=== PATIENT | female | born 1995 | race Caucasian/White ===

== ENCOUNTER 2024-01-11 09:28 | Outpatient (OUT) | payer OTHER, SELFPAY ==
--- NOTE | 2024-01-11 09:32 | US_ITS ---
[place] [id number] Patient Name: ARIEL PEREIRA MRN: [id number] date: 1995 Sex: F Assigned Patient Location: [facility] Current Patient Location: Accession/Order Number: [id number] Exam Date: 01/11/2024 09:32 Report Date: 01/12/2024 04:22 At the request of: ZULEYMA SIDDIQUI Procedure: US OB transvaginal EXAMINATION: US OB transvaginal HISTORY: MISSED MENSES COMPARISON: No relevant comparison available. FINDINGS: GESTATIONAL SAC: Present and normal appearing. YOLK SAC: Present and normal appearing. POLE: Present and normal appearing. CARDIAC: Present. UTERUS: Normal size and appearance. OVARIES: Right: Normal. Left: Normal. CERVIX: 4.1 cm in length and closed. CUL-DE-SAC: Normal. OTHER: None. AGE BY LMP: 9 weeks 1 day [place] BY LMP: 08/14/2024 AGE BY US CRL: 8 weeks 0 days [place] BY US CRL: 08/22/2024 US/US OB transvaginal IMPRESSION: 1. Single live intrauterine . Electronically authenticated by: LYDIA ABEL Date: 01/12/2024 04:22
== END 2024-01-11 09:29 | disposition home or self-care (01) ==
PROVIDERS: Visit Provider Obstetrics & Gynecology
DX: Z34.91 Encounter for supervision of normal pregnancy, unspecified, first trimester (principal); Z3A.08 8 weeks gestation of pregnancy; N92.6 Irregular menstruation, unspecified
CPT/HCPCS: 76817

== ENCOUNTER 2024-02-02 11:05 | Outpatient (OUT) | payer OTHER, SELFPAY ==
--- OUTSIDE RECORDS SUMMARY | 2024-02-02 11:10 | XMS_ITS | CCD ---
Author Organization [facility] Providers Care Rn Oncology Research Name Role Phone Keo Chavarria Primary Care Provider NONE, XXXX Primary Care Physician Unavailab KEO Castro Primary Care Physician [phone] Hui Salazar Attending Unavailable Alfredo Dejesus Attending Unavailable KEO CHAVARRIA Referring Unavailable KEO CHAVARRIA Primary Care Unavailable KEO CHAVARRIA Referring Unavailable KEO CHAVARRIA Primary Care Unavailable Leola LIRIANO Attending Unavailable Keo Chavarria DO Primary Care Provider [phone] Allergies Allergy Classification Reported Allergen(s) Allergy Type Date of Onset Reaction(s) Facility (2 sources) No Known Medication Allergies; Translations: [No Known Medication Allergies] Propensity to adverse reactions (disorder) [facility] Repository Medications Current Medications Medication Drug Class(es) Dates Sig (Normalized) Sig (Original) amoxicillin 500 mg oral capsule (1 source) Penicillin-class Antibacterial Start: 05-21-2023 take 1 capsule by mouth every twelve hours amoxicillin 500 mg Cap 500 mg = 1 cap(s), Oral, q12hr, # 20 cap(s), Refills(s) 0, Pharmacy: [facility] #[id number], 165.1, cm, 05/21/23 9:05:00 EST, Height/Length Dosing, 64, kg, 05/21/23 9:05:00 EST, Weight Dosing Start Date: 05/21/23 Status: Ordered Ethinyl Estradiol / Norgestrel (2 sources) Estrogen Start: 11-20-2018 LOW-OGESTREL 0.3-30 MG-MCG per tablet Indications: Primary dysmenorrhea TAKE 1 TABLET DAILY 84 tablet 3 11/20/2018 Active Norgestrel (4 sources) Start: 05-19-2021 norgestrel Refills(s) 0 Start Date: 05/19/21 Status: Ordered pantoprazole 40 mg delayed release oral tablet (3 sources) Proton Pump Inhibitor Start: 02-06-2019 pantoprazole (PROTONIX) tablet 40 mg Start: 02-06-2019 take 1 tablet by kim th once daily pantoprazole (PROTONIX) 20 MG tablet Take 1 tablet by mouth daily 30 tablet 0 02/06/2019 Active MV-Min-Fe Fum-FA-DH A ( 1 PO) (1 source) MV-Min- Fe Fum-FA-DHA ( 1 PO) Take by mouth Active Completed/Discontinued Medications Medication Drug Class(es) Dates Sig (Normalized) Sig (Original) aluminum & magnesium hydroxide-simethicon e (MAALOX) 30 mL, lidocaine viscous hcl (XYLOCAINE) 5 mL (GI COCKTAIL) (1 source) Start: 02-06-2019 End: 02-06-2019 aluminum & magnesium hydroxide-simethico ne (MAALOX) 30 mL, lidocaine viscous hcl (XYLOCAINE) 5 mL (GI COCKTAIL) Problems Active Problems Problem Classification Problem Date Documented Date Episodic/Chronic Menstrual disorders (4 sources) Spasmodic dysmenorrhea; 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, unspecified] Onset: 12-20-2015 12-20-2015 Chronic Other and delivery including normal (2 sources) ; Translations: [Encounter for supervision of normal , unspecified, unspecified trimester] 01-11-2024 Episodic Other screening for suspected conditions (not mental disorders or infectious disease) (2 sources) Encounter for screening for cardiovascular disorders; Translations: [Encounter for screening for malignant neoplasm of cervix] Onset: 04-02-2023 Episodic Other upper respiratory infections (4 sources) Acute pharyngitis; Translations: [Acute pharyngitis, unspecified] Onset: 08-13-2021 Episodic Superficial injury; contusion (1 source) Contusion of nose; Translations: [Contusion of nose, initial encounter] Onset: 03-12-2023 Episodic Past or Other Problems Problem Classification Problem Date Documented Da te Episodic/Chronic Abdominal pain (3 sources) Left lower quadrant pain; Translations: [Pain in pelvis] Episodic Cardiac dysrhythmias (2 sources) Bradycardia; Translations: [Bradycardia] Onset: 01-07-2013 Resolved: 09-05-2018 09-05-2018 Chronic Other liver diseases (2 sources) Elevated liver enzymes level; Translations: [Elevated liver enzymes] Onset: 01-07-2013 Resolved: 09-05-2018 09-05-2018 Episodic Other nutritional; endocrine; and metabolic disorders (2 sources) Weight loss; Translations: [Weight loss] Onset: 01-07-2013 Resolved: 09-05-2018 09-05-2018 Episodic Results Test Name Value Interpretation Reference Range Facility HCG ( test) Ql (U)o n 01-11-2024 Interpretation and review of laboratory results Normal [facility] Preg Test, Ur Negative [facility] Urinalysis macro (dipstick) panel (U)on 01-11-2024 Bilirubin, UA Negative Negative - 4(70) +++ mg/dL [facility] Blood, UA Negative Negative - 50 Kalyan/mcL [facility] Clarity, UA Clear [facility] Color, UA Yellow [facility] Glucose, UA Negative Negative - 2000(110) ++++ mg/dL [facility] Interpretation and review of laboratory results Normal [facility] Ketones, UA Negative Negative - 160(16) ++++ mg/dL [facility] Leukocytes, UA Negative Negative - 500+++ June/mcL [facility] Nitrite, UA Negative Negative - Positive [facility] pH, UA 5.5 5 - 9 [facility] Protein, UA Negative Negative - 2000(20) ++++ mg/dL [facility] Spec Grav, UA 1.02 1 - 1.03 [facility] Urobilinogen, UA 1.0 0.2 - 12 mg/dL [facility] Pre-Visit Planningon 024 Pre-Visit Planning Pre-Visit Planning From: Leola LIRIANO CNP To: Occupational Health at [facility]; Sent: 11/08/2023 08:24:20 EDT Subject: General Message: Zauber Screening Caller Name: SYEDA PEREIRA; Caller Number: Amy , Screening Lab Results: Fasting blood sugar: 74 Cholesterol TC: 127 T HDL: 59 LDL: 63 Take these results with you to your next appointment with PCP. Results: Date Result Name Value Ref Range 11/05/2023 7:40 Glucose Fasting 74 mg/dL (55 - 99) 11/05/2023 7:40 Chol 127 mg/dL (120 - 200) 11/05/2023 7:40 Trig 41 mg/dL ( - <=149) 11/05/2023 7:40 HDL 59 mg/dL 11/05/2023 7:40 LDL Direct 63 mg/dL ( - <=129) 11/05/2023 7:40 VLDL 8 mg/dL (7 - 40) Documented Labs printed Normal [facility] Basic Metabolic Profon 11-06 Anion gap [Moles/Vol] 10 mmol/L Normal - [facility] Comment on above: Performed By: #### C DP, BMP, TSHX #### [facility] [address] [place], [place] [id number] Can Dragger: Manfred Walker MD #### LIPR #### [address] [phone] Can Dragger: Henrique Madera MD BUN/CRE Ratio 18 Normal - [facility] Comment on above: Performed By: #### C CHRISTIANA BMP, TSHX #### [facility] [address], [place] [id number] Can Dragger: Manfred Walker MD #### LIPR #### [address] [id number] Can Dragger: Henrique Madera MD Calcium [Mass/Vol] 9.4 mg/dL Normal 8.6-10.4 [facility] Comment on above: Performed By: #### C DP, BMP, TSHX #### [facility] [address] [place] [address] Can Dragger: Manfred Walker MD #### LIPR #### [address] [phone] Can Dragger: Henrique Madera MD Chloride [Moles/Vol] 100 mmol/L Normal 98-107 [facility] Comment on above: Performed By: #### C DP, BMP, TSHX #### [facility] [address], [place] [phone] Can Dragger: Manfred Walker MD #### LIPR #### [facility] [address] [place], [place] [phone] Can Dragger: Henrique Madera MD CO2 [Moles/Vol] 25 mmol/L Normal 20-31 [facility] Comment on above: Performed By: #### C DP, BMP, TSHX #### [facility] [address], [place] [phone] Can Dragger: Manfred Walker MD #### LIPR #### [address] [phone] Can Dragger: Henrique Madera MD Creatinine [Mass/Vol] 0.6 mg/dL Normal 0.5-0.9 [facility] Comment on above: Performed By: #### C DP, BMP, TSHX #### [facility] [address] [place] [address] Can Dragger: Manfred Walker MD #### LIPR #### [address] [phone] Can Dragger: Henrique Madera MD GFR/1.73 sq M.predicted among non-blacks MDRD (S/P/Bld) [Vol rate/Area] mL/min/{1.73_m2} Normal >60 [facility] Comment on above: Result Comment: These results are not intended for use in patients <18 years of age. eGFR results are calculated without a race factor using the 2020 CKD-EPI equation. Careful clinical correlation is recommended, particularly when comparing to results calculated using previous equations. The CKD-EPI equation is less accurate in patients with extremes of muscle mass, extra-renal metabolism of creatine, excessive creatine ingestion, or following therapy that affects renal tubular secretion. Performed By: #### C DP, BMP, TSHX #### [facility] [address], [place] [id number] Can Dragger: Manfred Walker MD #### LIPR #### [address] [address] Can Dragger: Henrique Madera MD Glucose [Mass/Vol] 81 mg/dL Normal 70-99 [facility] Comment on above: Performed By: #### C DP, BMP, TSHX #### [facility] [address], [place] [phone] Can Dragger: Manfred Walker MD #### LIPR #### [address] [address] Can Dragger: Henrique Madera MD Potassium [Moles/Vol] 4.0 mmol/L Normal 3.7-5.3 [facility] Comment on above: Performed By: #### C DP, BMP, TSHX #### [facility] [address] [place] [address] Can Dragger: Manfred Walker MD #### LIPR #### [address] [address] Can Dragger: Henrique Madera MD Sodium [Moles/Vol] 135 mmol/L Normal 135-144 [facility] Comment on above: Performed By: #### C DP, BMP, TSHX #### [facility] [address] [place] [address] Can Dragger: Manfred Walker MD #### LIPR #### [address] [address] Can Dragger: Henrique Madera MD Urea nitrogen [Mass/Vol] 11 mg/dL Normal 6-20 [facility] Comment on above: Performed By: #### C DP, BMP, TSHX #### [facility] [address] [place] [phone] ( Can Dragger: Manfred Walker MD #### LIPR #### [address] [phone] Can Dragger: Henrique Madera MD CBC with Diffon 11-07-2023 Abs. Basophil 0.03 k/uL Normal 0.00-0.20 [facility] Comment on above: Performed By: #### C DP, BMP, TSHX #### [facility] [address] [place] [phone] ( Can Dragger: Manfred Walker MD #### LIPR #### [place] [phone] Can Dragger: Henrique Madera MD Abs.Imm.Granulocyte 0.01 k/uL Normal 0.00-0.30 [facility] Comment on above: Performed By: #### C DP, BMP, TSHX #### [facility] [address] [place] [phone] ( Can Dragger: Manfred Walker MD #### LIPR #### [place] [phone] Can Dragger: Henrique Madera MD Abs.Neutrophil (Seg) 7.15 k/uL High 2.5-7.0 [facility] Comment on above: Performed By: #### C DP, BMP, TSHX #### [facility] [address] [place] [phone] Can Dragger: Manfred Walker MD #### LIPR #### [place] [phone] Can Dragger: Henrique Madera MD Basophils/100 WBC (Bld) 0 % Normal 0-2 [facility] Comment on above: Performed By: #### C DP, BMP, TSHX #### [facility] [address] [place], [place] [phone] Can Dragger: Manfred Walker MD #### LIPR #### [place] [address] [place], [place] [phone] Can Dragger: Henrique Mdaera MD Eosinophils (Bld) [#/Vol] 0.10 10*3/uL Normal 0.00-0.40 [facility] Comment on above: Performed By: #### C DP, BMP, TSHX #### [facility] [address] [place] [address] Can Dragger: Manfred Walker MD #### LIPR #### [place] [phone] Can Dragger: Henrique Madera MD Eosinophils/100 WBC (Bld) 1 % Normal 0-5 [facility] Comment on above: Performed By: #### C DP, BMP, TSHX #### [facility] [address] [place] [phone] Can Dragger: Manfred Walker MD #### LIPR #### [place] [phone] Can Dragger: Henrique Madera MD Erythrocyte distribution width (RBC) [Ratio] 11.5 % Low 12.1-15.2 [facility] Comment on above: Performed By: #### C DP, BMP, TSHX #### [facility] [address] [place] [phone] Can Dragger: Manfred Walker MD #### LIPR #### [address] [phone] Can Dragger: Henrique Madera MD Hematocrit (Bld) [Volume fraction] 38.6 % Normal 36.0-46.0 [facility] Comment on above: Performed By: #### C DP, BMP, TSHX #### [facility] [address] [place], [place] [phone] Can Dragger: Manfred Walker MD #### LIPR #### [place] [place], [place] [phone] Can Dragger: Henrique Madera MD Hemoglobin (Bld) [Mass/Vol] 12.8 g/dL Normal 12.0-16.0 [facility] Comment on above: Performed By: #### C DP, BMP, TSHX #### [facility] [address] [place] [address] Can Dragger: Manfred Walker MD #### LIPR #### [place] [place], [place] [id number] Can Dragger: Henrique Madera MD Immature granulocytes/100 WBC (Bld) 0 % Normal 0-5 [facility] Comment on above: Performed By: #### C DP, BMP, TSHX #### [facility] [address] [place] [address] Can Dragger: Manfred Walker MD #### LIPR #### [place] [place], [place] [phone] Can Dragger: Henrique Madera MD Lymphocytes (Bld) [#/Vol] 0.65 10*3/uL Low 1.00-4.80 [facility] Comment on above: Performed By: #### C DP, BMP, TSHX #### [facility] [address] [place] [address] Can Dragger: Manfred Walker MD #### LIPR #### [address] [id number] Can Dragger: Henrique Madera MD Lymphocytes/100 WBC (Bld) 8 % Low 15-40 [facility] Comment on above: Performed By: #### C DP, BMP, TSHX #### [facility] [address] [place] [address] Can Dragger: Manfred Walker MD #### LIPR #### [place] [place] [address] Can Dragger: Henrique Madera MD MCH (RBC) [Entitic mass] 31.4 pg Normal 26.0-34.0 [facility] Comment on above: Performed By: #### C DP, BMP, TSHX #### [facility] [address] [place] [address] Can Dragger: Manfred Walker MD #### LIPR #### [place] [phone] Can Dragger: Henrique Madera MD MCHC (RBC) [Mass/Vol] 33.2 g/dL Normal 31.0-37.0 [facility] Comment on above: Performed By: #### C DP, BMP, TSHX #### [facility] [address] [place] [address] Can Dragger: Manfred Walker MD #### LIPR #### [place] [phone] Can Dragger: Henrique Madera MD MCV (RBC) [Entitic vol] 94.6 fL Normal 80.0-100.0 [facility] Comment on above: Performed By: #### C DP, BMP, TSHX #### [facility] [address] [place] [address] Can Dragger: Manfred Walker MD #### LIPR #### [address] [address] Can Dragger: Henrique Madera MD Monocytes (Bld) [#/Vol] 0.36 10*3/uL Normal 0.00-1.00 [facility] Comment on above: Performed By: #### C DP, BMP, TSHX #### [facility] [address] [place], [place] [phone] Can Dragger: Manfred Walker MD #### LIPR #### [place] [place], [place] [id number] Can Dragger: Henrique Madera MD Monocytes/100 WBC (Bld) 4 % Normal 4-8 [facility] Comment on above: Performed By: #### C DP, BMP, TSHX #### [facility] [address] [place], [place] [phone] Can Dragger: Manfred Walker MD #### LIPR #### [address] [phone] Can Dragger: Henrique Madera MD Neutrophil (Seg) 87 % High 47-75 [facility] Comment on above: Performed By: #### C DP, BMP, TSHX #### [facility] [address] [place], [place] [phone] Can Dragger: Manfred Walker MD #### LIPR #### [address] [phone] Can Dragger: Henrique Madera MD Platelet mean volume (Bld) [Entitic vol] 9.5 fL Normal 6.0-12.0 [facility] Comment on above: Performed By: #### C DP, BMP, TSHX #### [facility] [address] [place], [place] [id number] Can Dragger: Manfred Walker MD #### LIPR #### [address] [phone] Can Dragger: Henrique Madera MD Platelets (Bld) [#/Vol] 298 10*3/uL Normal 140-450 [facility] Comment on above: Performed By: #### C DP, BMP, TSHX #### [facility] [address] [place] [address] Can Dragger: Manfred Walker MD #### LIPR #### [place] [place], [place] [phone] Can Dragger: Henrique Madera MD RBC (Bld) [#/Vol] 4.08 10*6/uL Normal 4.00-5.20 [facility] Comment on above: Performed By: #### C DP, BMP, TSHX #### [facility] [address] [place] [address] Can Dragger: Manfred Walker MD #### LIPR #### [address] [id number] Can Dragger: Henrique Madera MD WBC (Bld) [#/Vol] 8.3 10*3/uL Normal 3.5-11.0 [facility] Comment on above: Performed By: #### C DP, BMP, TSHX #### [facility] [address] [place] [address] Can Dragger: Manfred Walker MD #### LIPR #### [address] [id number] Can Dragger: Henrique Madera MD HCG, Quanton 11-07-2023 HCG, Quant 2.9 mIU/mL Normal <5 [facility] Comment on above: Result Comment: Non-preg premeno <=5 Postmeno <=8 Male <=3 If HCG results do not concur with clinical observations, additional testing to confirm results is recommended. Performed By: #### B HCG #### [facility] [address] [place] [address] Can Dragger: Manfred Walker MD Lipid Profileon 11-07-2023 Cholesterol [Mass/Vol] 144 mg/dL Normal 0-199 [facility] Comment on above: Result Comment: Cholesterol Guidelines: <200 Desirable 200-240 Borderline >240 Undesirable Performed By: #### C DP, BMP, TSHX #### [facility] [address] [place], [place] [id number] Can Dragger: Manfred Walker MD #### LIPR #### [address] [address] Can Dragger: Henrique Madera MD Cholesterol in HDL [Mass/Vol] 68 mg/dL Normal >40 [facility] Comment on above: Result Comment: HDL Guidelines: <40 Undesirable 40-59 Borderline >59 Desirable Performed By: #### C DP, BMP, TSHX #### [facility] [address] [place], [place] [id number] Can Dragger: Manfred Walker MD #### LIPR #### [address] [address] Can Dragger: Henrique Madera MD Cholesterol in LDL [Mass/Vol] 68 mg/dL Normal 0-100 [facility] Comment on above: Result Comment: LDL Guidelines: <100 Desirable 100-129 Near to/above Desirable 130-159 Borderline >159 Undesirable Direct (measured) LDL and calculated LDL are not interchangeable tests. Performed By: #### C CHRISTIANA, BMP, TSHX #### [facility] [address] [place], [place] [phone] Can Dragger: Manfred Walker MD #### LIPR #### [address] [address] Can Dragger: Henrique Madera MD Cholesterol in VLDL [Mass/Vol] 8 mg/dL Normal [facility] Comment on above: Performed By: #### C DP, BMP, TSHX #### [facility] [address] [place] [address] Can Dragger: Manfred Walker MD #### LIPR #### [address] [address] Can Dragger: Henrique Madera MD Cholesterol.total/C holesterol in HDL [Mass ratio] 2.0 {ratio} Normal [facility] Comment on above: Performed By: #### C JONAS VILLEDA, TSHX #### [facility] [address] [place], [place] [phone] Can Dragger: Manfred Walker MD #### LIPR #### [address] [phone] Can Dragger: Henriuqe Madera MD Triglyceride [Mass/Vol] 42 mg/dL Normal <150 [facility] Comment on above: Result Comment: Triglyceride Guidelines: <150 Desirable 150-199 Borderline 200-499 High >499 Very high Based on AHA Guidelines for fasting triglyceride, December 2011. Performed By: #### C JONAS VILLEDA, TSHX #### [facility] [address] [place], [place] [id number] Can Dragger: Manfred Walekr MD #### LIPR #### [address] [phone] Can Dragger: Henrique Madera MD TSH w/reflex to FT4on 2023 Thyroid Stim. Horm. 0.57 uIU/mL Normal 0.30-5.00 [facility] Comment on above: Performed By: #### C JONAS VILLEDA, TSHX #### [facility] [address] [place], [place] [id number] Can Dragger: Manfred Walker MD #### LIPR #### [address] [address] Can Dragger: Henrique Madera MD Glu Fastingon 11-05-2023 Glucose [Mass/Vol] 74 mg/dL Normal 55-99 [facility] Comment on above: Performed By: #### 2 [id number] #### [facility] [address] [place] [address] Lipid Panelon 11-05-2023 Cholesterol [Mass/Vol] 127 mg/dL Normal 120-200 [facility] Comment on above: Performed By: #### 2 [id number] #### [facility] [address] [place] [address] Cholesterol in HDL [Mass/Vol] 59 mg/dL Invalid Interpretation Code [facility] Comment on above: Result Comment: '>= 60 LOW RISK' '<= 40 HIGH RISK' Performed By: #### 2 [id number] #### [facility] [address] [place] [address] Cholesterol in LDL [Mass/Vol] 63 mg/dL Normal <=129 [facility] Comment on above: Performed By: #### 2 [id number] #### [facility] [address] [place] [address] Cholesterol in VLDL [Mass/Vol] 8 mg/dL Normal 7-40 [facility] Comment on above: Performed By: #### 2 [id number] #### [facility] [address] [place] [address] Triglyceride [Mass/Vol] 41 mg/dL Normal <=149 [facility] Comment on above: Performed By: #### 2 [id number] #### [facility] [address] [place] [address] Ambulatory Visit Summaryon 0 05-21-2023 Ambulatory Visit Summary SYEDA PEREIRA :1995 Visit Date:05/21/2023 Ambulatory Visit Instructions Your Diagnosis Strep throat Sore throat Your Care Team Attending Physician - Alfredo Dejesus DO Primary Care Physician - KEO CHAVARRIA DO This Is Your Medications List amoxicillin (amoxicillin 500 mg Cap) Contact prescribing physician if questions or concerns norgestrel Discharge Vitals Temperature (Oral) 36.8 ?C Heart Rate (Peripheral) 86 Blood Pressure 124/76 Height 165.1 cm Height 65 in Weight 64 kg Weight 140.8 lb BMI 23.48 Medications What How Much When Why Instructions New amoxicillin (amoxicillin 500 mg Cap) 1 Capsules By Mouth Every 12 hours Strep throat Pickup at [id number] Unchanged norgestrel Contact prescribing physician if questions or concerns Pharmacy Information [facility] #[id number]: [address] [place], [place] [id number] [phone] Medications and Immunizations Administered Not Given influenza virus vaccine, inactivated, Patient Refuses Allergies No Known Allergies No Known Medication Allergies Problems Ongoing - Any problem that you are currently receiving treatment for. Strep throat Patient Survey You may receive a survey via text or e-mail asking about your office visit. Please share your experience with us by completing your survey. We appreciate your feedback and thank you for choosing us for your care. Normal [facility] Family Medicine Office/Clini c Noteon 05-21-2023 Family Medicine Office/Clinic Note Chief Complaint Current pt sore throat, fever, bodyaches, right ear pain HPI Staff 27 yo female here today with fever, sore throat Symptoms began 1 wk ago- worse over the weekend Complains of fever-101, sore throat, headache, diarrhea, right ear pain when swallowing Pt has been taking ibuprofen, Dayquil History of Present Illness HPI staff confirmed Review of Systems PHQ Score Initial Depression Screen Score: 0 SCORE Physical Exam Vitals & Measurements T: 36.8 ?C(Oral) HR: 86(Peripheral) BP: 124/76 SpO2: 99% HT: 65 in HT: 165.1 cm WT: 64 kg WT: 140.8 lb BMI: 23.48 Constitutional: Vital signs reviewed; Syeda is well nourished, no acute distress - patient is Afebrile (she took medication this morning) Head: Atraumatic, normocephalic Neck: Trachea is midline, there is tenderness in the anterior lymph nodes Eye: EOMI, normal conjunctiva ENT: Moist oral mucosa Pharyngeal erythema is present Tender, swollen lymph nodes are present Fever is present Lungs: Clear to auscultation, non-labored respiration Heart: Normal rate and rhythm, normal peripheral perfusion Abd: Deferred : Deferred Extremities: Deferred Skin: Warm, dry, Neurologic: Awake, alert and oriented, speech is normal Psychiatric: Cooperative, appropriate mood and affect Assessment/Plan 1. Strep throat (J02.0: Streptococcal pharyngitis) Acute Mild to moderate symptoms Centor criteria reviewed above Rapid test was POSITIVE Discussed symptomatic treatment with tylenol and/or NSAIDs Begin amoxicillin x ten days Salt water gargle Lozenges Answered all of the patient's questions F/u PRN Adult dosing of amoxicillin: 500mg BID x ten days; #20 Ordered: amoxicillin, 500 mg = 1 cap(s), Oral, q12hr, # 20 cap(s), Refills(s) 0, Pharmacy: [facility] #[id number], 165.1, cm, 05/21/23 9:05:00 EST, Height/Length Dosing, 64, kg, 05/21/23 9:05:00 EST, Weight Dosing 2. Sore throat (J02.9: Acute pharyngitis, unspecified) Ordered: Rapid Strep POC 08079 Total time spent TODAY preparing the chart, face to face with the patient and family and time spent documenting, reviewing, and ordering tests was 30 mins. Patient was counseled on the above diagnosis and treatment, all questions were answered and patient agrees to adhere to the plan above. Risk and benefits of appropriate procedures and medications were reviewed as well with patient, who voiced understanding and agreement. Patient was counseled on smoking cessation and/or continuing to abstain from nicotine/tobacco products as appropriate based on history; as smoking/nicotine can contribute to increased pain overall and decreased wound healing. Patient counseled on maintaining a healthy BMI as part of the total treatment of their pain and to reduce stress/strain on joints. Patient invited to return here for an additional appt when needed or they may call to speak with the nurse with any questions or concerns that arise. Follow-up No qualifying data available Problem List/Past Medical History Ongoing Strep throat Historical No qualifying data Medications amoxicillin 500 mg Cap, 500 mg= 1 cap(s), Oral, q12hr norgestrel Allergies No Known Allergies No Known Medication Allergies Social History Tobacco - Denies Tobacco Use, 05/19/2021 Never (less than 100 in lifetime) Tobacco Use:. Never Smokeless Tobacco Use:., 05/21/2023 Never (less than 100 in lifetime) Tobacco Use:. Never Smokeless Tobacco Use:. Cigarettes, 05/21/2021 Never (less than 100 in lifetime) Tobacco Use:. Never Smokeless Tobacco Use:., 05/19/2021 Immunizations Vaccine Date Status Comments influenza virus vaccine, inactivated - Not Given Patient Refuses influenza virus vaccine, inactivated - Not Given Current Acute Illness Moderate to Severe SARS-CoV-2 (COVID-19) mRNA BNT-162b2 vax 12/08/2020 Recorded SARS-CoV-2 (COVID-19) mRNA BNT-162b2 vax 11/17/2020 Recorded influenza virus vaccine, inactivated 11/09/2019 Recorded diphtheria/pertussis, acel/tetanus adult 08/08/2017 Recorded 2023-05-21: VIS DATE: 05/12/2014 varicella virus vaccine 11/13/2009 Recorded diphtheria/pertussis, acel/tetanus adult 11/13/2009 Recorded meningococcal conjugate vaccine 11/13/2009 Recorded poliovirus vaccine, inactivated 10/22/2002 Recorded measles/mumps/rubella virus vaccine 10/22/2002 Recorded DTaP, unspecified formulation 10/22/2002 Recorded varicella virus vaccine 09/22/1998 Recorded measles/mumps/rubella virus vaccine 09/22/1998 Recorded haemophilus b conj (PRP-OMP) vaccine 09/22/1998 Recorded DTaP, unspecified formulation 09/22/1998 Recorded haemophilus b conj (PRP-OMP) vaccine 11/04/1997 Recorded DTaP, unspecified formulation 11/04/1997 Recorded poliovirus vaccine, inactivated 08/19/1997 Recorded hepatitis B pediatric vaccine 08/19/1997 Recorded haemophilus b conj (PRP-OMP) vaccine 08/19/1997 Recorded DTaP, unspecified formulation 08/19/1997 Recorded hepatitis B pediatric vaccine 04/22/1997 [place] (more content not included)... [facility] Comment on above: Result Comment: Elec tronically Signed By: Alfredo Dejesus DO\.br\Date and Time Signed: 05/21/23 09:36 EST Provider Letteron 05-21-2023 Provider Letter May 21, 2023 SYEDA PEREIRA [address] [place] [address] : 1995 To Whom It May Concern, Please excuse above patient from work. Date of Illness: From: 05/21/2023 To: 05/22/2023 May Return to Work On: 05/23/2023 Sincerely, [facility] [address] [place] [address], [place] [address] [facility] Cytology Reporton 04-02-2023 Cytology report Cyto stain.thin prep Doc (Cvx/Vag) (NOTE) Path Number: [id number] DIAGNOSIS Imaged ThinPrep Pap - Cervical (1 monolayer slide): Specimen Adequacy: Satisfactory for evaluation. -Endocervical/transfo rmation zone component is absent. Descriptive Diagnosis: Negative for intraepithelial lesion or malignancy. Cytotech Screener: EY Electronically Signed Out Jenni Godinez CT(ASCP) ey/04/18/2023 Source of Specimen: A: Imaged ThinPrep Pap - Cervical (1 monolayer slide) HPV Reflex?.............. ........HPV if Abnormal Clinical History Oral Contraceptives Z12.4 Encounter for screening for malignant neoplasm of cervix LMP: 03/14/2023 Processing Lab: [address] [id number] Interpretation performed at [address] [id number] This Pap Test has been evaluated with the assistance of the ThinPrep Pap Test Imaging System. The Pap smear is a screening test primarily for squamous epithelial lesions, which is subject to both false negative and false positive results. Your patient should be reminded to consult you immediately if she experiences any suspicious signs or symptoms, regardless of her Pap smear result. GYNECOLOGIC CYTOLOGY REPORT Patient Name: SYEDA PEREIRA [facility] Rec: [id number] [facility] ANATOMIC PATHOLOGY [address] [place] [address]. [place], [place] [address] Normal [facility] CT Maxillofacial w/o Contras ton 03-12-2023 CT Maxillofacial w/o Contrast Exam Date/Time: 03/12/2023 12:32 EST Reason for Exam: Facial trauma, blunt;Other (please specify) Report IMPRESSION: NO DISPLACED FRACTURE OR SIGNIFICANT POSTTRAUMATIC COMPLICATION IDENTIFIED. EXAM: CT Maxillofacial w/o Contrast DATE: 03/12/2023 12:20 PM CLINICAL HISTORY: Facial trauma, blunt. COMPARISON: None available. TECHNIQUE: Spiral unenhanced imaging was obtained from above the frontal sinuses through the mandible, with routine multiplanar reconstructions performed. All CT scans at this facility use dose modulation, iterative reconstruction, and/or weight based dosing when appropriate to reduce radiation dose to as low as reasonably achievable. FINDINGS: There is no displaced fracture, organized hematoma, significant soft tissue swelling, radiodense foreign bodies, or other posttraumatic complication identified. Very small broad-based probable mucous retention cyst or mucocele is are noted within the posterior aspects of both maxillary sinuses with mild adjacent mucosal thickening. Otherwise, the paranasal sinuses are clear. The mastoid air cells and middle ear cavity or cavities, temporomandibular joints, mandible, and visualized cervical spine and intracranial structures are unremarkable. Ordering Provider: Deanna Bourne FINAL REPORT Dictated: 03/12/2023 12:51 pm Jeff Barrientos MD Signed (Electronic Signature): 03/12/2023 12:51 pm Signed by: Jeff Barrientos MD Transcribed by: CHRISTIANA Technologist: SHIRLEY [facility] Consent for Treatmenton 02-17 Consent for Treatment [id number] Normal [facility] Discharge Instructionson Discharge Instructions [id number] Normal [facility] ED Clinical Summaryon 2022 ED Clinical Summary [place] [id number] ED Clinical Summary Person Information Name: SYEDA PEREIRA/[facility] Age: 27 Years : 1995 Sex: Female Language: Irish PCP: KEO CHAVARRIA DO Marital Status: Visit Id: Visit Reason: Facial injury; HIT FACE ON CAR DOOR Speciality: Acuity: 4 Enc Type: Emergency Med Service: Emergency Arrival: 03/12/2023 11:08:26 Discharge: 03/12/2023 13:21:25 LOS: 000 02:13 Checkin: 03/12/2023 11:08:26 Checkout: 03/12/2023 13:21:25 Dispo Type: Home (Routine DC) EVENTS: Event Name Event Status Request Date/Time Start Date/Time Complete Date/Time Arrive Complete 03/12/2023 11:08:26 03/12/2023 11:08:26 03/12/2023 11:08:26 Document Home Meds Request 03/12/2023 11:08:26 Triage Complete 03/12/2023 11:08:26 03/12/2023 11:15:45 03/12/2023 11:15:45 Bed Assign Complete 03/12/2023 11:11:53 03/12/2023 11:11:53 03/12/2023 11:11:53 Dr Exam Complete 03/12/2023 11:11:53 03/12/2023 11:12:06 03/12/2023 11:12:06 RN Exam Complete 03/12/2023 11:11:53 03/12/2023 13:15:17 03/12/2023 13:15:17 Registration Complete 03/12/2023 11:12:06 03/12/2023 11:27:16 03/12/2023 11:27:16 Dr Exam Complete 03/12/2023 11:15:46 03/12/2023 11:15:46 03/12/2023 11:15:46 Reg Complete Request 03/12/2023 11:27:16 Reg Bed Request Complete 03/12/2023 11:27:16 03/12/2023 11:27:16 03/12/2023 11:27:16 CT Complete 03/12/2023 11:38:27 03/12/2023 12:20:17 03/12/2023 12:32:43 Discharge Complete 03/12/2023 13:01:13 03/12/2023 13:28:35 03/12/2023 13:28:35 Transfer Complete 03/12/2023 13:28:35 03/12/2023 13:28:35 03/12/2023 13:28:35 ADDRESS: [address] [place] [address] SIMON Janes [facility] [id number] [facility] DOC NOTES: MEDICAL INFORMATION: Prescriptions Given: Medications to Continue with No Changes Other Medications norgestrel PATIENT EDUCATION INFORMATION: Instructions: Contusion, Pbzq-pv-Yvfl Follow up: With: Address: When: KEO CHAVARRIA DO, [place] [address] In 3 days 03/15/2023 DIAGNOSIS: 1:Nasal contusion Normal [facility] ED Note-Physicianon 03-12-20 ED Note-Physician Basic Information Time Seen: Deanna Bourne PA-C 03/12/2023 11:12 Chief Complaint patient presents with nose pain after hitting herself in face with car door. denies fall or LOC. denies use of blood thinner History of Present Illness 27-year-old female presents with swelling to the bridge of her nose after she hit herself with a car door as she was in a hurry. Denies loss of consciousness. Denies dizziness, weakness, vision changes, n/v Review of Systems Review of systems negative unless otherwise stated in HPI Physical Exam Vitals & Measurements T: 36.7 ?C(Oral) HR: 60(Peripheral) RR: 20 BP: 152/106 SpO2: 98% HT: 165.10 cm WT: 64.3 kg BMI: 23.59 GENERAL: ALERT, NO ACUTE DISTRESS, talking in full and complete sentences SKIN: WARM, DRY, INTACT; NO CYANOSIS, NO RASH HEAD: NORMOCEPHALIC, ATRAUMATIC ENT: EYE: PERRL, EOMI, NORMAL CONJUNCTIVA, NO DISCHARGE NOSE: NARES PATENT, no bleeding, swelling and ecchymosis to bridge of nose MOUTH: ORAL MUCOSA MOIST THROAT: NO STRIDOR NECK: SUPPLE, TRACHEA MIDLINE, FROM RESPIRATORY: NON-LABORED RESPIRATIONS EXTREMITIES: FROM X 4 NEUROLOGICAL: A&OX3 PSYCHIATRIC: COOPERATIVE, APPROPRIATE MOOD AND AFFECT Medical Decision Making No acute finding on final read of CT maxillofacial and will be diagnosed with contusion follow-up family doctor. Afebrile, not tachycardic, not tachypneic, nontoxic-appearing, tolerating p.o. and ambulating at baseline and hemodynamically stable to be discharged home. Answered all questions. Patient in agreement with treatment. Assessment/Plan 1. Nasal contusion (S00.33XA: Contusion of nose, initial encounter) Orders: CT Maxillofacial w/o Contrast Disposition Plan Patient Discharge Condition Stable Discharge Disposition Home Discharge Prescription List Prescriptions No active prescription medications Follow-up With When Contact Information KEO CHAVARRIA DO In 3 days 03/15/[address] [place] [address]- Additional Instructions: Patient Education Contusion, Abev-hg-Jggt Attestation This visit was performed by both the physician and an APC. I performed all aspects of the MDM as documented. Problem List/Past Medical History Ongoing No chronic problems Historical No qualifying data Medications Inpatient No active inpatient medications Home norgestrel Allergies No Known Allergies No Known Medication Allergies Social History Tobacco - Denies Tobacco Use, 05/19/2021 Never (less than 100 in lifetime) Tobacco Use:. Never Smokeless Tobacco Use:., 08/13/2021 Never (less than 100 in lifetime) Tobacco Use:. Never Smokeless Tobacco Use:. Cigarettes, 05/21/2021 Never (less than 100 in lifetime) Tobacco Use:. Never Smokeless Tobacco Use:., 05/19/2021 Lab Results No qualifying data available. Diagnostic Results CT Maxillofacial w/o Contrast 03/12/23 12:54:18 IMPRESSION: NO DISPLACED FRACTURE OR SIGNIFICANT POSTTRAUMATIC COMPLICATION IDENTIFIED. EXAM: CT Maxillofacial w/o Contrast DATE: 03/12/2023 12:20 PM CLINICAL HISTORY: Facial trauma, blunt. COMPARISON: None available. TECHNIQUE: Spiral unenhanced imaging was obtained from above the frontal sinuses through the mandible, with routine multiplanar reconstructions performed. All CT scans at this facility use dose modulation, iterative reconstruction, and/or weight based dosing when appropriate to reduce radiation dose to as low as reasonably achievable. FINDINGS: There is no displaced fracture, organized hematoma, significant soft tissue swelling, radiodense foreign bodies, or other posttraumatic complication identified. Very small broad-based probable mucous retention cyst or mucocele is are noted within the posterior aspects of both maxillary sinuses with mild adjacent mucosal thickening. Otherwise, the paranasal sinuses are clear. The mastoid air cells and middle ear cavity or cavities, temporomandibular joints, mandible, and visualized cervical spine and intracranial structures are unremarkable. Ordering Provider: Deanna Bourne Signed By: Floyd JULIEN, Jeff Marinelli [facility] Comment on above: Result Comment: Elec tronically Signed By: Deanna Bourne PA-C\.br\Date and Time Signed: 03/12/23 13:05 EST\.br\Electronically Co-Signed By: Hui Salazar M.D.\.br\Date and Time Co-Signed: 03/12/23 16:00 [facility] ED Patient Education Noteon 03-12-2023 ED Patient Education Note Orthopedics Contusion A contusion is a deep bruise. This is a result of an injury that causes bleeding under the skin. Symptoms of bruising include pain, swelling, and discolored skin. The skin may turn blue, purple, or yellow. Follow these instructions at home: Managing pain, stiffness, and swelling You may use RICE. This stands for: ? Resting. ? Icing. ? Compression, or putting pressure. ? Elevating, or raising the injured area. To follow this method, do these actions: ? Rest the injured area. ? If told, put ice on the injured area. ? Put ice in a plastic bag. ? Place a towel between your skin and the bag. ? Leave the ice on for 20 minutes, 2?3 times per day. ? If told, put light pressure (compression) on the injured area using an elastic bandage. Make sure the bandage is not too tight. If the area tingles or becomes numb, remove it and put it back on as told by your doctor. ? If possible, raise (elevate) the injured area above the level of your heart while you are sitting or lying down. General instructions ? Take apmm-rnm-nmhbhgj and prescription medicines only as told by your doctor. ? Keep all follow-up visits as told by your doctor. This is important. Contact a doctor if: ? Your symptoms do not get better after several days of treatment. ? Your symptoms get worse. ? You have trouble moving the injured area. Get help right away if: ? You have very bad pain. ? You have a loss of feeling (numbness) in a hand or foot. ? Your hand or foot turns pale or cold. Summary ? A contusion is a deep bruise. This is a result of an injury that causes bleeding under the skin. ? Symptoms of bruising include pain, swelling, and discolored skin. The skin may turn blue, purple, or yellow. ? This condition is treated with rest, ice, compression, and elevation. This is also called RICE. You may be given przw-bto-gjieowg medicines for pain. ? Contact a doctor if you do not feel better, or you feel worse. Get help right away if you have very bad pain, have lost feeling in a hand or foot, or the area turns pale or cold. This information is not intended to replace advice given to you by your health care provider. Make sure you discuss any questions you have with your health care provider. Document Revised: 12/29/2021 Document Reviewed: 12/29/2021 Elsevier Patient Education ? 2022 [employer] Normal [facility] ED Patient Summaryon 023 ED Patient Summary [address] [address] Patient Discharge Instructions Person Information Name: SYEDA PEREIRA Age: 27 Years Arrival Date: 03/12/2023 11:08:26 Discharge Diagnosis: 1:Nasal contusion Primary Care Physician: KEO CHAVARRIA DO Provider Information Primary Provider: Hui Salazar M.D. Advanced Deputy Coroner Investigator:None The exam and treatment you received in the Emergency Department were for an urgent problem and are not intended as complete care. It is important that you follow up with a doctor, nurse practitioner, or physician?s food trades assistants for ongoing care. If your symptoms become worse or you do not improve as expected and you are unable to reach your usual health care provider, you should return to the Emergency Department. We are available 24 hours a day. SYEDA PEREIRA has been given the following list of patient education materials, prescriptions and follow-up instructions: Follow-up Instructions: With: Address: When: KEO CHAVARRIA DO [address] [place] [id number] In 3 days 03/15/2023 In the event that this physician does not participate in your insurance network, please consult with your insurance company to find a nearby participating provider. Patient Education Materials: Contusion, Mfzb-ad-Fdom A MESSAGE TO ALL PATIENTS REGARDING OPIOIDS PRESCRIPTION OPIOIDS: WHAT YOU NEED TO KNOW Prescription opioids can be used to help relieve bmsplkbd-tz-fehtuk pain and are often prescribed following a surgery or injury, or for certain health conditions. These medications can be an important part of the treatment but also come with serious risks. It is important to work with your healthcare provider to make sure you are getting the safest, most effective care. WHAT ARE THE RISKS AND SIDE EFFECTS OF OPIOID USE? Prescription opioids carry serious risks of addiction and overdose, especially with prolonged use. An opioid overdose, often marked by slowed breathing, can cause sudden . The use of prescription opioids can have a number of side effects as well, even when taken as directed: ? Tolerance?meaning you might need to take more of the medication for the same pain relief ? Physical dependence?meaning you have symptoms of withdrawal when a medication is stopped ? Increased sensitivity to pain ? Constipation ? Nausea, vomiting, and dry mouth ? Sleepiness and dizziness ? Confusion ? Depression ? Low levels of testosterone that can result in lower sex drive, energy, and strength ? Itching and sweating RISKS ARE GREATER WITH: ? History of drug misuse, substance use disorder, or overdose ? Mental health conditions (such as depression or anxiety) ? Sleep apnea ? Older age (65 years and older) ? Avoid alcohol while taking prescription opioids. Also, unless specifically advised by your health care provider, medications to avoid include: ? Benzodiazepines (such as Xanax or Valium) ? Muscle relaxants (such as Soma or Flexeril) ? Hypnotics (such as Ambien or Lunesta) ? Other prescription opioids KNOW YOUR OPTIONS Talk to your health care provider about ways to manage your pain that don?t involve prescription opioids. Some of these options may actually work better and have fewer risks and side effects. Options may include: ? Pain relievers such as acetaminophen, ibuprofen, and naproxen ? Some medication that are also used for depression or seizures ? Physical therapy and exercise ? Cognitive behavioral therapy, a psychological, goal-directed approach, in which patients learn how to modify physical, behavioral, and emotional triggers of pain and stress. IF YOU ARE PRESCRIBED OPIOIDS FOR PAIN: ? Never take opioids in greater amounts or more often than prescribed. ? Follow up with your primary health care provider. o Work together to create a plan on how to manage your pain. o Talk about ways to help manage your pain that don?t involve prescription opioids. o Talk about any and all concerns and side effects. ? Help prevent misuse and abuse o Never sell or share prescription opioids. o Never use another person?s prescription opioids. ? Store prescription opioids in a secure place and out of reach of others (this may include visitors, children, friends, and family). ? Safely dispose of unused prescription opioids: Find your community drug take-back program or your pharmacy mail-back program, or flush them down the toilet, following guidance from the Food and Drug Administration (www.fda.gov/Drugs/Re sourcesForYou). ? Visit www.cdc.gov/drugoverd ose to learn about the risks of opioids abuse and overdose. ? If you believe you may be struggling with addiction, tell your health urgent care nurse practitioner and ask for guidance or call [facility]?S National Helpline at 8-430-979-SBAL. r Source: Department of [facility] and (more content not included)... Normal [facility] Otheron 02-07-2019 Normal pelvic ultrasound. [place], [place] EXAM: US PELVIS COMPLETE, US NON OB TRANSVAGINAL HISTORY: R10.32 23-year-old female with left-sided abdominal pelvic pain 3 days. COMPARISON: None. TECHNIQUE: Transabdominal and transvaginal scan pelvis. FINDINGS: The abdominal and transvaginal scans of the pelvis are normal. Uterus: 7 cm longitudinal by 2.5 cm AP and 3.4 cm transverse. Right ovary: 2.1 x 1.3 x 2.4 cm. Left ovary: 2.7 x 1.1 x 2.0 cm. The endometrial thickness is normal at 2 mm. No free fluid. [place], [place] Michael, [facility] Incoming Radiant Results From [employer]/Answer.To - 02/07/2019 7:08 PM EST EXAM: US PELVIS COMPLETE, US NON OB TRANSVAGINAL HISTORY: R10.32 23-year-old female with left-sided abdominal pelvic pain 3 days. COMPARISON: None. TECHNIQUE: Transabdominal and transvaginal scan pelvis. FINDINGS: The abdominal and transvaginal scans of the pelvis are normal. Uterus: 7 cm longitudinal by 2.5 cm AP and 3.4 cm transverse. Right ovary: 2.1 x 1.3 x 2.4 cm. Left ovary: 2.7 x 1.1 x 2.0 cm. The endometrial thickness is normal at 2 mm. No free fluid. IMPRESSION: Normal pelvic ultrasound. [facility] [place] CBC Auto Differentialon 01-18 Basophils (Bld) [#/Vol] 0.00 10*3/uL [place], [place] Basophils/100 WBC (Bld) 0 % 0 - 2 % [place] Differential Type YES [place], [place] Eosinophils (Bld) [#/Vol] 0.10 10*3/uL [place] Eosinophils/100 WBC (Bld) 1 % 0 - 5 % [place] Erythrocyte distribution width (RBC) [Ratio] 12.4 % 12.1 - 15.2 % [place] Hematocrit (Bld) [Volume fraction] 44.2 % 36 - 46 % [place] Hemoglobin (Bld) [Mass/Vol] 14.8 g/dL 12 - 16 g/dL [place] Lymphocytes (Bld) [#/Vol] 3.30 10*3/uL [place] Lymphocytes/100 WBC (Bld) 33 % 15 - 40 % [place] MCH (RBC) [Entitic mass] 30.6 pg 26 - 34 pg [place] MCHC (RBC) [Mass/Vol] 33.5 g/dL 31 - 37 g/dL [place] MCV (RBC) [Entitic vol] 91.4 fL 80 - 100 fL [place] Monocytes (Bld) [#/Vol] 0.40 10*3/uL [place] Monocytes/100 WBC (Bld) 4 % 4 - 8 % [place] Platelet mean volume (Bld) [Entitic vol] NOT REPORTED 6 - 12 fL [place] Platelets (Bld) [#/Vol] NOT REPORTED [place] Platelets (Bld) [#/Vol] 434 10*3/uL [place] RBC (Bld) [#/Vol] 4.84 10*6/uL 4 - 5.2 m/uL [place], [place] RBC morphology finding Nom (Bld) NOT REPORTED [place] Segmented neutrophils/100 WBC (Bld) 62 % 47 - 75 % [place] Segs Absolute 6.30 [place] WBC (Bld) [#/Vol] NOT REPORTED per 100 WBC [place], [place] WBC (Bld) [#/Vol] 10.2 10*3/uL [place] WBC Morphology NOT REPORTED [place], [place] Comprehensive Metabolic Pane vania 02-06-2019 Albumin [Mass/Vol] 5.1 g/dL 3.5 - 5.2 g/dL [place] Albumin/Globulin [Mass ratio] NOT REPORTED [place] ALP [Catalytic activity/Vol] 59 U/L 35 - 104 U/L [place] ALT [Catalytic activity/Vol] 29 U/L 5 - 33 U/L [place] Anion gap [Moles/Vol] 12 mmol/L 9 - 17 mmol/L [place] AST [Catalytic activity/Vol] 22 U/L <32 [place] Bilirubin Ql (U) 0.22 mg/dL Low 0.3 - 1.2 mg/dL [place] Bun/Cre Ratio 14 [place] Calcium [Mass/Vol] 10.4 mg/dL 8.6 - 10. 4 mg/dL [place] Chloride [Moles/Vol] 100 mmol/L 98 - 107 mmol/L [place] CO2 [Moles/Vol] 26 mmol/L 20 - 31 mmol/L [place] Creatinine [Mass/Vol] 0.86 mg/dL 0.5 - 0.9 mg/dL [place] GFR >60 >60 mL/min [place] GFR Non- >60 >60 mL/min [place] GFR/1.73 sq M predicted among non-blacks MDRD (S/P/Bld) [Vol rate/Area] [place] Comment on above: Average GFR for 20-2 9 years old: 116 mL/min/1.73sq m Chronic Kidney Disease: <60 mL/min/1.73sq m Kidney failure: <15 mL/min/1.73sq m eGFR calculated using average adult body mass. Additional eGFR calculator available at: http://www.SocialSafe.Swivl/multiple_crcl_2011.htm GFR/1.73 sq M predicted among non-blacks MDRD (S/P/Bld) [Vol rate/Area] NOT REPORTED [place] Glucose [Mass/Vol] 92 mg/dL 70 - 99 mg/dL [place] Interpretation and review of laboratory results Abnormal [place] Potassium [Moles/Vol] 3.9 mmol/L 3.7 - 5.3 mmol/L [place] Protein [Mass/Vol] 8.7 g/dL High 6.4 - 8.3 g/dL [place] Sodium [Moles/Vol] 138 mmol/L 135 - 144 mmol/L [place] Urea nitrogen [Mass/Vol] 12 mg/dL 6 - 20 mg/dL [place] Lipaseon 02-06-2019 Lipase [Catalytic activity/Vol] 28 U/L 13 - 60 U/L [place] Otheron 02-06-2019 Immature granulocytes (Bld) [#/Vol] NOT REPORTED [place], [place] , Urineon 9 Beta HCG ( test) Ql (U) Negative NEGATIVE [place] Urinalysis with Microscopico n 02-06-2019 Amorphous, UA NOT REPORTED None [place], [place] Bacteria, UA NOT REPORTED None [place] Bilirubin Urine Negative NEGATIVE [place], [place] Casts UA NOT REPORTED /LPF [place], [place] Color, UA YELLOW YELLOW [place] Crystals UA NOT REPORTED None /HPF [place] Epithelial Cells UA 2 TO 5 /HPF [place] Glucose, Ur Negative NEGATIVE [place] Interpretation and review of laboratory results Abnormal [place] Ketones Ql (U) Negative NEGATIVE [place] Leukocyte esterase Test strip Ql (U) Negative NEGATIVE [place] Mucus, UA RARE Abnormal None [place] Nitrite, Urine Negative NEGATIVE [place] Other Observations UA NOT REPORTED NOT REQ. [place] pH, UA 7.0 [place] Protein (U) [Mass/Vol] 1+ Abnormal NEGATIVE [place] RBC (U) [#/Vol] 0 TO 2 [facility], [place] Renal Epithelial, Urine NOT REPORTED 0 /HPF [facility] Specific [place], UA 1.010 [facility] Trichomonas, UA NOT REPORTED None [facility] [place] Turbidity UA CLEAR CLEAR [facility] Urinalysis Comments [facility] Urine Hgb 1+ Abnormal NEGATIVE [facility] Urobilinogen, Urine Normal Normal [facility] WBC, UA NOT REPORTED 0 /HPF [facility], [place] Yeast, UA NOT REPORTED None [facility] - [facility] Progress Noteon 08-08-2017 HIM IP Note OR Material Flow Analyst [facility] Vital Signs Date Time Vital Sign Value Performing Clinician Facility 05-21-2023 09:02-0500 Blood Pressure Location [facility] 05-21-2023 09:02-0500 Body temperature 98.24 [degF] [facility] 05-21-2023 09:02-0500 Diastolic blood pressure 76 mm[Hg] [facility] 05-21-2023 09:02-0500 Heart rate 86 /min [facility] 05-21-2023 09:02-0500 SaO2% (BldA) [Mass fraction] 99 % [facility] 05-21-2023 09:02-0500 Systolic blood pressure 124 mm[Hg] [facility] 03-12-2023 11:12-0500 Body temperature 98.06 [degF] [facility] 03-12-2023 11:12-0500 Diastolic blood pressure 106 mm[Hg] [facility] 03-12-2023 11:12-0500 Heart rate 60 /min [facility] 03-12-2023 11:12-0500 Respiratory rate 20 /min [facility] 03-12-2023 11:12-0500 SaO2% (BldA) [Mass fraction] 98 % [facility] 03-12-2023 11:12-0500 Systolic blood pressure 152 mm[Hg] [facility] 08-13-2021 10:48-0400 Blood Pressure Location Hayde METCALF [facility] 08-13-2021 10:48-0400 Body temperature 98.24 [degF] Hayde METCALF [facility] 08-13-2021 10:48-0400 Diastolic blood pressure 70 mm[Hg] Hayde METCALF [facility] 08-13-2021 10:48-0400 Heart rate 69 /min Hayde METCALF [facility] 08-13-2021 10:48-0400 SaO2% (BldA) [Mass fraction] 98 % Hayde METCALF [facility] 08-13-2021 10:48-0400 Systolic blood pressure 110 mm[Hg] Hayde METCALF [facility] 02-06-2019 19:09-0500 BMI (Body Mass Index) 23.24 kg/m2 [facility] 02-06-2019 19:09-0500 Body Temperature 97.7 [degF] [facility] 02-06-2019 19:09-0500 Body weight 65.32 kg [facility], [place] 02-06-2019 19:09-0500 BP Diastolic 95 mm[Hg] [facility] [place] 02-06-2019 19:09-0500 BP Systolic 136 mm[Hg] [facility] [place] 02-06-2019 19:09-0500 Height [facility].6 cm [facility] [place] 02-06-2019 19:09-0500 Pulse (Heart Rate) 76 /min [facility], [place] 02-06-2019 19:09-0500 Pulse Oximetry 99 % [facility] [place] 02-06-2019 19:09-0500 Respiratory Rate 18 /min [place] Encounters Encounter Date Encounter Type Care Provider Facility Start: 01-11-2024 End: 01-11-2024 Office outpatient visit 5 minutes [facility] Elisabeth Nurse [facility] Comment on above: GA: 9w1d Start: 01-11-2024 End: 01-11-2024 ambulatory Not Available Start: 11-07-2023 End: 11-07-2023 [facility] Start: 11-05-2023 End: 11-05-2023 ambulatory Leola Anel DEANDRA Facility:[facility] Start: 05-21-2023 End: 05-22-2023 ambulatory Alfredo Dejesus Facility:[facility] Start: 05-21-2023 End: 05-21-2023 Patient encounter procedure Alfredo Dejesus [facility] Start: 04-02-2023 End: 04-02-2023 ambulatory [facility] Start: 03-12-2023 End: 03-12-2023 Emergency department patient visit Beevickey Raderbelkis Facility:[facility] Start: 03-12-2023 End: 03-12-2023 [facility] Start: 08-13-2021 End: 08-13-2021 Lab Drop off [facility]de [facility] Start: 08-13-2021 End: 08-13-2021 Patient encounter procedure Hayde METCALF [facility] Start: 02-07-2019 End: 02-09-2019 Subsequent hospital visit by physician [facility] Ultrasound Room [facility] Ultrasound Comment on above: Left lower quadrant abdominal pain; Pelvic pain Start: 02-06-2019 End: 02-06-2019 Emergency department patient visit Veselin Dereck Work Phone: [facility] ED Comment on above: Left lower quadrant abdominal pain (Primary Dx) Procedures Date Procedure Procedure Detail Performing Clinician Start: 01-11-2024 Urnls dip stick/tabl et rgnt non-auto w/o micrscp Jasbir Elisabeth DO Work Phone: Start: 02-07-2019 Us pelvic nonobstetr ic real-time image complete Veselin Dereck Work Phone: Start: 02-07-2019 Us transvaginal Veselin Dereck Work Phone: Start: 02-06-2019 Urine test visual color cmprsn meths Veselin Dereck Work Phone: Start: 02-06-2019 Urnls dip stick/tabl et reagent auto microscopy Veselin Dereck Work Phone: Start: 02-06-2019 Assay of lipase Veselin Dereck Work Phone: Start: 02-06-2019 Blood count complete auto&auto difrntl wbc Veselin Dereck Work Phone: Start: 02-06-2019 Comprehensive metabo lic panel Veselin Dereck Work Phone: Plan of Treatment Date Care Activity Detail Author Start: 08-09-2027 DTaP/Tdap/Td vaccine (8 - Td) DTaP/Tdap/Td vaccine (8 - Td) [place] Start: 02-04-2024 End: 02-04-2024 Patient encounter procedure 02/04/2024 2:20 PM EST Routine [facility] [address] [place] [id number] Jasbir Barber DO [address] [place] [address] [facility] Start: 01-11-2024 End: 01-10-2025 ABO/Rh ABO/Rh Lab Routine Missed menses , unspecified gestational age Expected: 01/11/2024 (Approximate), Expires: 01/10/2025 [facility] Comment on above: Expected: 01/11/2024 (Approximate), Expires: 01/10/2025 Start: 01-11-2024 End: 01-10-2025 Blood type and Indirect antibody screen panel - Blood Type and screen Lab Routine Missed menses , unspecified gestational age Expected: 01/11/2024 (Approximate), Expires: 01/10/2025 [facility] Work Phone: Comment on above: Expected: 01/11/2024 (Approximate), Expires: 01/10/2025 Start: 01-11-2024 End: 01-10-2025 Drugs of abuse panel - Urine by Screen method Rapid drug screen, urine Lab Routine , unspecified gestational age Encounter for supervision of normal first in first trimester Expected: 01/11/2024 (Approximate), Expires: 01/10/2025 [facility] Comment on above: Expected: 01/11/2024 (Approximate), Expires: 01/10/2025 Start: 01-11-2024 End: 01-10-2025 US Pelvis transvaginal US OB transvaginal Imaging Routine Missed menses Expected: 01/11/2024 (Approximate), Expires: 01/10/2025 [facility] Comment on above: Expected: 01/11/2024 (Approximate), Expires: 01/10/2025 Start: 11-18-2023 Influenza vaccination Influenza Vacc ine (#1) [facility] Start: 09-05-2021 Cervical cancer screen Cervical canc er [place] Start: 02-07-2019 End: 03-08-2019 US Pelvis Complete US Pelvis Complete Imaging Routine Left Lower Quadrant Abdominal Pain Expected: 02/07/2019, Expires: 03/08/2019 [place] Comment on above: Expected: 02/07/2019 , Expires: 03/08/2019 Start: 11-17-2018 Influenza vaccination Flu vaccine (# 1) [place], [place] Start: 2012 Chlamydia screen Chlamydia screen [place], [place] Start: 12-17-2011 HIV screen HIV screen [place], [place] Start: 12-17-2007 HPV vaccine (1 - Fem risa 2-dose series) HPV vaccine (1 - Female 2-dose series) [place] Bacteria identified in Urine by Culture Urine culture Microbiology Routine Missed menses Ordered: 01/11/2024 [facility] Comment on above: Ordered: 01/11/2024 CBC W Auto Different ial panel - Blood CBC and differential Lab Routine Missed menses , unspecified gestational age Ordered: 01/11/2024 [facility] Comment on above: Ordered: 01/11/2024 Hemoglobin A1c/Hemoglobin.total in Blood Hemoglobin A1c Lab Routine Missed menses , unspecified gestational age Ordered: 01/11/2024 [facility] Comment on above: Ordered: 01/11/2024 Hepatitis B virus surface Ag [Presence] in Serum or Plasma by Immunoassay Hepatitis B surface antigen Lab Routine Missed menses , unspecified gestational age Ordered: 01/11/2024 [facility] Comment on above: Ordered: 01/11/2024 Hepatitis C virus Ab [Presence] in Serum or Plasma by Immunoassay Hepatitis C antibody Lab Routine Missed menses , unspecified gestational age Ordered: 01/11/2024 [facility] Comment on above: Ordered: 01/11/2024 HIV-1/HIV-2 antigen/antibody combination immunoassay HIV-1 and HIV-2 antibodies Lab Routine Missed menses , unspecified gestational age Ordered: 01/11/2024 [facility] Comment on above: Ordered: 01/11/2024 Reagin Ab [Presence] in Serum by RPR RPR Lab Routine Missed menses , unspecified gestational age Ordered: 01/11/2024 [facility] Comment on above: Ordered: 01/11/2024 Rubella antibody, IgG Rubella an tibody, IgG Lab Routine Missed menses , unspecified gestational age Ordered: 01/11/2024 [facility] Comment on above: Ordered: 01/11/2024 Immunizations Immunization Date Immunization Notes Care Provider Pinky grajeda 12-08-2020 SARS-CoV-2 (COVID-19 ) mRNA BNT-162b2 vax [facility] 11-17-2020 SARS-CoV-2 (COVID-19 ) mRNA BNT-162b2 vax [facility] 11-09-2019 influenza virus vaccine, unspecified formulation [facility] 08-08-2017 tetanus toxoid, reduced diphtheria toxoid, and acellular pertussis vaccine, adsorbed [facility] Comment on above: Result Comment: 2023: VIS DATE: 05/12/2014 11-13-2009 meningococcal ACWY vaccine, unspecified formulation [facility] 11-13-2009 tetanus toxoid, reduced diphtheria toxoid, and acellular pertussis vaccine, adsorbed [facility] 11-13-2009 varicella virus vaccine [facility] 10-22-2002 DTaP, unspecified formulation [facility] 10-22-2002 measles, mumps and rubella virus vaccine [facility] 10-22-2002 poliovirus vaccine, unspecified formulation [facility] 09-22-1998 DTaP, unspecified formulation [facility] 09-22-1998 haemophilus influenz ae type b vaccine, PRP-OMP conjugate [facility] 09-22-1998 measles, mumps and rubella virus vaccine [facility] 09-22-1998 varicella virus vaccine [facility] 11-04-1997 DTaP, unspecified formulation [facility] 11-04-1997 haemophilus influenz ae type b vaccine, PRP-OMP conjugate [facility] 08-19-1997 DTaP, unspecified formulation [facility] 08-19-1997 haemophilus influenz ae type b vaccine, PRP-OMP conjugate [facility] 08-19-1997 hepatitis B vaccine, pediatric or pediatric/adolescent dosage [facility] 08-19-1997 poliovirus vaccine, unspecified formulation [facility] 04-22-1997 DTaP, unspecified formulation [facility] 04-22-1997 hepatitis B vaccine, pediatric or pediatric/adolescent dosage [facility] 04-22-1997 Hib, unspecified formulation [facility] 1996 hepatitis B vaccine, pediatric or pediatric/adolescent dosage [facility] NEGATED: Highlighted row has not occurred!05-21-2023 influenza virus vaccine, unspecified formulation [facility] Care Payers Date Payer Category Payer Private Health Insurance [employer] [id number] 2022 Unknown [id number] 2015 Unknown [employer] [address] xxxxxxxxxxxx 2015-Present [phone] [address] [place] [address] xxxxxxxxxxxx [id number] 1996 Unknown [id number] 1996 Unknown [id number] 1996 Unknown [id number] 1996 Unknown [id number] 1996 Unknown [id number] 1996 Unknown [id number] Social History Date Type Detail Facility Start: 02-06-2019 End: 05-21-2023 Tobacco smoking status NHIS [place] Start: 02-06-2019 Alcohol intake Current non-dr convex grinder of alcohol (finding) [place] Start: 1996 Sex Assigned At Not on file [place] Tobacco smoking status Never [facility] Sex Assigned At Female [facility] Tobacco smoking status [facility] Tobacco smoking consumption unknown [facility] Start: 11-22-2023 [facility] Functional Status Date Assessment Result Facility 05-21-2023 Functional Status N/A [facility] 03-12-2023 Functional Status N/A [facility] History of Present illness Narrative 01-11-2024 Betty Bradley, VIRIDIANA - 01/11/2024 10:00 AM EDT Note Date & Type Note Facility 01-11-2024 History of Presen t illness Narrative Reason for Appointment: Patient ID: Syeda Pereira is a 28 y.o. female who presents for Amenorrhea Patient presents today for a Nurse OB Intake appointment. Patient is 9w1d with a Estimated Date of Delivery: 08/14/24 OB History Para Term AB Living 1 SAB IAB Ectopic Multiple Live Births # Outcome Date GA Lbr Nicholas/2nd Weight Sex Type Anes PTL Lv 1 Current Current Medications: has a current medication list which includes the following prescription(s): mv-min-fe fum-fa-dha. Medical History: Active Ambulatory Problems Diagnosis Date Noted No Active Ambulatory Problems Resolved Ambulatory Problems Diagnosis Date Noted No Resolved Ambulatory Problems No Additional Past Medical History Family History Problem Relation Name Age of Onset Thyroid cancer Cousin Social History Tobacco Use Smoking status: Not on file Smokeless tobacco: Not on file Substance Use Topics Alcohol use: Not on file Drug use: Not on file History reviewed. No pertinent surgical history. No Known Allergies Vitals: There is no height or weight on file to calculate BMI. BP: Patient's last menstrual period was 11/08/2023. Assessment/Plan Diagnoses and all orders for this visit: Missed menses - Type and screen; Future - ABO/Rh; Future - CBC and differential - Hemoglobin A1c - RPR - Rubella antibody, IgG - Hepatitis B surface antigen - Hepatitis C antibody - HIV-1 and HIV-2 antibodies - Urine culture - US OB transvaginal; Future - POCT , urine manually resulted - POCT urinalysis dipstick manually resulted , unspecified gestational age - Type and screen; Future - ABO/Rh; Future - CBC and differential - Hemoglobin A1c - RPR - Rubella antibody, IgG - Hepatitis B surface antigen - Hepatitis C antibody - HIV-1 and HIV-2 antibodies - Rapid drug screen, urine; Future Encounter for supervision of normal first in first trimester - Rapid drug screen, urine; Future Nurse Note: OB Intake: Patient presents today for first OB visit. Patients history has been reviewed in great detail including any potential risks. Patient signed consent forms and patient desires testing in both trimesters. Patient currently has no complaints and has been advised to drink 6-8 glasses of water a day, eat no raw or undercooked meat, and stay away from [facility]. Patient has also been advised to not change litter boxes and eat 6 small meals a day. Patient has been consulted regarding the do's and don'ts of . Patient was given labs and all questions and concerns were answered. Follow Up: Patient is to return in 4 weeks for routine OB appointment. Follow Up: Patient is to have labs drawn at directed and return to office for initial OB appointment with provider. Patient may call office as needed with any concerns or questions. Nurse Visit Completed by: Betty Bradley LPN documented in this encounter Merged with [facility] Discharge instructions 03-12-2023 Note Date & Type Note Facility 03-12-2023 Hospital Discharg e instructions Patient Education 03/12/2023 13:01:07 Contusion, Gpnu-wo-Jsei Contusion A contusion is a deep bruise. This is a result of an injury that causes bleeding under the skin. Symptoms of bruising include pain, swelling, and discolored skin. The skin may turn blue, purple, or yellow. Follow these instructions at home: Managing pain, stiffness, and swelling You may use RICE. This stands for: Resting. Icing. Compression, or putting pressure. Elevating, or raising the injured area. To follow this method, do these actions: Rest the injured area. If told, put ice on the injured area. ?Put ice in a plastic bag. ?Place a towel between your skin and the bag. ?Leave the ice on for 20 minutes, 2 3 times per day. If told, put light pressure (compression) on the injured area using an elastic bandage. Make sure the bandage is not too tight. If the area tingles or becomes numb, remove it and put it back on as told by your doctor. If possible, raise (elevate) the injured area above the level of your heart while you are sitting or lying down. General instructions Take lenx-gix-fzbswzd and prescription medicines only as told by your doctor. Keep all follow-up visits as told by your doctor. This is important. Contact a doctor if: Your symptoms do not get better after several days of treatment. Your symptoms get worse. You have trouble moving the injured area. Get help right away if: You have very bad pain. You have a loss of feeling (numbness) in a hand or foot. Your hand or foot turns pale or cold. Summary A contusion is a deep bruise. This is a result of an injury that causes bleeding under the skin. Symptoms of bruising include pain, swelling, and discolored skin. The skin may turn blue, purple, or yellow. This condition is treated with rest, ice, compression, and elevation. This is also called RICE. You may be given tmzi-vrm-xyszcga medicines for pain. Contact a doctor if you do not feel better, or you feel worse. Get help right away if you have very bad pain, have lost feeling in a hand or foot, or the area turns pale or cold. This information is not intended to replace advice given to you by your health care provider. Make sure you discuss any questions you have with your health care provider. Document Revised: 12/29/2021 Document Reviewed: 12/29/2021 [employer] Patient Education 2022 [employer] Follow Up Care 03/12/2023 11:10:11 With:KEO CHAVARRIA DO Address: [address] [place] [id number] When:03/15/2023 [facility] Evaluation + Plan note 03-12-2023 Note Date & Type Note Facility 03-12-2023 Evaluation + Plan note Extrac meli from: Title:ED Note Author:Deanna Bourne PA-C. Date :03/12/23 1. Nasal contusion (S00.33XA : Contusion of nose, initial encounter) Orders: CT Maxillofacial w/o Contrast [facility] Evaluation + Plan note 08-13-2021 Note Date & Type Note Facility 08-13-2021 Evaluation + Plan note Diagnostic Tests PendingGroup A Strep by PCR 08/13/21 [facility] Hospital Discharge instructions 08-13-2021 Note Date & Type Note Facility 08-13-2021 Hospital Discharg e instructions Patient Education 08/13/2021 11:21:39 Pharyngitis, Ncuc-ja-Gbpg Pharyngitis Pharyngitis is a sore throat (pharynx). This is when there is redness, pain, and swelling in your throat. Most of the time, this condition gets better on its own. In some cases, you may need medicine. Follow these instructions at home: Take tsbs-fmd-jcgwcbl and prescription medicines only as told by your doctor. ?If you were prescribed an antibiotic medicine, take it as told by your doctor. Do not stop taking the antibiotic even if you start to feel better. ?Do not give children aspirin. Aspirin has been linked to Mynor syndrome. Drink enough water and fluids to keep your pee (urine) clear or pale yellow. Get a lot of rest. Rinse your mouth (gargle) with a salt-water mixture 3 4 times a day or as needed. To make a salt-water mixture, completely dissolve -1 tsp of salt in 1 cup of warm water. If your doctor approves, you may use throat lozenges or sprays to soothe your throat. Contact a doctor if: You have large, tender lumps in your neck. You have a rash. You cough up green, yellow-brown, or bloody spit. Get help right away if: You have a stiff neck. You drool or cannot swallow liquids. You cannot drink or take medicines without throwing up. You have very bad pain that does not go away with medicine. You have problems breathing, and it is not from a stuffy nose. You have new pain and swelling in your knees, ankles, wrists, or elbows. Summary Pharyngitis is a sore throat (pharynx). This is when there is redness, pain, and swelling in your throat. If you were prescribed an antibiotic medicine, take it as told by your doctor. Do not stop taking the antibiotic even if you start to feel better. Most of the time, pharyngitis gets better on its own. Sometimes, you may need medicine. This information is not intended to replace advice given to you by your health care provider. Make sure you discuss any questions you have with your health care provider. Document Released: 08/21/2008 Document Revised: 02/15/2018 Document Reviewed: 04/10/2017 [employer] Patient Education 2020 [employer] [facility] Evaluation note Note Date & Type Note Facility Evaluation note Diagnosis Missed menses , unspecified gestational age Encounter for supervision of normal first in first trimester documented in this encounter [facility] course Narrative Note Date & Type Note Facility Hospital course Narrative No data available for this section [facility] Hospital Discharge instructions Note Date & Type Note Facility Hospital Discharge instructions No data available for this section [facility] Progress note Note Date & Type Note Facility Progress note No data available for this section [facility] Summary Purpose Family History No Family History Records Found No data available for this section No data available for this section No Family History Records FoundNo Family History Records FoundNo Family History Records FoundNo Family History Records FoundNo Family History Records Found Advance Directives No Advanced Directives Records FoundDocuments on File Type Date Recorded Patient Human Resources Compensation Analyst Expl anation Advance Directives and Living Will 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 Reason for Referral Status Reason Specialty Diagnoses / Procedures Referred By Contact Referred To Contact Pending Review Radiology Diagnoses Pelvic pain Procedures US NON OB TRANSVAGINAL Galen Harden MD [address] [place] [address] Status Reason Specialty Diagnoses / Procedures Referre d By Contact Referred To Contact Open Radiology Diagnoses Left lower quadrant abdominal pain Procedures US Pelvis Complete HC US EXAM PELVIC COMPLETE Galen Harden MD [address] [place] [address] Status Reason Specialty Diagnoses / Procedures Referre d By Contact Referred To Contact [facility] Diagnoses Left lower quadrant abdominal pain Procedures US Pelvis Complete Galen Harden MD [address] [place] [address] Assessments Diagnosis Left lower quadrant abdominal pain Pelvic pain Diagnosis Left lower quadrant abdominal pain- Primary Discharge Instructions * Instructions* Galen Harden MD - 02/06/2019 Pelvic ultrasound will be scheduled for tomorrow * Attachments The following attachments cannot be sent through Care Everywhere. * Abdominal Pain (Irish) documented in this encounter Additional Source Comments INFORMATION SOURCE (unrecogn ized section and content) DATE CREATED AUTHOR 09/05/2017 [facility] DATE CREATED AUTHOR AUTHOR'S ORGANIZ ATION 06/01/2023 [facility] DATE CREATED AUTHOR AUTHOR'S ORGANIZ ATION 11/06/2023 [facility] DATE CREATED AUTHOR AUTHOR'S ORGANIZ ATION [facility] DATE CREATED AUTHOR AUTHOR'S ORGANIZ ATION 11/13/2023 [facility] DATE CREATED AUTHOR AUTHOR'S ORGANIZ ATION 01/13/2024 [facility] EPIC Reason for Visit (unrecogniz ed section and content) Status Reason Specialty Diagnoses / Procedures Referre d By Contact Referred To Contact Open Radiology Diagnoses Left lower quadrant abdominal pain Procedures US Pelvis Complete HC US EXAM PELVIC COMPLETE Galen Harden MD [address] [place] [address] Reason Comments Abdominal Pain Lower abdomen pain. Reason Comments Amenorrhea Patient Care team informatio n (unrecognized section and content) Rn Oncology Research Relationship Specialty Start Date End Date Keo Chavarria DO [address] [place] [id number] PCP - General Internal Medicine 01/11/24 FOR RECORDS PERTAINING TO PATIENTS WHO ARE OR HAVE BEEN ENROLLED IN A CHEMICAL DEPENDENCY/SUBSTANCEABUSE PROGRAM, SOME INFORMATION MAY BE OMITTED. This clinical summary was aggregated from multiple sources. Caution should be exercised in using it in the provision of clinical care. This summary normalizes information from multiple sources, and as a consequence, information in this document may materially change the coding, format and clinical context of patient data. In addition, data may be omitted in some cases. CLINICAL DECISIONS SHOULD BE BASED ON THE PRIMARY CLINICAL RECORDS. [email or web address] provides no warranty or guarantee of the accuracy or completeness of information in this document.
[2024-02-02 11:51] LABS: Basophils Absolute Auto 0.1 10^3/uL (0.0-0.1); Basophils Percent Auto 0.4 % (0.2-2.0); Eosinophils Absolute Auto 0.1 10^3/uL (0.0-0.7); Eosinophils Percent Auto 1.1 % (0.9-7.0); Hematocrit 40.8 % (36.0-48.0); Hemoglobin 13.6 g/dL (12.0-16.0); Immature Granulocytes Abs Auto 0.05 10^3/uL (0.00-0.03); Immature Granulocytes Pct Auto 0.4 % (0.0-0.5); Lymphocytes Absolute Auto 2.4 10^3/uL (1.2-3.8); Lymphocytes Percent Auto 20.1 % (20.5-60.0); Mean Corpuscular HGB Conc 33.3 g/dL (29.9-35.2); Mean Corpuscular Hemoglobin 31.8 pg (26.7-34.0); Mean Corpuscular Volume 95.3 fL (81.0-99.0); Monocytes Absolute Auto 0.5 10^3/uL (0.3-0.8); Monocytes Percent Auto 4.1 % (1.7-12.0); Neutrophils Absolute Auto 8.8 10^3/uL (1.4-6.5); Neutrophils Percent Auto 73.9 % (43.0-75.0); Platelet Count 367 10^3/uL (150-450); Red Blood Count 4.28 10^6/uL (4.20-5.40); Red Cell Distribution Width 12.6 % (11.0-15.0); White Blood Count 11.9 10^3/uL (4.0-11.0)
[2024-02-02 12:14] LABS: Amphetamine Screen Urine NEGATIVE (NEGATIVE); Barbiturates Screen Urine NEGATIVE (NEGATIVE); Benzodiazepines Screen Urine NEGATIVE (NEGATIVE); Buprenorphine Screen Urine NEGATIVE (NEGATIVE); Cannabinoid Screen Urine NEGATIVE (NEGATIVE); Cocaine Screen Urine NEGATIVE (NEGATIVE); Methadone Screen Urine NEGATIVE (NEGATIVE); Methamphetamines Screen Urine NEGATIVE (NEGATIVE); Opiate Screen Urine NEGATIVE (NEGATIVE); Oxycodone Screen Urine NEGATIVE (NEGATIVE); Phencyclidine Screen Urine NEGATIVE (NEGATIVE); Tricyclic Antidepressant Urine NEGATIVE (NEGATIVE)
[2024-02-02 12:14] LABS: Estimated Average Glucose 94 mg/dL; Glycohemoglobin A1C 4.9 % (4.5-6.2)
[2024-02-03 08:08] LABS: HBsAg Screen Negative (Negative); HCV Ab Non Reactive (Non Reactive); HIV Ab/p24 Ag Screen Non Reactive (Non Reactive)
[2024-02-03 09:07] LABS: Rapid Plasma Reagin, Quant Non Reactive titer (NonRea<1:1)
[2024-02-03 10:07] LABS: Rubella Antibodies, IgG 1.97 index (Immune >0.99)
== END 2024-02-02 11:06 | disposition home or self-care (01) ==
PROVIDERS: Visit Provider Obstetrics & Gynecology
DX: N92.6 Irregular menstruation, unspecified (principal); Z34.01 Encounter for supervision of normal first pregnancy, first trimester
CPT/HCPCS: 36415; 80307; 83036; 85025; 86592; 86762; 86803; 86850; 86900; 86901; 87086; 87340; 87389

== ENCOUNTER 2024-02-04 13:50 | Outpatient (OUT) | payer OTHER, SELFPAY ==
[2024-02-04 14:30] LABS: BOX Test Reference Lab UNITY; BOX Test Sent Out UNITY
== END 2024-02-04 13:51 | disposition home or self-care (01) ==
PROVIDERS: Visit Provider Obstetrics & Gynecology
DX: Z34.80 Encounter for supervision of other normal pregnancy, unspecified trimester (principal)
CPT/HCPCS: 36415

== ENCOUNTER 2024-04-08 15:42 | Outpatient (OUT) | payer OTHER, SELFPAY ==
--- OUTSIDE RECORDS SUMMARY | 2024-04-08 15:53 | XMS_ITS | CCD ---
Author Organization [facility] Care Team Providers Care Set Up Operator Name Role Phone Keo Chavarria Primary Care Provider NONE, XXXX Primary Care Physician Unavailab KEO Castro Primary Care Physician Hui Salazar Attending Unavailable Alfredo Dejesus Attending Unavailable KEO CHAVARRIA Referring Unavailable KEO CHAVARRIA Primary Care Unavailable KEO CHAVARRIA Referring Unavailable KEO CHAVARRIA Primary Care Unavailable Leola LIRIANO Attending Unavailable Keo Chavarria DO Primary Care Provider [phone] ZULEYMA BARBER Attending Unavailable SHEEBA MEDELLIN Attending Unavailable Allergies Allergy Classification Reported Allergen(s) Allergy Type Date of Onset Reaction(s) Facility (2 sources) No Known Medication Allergies; Translations: [No Known Medication Allergies] Propensity to adverse reactions (disorder) [facility] Repository Medications Current Medications Medication Drug Class(es) Dates Sig (Normalized) Sig (Original) amoxicillin 500 mg oral capsule (1 source) Penicillin-class Antibacterial Start: 05-21-2023 take 1 capsule by mouth every twelve hours amoxicillin 500 mg Cap 500 mg = 1 cap(s), Oral, q12hr, # 20 cap(s), Refills(s) 0, Pharmacy: [facility] #[id number], 165.1, cm, 05/21/23 9:05:00 EST, Height/Length Dosing, [...] Active MV-Min-Fe Fum-FA-DH A ( 1 PO) (10 sources) MV-Min- Fe Fum-FA-DHA ( 1 PO) Take [...] Problem Classification Problem Date Documented Date Episodic/Chronic Immunizations and screening for infectious disease (2 sources) Exposure to sexually transmissible disorder; Translations: [Contact with and (suspected) exposure to infections with a predominantly sexual mode of transmission] 03-04-2024 Episodic Menstrual disorders (4 sources) Spasmodic dysmenorrhea; 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, unspecified] Onset: 12-20-2015 12-20-2015 Chronic Other female genital disorders (2 sources) Vaginal discharge; Translations: [Other specified noninflammatory disorders of vagina] 03-04-2024 Episodic Other and delivery including normal (6 sources) ; Translations: [Encounter for supervision of normal , unspecified, unspecified trimester] 01-11-2024 Episodic Other screening for suspected conditions (not mental disorders or infectious disease) (4 sources) Encounter for screening for cardiovascular disorders; Translations: [Encounter for screening for malignant neoplasm of cervix] Onset: 04-02-2023 03-04-2024 Episodic Other upper respiratory infections (4 sources) Acute pharyngitis; Translations: [Acute pharyngitis, unspecified] Onset: 08-13-2021 Episodic Residual codes; unclassified (2 sources) Gestation period, 11 weeks; Translations: [11 weeks gestation of ] 02-04-2024 Episodic Residual codes; unclassified (2 sources) Gestation period, 16 weeks; Translations: [16 weeks gestation of ] 03-04-2024 Episodic Superficial injury; contusion (1 source) Contusion [...] Test Name Value Interpretation Reference Range Facility RECURRENT VAGINITIS (HTRX)on 03-05-2024 ATOPOBIUM VAGINAE 0 [facility] ATOPOBIUM VAGINAE Not detected [facility] BVAB 2,3 (BACTERIAL VAGINOSIS ASSOCIATED BACTERIA 2, 3); MOBILUNCUS SPP 0 [facility] BVAB 2,3 (BACTERIAL VAGINOSIS ASSOCIATED BACTERIA 2, 3); MOBILUNCUS SPP Not detected [facility] TRISTA ALBICANS, PARAPSILOSIS, TROPICALIS 0 [facility] TRISTA ALBICANS, PARAPSILOSIS, TROPICALIS Not detected [facility] TRISTA GLABRATA 0 [facility] TRISTA GLABRATA Not detected [facility] TRISTA KRUSEI 0 [facility] TRISTA KRUSEI Not detected [facility] CHLAMYDIA TRACHOMATIS 0 [facility] CHLAMYDIA TRACHOMATIS Not detected [facility] GARDNERELLA VAGINALIS 0 [facility] GARDNERELLA VAGINALIS Not detected [facility] MEGASPHAERA (TYPES 1, 2) 0 [facility] MEGASPHAERA (TYPES 1, 2) Not detected [facility] MYCOPLASMA GENITALIUM 0 [facility] MYCOPLASMA GENITALIUM Not detected [facility] NEISSERIA GONORRHOEAE 0 [facility] NEISSERIA GONORRHOEAE Not detected [facility] TRICHOMONAS VAGINALIS 0 [facility] TRICHOMONAS VAGINALIS Not detected [facility] Urinalysis macro (dipstick) panel (U)on 03-04-2024 Bilirubin, UA Negative Negative - 4(70) +++ mg/dL [facility] Blood, UA Positive Negative - 50 Kalyan/mcL [facility] Comment on above: trace-intact Clarity, UA Clear [facility] Color, UA Yellow [facility] Glucose, UA Negative Negative - 1999(110) ++++ mg/dL [facility] Interpretation and review of laboratory results Abnormal [facility] Ketones, UA Negative Negative - 160(16) ++++ mg/dL [facility] Leukocytes, UA Negative Negative - 500+++ June/mcL [facility] Nitrite, UA Negative Negative - Positive [facility] pH, UA 6 5 - 9 [facility] Protein, UA Negative Negative - 1999(20) ++++ mg/dL [facility] Spec Grav, UA 1.02 1 - 1.03 [facility] Urobilinogen, UA 0.2 0.2 - 12 mg/dL [facility] BOX TESTon 02-04-2024 BOX TEST SENT OUT [facility] BOX1 [facility] BOX2 02/04/24 [facility] Urinalysis macro (dipstick) panel (U)on 02-04-2024 Bilirubin, UA Negative Negative - 4(70) +++ mg/dL [facility] Blood, UA Negative Negative - 50 Kalyan/mcL [facility] Clarity, UA Clear [facility] Color, UA Yellow [facility] Glucose, UA Negative Negative - 1999(110) ++++ mg/dL [facility] Interpretation and review of laboratory results Normal [facility] Ketones, UA Negative Negative - 160(16) ++++ mg/dL [facility] Leukocytes, UA Negative Negative - 500+++ June/mcL [facility] Nitrite, UA Negative Negative - Positive [facility] pH, UA 7.5 5 - 9 [facility] Protein, UA Negative Negative - 1999(20) ++++ mg/dL [facility] Spec Grav, UA 1.015 1 - 1.03 [facility] Urobilinogen, UA 0.2 0.2 - 12 mg/dL [facility] ALL RUBELLA IGG ABon 024 RUBELLA ANTIBODIES, IGG 1.97 Immune >0.99 index [facility] Comment on above: Non-immune <0.90 Equivocal 0.90 - 0.99 Immune >0.99 Performed at: [address] [id number] Farm Equipment Assembler: Isaias Moon PhD, Phone: [phone] HBSAG SCREENon 02-03-2024 HBSAG SCREEN Negative Negative [facility] Comment on above: Performed at: [facility] [address] [id number] Farm Equipment Assembler: Isaias Moon PhD, Phone: [phone] HCV ANTIBODY RFX TO QUANT PC Héctor 02-03-2024 HCV AB Non-Reactive Non Reactive [facility] INTERPRETATION: Comment . [facility] Comment on above: Not infected with HC V unless early or acute infection is suspected (which may be delayed in an immunocompromised individual), or other evidence exists to indicate HCV infection. HIV AB/P24 AG WITH REFLEXon 02-03-2024 HIV AB/P24 AG SCREEN Non-Reactive Non Reactive [facility] Comment on above: HIV-1/HIV-2 antibodi es and HIV-1 p24 antigen were NOT detected. There is no laboratory evidence of HIV infection. HIV Negative Performed at: [address] [id number] Farm Equipment Assembler: Isaias Moon PhD, Phone: [phone] No Panel Informationon 02-02 [facility] RAPID PLASMA REAGIN, QUANTon 02-03-2024 RAPID PLASMA REAGIN, QUANT Non-Reactive NonRea<1:1 titer [facility] Comment on above: Please Note: This te st does not meet current guidelines for screening and diagnosis of syphilis. This test is intended for following treatment response in patients being treated for syphilis infection. To screen for syphilis infection, a reflex cascade that includes both RPR and a treponema-specific assay should be utilized, such as Treponema pallidum (Syphilis) Screening [place] (335172) or Rapid Plasma Reagin (RPR) Test With Reflex to Quantitative RPR and Confirmatory Treponema pallidum Antibodies (489165). Performed at: [facility] [id number] Farm Equipment Assembler: Isaias Moon PhD, Phone: [phone] ALL CBC WITH AUTO DIFFon BASOPHILS ABSOLUTE AUTO 0.1 [facility] Basophils/100 WBC (Bld) 0.4 % 0.2 - 2.0 % [facility] Eosinophils/100 WBC (Bld) 1.1 % 0.9 - 7.0 % [facility] Erythrocyte distribution width (RBC) [Ratio] 12.6 % 11.0 - 15.0 % [facility] Hematocrit (Bld) [Volume fraction] 40.8 % 36.0 - 48.0 % [facility] Hemoglobin (Bld) [Mass/Vol] 13.6 g/dL 12.0 - 16.0 g/dL [facility] IMMATURE GRANULOCYTES ABS AUTO 0.05 High [facility] Immature granulocytes/100 WBC (Bld) 0.4 % 0.0 - 0.5 % [facility] Interpretation and review of laboratory results Abnormal [facility] LYMPHOCYTES ABSOLUTE AUTO 2.4 [facility] Lymphocytes/100 WBC (Bld) 20.1 % Low 20.5 - 60.0 % [facility] MCH (RBC) [Entitic mass] 31.8 pg 26.7 - 34.0 pg [facility] MCHC (RBC) [Mass/Vol] 33.3 g/dL 29.9 - 35.2 g/dL [facility] MCV (RBC) [Entitic vol] 95.3 fL 81.0 - 99.0 fL [facility] MONOCYTES ABSOLUTE AUTO 0.5 [facility] Monocytes/100 WBC (Bld) 4.1 % 1.7 - 12.0 % [facility] NEUTROPHILS ABSOLUTE AUTO 8.8 High [facility] Neutrophils/100 WBC (Bld) 73.9 % 43.0 - 75.0 % [facility] Platelet mean volume (Bld) [Entitic vol] 10 fL 9.5 - 13.5 fL [facility]H EO # 0.1 [facility] PLT [address] [facility] RBC 4.28 [facility] WBC 11.9 High [facility] ALL TYPE AND SCREENon 2023 ABO and Rh group Nom (Bld) Blood group A Rh(D) negative [facility] HEMOGLOBIN A1Con 024 Glucose [Mass/Vol] 94 mg/dL [facility] HbA1c (Bld) [Mass fraction] 4.9 % 4.5 - 6.2 % [facility] Comment on above: ADA RECOMMENDED LIMI T 4.0 - 6.0 ADA THERAPEUTIC TARGET < 7.0 ACTION SUGGESTED > 7.0 [facility] No Panel [facility] DRUG SCREEN RAPID (URINE )on 02-02-2024 AMPHETAMINE SCREEN URINE Negative NEGATIVE [facility] BARBITURATES SCREEN URINE Negative NEGATIVE [facility] BENZODIAZEPINES SCREEN URINE Negative NEGATIVE [facility] BUPRENORPHINE SCREEN URINE Negative NEGATIVE [facility] Comment on above: DRUG CLASS TEST SYST EM CUT-OFF CONCENTRATIONS ARE FOLLOWS: AMP (Amphetamine): 500 ng/mL BAR (Barbiturates): 200 ng/mL BZO (Benzodiazepines): 150 ng/mL BUP (Buprenorphine): 10 ng/mL JACINTA (Cocaine): 150 ng/mL mAMP (Methamphetamine): 500 ng/mL MTD (Methadone): 200 ng/mL OPI (Opiates): 100 ng/mL OXY (Oxycodone): 100 ng/mL PCP (Phencyclidine): 25 ng/mL THC (Cannabinoids): 50 ng/mL TCA (Trycyclic Antidepressants): 300 ng/mL CANNABINOID SCREEN URINE Negative NEGATIVE [facility] COCAINE SCREEN URINE Negative NEGATIVE [facility] METHADONE SCREEN URINE Negative NEGATIVE [facility] METHAMPHETAMINES SCREEN URINE Negative NEGATIVE [facility] OPIATE SCREEN URINE Negative NEGATIVE [facility] OXYCODONE SCREEN URINE Negative NEGATIVE [facility] PHENCYCLIDINE SCREEN URINE Negative NEGATIVE [facility] TRICYCLIC ANTIDEPRESSANT URINE Negative NEGATIVE [facility] HCG ( test) Ql (U)o n 01-11-2024 Interpretation and review of laboratory results Normal [facility] Preg Test, Ur Negative [facility] Urinalysis macro (dipstick) panel (U)on 01-11-2024 Bilirubin, UA Negative Negative - 4(70) +++ mg/dL [facility] Blood, UA Negative Negative - 50 Kalyan/mcL [facility] Clarity, UA Clear [facility] Color, UA Yellow [facility] Glucose, UA Negative Negative - 2000(110) ++++ mg/dL [facility] Interpretation and review of laboratory results Normal [facility] Ketones, UA Negative Negative - 160(16) ++++ mg/dL [facility] Leukocytes, UA Negative Negative - 500+++ June/mcL [facility] Nitrite, UA Negative Negative - Positive [facility] pH, UA 5.5 5 - 9 [facility] Protein, UA Negative Negative - 2000(20) ++++ mg/dL [facility] Spec Grav, UA 1.02 1 - 1.03 [facility] Urobilinogen, UA 1.0 0.2 - 12 mg/dL [facility] Pre-Visit Planningon 024 Pre-Visit Planning Pre-Visit Planning From: Leola LIRIANO CNP To: [facility]; Sent: 11/08/2023 08:24:20 EDT Subject: General Message: [place] Acquisitions Screening Caller Name: SYEDA PEREIRA; Caller Number: , Screening Lab Results: Fasting blood sugar: [...] 40) Documented Labs printed Normal [facility] Basic Metabolic Profon 11-06 Anion gap [Moles/Vol] 10 mmol/L Normal 12-03 [facility] Comment on above: Performed By: #### C DP, BMP, TSHX #### [facility] [address] [place] [address] Farm Equipment Assembler: Manfred Walker MD #### LIPR #### [facility] [address] [place] [address] Farm Equipment Assembler: Henrique Madera MD BUN/CRE Ratio 18 Normal 9-20 [facility] Comment on above: Performed By: #### C DP, BMP, TSHX #### [facility] [address] [place] [address] Farm Equipment Assembler: Manfred Walker MD #### LIPR #### [facility] [address] [place] [address] Farm Equipment Assembler: Henrique Madera MD Calcium [Mass/Vol] 9.4 mg/dL Normal 8.6-10.4 [facility] Comment on above: Performed By: #### C DP, BMP, TSHX #### [facility] [address] [place] [address] Farm Equipment Assembler: Manfred Walker MD #### LIPR #### [facility] [address] [place] [address] Farm Equipment Assembler: Henrique Madera MD Chloride [Moles/Vol] 100 mmol/L Normal 98-107 [facility] Comment on above: Performed By: #### C DP, BMP, TSHX #### [facility] [address] [place] [address] Farm Equipment Assembler: Manfred Walker MD #### LIPR #### [facility] [address] [place] [address] Farm Equipment Assembler: Henrique Madera MD CO2 [Moles/Vol] 25 mmol/L Normal 20-31 [facility] Comment on above: Performed By: #### C DP, BMP, TSHX #### [facility] [address] [place] [address] Farm Equipment Assembler: Manfred Walker MD #### LIPR #### [address] [address] Farm Equipment Assembler: Henrique Madera MD Creatinine [Mass/Vol] 0.6 mg/dL Normal 0.5-0.9 [facility] Comment on above: Performed By: #### C JONAS VILLEDA, TSHX #### [facility] [address] [place], [place] [id number] Farm Equipment Assembler: Manfred Walker MD #### LIPR #### [address] [phone] Farm Equipment Assembler: Henrique Madera MD GFR/1.73 sq M.predicted among non-blacks MDRD (S/P/Bld) [Vol rate/Area] mL/min/{1.73_m2} Normal >60 [facility] Comment on above: Result Comment: These [...] renal tubular secretion. Performed By: #### C JONAS VILLEDA, TSHX #### [facility] [address] [place], [place] [id number] Farm Equipment Assembler: Manfred Walker MD #### LIPR #### [address] [id number] Farm Equipment Assembler: Henrique Madera MD Glucose [Mass/Vol] 81 mg/dL Normal 70-99 [facility] Comment on above: Performed By: #### C JONAS VILLEDA, TSHX #### [facility] [address] [place], [place] [id number] Farm Equipment Assembler: Manfred Walker MD #### LIPR #### [address] [id number] Farm Equipment Assembler: Henrqiue Madera MD Potassium [Moles/Vol] 4.0 mmol/L Normal 3.7-5.3 [facility] Comment on above: Performed By: #### C DP, BMP, TSHX #### [facility] [address] [place] [address] Farm Equipment Assembler: Manfred Walker MD #### LIPR #### [address] [place] [place], [place] [phone] Farm Equipment Assembler: Henrique Madera MD Sodium [Moles/Vol] 135 mmol/L Normal 135-144 [facility] Comment on above: Performed By: #### C DP, BMP, TSHX #### [facility] [address] [place] [address] Farm Equipment Assembler: Manfred Walker MD #### LIPR #### [address] [id number] Farm Equipment Assembler: Henrique Madera MD Urea nitrogen [Mass/Vol] 11 mg/dL Normal 6-20 [facility] Comment on above: Performed By: #### C DP, BMP, TSHX #### [facility] [address] [place], [place] [id number] Farm Equipment Assembler: Manfred Walker MD #### LIPR #### [address] [id number] Farm Equipment Assembler: Henrique Madera MD CBC with Diffon 11-07-2023 Abs. Basophil 0.03 k/uL Normal 0.00-0.20 [facility] Comment on above: Performed By: #### C DP, BMP, TSHX #### [facility] [address] [place], [place] [id number] Farm Equipment Assembler: Manfred Walker MD #### LIPR #### [address] [phone] Farm Equipment Assembler: Henrique Madera MD Abs.Imm.Granulocyte 0.01 k/uL Normal 0.00-0.30 [facility] Comment on above: Performed By: #### C DP, BMP, TSHX #### [facility] [address] [place], [place] [id number] Farm Equipment Assembler: Manfred Walker MD #### LIPR #### [address] [id number] Farm Equipment Assembler: Henrique Madera MD Abs.Neutrophil (Seg) 7.15 k/uL High 2.5-7.0 [facility] Comment on above: Performed By: #### C DP, BMP, TSHX #### [facility] [address] [place] [address] Farm Equipment Assembler: Manfred Walker MD #### LIPR #### [address] [id number] Farm Equipment Assembler: Henrique Madera MD Basophils/100 WBC (Bld) 0 % Normal 0-2 [facility] Comment on above: Performed By: #### C DP, BMP, TSHX #### [facility] [address] [place] [address] Farm Equipment Assembler: Manfred Walker MD #### LIPR #### [address] [id number] Farm Equipment Assembler: Henrique Madera MD Eosinophils (Bld) [#/Vol] 0.10 10*3/uL Normal 0.00-0.40 [facility] Comment on above: Performed By: #### C DP, BMP, TSHX #### [facility] [address] [place], [place] [phone] Farm Equipment Assembler: Manfred Walker MD #### LIPR #### [address] [id number] Farm Equipment Assembler: Henrique Madera MD Eosinophils/100 WBC (Bld) 1 % Normal 0-5 [facility] Comment on above: Performed By: #### C DP, BMP, TSHX #### [facility] [address] [place], [place] [phone] Farm Equipment Assembler: Manfred Walker MD #### LIPR #### [facility] [address] [place], [place] [id number] Farm Equipment Assembler: Henrique Madera MD Erythrocyte distribution width (RBC) [Ratio] 11.5 % Low 12.1-15.2 [facility] Comment on above: Performed By: #### C DP, BMP, TSHX #### [facility] [address] [place] [address] Farm Equipment Assembler: Manfred Walker MD #### LIPR #### [address] [place], [place] [id number] Farm Equipment Assembler: Henrique Madera MD Hematocrit (Bld) [Volume fraction] 38.6 % Normal 36.0-46.0 [facility] Comment on above: Performed By: #### C DP, BMP, TSHX #### [facility] [address] [place] [address] Farm Equipment Assembler: Manfred Walker MD #### LIPR #### [address] [place], [place] [id number] Farm Equipment Assembler: Henrique Madera MD Hemoglobin (Bld) [Mass/Vol] 12.8 g/dL Normal 12.0-16.0 [facility] Comment on above: Performed By: #### C DP, BMP, TSHX #### [facility] [address] [place] [address] Farm Equipment Assembler: Manfred Walker MD #### LIPR #### [address] [place], [place] [phone] Farm Equipment Assembler: Henrique Madera MD Immature granulocytes/100 WBC (Bld) 0 % Normal 0-5 [facility] Comment on above: Performed By: #### C DP, BMP, TSHX #### [facility] [address] [place], [place] [phone] Farm Equipment Assembler: Manfred Walker MD #### LIPR #### [address] [place], [place] [phone] Farm Equipment Assembler: Henrique Madera MD Lymphocytes (Bld) [#/Vol] 0.65 10*3/uL Low 1.00-4.80 [facility] Comment on above: Performed By: #### C DP, BMP, TSHX #### [facility] [address] [place] [address] Farm Equipment Assembler: Manfred Walker MD #### LIPR #### [address] [id number] Farm Equipment Assembler: Henrique Madear MD Lymphocytes/100 WBC (Bld) 8 % Low 15-40 [facility] Comment on above: Performed By: #### C DP, BMP, TSHX #### [facility] [address] [place] [address] Farm Equipment Assembler: Manfred Walker MD #### LIPR #### [address] [id number] Farm Equipment Assembler: Henrique Madera MD MCH (RBC) [Entitic mass] 31.4 pg Normal 26.0-34.0 [facility] Comment on above: Performed By: #### C DP, BMP, TSHX #### [facility] [address] [place], [place] [phone] Farm Equipment Assembler: Manfred Walker MD #### LIPR #### [address] [id number] Farm Equipment Assembler: Henrique Madera MD MCHC (RBC) [Mass/Vol] 33.2 g/dL Normal 31.0-37.0 [facility] Comment on above: Performed By: #### C DP, BMP, TSHX #### [facility] [address] [place] [address] Farm Equipment Assembler: Manfred Walker MD #### LIPR #### [address] [id number] Farm Equipment Assembler: Henrique Madera MD MCV (RBC) [Entitic vol] 94.6 fL Normal 80.0-100.0 [facility] Comment on above: Performed By: #### C DP, BMP, TSHX #### [facility] [address] [place] [id number] ( Farm Equipment Assembler: Manfred Walker MD #### LIPR #### [place] [phone] Farm Equipment Assembler: Henrique Madera MD Monocytes (Bld) [#/Vol] 0.36 10*3/uL Normal 0.00-1.00 [facility] Comment on above: Performed By: #### C DP, BMP, TSHX #### [facility] [address] [place] [address] Farm Equipment Assembler: Manfred Walker MD #### LIPR #### [address] [address] Farm Equipment Assembler: Henrique Madera MD Monocytes/100 WBC (Bld) 4 % Normal 4-8 [facility] Comment on above: Performed By: #### C DP, BMP, TSHX #### [facility] [address] [place] [address] Farm Equipment Assembler: Manfred Walker MD #### LIPR #### [place] [address] Farm Equipment Assembler: Henrique Madera MD Neutrophil (Seg) 87 % High 47-75 [facility] Comment on above: Performed By: #### C DP, BMP, TSHX #### [facility] [address] [place], [place] [phone] Farm Equipment Assembler: Manfred Walker MD #### LIPR #### [facility] [address] [place], [place] [phone] Farm Equipment Assembler: Henrique Madera MD Platelet mean volume (Bld) [Entitic vol] 9.5 fL Normal 6.0-12.0 [facility] Comment on above: Performed By: #### C DP, BMP, TSHX #### [facility] [address] [place] [address] Farm Equipment Assembler: Manfred Walker MD #### LIPR #### [address] [place], [place] [id number] Farm Equipment Assembler: Henrique Madera MD Platelets (Bld) [#/Vol] 298 10*3/uL Normal 140-450 [facility] Comment on above: Performed By: #### C DP, BMP, TSHX #### [facility] [address] [place], [place] [phone] Farm Equipment Assembler: Manfred Walker MD #### LIPR #### [address] [place], [place] [id number] Farm Equipment Assembler: Henrique Madera MD RBC (Bld) [#/Vol] 4.08 10*6/uL Normal 4.00-5.20 [facility] Comment on above: Performed By: #### C DP, BMP, TSHX #### [facility] [address] [place] [address] Farm Equipment Assembler: Manfred Walker MD #### LIPR #### [place] [address] [place], [place] [id number] Farm Equipment Assembler: Henrique Madera MD WBC (Bld) [#/Vol] 8.3 10*3/uL Normal 3.5-11.0 [facility] Comment on above: Performed By: #### C DP, BMP, TSHX #### [facility] [address] [place], [place] [id number] Farm Equipment Assembler: Manfred Walker MD #### LIPR #### [place] [address] [place], [place] [id number] Farm Equipment Assembler: Henrique Madera MD HCG, Quanton 11-07-2023 HCG, Quant 2.9 mIU/mL Normal <5 [facility] Comment on above: Result Comment: Non-preg premeno <=5 Postmeno <=8 Male <=3 If HCG results do not concur with clinical observations, additional testing to confirm results is recommended. Performed By: #### B HCG #### [facility] [address] [place], [place] [id number] Farm Equipment Assembler: Manfred Walker MD Lipid Profileon 11-07-2023 Cholesterol [Mass/Vol] 144 mg/dL Normal 0-199 [facility] Comment on above: Result Comment: Cholesterol Guidelines: <200 Desirable 200-240 Borderline >240 Undesirable Performed By: #### C DP, BMP, TSHX #### [facility] [address] [place], [place] [id number] Farm Equipment Assembler: Manfred Walker MD #### LIPR #### [address] [id number] Farm Equipment Assembler: Henrique Madera MD Cholesterol in HDL [Mass/Vol] 68 mg/dL Normal >40 [facility] Comment on above: Result Comment: HDL Guidelines: <40 Undesirable 40-59 Borderline >59 Desirable Performed By: #### C DP, BMP, TSHX #### [facility] [address] [place], [place] [id number] Farm Equipment Assembler: Manfred Walker MD #### LIPR #### [address] [place], [place] 1508[address] Farm Equipment Assembler: Henrique Madera MD Cholesterol in LDL [Mass/Vol] 68 mg/dL Normal 0-100 [facility] Comment on above: Result Comment: LDL Guidelines: <100 Desirable 100-129 Near to/above Desirable 130-159 Borderline >159 Undesirable Direct (measured) LDL and calculated LDL are not interchangeable tests. Performed By: #### C JONAS VILLEDA, TSHX #### [facility] [address] [place], [place] [id number] Farm Equipment Assembler: Manfred Walker MD #### LIPR #### [facility] [employer] [address] [place], [place] 0160[address] Farm Equipment Assembler: Henrique Madera MD Cholesterol in VLDL [Mass/Vol] 8 mg/dL Normal [facility] Comment on above: Performed By: #### C JONAS VILLEDA, TSHX #### [facility] [address] [place], [place] 1738[address] Farm Equipment Assembler: Manfred Walker MD #### LIPR #### [facility] [employer] [address] [place] [id number] Farm Equipment Assembler: Henrique Madera MD Cholesterol.total/Ch olesterol in HDL [Mass ratio] 2.0 {ratio} Normal [facility] Comment on above: Performed By: #### C JONAS VILLEDA, TSHX #### [facility] [address] [place], [place] [phone] Farm Equipment Assembler: Manfred Walker MD #### LIPR #### [facility] [employer] [address] [place], [place] [id number] Farm Equipment Assembler: Henrique Madera MD Triglyceride [Mass/Vol] 42 mg/dL Normal <150 [facility] Comment on above: Result Comment: Triglyceride Guidelines: <150 Desirable 150-199 Borderline 200-499 High >499 Very high Based on AHA Guidelines for fasting triglyceride, December 2011. Performed By: #### C JONAS VILLEDA, TSHX #### [facility] [address] [place], [place] [id number] Farm Equipment Assembler: Manfred Walker MD #### LIPR #### [facility] [address] [place], [place] 2589[address] Farm Equipment Assembler: Henrique Madera MD TSH w/reflex to FT4on 2023 Thyroid Stim. Horm. 0.57 uIU/mL Normal 0.30-5.00 [facility] Comment on above: Performed By: #### C DP, BMP, TSHX #### [facility] [address] [place] [address] Farm Equipment Assembler: Manfred Walker MD #### LIPR #### [facility] [address] [place], [place] 1164[address] Farm Equipment Assembler: Henrique Madera MD Glu Fastingon 11-05-2023 Glucose [Mass/Vol] 74 mg/dL Normal 55-99 [facility] Comment on above: Performed By: #### 2 [id number] #### [facility] Laboratory [address] [place] [address] Lipid Panelon 11-05-2023 Cholesterol [Mass/Vol] 127 mg/dL Normal 120-200 [facility] Comment on above: Performed By: #### 2 [id number] #### [facility] Laboratory [address] [place] [address] Cholesterol in HDL [Mass/Vol] 59 mg/dL Invalid Interpretation Code [facility] Comment on above: Result Comment: '>= 60 LOW RISK' '<= 40 HIGH RISK' Performed By: #### 2 [id number] #### [facility] Laboratory [address] [place] [address] Cholesterol in LDL [Mass/Vol] 63 mg/dL Normal <=129 [facility] Comment on above: Performed By: #### 2 [id number] #### [facility] Laboratory [address] [place] [address] Cholesterol in VLDL [Mass/Vol] 8 mg/dL Normal 7-40 [facility] Comment on above: Performed By: #### 2 [id number] #### [facility] Laboratory [address] [place] [address] Triglyceride [Mass/Vol] 41 mg/dL Normal <=149 [facility] Comment on above: Performed By: #### 2 [id number] #### [facility] Laboratory [address] [place] [address] Ambulatory Visit Summaryon 0 05-21-2023 Ambulatory Visit [...] Every 12 hours Strep throat Pickup at [facility] #[id number] Unchanged norgestrel Contact prescribing physician if questions or concerns Pharmacy Information [facility] #[id number]: [address] [place], [place] [phone] Medications and Immunizations Administered Not Given influenza [...] for choosing us for your care. Normal [facility] Family Medicine Office/Clini c Noteon 05-21-2023 Family [...] q12hr, # 20 cap(s), Refills(s) 0, Pharmacy: [facility] #[id number], 165.1, cm, 05/21/23 9:05:00 EST, Height/Length Dosing, 64, kg, 05/21/23 9:05:00 EST, Weight Dosing 2. Sore throat (J02.9: Acute pharyngitis, unspecified) Ordered: Rapid Strep POC 49033 Total time spent TODAY preparing the chart, [...] vaccine 04/22/1997 Rasta (more content not included)... Normal [facility] Comment on above: Result Comment: Elec tronically Signed By: Alfredo Dejesus DO\Date and Time Signed: 05/21/23 09:36 EST Provider Letteron 05-21-2023 Provider Letter May 21, 2023 SYEDA PEREIRA [address] [place] [address] : 1995 To Whom It May Concern, Please excuse above patient from work. Date of Illness: From: 05/21/2023 To: 05/22/2023 May Return to Work On: 05/23/2023 Sincerely, [facility] [address] [place] [address], [address] [place] [id number] Normal [facility] Cytology Reporton 04-02-2023 Cytology report Cyto stain.thin prep Doc (Cvx/Vag) (NOTE) Path Number: [id number] DIAGNOSIS Imaged ThinPrep Pap - Cervical (1 [...] neoplasm of cervix LMP: 03/14/2023 Processing Lab: [address] [address] Interpretation performed at [address] [address] This Pap Test has been evaluated with [...] GYNECOLOGIC CYTOLOGY REPORT Patient Name: SYEDA PEREIRA [facility] Rec: [id number] [facility] Getable [facility] ANATOMIC PATHOLOGY [address] [place] [address]. [place], [place] [phone] Normal [facility] CT Maxillofacial w/o Contras ton 03-12-2023 [...] Barrientos MD Transcribed by: CHRISTIANA Technologist: SHIRLEY [facility] Consent for Treatmenton 02-17 Consent for Treatment [id number] [facility] Discharge Instructionson Discharge Instructions [id number] #[id number] Normal [facility] ED Clinical Summaryon 2022 ED Clinical Summary [address] [address] ED Clinical Summary Person Information Name: SYEDA PEREIRA[place] Age: 27 Years : 1995 Sex: Female Language: Azerbaijani PCP: KEO CHAVARRIA DO Marital Status: Visit [...] 03/12/2023 13:28:35 03/12/2023 13:28:35 03/12/2023 13:28:35 ADDRESS: [address] [place] [id number] [facility] DOC NOTES: MEDICAL INFORMATION: Prescriptions Given: Medications to Continue with No Changes Other Medications norgestrel PATIENT EDUCATION INFORMATION: Instructions: Contusion, Xyju-ft-Xwua Follow up: With: Address: When: [place] [address] In 3 days 03/15/2023 DIAGNOSIS: 1:Nasal contusion Normal [facility] ED Note-Physicianon 03-12-20 ED Note-Physician Basic Information [...] DO In 3 days 03/15/2023 EST [address] [place] [address]- Additional Instructions: Patient Education Contusion, Ojxf-xy-Qvhl Attestation This visit was performed by both [...] Deanna Bourne Signed By: Floyd JULIEN, Jeff Bernal [facility] Comment on above: Result Comment: Elec tronically Signed By: Deanna Bourne PA-C\.br\Date and Time Signed: 03/12/23 13:05 EST\.br\Electronically Co-Signed By: Hui Salazar M.D.\.br\Date and Time Co-Signed: 03/12/23 16:00 EST ED Patient Education Noteon 03-12-2023 ED Patient [...] or lying down. General instructions ? Take zstj-dwz-cuxffdt and prescription medicines only as told by [...] also called RICE. You may be given nrfm-imz-ughapla medicines for pain. ? Contact a doctor [...] provider. Document Revised: 12/29/2021 Document Reviewed: 12/29/2021 [employer] Patient Education ? 2022 [employer] Normal [facility] ED Patient Summaryon 023 ED Patient Summary [place] [id number] Patient Discharge Instructions Person Information Name: SYEDA PEREIRA Age: 27 Years Arrival Date: 03/12/2023 11:08:26 Discharge Diagnosis: 1:Nasal contusion Primary Care Physician: KEO CHAVARRIA DO Provider Information Primary Provider: Hui Salazar M.D. [employer] Consultant:None The exam and treatment you received in the Emergency Department were for an urgent problem and are not intended as complete care. It is important that you follow up with a doctor, nurse practitioner, or physician?s dietetic assistant for ongoing care. If your symptoms become worse or you do not improve as expected and you are unable to reach your usual health care provider, you should return to the Emergency Department. We are available 24 hours a day. SYEDA PEREIRA has been given the following list of patient education materials, prescriptions and follow-up instructions: Follow-up Instructions: With: Address: When: [place] [address] In 3 days 03/15/2023 In the event that this physician does not participate in your insurance network, please consult with your insurance company to find a nearby participating provider. Patient Education Materials: Contusion, Cgfc-zf-Ljig A MESSAGE TO ALL PATIENTS REGARDING OPIOIDS PRESCRIPTION OPIOIDS: WHAT YOU NEED TO KNOW Prescription opioids can be used to help relieve ffhjkdtb-lv-qstlhs pain and are often prescribed following a [...] be struggling with addiction, tell your health career development associate and ask for guidance or call [facility] National Helpline at 9-354-076-BLDL. v Source: [place] Department of Health and (more content not included)... Normal [facility] 02-07-2019 Normal pelvic ultrasound. [facility] [place], [place] EXAM: US PELVIS COMPLETE, US NON [...] normal at 2 mm. No free fluid. [place], [place] Michael, Mhpn Incoming Radiant Results From [facility] - 02/07/2019 7:08 PM EST EXAM: US [...] No free fluid. IMPRESSION: Normal pelvic ultrasound. [place], [place] CBC Auto Differentialon - Basophils (Bld) [#/Vol] 0.00 10*3/uL [place] Basophils/100 WBC (Bld) 0 % 0 - 2 % [place] Differential Type YES [place] Eosinophils (Bld) [#/Vol] 0.10 10*3/uL [place] Eosinophils/100 WBC (Bld) 1 % 0 - 5 % [place] Erythrocyte distribution width (RBC) [Ratio] 12.4 % 12.1 - 15.2 % [place] Hematocrit (Bld) [Volume fraction] 44.2 % 36 - 46 % [place] Hemoglobin (Bld) [Mass/Vol] 14.8 g/dL 12 - 16 g/dL [place] Lymphocytes (Bld) [#/Vol] 3.30 10*3/uL [place] Lymphocytes/100 WBC (Bld) 33 % 15 - 40 % [place] MCH (RBC) [Entitic mass] 30.6 pg 26 - 34 pg [place] MCHC (RBC) [Mass/Vol] 33.5 g/dL 31 - 37 g/dL [place] MCV (RBC) [Entitic vol] 91.4 fL 80 - 100 fL [place] Monocytes (Bld) [#/Vol] 0.40 10*3/uL [place] Monocytes/100 WBC (Bld) 4 % 4 - 8 % [place] Platelet mean volume (Bld) [Entitic vol] NOT REPORTED 6 - 12 fL [place] Platelets (Bld) [#/Vol] NOT REPORTED [place] Platelets (Bld) [#/Vol] 434 10*3/uL [place] RBC (Bld) [#/Vol] 4.84 10*6/uL 4 - 5.2 m/uL [place] RBC morphology finding Nom (Bld) NOT REPORTED [place] Segmented neutrophils/100 WBC (Bld) 62 % 47 - 75 % [place] Segs Absolute 6.30 [place] WBC (Bld) [#/Vol] NOT REPORTED per 100 WBC [place] WBC (Bld) [#/Vol] 10.2 10*3/uL [place] WBC Morphology NOT REPORTED [place] Comprehensive Metabolic Pane vania 02-06-2019 Albumin [Mass/Vol] 5.1 g/dL 3.5 - 5.2 g/dL [place] Albumin/Globulin [Mass ratio] NOT REPORTED [place] ALP [Catalytic activity/Vol] 59 U/L 35 - 104 U/L [place] ALT [Catalytic activity/Vol] 29 U/L 5 - 33 U/L [place] Anion gap [Moles/Vol] 12 mmol/L 9 - 17 mmol/L [place] AST [Catalytic activity/Vol] 22 U/L <32 [place] Bilirubin Ql (U) 0.22 mg/dL Low 0.3 - 1.2 mg/dL [place] Bun/Cre Ratio 14 [place] Calcium [Mass/Vol] 10.4 mg/dL 8.6 - 10. 4 mg/dL [place] Chloride [Moles/Vol] 100 mmol/L 98 - 10 7 mmol/L [place] CO2 [Moles/Vol] 26 mmol/L 20 - 31 mmol/L [place] Creatinine [Mass/Vol] 0.86 mg/dL 0.5 - 0.9 mg/dL [place] GFR >60 >60 mL/min [place] GFR Non- >60 >60 mL/min [place] GFR/1.73 sq M predicted among non-blacks MDRD (S/P/Bld) [Vol rate/Area] [place] Comment on above: Average GFR for 20-2 9 years old: 116 mL/min/1.73sq m Chronic Kidney Disease: <60 mL/min/1.73sq m Kidney failure: <15 mL/min/1.73sq m eGFR calculated using average adult body mass. Additional eGFR calculator available at: http://www.[employer]/multiple_crcl_2012.htm GFR/1.73 sq M predicted among non-blacks MDRD (S/P/Bld) [Vol rate/Area] NOT REPORTED [place] Glucose [Mass/Vol] 92 mg/dL 70 - 99 mg/dL [place] Interpretation and review of laboratory results Abnormal [place] Potassium [Moles/Vol] 3.9 mmol/L 3.7 - 5.3 mmol/L [place] Protein [Mass/Vol] 8.7 g/dL High 6.4 - 8.3 g/dL [place] Sodium [Moles/Vol] 138 mmol/L 135 - 144 mmol/L [place] Urea nitrogen [Mass/Vol] 12 mg/dL 6 - 20 mg/dL [place] Lipaseon 02-06-2019 Lipase [Catalytic activity/Vol] 28 U/L 13 - 60 U/L [place] Otheron 02-06-2019 Immature granulocytes (Bld) [#/Vol] NOT REPORTED [place] , Urineon 9 Beta HCG ( test) Ql (U) Negative NEGATIVE [place] Urinalysis with Microscopico n 02-06-2019 Amorphous, UA NOT REPORTED None [place] Bacteria, UA NOT REPORTED None [place] Bilirubin Urine Negative NEGATIVE [place] Casts UA NOT REPORTED /LPF [place] Color, UA YELLOW YELLOW [place] Crystals UA NOT REPORTED None /HPF [place] Epithelial Cells UA 2 TO 5 /HPF [place] Glucose, Ur Negative NEGATIVE [place] Interpretation and review of laboratory results Abnormal [place] Ketones Ql (U) Negative NEGATIVE [place] Leukocyte esterase Test strip Ql (U) Negative NEGATIVE [place] Mucus, UA RARE Abnormal None [place] Nitrite, Urine Negative NEGATIVE [place] Other Observations UA NOT REPORTED NOT REQ. 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 [facility] Vital Signs Date Time Vital Sign Value Performing Clinician Facility 03-04-2024 14:52-0500 Body weight 67.04 kg Sheeba HASSAN Work Phone: [facility] 03-04-2024 14:52-0500 Diastolic blood pressure 60 mm[Hg] Sheeba HASSAN Work Phone: [facility] 03-04-2024 14:52-0500 Systolic blood pressure 110 mm[Hg] Sheeba HASSAN Work Phone: [facility] 02-04-2024 15:07-0500 Body weight 65.32 kg Zuleyma Elisabeth DO Work Phone: [facility] 02-04-2024 15:07-0500 Diastolic blood pressure 68 mm[Hg] Zuleyma Elisbaeth DO Work Phone: [facility] 02-04-2024 15:07-0500 Systolic blood pressure 102 mm[Hg] Zuleyma Elisabeth DO Work Phone: [facility] 05-21-2023 09:02-0500 Blood Pressure Location [facility] 05-21-2023 09:02-0500 Body temperature 98.24 [degF] [facility] 05-21-2023 09:02-0500 Diastolic blood pressure 76 mm[Hg] [facility] 05-21-2023 09:02-0500 Heart rate 86 /min [facility] 05-21-2023 09:02-0500 SaO2% (BldA) [Mass fraction] 99 % [facility] 05-21-2023 09:02-0500 Systolic blood pressure 124 mm[Hg] [facility] 03-12-2023 11:12-0500 Body temperature 98.06 [degF] [facility] 03-12-2023 11:12-0500 Diastolic blood pressure 106 mm[Hg] [facility] 03-12-2023 11:12-0500 Heart rate 60 /min [facility] 03-12-2023 11:12-0500 Respiratory rate 20 /min [facility] 12-25-2023 11:12-0500 SaO2% (BldA) [Mass fraction] 98 % [facility] 03-12-2023 11:12-0500 Systolic blood pressure 152 mm[Hg] [facility] 08-13-2021 10:48-0400 Blood Pressure Location Hayde METCALF [facility] 08-13-2021 10:48-0400 Body temperature 98.24 [degF] Hayde METCALF [facility] 08-13-2021 10:48-0400 Diastolic blood pressure 70 mm[Hg] Hayde METCALF [facility] 08-13-2021 10:48-0400 Heart rate 69 /min Hayde METCALF [facility] 08-13-2021 10:48-0400 SaO2% (BldA) [Mass fraction] 98 % Hayde METCALF [facility] 08-13-2021 10:48-0400 Systolic blood pressure 110 mm[Hg] Hayde METCALF [facility] 02-06-2019 19:09-0500 BMI (Body Mass Index) 23.24 kg/m2 [facility] [place] 02-06-2019 19:09-0500 Body Temperature 97.7 [degF] [facility] [place] 02-06-2019 19:09-0500 Body weight 65.32 kg [facility] [place] 02-06-2019 19:09-0500 BP Diastolic 95 mm[Hg] [facility], [place] 02-06-2019 19:09-0500 BP Systolic 136 mm[Hg] [facility] 02-06-2019 19:09-0500 Height 167.6 cm [facility] 02-06-2019 19:09-0500 Pulse (Heart Rate) 76 /min [facility] 02-06-2019 19:09-0500 Pulse Oximetry 99 % [facility] [place] 02-06-2019 19:09-0500 Respiratory Rate 18 /min [facility] [place] Encounters Encounter Date Encounter Type Care Provider Facility Start: 03-04-2024 End: 03-04-2024 flow sheet Sheeba HASSAN Work Phone: [facility] Comment on above: 16 weeks gestation o f ; Second trimester ; Exposure to STD; Vaginal discharge; Screening, , for anatomic survey Start: 03-04-2024 End: 03-04-2024 ambulatory SHEEBA MEDELLIN Not Available Start: 03-04-2024 End: 03-04-2024 Bamboo flowsheet Sheeba HASSAN Work Phone: [facility] Start: 03-04-2024 End: 03-05-2024 Bamboo flowsheet Sheeba HASSAN Work Phone: [facility] Start: 03-04-2024 End: 03-05-2024 External Result Encounter Sheeba HASSAN Work Phone: [facility] Unsolicited Start: 02-04-2024 End: 02-04-2024 flow sheet Zuleyma Elisabeth DO Work Phone: [facility] Comment on above: First trimester preg ruma; 11 weeks gestation of Start: 02-04-2024 End: 02-04-2024 ambulatory ZULEYMA ELISABETH Not Available Start: 02-04-2024 End: 02-04-2024 Bamboo flowsheet Zuleyma Elisabeth DO Work Phone: [facility] Start: 02-04-2024 End: 02-04-2024 Clinisync Result Encounter Zuleyma Elisabeth DO Work Phone: [facility] Unsolicited Start: 02-04-2024 End: 02-04-2024 Clinisync Result Encounter Zuleyma Elisabeth DO Work Phone: [facility] Unsolicited Start: 02-02-2024 End: 02-02-2024 Clinisync Result Encounter Zuleyma Elisabeth DO Work Phone: [facility] Unsolicited Start: 02-02-2024 End: 02-02-2024 Clinisync Result Encounter Zuleyma Elisabeth DO Work Phone: [facility] Unsolicited Start: 01-11-2024 End: 01-11-2024 Office outpatient visit 5 minutes [facility] Elisabeth Nurse [facility] Comment on above: GA: 9w1d Start: 01-11-2024 End: 01-11-2024 ambulatory ZULEYMA ELISABETH Not Available Start: 11-07-2023 End: 11-07-2023 ambulatory [facility] Start: 11-05-2023 End: 11-05-2023 ambulatory Leola Anel DEANDRA [facility] Start: 05-21-2023 End: 05-22-2023 ambulatory Alfredo Dejesus Facility:[facility] Start: 05-21-2023 End: 05-21-2023 Patient encounter procedure Alfredo Dejesus [facility] Start: 04-02-2023 End: 04-02-2023 ambulatory [facility] Start: 03-12-2023 End: 03-12-2023 [facility] Start: 03-12-2023 End: 03-12-2023 Emergency department patient visit [facility] Amy belkis [facility] Start: 08-13-2021 End: 08-13-2021 Lab Drop off Hayde METCALF [facility] Start: 08-13-2021 End: 08-13-2021 Patient encounter procedure Hayde Hagan DIXON [facility] Start: 02-07-2019 End: 02-09-2019 Subsequent hospital visit by physician [facility] Ultrasound Room [facility] Ultrasound Comment on above: Left lower quadrant abdominal pain; Pelvic pain Start: 02-06-2019 End: 02-06-2019 Emergency department patient visit Galen Harden Work Phone: [facility] ED Comment on above: Left lower quadrant abdominal pain (Primary Dx) Procedures Date Procedure Procedure Detail Performing Clinician Start: 03-04-2024 RECURRENT VAGINITIS (HTRX) Sheeba HASSAN Work Phone: Start: 03-04-2024 Urnls dip stick/tabl et rgnt non-auto w/o micrscp Sheeba HASSAN Work Phone: Start: 02-04-2024 Urnls dip stick/tabl et rgnt non-auto w/o micrscp Zuleyma Elisabeth DO Work Phone: Start: 02-04-2024 BOX TEST Zuleyma Fazi o DO Work Phone: Start: 02-02-2024 Antibody screen Zuleyma F azio DO Work Phone: Start: 02-02-2024 ALL CBC WITH AUTO DIFF Zuleyma Elisabeth DO Work Phone: Start: 02-02-2024 ALL RUBELLA IGG AB Core y Elisabeth DO Work Phone: Start: 02-02-2024 ALL TYPE AND SCREEN Cor ey Elisabeth DO Work Phone: Start: 02-02-2024 HBSAG SCREEN Zuleyma Fazi o DO Work Phone: Start: 02-02-2024 HCV ANTIBODY RFX TO QUANT PCR Zuleyma Elisabeth DO Work Phone: Start: 02-02-2024 HIV AB/P24 AG WITH REFLEX Zuleyma Leeo DO Work Phone: Start: 02-02-2024 MLR HEMOGLOBIN A1C Joseph Barber DO Work Phone: Start: 02-02-2024 RAPID PLASMA REAGIN, QUANT Zuleyma Barber DO Work Phone: Start: 02-02-2024 [facility] DRUG SCREEN RAPI D (URINE) Zuleyma Barber DO Work Phone: Start: 01-11-2024 Urnls dip stick/tabl et rgnt non-auto w/o micrscp Zuleyma Barber DO Work Phone: Start: 02-07-2019 Us pelvic [...] - Td) DTaP/Tdap/Td vaccine (8 - Td) [facility], [place] Start: 04-08-2024 End: 04-08-2024 Patient encounter procedure 04/08/2024 2:40 PM EST Routine [facility] [address] [place] [address] Zuleyma Barber, DO [address] [place] [address] [facility] Start: 04-08-2024 End: 04-08-2024 Professional / ancillary services management 04/08/2024 1:30 PM EST Ancillary Procedure [facility] [address] [place] [id number] [facility] Start: 03-04-2024 End: 03-04-2024 Patient encounter procedure [facility] Comment on above: Arrived Start: 03-04-2024 End: 04-04-2024 Alpha fetoprotein, maternal Alpha fetoprotein, maternal Lab Routine 16 weeks gestation of Second trimester Expected: 03/04/2024 (Approximate), Expires: 04/04/2024 [facility] Comment on above: Expected: 03/04/2024 (Approximate), Expires: 04/04/2024 Start: 03-04-2024 End: 03-04-2025 US for US OB ANATOMY SINGLE W US OB CERVICAL LENGTH Imaging Routine Screening, , for anatomic survey Expected: 03/04/2024 (Approximate), Expires: 03/04/2025 [facility] Comment on above: Expected: 03/04/2024 (Approximate), Expires: 03/04/2025 Start: 02-04-2024 End: 02-04-2024 Patient encounter procedure [facility] Comment on above: Arrived Start: 01-11-2024 End: 01-10-2025 ABO/Rh ABO/Rh Lab Routine Missed menses , unspecified gestational age Expected: 01/11/2024 (Approximate), Expires: 01/10/2025 [facility] Comment on above: Expected: 01/11/2024 (Approximate), Expires: 01/10/2025 Start: 01-11-2024 End: 01-10-2025 Blood type and Indirect antibody screen panel - Blood Type and screen Lab Routine Missed menses , unspecified gestational age Expected: 01/11/2024 (Approximate), Expires: 01/10/2025 [facility] Work Phone: Comment on above: Expected: 01/11/2024 (Approximate), Expires: 01/10/2025 Start: 01-11-2024 End: 01-10-2025 Drugs of abuse panel - Urine by Screen method Rapid drug screen, urine Lab Routine , unspecified gestational age Encounter for supervision of normal first in first trimester Expected: 01/11/2024 (Approximate), Expires: 01/10/2025 [facility] Comment on above: Expected: 01/11/2024 (Approximate), Expires: 01/10/2025 Start: 01-11-2024 End: 01-10-2025 US Pelvis transvaginal US OB transvaginal Imaging Routine Missed menses Expected: 01/11/2024 (Approximate), Expires: 01/10/2025 [facility] Comment on above: Expected: 01/11/2024 (Approximate), Expires: 01/10/2025 Start: 11-18-2023 Influenza vaccination Influenza Vacc ine (#1) [facility] Start: 09-05-2021 Cervical cancer screen Cervical canc er screen [place], [place] Start: 02-07-2019 End: 03-08-2019 US Pelvis Complete US Pelvis Complete Imaging Routine Left Lower Quadrant Abdominal Pain Expected: 02/07/2019, Expires: 03/08/2019 [place], [place] Comment on above: Expected: 02/07/2019 , Expires: 03/08/2019 Start: 11-17-2018 Influenza vaccination Flu vaccine (# 1) [place], [place] Start: 2012 Chlamydia screen Chlamydia screen [place], [place] Start: 12-17-2011 HIV screen HIV screen [place], [place] Start: 12-17-2007 HPV vaccine (1 - Fem risa 2-dose series) HPV vaccine (1 - Female 2-dose series) [place], [place] Bacteria identified in Urine by Culture Urine culture Microbiology Routine Missed menses Ordered: 01/11/2024 [facility] Comment on above: Ordered: 01/11/2024 CBC W Auto Different ial panel - Blood CBC and differential Lab Routine Missed menses , unspecified gestational age Ordered: 01/11/2024 [facility] Comment on above: Ordered: 01/11/2024 CHLAMYDIA TRACHOMATI S (GENITO/STI) CHLAMYDIA TRACHOMATIS (GENITO/STI) Lab Routine Exposure to STD Ordered: 03/04/2024 [facility] Comment on above: Ordered: 03/04/2024 Hemoglobin A1c/Hemoglobin.total in Blood Hemoglobin A1c Lab Routine Missed menses , unspecified gestational age Ordered: 01/11/2024 [facility] Comment on above: Ordered: 01/11/2024 Hepatitis B virus surface Ag [Presence] in Serum or Plasma by Immunoassay Hepatitis B surface antigen Lab Routine Missed menses , unspecified gestational age Ordered: 01/11/2024 [facility] Comment on above: Ordered: 01/11/2024 Hepatitis C virus Ab [Presence] in Serum or Plasma by Immunoassay Hepatitis C antibody Lab Routine Missed menses , unspecified gestational age Ordered: 01/11/2024 [facility] Comment on above: Ordered: 01/11/2024 HIV-1/HIV-2 antigen/antibody combination immunoassay HIV-1 and HIV-2 antibodies Lab Routine Missed menses , unspecified gestational age Ordered: 01/11/2024 [facility] Comment on above: Ordered: 01/11/2024 Neisseria gonorrhoea e DNA [Presence] in Unspecified specimen by ARSENIO with probe detection Neisseria gonorrhea DNA probe, direct Lab Routine Exposure to STD Ordered: 03/04/2024 [facility] Comment on above: Ordered: 03/04/2024 Reagin Ab [Presence] in Serum by RPR RPR Lab Routine Missed menses , unspecified gestational age Ordered: 01/11/2024 [facility] Comment on above: Ordered: 01/11/2024 Rubella antibody, IgG Rubella an tibody, IgG Lab Routine Missed menses , unspecified gestational age Ordered: 01/11/2024 [facility] Comment on above: Ordered: 01/11/2024 SURESWAB(R) ADVANCED VAGINITIS PLUS, TMA SURESWAB(R) ADVANCED VAGINITIS PLUS, TMA Pathology and Cytology Routine Vaginal discharge Ordered: 03/04/2024 [facility] Work Phone: Comment on above: Ordered: 03/04/2024 Immunizations Immunization Date Immunization Notes Care Provider Fa cility 12-08-2020 SARS-CoV-2 (COVID-19 ) mRNA BNT-162b2 vax [facility] 11-17-2020 SARS-CoV-2 (COVID-19 ) mRNA BNT-162b2 vax [facility] 11-09-2019 influenza virus vaccine, unspecified formulation [facility] 08-08-2017 tetanus toxoid, reduced diphtheria toxoid, and acellular pertussis vaccine, adsorbed [facility] Comment on above: Result Comment: 2023: VIS DATE: 05/12/2014 11-13-2009 meningococcal ACWY vaccine, unspecified formulation [facility] 11-13-2009 tetanus toxoid, reduced diphtheria toxoid, and acellular pertussis vaccine, adsorbed [facility] 11-13-2009 varicella virus vaccine [facility] 10-22-2002 DTaP, unspecified formulation [facility] 10-22-2002 measles, mumps and rubella virus vaccine [facility] 10-22-2002 poliovirus vaccine, unspecified formulation [facility] 09-22-1998 DTaP, unspecified formulation [facility] 09-22-1998 haemophilus influenz ae type b vaccine, PRP-OMP conjugate [facility] 09-22-1998 measles, mumps and rubella virus vaccine [facility] 09-22-1998 varicella virus vaccine [facility] 11-04-1997 DTaP, unspecified formulation [facility] 11-04-1997 haemophilus influenz ae type b vaccine, PRP-OMP conjugate [facility] 08-19-1997 DTaP, unspecified formulation [facility] 08-19-1997 haemophilus influenz ae type b vaccine, PRP-OMP conjugate [facility] 08-19-1997 hepatitis B vaccine, pediatric or pediatric/adolescent dosage [facility] 08-19-1997 poliovirus vaccine, unspecified formulation [facility] 04-22-1997 DTaP, unspecified formulation [facility] 04-22-1997 hepatitis B vaccine, pediatric or pediatric/adolescent dosage [facility] 04-22-1997 Hib, unspecified formulation [facility] 1996 hepatitis B vaccine, pediatric or pediatric/adolescent dosage [facility] NEGATED: Highlighted row has not occurred!05-21-2023 influenza virus vaccine, unspecified formulation [facility] Payers Date Payer Category Payer Private Health Insurance [employer] [id number] 2022 Unknown [id number] 2015 Unknown [employer] [address] xxxxxxxxxxxx 2015-Present [phone] [address] [place] [address] xxxxxxxxxxxx [id number] 1996 Unknown [id number] 1996 Unknown [id number] 1996 Unknown [id number] 1996 Unknown [id number] 1996 Unknown [id number] 1996 Unknown [id number] 1996 Unknown [id number] 1996 Unknown [id number] Social History Date Type Detail Facility Start: 02-06-2019 End: 05-21-2023 Tobacco smoking status NHIS Never smoker [place], [place] Start: 02-06-2019 Alcohol intake 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 03-12-2023 Functional Status N/A [facility] Clinical Notes 08-13-2021 to 03-04-2024 SONYA Wilkes - 03/04/2024 2:30 PM Brittny Alberts LPN - 02/04/2024 2:20 PM Dread Bradley LPN - 01/11/2024 10:00 AM EDT Note Date & Type Note Facility 03-04-2024 History of Presen t illness Narrative Reason for Appointment: Patient ID: Syeda Pereira is a 28 y.o. female who presents for Routine Visit Patient presents today for Return OB appointment. MEDICATIONS Current Outpatient Medications Medication Instructions MV-Min-Fe Fum-FA-DHA ( 1 PO) Take by mouth ALLERGIES No Known Allergies PROBLEMS Active Ambulatory Problems Diagnosis Date Noted No Active Ambulatory Problems Resolved Ambulatory Problems Diagnosis Date Noted No Resolved Ambulatory Problems No Additional Past Medical History HISTORY PAST MEDICAL HISTORY SOCIAL HISTORY History reviewed. No pertinent past medical history. Social History Tobacco Use Smoking status: Not on file Smokeless tobacco: Not on file Substance Use Topics Alcohol use: Not on file Drug use: Not on file FAMILY HISTORY Family History Problem Relation Name Age of Onset Thyroid cancer Cousin SURGICAL HISTORY Past Surgical History: Procedure Laterality Date WISDOM TOOTH EXTRACTION REVIEW OF SYSTEMS Review of Systems: Review of Systems Constitutional: Negative. HENT: Negative. Eyes: Negative. Respiratory: Negative. Cardiovascular: Negative. Gastrointestinal: Negative. Genitourinary: Negative. Musculoskeletal: Negative. Skin: Negative. Neurological: Negative. All other systems reviewed and are negative. Hematological: Negative. Endocrine: Negative. Allergic/Immunologic: Negative. OBJECTIVE Objective: Physical Exam Constitutional: Appearance: Normal appearance. She is normal weight. HENT: Head: Normocephalic. Cardiovascular: Rate and Rhythm: Normal rate. Pulses: Normal pulses. Pulmonary: Effort: Pulmonary effort is normal. Breath sounds: Normal breath sounds. Abdominal: Palpations: Abdomen is soft. Musculoskeletal: General: Normal range of motion. Neurological: General: No focal deficit present. Mental Status: She is alert and oriented to person, place, and time. Psychiatric: Mood and Affect: Mood normal. Behavior: Behavior normal. Thought Content: Thought content normal. Judgment: Judgment normal. Vitals and nursing note reviewed. Vitals: There is no height or weight on file to calculate BMI. BP: 110/60 Patient's last menstrual period was 11/08/2023. ASSESSMENT & PLAN ICD-10-CM 1. 16 weeks gestation of Z3A.16 POCT urinalysis dipstick manually resulted Alpha fetoprotein, maternal Alpha fetoprotein, maternal 2. Second trimester Z34.92 POCT urinalysis dipstick manually resulted Alpha fetoprotein, maternal Alpha fetoprotein, maternal 3. Exposure to STD Z20.2 CHLAMYDIA TRACHOMATIS (GENITO/STI) Neisseria gonorrhea DNA probe, direct 4. Vaginal discharge N89.8 SURESWAB(R) ADVANCED VAGINITIS PLUS, TMA 5. Screening, , for anatomic survey Z36.89 US OB ANATOMY SINGLE W US OB CERVICAL LENGTH Return OB: Patient presents today for a routine obstetrics appointment. Patient is currently 16w5d . Patient states she is doing well but has complaints of being tired due to current . Patient has verbalizes frequent movement. labor precautions was discussed/given and patient was instructed to perform kick counts three times a day. Orders Placed This Encounter Procedures US OB ANATOMY SINGLE W US OB CERVICAL LENGTH CHLAMYDIA TRACHOMATIS (GENITO/STI) Neisseria gonorrhea DNA probe, direct Alpha fetoprotein, maternal POCT urinalysis dipstick manually resulted Follow Up: Patient is to return to office in 2 week for routine OB appointment. Documented by SONYA Wilkes on behalf of: SONYA Wilkes documented in this encounter [facility] 02-04-2024 History of Presen t illness Narrative Reason for Appointment: Patient ID: Syeda Pereira is a 28 y.o. female who presents for Routine Visit Patient presents today for Return OB appointment. MEDICATIONS Current Outpatient Medications Medication Instructions MV-Min-Fe Fum-FA-DHA ( 1 PO) Oral ALLERGIES No Known Allergies PROBLEMS Active Ambulatory Problems Diagnosis Date Noted No Active Ambulatory Problems Resolved Ambulatory Problems Diagnosis Date Noted No Resolved Ambulatory Problems No Additional Past Medical History HISTORY PAST MEDICAL HISTORY SOCIAL HISTORY No past medical history on file. Social History Tobacco Use Smoking status: Not on file Smokeless tobacco: Not on file Substance Use Topics Alcohol use: Not on file Drug use: Not on file FAMILY HISTORY Family History Problem Relation Name Age of Onset Thyroid cancer Cousin SURGICAL HISTORY History reviewed. No pertinent surgical history. REVIEW OF SYSTEMS Review of Systems: Review of Systems All other systems reviewed and are negative. OBJECTIVE Objective: Physical Exam Constitutional: Appearance: Normal appearance. She is well-developed. Cardiovascular: Rate and Rhythm: Normal rate and regular rhythm. Pulmonary: Effort: Pulmonary effort is normal. Breath sounds: Normal breath sounds. Abdominal: General: Bowel sounds are normal. There is no distension. Palpations: Abdomen is soft. Tenderness: There is no abdominal tenderness. There is no guarding or rebound. Musculoskeletal: General: No swelling. Normal range of motion. Right lower leg: No edema. Left lower leg: No edema. Neurological: Mental Status: She is alert and oriented to person, place, and time. Skin: General: Skin is warm and dry. Psychiatric: Mood and Affect: Mood normal. Behavior: Behavior normal. Vitals and nursing note reviewed. Exam conducted with a global climate change analyst present. Vitals: There is no height or weight on file to calculate BMI. BP: 102/68 Patient's last menstrual period was 11/08/2023. ASSESSMENT & PLAN ICD-10-CM 1. First trimester Z34.91 POCT urinalysis dipstick manually resulted 2. 11 weeks gestation of Z3A.11 New OB: Patient presents today for 1st time obstetrics appointment with provider. Patient is currently 12w4d . Patients history has been reviewed in great detail including any potential risks. Patient stated she currently has no complaints. Expectations throughout regarding labs, ultrasounds, and appointments have been discussed with the patient in detail. It was reiterated that the patient is to drink 6-8 glasses of water a day, eat 6 small meals a day, do not consume raw or undercooked meat, and stay away from [facility]. Patient has been consulted regarding any further do's and don'ts of . Patient voiced understanding and all questions and concerns were answered. Orders Placed This Encounter Procedures POCT urinalysis dipstick manually resulted Follow Up: Patient is to return in 4 weeks for routine OB appointment. Documented by Shey Alberts LPN on behalf of: Zuleyma Barber DO documented in this encounter [facility] 01-11-2024 History of Presen t illness Narrative [...] or undercooked meat, and stay away from [facility]. Patient has also been advised to not [...] Betty Bradley LPN documented in this encounter [facility] 03-12-2023 Hospital Discharg e instructions Patient Education 03/12/2023 13:01:07 Contusion, Kpjr-aw-Qbvt Contusion A contusion is a deep bruise. [...] sitting or lying down. General instructions Take tawn-rqr-qjbnvqo and prescription medicines only as told by [...] also called RICE. You may be given xhms-btp-gzcucxc medicines for pain. Contact a doctor if [...] provider. Document Revised: 12/29/2021 Document Reviewed: 12/29/2021 [employer] Patient Education 2022 [employer]. Follow Up Care 03/12/2023 11:10:11 With:KEO CHAVARRIA DO Address: [place] [address]- When:03/15/2023 [facility] 03-12-2023 Evaluation + Plan note Extrac meli from: Title:ED Note Author:Deanna Bourne PA-C Date :03/12/23 1. Nasal contusion (S00.33XA : Contusion of nose, initial encounter) Orders: CT Maxillofacial w/o Contrast [facility]05-28-2022 Evaluation + Plan note Diagnostic Tests Pending * Group A Strep by PCR 08/13/21 [facility]05-28-2022 Hospital Discharge instructions Patient Education 08/13/2021 11:21:39 Pharyngitis, Pjkj-xx-Xofc Pharyngitis Pharyngitis is a sore throat (pharynx). This is when there is redness, pain, and swelling in your throat. Most of the time, this condition gets better on its own. In some cases, you may need medicine. Follow these instructions at home: Take kvpz-xbq-eynyrpg and prescription medicines only as told by [...] 08/21/2008 Document Revised: 02/15/2018 Document Reviewed: 04/10/2017 [employer] Patient Education [employer]. [facility] Evaluation note* Diagnosis Missed menses , unspecified gestational age Encounter for supervision of normal first in first trimester documented [facility] Diagnosis First trimester state, incidental 11 weeks gestation of documented in this encounter [facility]* Diagnosis 16 weeks gestation of Second trimester state, incidental Exposure to STD Vaginal discharge Leukorrhea, not specified as infective Screening, , for anatomic survey Encounter for anatomic survey documented in this encounter [facility] Narrative No data available for this section [facility] Hospital Discharge instructions No data available for this section [facility] No data available for this section [facility] Summary Purpose Family History No Family History Records Found No data available for this section No data available for this section No Family History Records FoundNo Family History Records FoundNo Family History Records FoundNo Family History Records FoundNo Family History Records Found Advance Directives No Advanced Directives Records FoundDocuments on File Type Date Recorded 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 and 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 Reason for Referral Status Reason Specialty Diagnoses / Procedures Referred By Contact Referred To Contact Pending Review Radiology Diagnoses Pelvic pain Procedures US NON OB TRANSVAGINAL Galen Hadren MD [address] [place] [address] Status Reason Specialty Diagnoses / Procedures Referre d By Contact Referred To Contact Open Radiology Diagnoses Left lower quadrant abdominal pain Procedures US Pelvis Complete HC US EXAM PELVIC COMPLETE Galen Harden MD [address] [place] [address] Status Reason Specialty Diagnoses / Procedures Referre d By Contact Referred To Contact Open [facility]iology Diagnoses Left lower quadrant abdominal pain Procedures US Pelvis Complete Galen Harden MD [address] [place] [address] Assessments Diagnosis Left lower quadrant abdominal pain Pelvic pain Diagnosis Left lower quadrant abdominal pain- Primary Discharge Instructions * Instructions* Galen Harden MD - 02/06/2019 Pelvic ultrasound will be scheduled for tomorrow * Attachments The following attachments cannot be sent through Care Everywhere. * Abdominal Pain (Azerbaijani) documented in this encounter Additional Source Comments INFORMATION SOURCE (unrecogn ized section and content) DATE CREATED AUTHOR 09/05/2017 [facility] DATE CREATED AUTHOR AUTHOR'S ORGANIZ ATION 06/01/2023 [facility] DATE CREATED AUTHOR AUTHOR'S ORGANIZ ATION 11/06/2023 [facility] DATE CREATED AUTHOR AUTHOR'S ORGANIZ ATION 11/08/2023 [facility] DATE CREATED AUTHOR AUTHOR'S ORGANIZ ATION 11/13/2023 [facility] DATE CREATED AUTHOR AUTHOR'S ORGANIZ ATION 03/07/2024 [facility] EPIC Reason for Visit (unrecogniz ed section and content) Status Reason Specialty Diagnoses / Procedures Referre d By Contact Referred To Contact Open Radiology Diagnoses Left lower quadrant abdominal pain Procedures US Pelvis Complete HC US EXAM PELVIC COMPLETE Galen Harden MD [address] [place] [address] Reason Comments Abdominal Pain Lower abdomen pain. Reason Comments Amenorrhea Reason Comments Routine Visit Patient Care team informatio n (unrecognized section and content) Set Up Operator Relationship Specialty Start Date End Date Keo Chavarria DO [address] [place] [address] PCP - General Internal Medicine 01/11/24 Set Up Operator Relationship Specialty Start Date End Date Keo Chavarria DO [address] [place] [address] PCP - General Internal Medicine 01/11/24 Set Up Operator Relationship Specialty Start Date End Date Keo Chavarria DO [address] [place] [address] PCP - General Internal Medicine 01/11/24 Set Up Operator Relationship Specialty Start Date End Date Keo Chavarria DO [address] [place] [address] PCP - General Internal Medicine 01/11/24 Set Up Operator Relationship Specialty Start Date End Date Keo Chavarria DO [address] [place] [address] PCP - General Internal Medicine 01/11/24 Set Up Operator Relationship Specialty Start Date End Date Keo Chavarria DO [address] [place] [address] PCP - General Internal Medicine 01/11/24 Set Up Operator Relationship Specialty Start Date End Date Keo Chavarria DO [address] [place] [address] PCP - General Internal Medicine 01/11/24 [...] BE BASED ON THE PRIMARY CLINICAL RECORDS. [facility] [facility] provides no warranty or guarantee of the accuracy or completeness of information in this [email or web address]
[2024-04-11 01:07] LABS: AFP Value 42.8 ng/mL (.); Gest. Age on Collection Date 21.7 weeks (.); Gestat. Age Based On Ultrasound (.); Insulin Dep Diabetes No (.); Maternal Age At EDD 27.6 yr (.); OSBR Risk 1 IN 10000 (.); Results Report (.)
== END 2024-04-08 15:43 | disposition home or self-care (01) ==
LOC: LAB 15:43
PROVIDERS: Visit Provider Obstetrics & Gynecology
DX: Z34.92 Encounter for supervision of normal pregnancy, unspecified, second trimester (principal); Z3A.16 16 weeks gestation of pregnancy
CPT/HCPCS: 36415; 82105

== ENCOUNTER 2024-05-17 09:55 | Outpatient (OUT) | payer OTHER, SELFPAY ==
--- OUTSIDE RECORDS SUMMARY | 2024-05-17 09:59 | XMS_ITS | CCD ---
Author Organization [facility] Care Team Providers Care Manager Servicing Name Role Phone Julianna Chavarria Primary Care Provider [phone] NONE, XXXX Primary Care Physician Unavailab le JULIANNA CHAVARRIA Primary Care Physician Hui Salazar Attending Unavailable Alfredo Dejesus Attending Unavailable OLGA CHAVARRIAICA Nicole Referring Unavailable SUZI CHAVARRIASSICA Nicole Primary Care Unavailable JULIANNA CHAVARRIA Referring Unavailable SUZI CHAVARRIASSICA Nicole Primary Care Unavailable Leola LIRIANO Attending Unavailable Julianna Chavarria DO Primary Care Provider Julianna Chavarria DO Primary Care Provider JASBIR BARBER Attending Unavailable JASBIR BARBER Attending Unavailable SHEEBA MEDELLIN Attending Unavailable SHEEBA MEDELLIN Attending Unavailable Allergies Allergy Classification Reported Allergen(s) Allergy Type Date of Onset Reaction(s) Facility (2 sources) No Known Medication Allergies; Translations: [No Known Medication Allergies] Propensity to adverse reactions (disorder) [facility] Repository Medications Current Medications Medication Drug Class(es) Dates Sig (Normalized) Sig (Original) amoxicillin 500 mg oral capsule (1 source) Penicillin-class Antibacterial Start: 05-21-2023 take 1 capsule by mouth every twelve hours amoxicillin 500 mg Cap 500 mg = 1 cap(s), Oral, q12hr, # 20 cap(s), Refills(s) 0, Pharmacy: [facility] #[id number], 165.1, cm, 05/21/23 9:05:00 EST, Height/Length Dosing, 64, kg, 05/21/23 9:05:00 EST, Weight Dosing Start Date: 05/21/23 Status: Ordered Ethinyl Estradiol / Norgestrel (3 sources) Estrogen Start: 03-22-2023 take 1 tablet by mouth once daily, then take 0.3-30 tablets by mouth once norgestrel-ethinyl estradiol (LOW-OGESTREL) 0.3-30 MG-MCG per tablet Indications: Primary dysmenorrhea Take 1 tablet by mouth daily 84 tablet 3 03/22/2023 Active Start: 11-20-2018 LOW-OGESTREL 0 .3-30 MG-MCG per tablet Indications: Primary dysmenorrhea TAKE 1 TABLET DAILY 84 tablet 3 11/20/2018 Active Norgestrel (4 sources) Start: 05-19-2021 norgestrel Ref ills(s) 0 Start Date: 05/19/21 Status: Ordered pantoprazole 40 mg delayed release oral tablet (3 sources) Proton Pump Inhibitor Start: 02-06-2019 pantoprazole (PROTONIX) tablet 40 mg Start: 02-06-2019 take 1 tablet by kim th once daily pantoprazole (PROTONIX) 20 MG tablet Take 1 tablet by mouth daily 30 tablet 0 02/06/2019 Active MV-Min-Fe Fum-FA-DH A ( 1 PO) (16 sources) MV-Min- Fe Fum-FA-DHA ( 1 PO) [...] mode of transmission] 03-04-2024 Episodic Menstrual disorders (7 sources) Spasmodic dysmenorrhea; 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, unspecified] Onset: 12-20-2015 12-20-2015 Chronic Other female genital disorders (2 sources) Vaginal discharge; Translations: [Other specified noninflammatory disorders of vagina] 03-04-2024 Episodic Other and delivery including normal (10 sources) ; Translations: [Encounter for supervision of normal , unspecified, unspecified trimester] 01-11-2024 Episodic Other screening for suspected conditions (not mental disorders or infectious disease) (7 sources) Encounter for screening for cardiovascular disorders; [...] [16 weeks gestation of ] 03-04-2024 Episodic Residual codes; unclassified (2 sources) Gestation period, 20 weeks; Translations: [20 weeks gestation of ] 04-08-2024 Episodic Residual codes; unclassified (2 sources) Gestation period, 24 weeks; Translations: [24 weeks gestation of ] 05-07-2024 Episodic Superficial injury; contusion (1 source) Contusion of nose; Translations: [Contusion of nose, initial encounter] Onset: 03-12-2023 Episodic Past or Other Problems Problem Classification Problem Date Documented Da te Episodic/Chronic Abdominal pain (3 sources) Left lower quadrant pain; Translations: [Pain in pelvis] Episodic Cardiac dysrhythmias (2 sources) Bradycardia; Translations: [Bradycardia] Onset: 01-07-2013 Resolved: 09-05-2018 09-05-2018 Chronic Cardiac dysrhythmias (1 source) Bradycardia; Translations: [Bradycardia, unspecified] Onset: 01-07-2013 Resolved: 09-05-2018 09-05-2018 Episodic Other liver diseases (3 sources) Elevated liver enzymes level; Translations: [Abnormal levels of other serum enzymes] Onset: 01-07-2013 Resolved: 09-05-2018 09-05-2018 Episodic Other nutritional; endocrine; and metabolic disorders (3 sources) Weight loss; Translations: [Abnormal weight loss] Onset: 01-07-2013 Resolved: 09-05-2018 09-05-2018 Episodic Results Test Name Value Interpretation Reference Range Facility Urinalysis macro (dipstick) panel (U)on 05-07-2024 Bilirubin, UA Negative Negative - 4(70) +++ mg/dL [facility] Blood, UA Positive Negative - 50 Kalyan/mcL [facility] Comment on above: trace Clarity, UA Clear [facility] Color, UA Yellow [facility] Glucose, UA Negative Negative - 1999(110) ++++ mg/dL [facility] Interpretation and review of laboratory results Abnormal [facility] Ketones, UA Negative Negative - 160(16) ++++ mg/dL [facility] Leukocytes, UA Negative Negative - 500+++ June/mcL [facility] Nitrite, UA Negative Negative - Positive [facility] pH, UA 7 5 - 9 [facility] Protein, UA Negative Negative - 1999(20) ++++ mg/dL [facility] Spec Grav, UA 1.015 1 - 1.03 [facility] Urobilinogen, UA 0.2 0.2 - 12 mg/dL [facility] AFP, SERUM, OPEN SPINA BIFID Aon 04-11-2024 AFP MOM 0.61 . [facility] AFP VALUE 42.8 ng/mL . [facility] COMMENT: Comment . [facility] Comment on above: Zara Treviño , Ph.D., [facility] Director References: Available Upon Request. Multiples Of Median Cutoffs For AFP Elevations Mendoza 2.5 Black 2.8 IDD 2.0 Twins 4.5 Abbreviation Definitions IDD - Insulin Dep Diabetes OSBR - Open Spina Bifida Risk For further inquiries contact [facility] [facility] [facility] at [phone]. This test was developed and its performance characteristics determined by [employer]. It has not been cleared or approved by the Food and Drug Administration. Performed at: [facility] [address], [place] [id number] [employer] Supervisor: Alexy Guzman [facility], Phone: [phone] GEST. AGE ON COLLECTION DATE 21.7 . weeks [facility] GESTAT. AGE BASED ON Ultrasound . [facility] Comment on above: 16:5 on 03/04/2024 Recalculations are not recommended when gestational dating by LMP and ultrasound are within 10 days. INSULIN DEP DIABETES No . [facility] INTERPRETATION Comment . [facility] Comment on above: Interpretation: Scre en Negative This result is screen negative for OSB. The AFP MoM calculated is based on the gestational age provided. MS-AFP can identify up to 80% of open neural tube defects. Closed neural tube defects and some open defects may not be detected by this test. This test does not screen for Down Syndrome or Trisomy 18. If screening for Down Syndrome or Trisomy 18 is desired, contact [employer] to discuss available options. The [employer] recommends amniocentesis be offered to women age 35 and older. [age]INSLEY [age] [facility] MULTIPLE GESTATION No . [facility] [place] [id number] . [facility] RACE . [facility] RESULTS Report . [facility] TEST RESULTS: Negative . [facility] WEIGHT 148 . lbs [facility] N N ULTRASOUND [id number] 16 N 1 Y 148 N N N N N White/ [facility] US OB 14+ WEEKS ANATOMY SCAN on 04-08-2024 US OB 14+ WEEKS ANATOMY SCAN TITLE OF EXAM: OB Ultrasound: REASON FOR EXAM: Anatomy COMPARISON: None. TECHNIQUE: Grayscale and M-mode Doppler imaging is performed. FINDINGS: heart rate: 152 bpm BPD: 4.9 cm HC: 17.7 cm AC: 15.7 cm FL: 3.6 cm GA for sonogram: 20.6 wk (19.2-22.0) Cervix length: 4.0 cm AINSLEY: 08/22/2024 Weight Estimate: Weight: 393 gm 0 lbs, 13 oz (335-450 gm) [place]lock Normal: 370 gm (307-433 gm) [place] Wt%: 69% for 20.6 wks Presentation: Cephalic Lie: Longitudinal Amniotic Fluid: Subjectively normal Placental Location: Anterior Distance from Placenta edge to Cervical os: 6.8 cm Cervical Length: 4.0 cm Closed Heart Rate: 152 bpm Anatomy Observed: Lateral Ventricles: Visualized Cerebellum: Visualized Posterior Fossa: Visualized Nose Lips: Visualized Orbits: Visualized 4 Chamber heart: Visualized RVOT/LVOT: Visualized Diaphragm: Visualized Stomach: Visualized Kidneys: Visualized Abd Cord Insert: Visualized Bladder: Visualized Umbilical Arteries: Visualized 3 Vessel Cord: Visualized Spine: Visualized Extremities: Visualized Gender: XX IMPRESSION: Single IUP at 20.6 weeks. Normal anatomic images as visualized. Dictated and transcribed 04/09/24/dpd This report has been electronically signed and approved by the interpreting radiologist. Normal Not Available Comment on above: Order Comment: US OB ANATOMY SINGLE W US OB CERVICAL LENGTH Estimated Date of Delivery: 08/14/24 Gestational Age as of 03/04/2024: 21w5d RECURRENT VAGINITIS (HTRX)on 03-05-2024 ATOPOBIUM VAGINAE 0 [facility] ATOPOBIUM VAGINAE Not detected [facility] BVAB 2,3 (BACTERIAL VAGINOSIS ASSOCIATED BACTERIA 2, 3); MOBILUNCUS SPP 0 [facility] BVAB 2,3 (BACTERIAL VAGINOSIS ASSOCIATED BACTERIA 2, 3); MOBILUNCUS SPP Not detected [facility] TRISTA ALBICANS, PARAPSILOSIS, TROPICALIS 0 [facility] TRISTA ALBICANS, PARAPSILOSIS, TROPICALIS Not detected [facility] TRISTA GLABRATA 0 [facility] TRISTA GLABRATA Not detected [facility] TRISTA KRUSEI 0 [facility] TRISTA KRUSEI Not detected [facility] CHLAMYDIA TRACHOMATIS 0 [facility] CHLAMYDIA TRACHOMATIS Not detected [facility] GARDNERELLA VAGINALIS 0 [facility] GARDNERELLA VAGINALIS Not detected [facility] MEGASPHAERA (TYPES 1, 2) 0 [facility] MEGASPHAERA (TYPES 1, 2) Not detected [facility] MYCOPLASMA GENITALIUM 0 [facility] MYCOPLASMA GENITALIUM Not detected [facility] NEISSERIA GONORRHOEAE 0 [facility] NEISSERIA GONORRHOEAE Not detected [facility] TRICHOMONAS VAGINALIS 0 [facility] TRICHOMONAS VAGINALIS Not detected [facility] Urinalysis macro (dipstick) panel (U)on 03-04-2024 Bilirubin, UA Negative Negative - 4(70) +++ mg/dL [facility] Blood, UA Positive Negative - 50 Kalyan/mcL [facility] Comment on above: trace-intact Clarity, UA Clear [facility] Color, UA Yellow [facility] Glucose, UA Negative Negative - 1999(110) ++++ mg/dL [facility] Interpretation and review of laboratory results Abnormal [facility] Ketones, UA Negative Negative - 160(16) ++++ mg/dL [facility] Leukocytes, UA Negative Negative - 500+++ June/mcL [facility] Nitrite, UA Negative Negative - Positive [facility] pH, UA 6 5 - 9 [facility] Protein, UA Negative Negative - 1999(20) ++++ mg/dL [facility] Spec Grav, UA 1.02 1 - 1.03 [facility] Urobilinogen, UA 0.2 0.2 - 12 mg/dL [facility] BOX TESTon 02-04-2024 BOX TEST SENT OUT ERICK [facility] BOX1 ERICK [facility] BOX2 02/04/24 [facility] Urinalysis macro (dipstick) panel (U)on 02-04-2024 Bilirubin, UA Negative Negative - 4(70) +++ mg/dL [facility] Blood, UA Negative Negative - 50 Kalyan/mcL [facility] Clarity, UA Clear [facility] Color, UA Yellow [facility] Glucose, UA Negative Negative - 1999(110) ++++ mg/dL [facility] Interpretation and review of laboratory results Normal [facility] Ketones, UA Negative Negative - 160(16) ++++ mg/dL [facility] Leukocytes, UA Negative Negative - 500+++ June/mcL [facility] Nitrite, UA Negative Negative - Positive [facility] pH, UA 7.5 5 - 9 [facility] Protein, UA Negative Negative - 1999(20) ++++ mg/dL [facility] Spec Grav, UA 1.015 1 - 1.03 [facility] Urobilinogen, UA 0.2 0.2 - 12 mg/dL [facility] ALL RUBELLA IGG ABon 024 RUBELLA ANTIBODIES, IGG 1.97 Immune >0.99 index [facility] Comment on above: Non-immune <0.90 Equivocal 0.90 - 0.99 Immune >0.99 Performed at: [facility] [address] [id number] [employer] Supervisor: Isaias Moon PhD, Phone: [phone] HBSAG SCREENon 02-03-2024 HBSAG SCREEN Negative Negative [facility] Comment on above: Performed at: [facility] [address] [id number] [employer] Supervisor: Isaias Moon PhD, Phone: [phone] HCV ANTIBODY RFX TO QUANT PC Héctor 02-03-2024 HCV AB Non-Reactive Non Reactive [facility] INTERPRETATION: Comment . [facility] Comment on above: Not infected with HC V unless early or acute infection is suspected (which may be delayed in an immunocompromised individual), or other evidence exists to indicate HCV infection. HIV AB/P24 AG WITH REFLEXon 02-03-2024 HIV AB/P24 AG SCREEN Non-Reactive Non Reactive [facility] Comment on above: HIV-1/HIV-2 antibodi es and HIV-1 p24 antigen were NOT detected. There is no laboratory evidence of HIV infection. HIV Negative Performed at: [address] [id number] [employer] Supervisor: Isaias Moon PhD, Phone: [phone] No Panel Informationon 02-02 [facility] RAPID PLASMA REAGIN, QUANTon 02-03-2024 RAPID PLASMA REAGIN, QUANT Non-Reactive NonRea<1:1 titer [facility] Comment on above: Please Note: This te st does not meet current guidelines for screening and diagnosis of syphilis. This test is intended for following treatment response in patients being treated for syphilis infection. To screen for syphilis infection, a reflex cascade that includes both RPR and a treponema-specific assay should be utilized, such as Treponema pallidum (Syphilis) Screening [place] (197378) or Rapid Plasma Reagin (RPR) Test With Reflex to Quantitative RPR and Confirmatory Treponema pallidum Antibodies (150211). Performed at: [address] [id number] [employer] Supervisor: Isaias Moon PhD, Phone: [phone] ALL CBC WITH AUTO DIFFon BASOPHILS ABSOLUTE AUTO 0.1 [facility] Basophils/100 WBC (Bld) 0.4 % 0.2 - 2.0 % [facility] Eosinophils/100 WBC (Bld) 1.1 % 0.9 - 7.0 % [facility] Erythrocyte distribution width (RBC) [Ratio] 12.6 % 11.0 - 15.0 % [facility] Hematocrit (Bld) [Volume fraction] 40.8 % 36.0 - 48.0 % [facility] Hemoglobin (Bld) [Mass/Vol] 13.6 g/dL 12.0 - 16.0 g/dL [facility] IMMATURE GRANULOCYTES ABS AUTO 0.05 High [facility] Immature granulocytes/100 WBC (Bld) 0.4 % 0.0 - 0.5 % [facility] Interpretation and review of laboratory results Abnormal [facility] LYMPHOCYTES ABSOLUTE AUTO 2.4 [facility] Lymphocytes/100 WBC (Bld) 20.1 % Low 20.5 - 60.0 % [facility] MCH (RBC) [Entitic mass] 31.8 pg 26.7 - 34.0 pg [facility] MCHC (RBC) [Mass/Vol] 33.3 g/dL 29.9 - 35.2 g/dL [facility] MCV (RBC) [Entitic vol] 95.3 fL 81.0 - 99.0 fL [facility] MONOCYTES ABSOLUTE AUTO 0.5 [facility] Monocytes/100 WBC (Bld) 4.1 % 1.7 - 12.0 % [facility] NEUTROPHILS ABSOLUTE AUTO 8.8 High [facility] Neutrophils/100 WBC (Bld) 73.9 % 43.0 - 75.0 % [facility] Platelet mean volume (Bld) [Entitic vol] 10 fL 9.5 - 13.5 fL [facility] EO # 0.1 [facility] PLT 367 [facility] RBC 4.28 [facility] WBC 11.9 High [facility] ALL TYPE AND SCREENon 2023 ABO and Rh group Nom (Bld) Blood group A Rh(D) negative [facility] MLR HEMOGLOBIN A1Con 024 Glucose [Mass/Vol] 94 mg/dL [facility] HbA1c (Bld) [Mass fraction] 4.9 % 4.5 - 6.2 % [facility] Comment on above: ADA RECOMMENDED LIMI T 4.0 - 6.0 ADA THERAPEUTIC TARGET < 7.0 ACTION SUGGESTED > 7.0 [facility] No Panel Informationon 02-01 [facility] DRUG SCREEN RAPID (URINE )on 02-02-2024 AMPHETAMINE SCREEN URINE Negative NEGATIVE [facility] BARBITURATES SCREEN URINE Negative NEGATIVE [facility] BENZODIAZEPINES SCREEN URINE Negative NEGATIVE [facility] BUPRENORPHINE SCREEN URINE Negative NEGATIVE [facility] Comment on above: DRUG CLASS TEST SYST [...] 300 ng/mL CANNABINOID SCREEN URINE Negative NEGATIVE [facility] COCAINE SCREEN URINE Negative NEGATIVE [facility] METHADONE SCREEN URINE Negative NEGATIVE [facility] METHAMPHETAMINES SCREEN URINE Negative NEGATIVE [facility] OPIATE SCREEN URINE Negative NEGATIVE [facility] OXYCODONE SCREEN URINE Negative NEGATIVE [facility] PHENCYCLIDINE SCREEN URINE Negative NEGATIVE [facility] TRICYCLIC ANTIDEPRESSANT URINE Negative NEGATIVE [facility] HCG ( test) Ql (U)o n 01-11-2024 Interpretation and review of laboratory results Normal [facility] Preg Test, Ur Negative [facility] Urinalysis macro (dipstick) panel (U)on 01-11-2024 Bilirubin, UA Negative Negative - 4(70) +++ mg/dL [facility] Blood, UA Negative Negative - 50 Kalyan/mcL [facility] Clarity, UA Clear [facility] Color, UA Yellow [facility] Glucose, UA Negative Negative - 1999(110) ++++ mg/dL [facility] Interpretation and review of laboratory results Normal [facility] Ketones, UA Negative Negative - 160(16) ++++ mg/dL [facility] Leukocytes, UA Negative Negative - 500+++ June/mcL [facility] Nitrite, UA Negative Negative - Positive [facility] pH, UA 5.5 5 - 9 [facility] Protein, UA Negative Negative - 1999(20) ++++ mg/dL [facility] Spec Grav, UA 1.02 1 - 1.03 [facility] Urobilinogen, UA 1.0 0.2 - 12 mg/dL [facility] Pre-Visit Planningon 024 Pre-Visit Planning Pre-Visit Planning From: Leola LIRIANO CNP To: Occupational Health at [facility]; Sent: 11/08/2023 08:24:20 EDT Subject: General Message: Gemvara Screening Caller Name: SYEDA PEREIRA; Caller Number: Amy , M Screening Lab Results: Fasting blood sugar: 74 [...] (7 - 40) Documented Labs printed Normal [facility] Basic Metabolic Panelon 08-2 Anion gap [Moles/Vol] 10 mmol/L 9 - 17 mmol/L [facility] Calcium [Mass/Vol] 9.4 mg/dL 8.6 - 10. 4 mg/dL [facility] Chloride [Moles/Vol] 100 mmol/L 98 - 10 7 mmol/L [facility] CO2 [Moles/Vol] 25 mmol/L 20 - 31 mmol/L [facility] Creatinine [Mass/Vol] 0.6 mg/dL 0.5 - 0.9 mg/dL [facility] Est, Glom Emilt Rate - [facility] [employer] Comment on above: These results are not intended for use [...] following therapy that affects renal tubular secretion. Glucose [Mass/Vol] 81 mg/dL 70 - 99 mg/dL [facility] Potassium [Moles/Vol] 4.0 mmol/L 3.7 - 5.3 mmol/L [facility] Sodium [Moles/Vol] 135 mmol/L 135 - 144 mmol/L [facility] Urea nitrogen [Mass/Vol] 11 mg/dL 6 - 20 mg/dL [facility] Urea nitrogen/Creatinine [Mass ratio] 18 mg/mg 9 - 20 [facility] Basic Metabolic Profon 11-06 Anion gap [Moles/Vol] 10 mmol/L Normal 9-[address] [facility] Comment on above: Performed By: #### C DP, BMP, TSHX #### [facility] [address] [place], [place] [id number] [employer] Supervisor: Manfred Walker MD #### LIPR #### [facility] [address] [place] [id number] [employer] Supervisor: Henrique Madera MD BUN/CRE Ratio 18 Normal - [facility] Comment on above: Performed By: #### C DP, BMP, TSHX #### [facility] [address] [place], [place] [id number] [employer] Supervisor: Manfred Walker MD #### LIPR #### [address] [id number] [employer] Supervisor: Henrique Madera MD Calcium [Mass/Vol] 9.4 mg/dL Normal 8.6-10.[address] [facility] Comment on above: Performed By: #### C DP, BMP, TSHX #### [facility] [address] [place], [place] [id number] [employer] Supervisor: Manfred Walker MD #### LIPR #### [address] [id number] [employer] Supervisor: Henrique Madera MD Chloride [Moles/Vol] 100 mmol/L Normal 98-107 [facility] Comment on above: Performed By: #### C DP, BMP, TSHX #### [facility] [address] [place], [place] [id number] [employer] Supervisor: Manfred Walker MD #### LIPR #### [address] [id number] [employer] Supervisor: Henrique Madera MD CO2 [Moles/Vol] 25 mmol/L Normal 20-31 [facility] Comment on above: Performed By: #### C JONAS VILLEDA, TSHX #### [facility] [address] [place], [place] [id number] [employer] Supervisor: Manfred Walker MD #### LIPR #### [facility] [address] [place], [place] [id number] [employer] Supervisor: Henrique Madera MD Creatinine [Mass/Vol] 0.6 mg/dL Normal 0.5-0.[address] [facility] Comment on above: Performed By: #### C JONAS VILLEDA, TSHX #### [facility] [address] [place], [place] [id number] [employer] Supervisor: Manfred Walker MD #### LIPR #### [facility] [address], [place] [id number] [employer] Supervisor: Henrique Madera MD GFR/1.73 sq M.predicted among non-blacks MDRD (S/P/Bld) [Vol rate/Area] mL/min/{1.73_m2} Normal >[address] [facility] Comment on above: Result Comment: [...] By: #### C JONAS VILLEDA, TSHX #### [facility] [address] [place], [place] [id number] [employer] Supervisor: Manfred Walker MD #### LIPR #### [facility] [address] [place], [place] [id number] [employer] Supervisor: Henrique Madera MD Glucose [Mass/Vol] 81 mg/dL Normal 70-[address] [facility] Comment on above: Performed By: #### C DP, BMP, TSHX #### [facility] [address] [place], [place] [id number] [employer] Supervisor: Manfred Walker MD #### LIPR #### [place] [address] [place], [place] [id number] [employer] Supervisor: Henrique Madera MD Potassium [Moles/Vol] 4.0 mmol/L Normal 3.7-5.[address] [facility] Comment on above: Performed By: #### C DP, BMP, TSHX #### [facility] [address] [place] [address] [employer] Supervisor: Manfred Walker MD #### LIPR #### [address] [id number] [employer] Supervisor: Henrique Madera MD Sodium [Moles/Vol] 135 mmol/L Normal 135-[address] [facility] Comment on above: Performed By: #### C DP, BMP, TSHX #### [facility] [address] [place], [place] [id number] [employer] Supervisor: Manfred Walker MD #### LIPR #### [address] [id number] [employer] Supervisor: Henrique Madera MD Urea nitrogen [Mass/Vol] 11 mg/dL Normal 6-[address] [facility] Comment on above: Performed By: #### C DP, BMP, TSHX #### [facility] [facility] [address] [place], [place] [id number] [employer] Supervisor: Manfred Walker MD #### LIPR #### [address] [address] [employer] Supervisor: Henrique Madera MD CBC with Auto Differentialon 11-07-2023 Basophils (Bld) [#/Vol] 0.03 10*3/uL [facility] Basophils/100 WBC (Bld) 0 % 0 - 2 % [facility] Eosinophils (Bld) [#/Vol] 0.10 10*3/uL [facility] Eosinophils/100 WBC (Bld) 1 % 0 - 5 % [facility] Erythrocyte distribution width (RBC) [Ratio] 11.5 % Low 12.1 - 15.2 % [facility] Hematocrit (Bld) [Volume fraction] 38.6 % 36.0 - 46.0 % [facility] Hemoglobin (Bld) [Mass/Vol] 12.8 g/dL 12.0 - 16.0 g/dL [facility] Immature granulocytes (Bld) [#/Vol] 0.01 10*3/uL [facility] Immature granulocytes/100 WBC (Bld) 0 % 0 - 5 % [facility] Interpretation and review of laboratory results Abnormal [facility] Lymphocytes/100 WBC (Bld) 8 % Low 15 - 40 % [facility] Lymphocytes/100 WBC (Bld) 0.65 % Low [facility] MCH (RBC) [Entitic mass] 31.4 pg 26.0 - 34.0 pg [facility] MCHC (RBC) [Mass/Vol] 33.2 g/dL 31.0 - 37.0 g/dL [facility] MCV (RBC) [Entitic vol] 94.6 fL 80.0 - 100.0 fL [facility] Monocytes/100 WBC (Bld) 4 % 4 - 8 % [facility] Monocytes/100 WBC (Bld) 0.36 % [facility] Neutrophils/100 WBC (Bld) 87 % High 47 - 75 % [facility] Platelet mean volume (Bld) [Entitic vol] 9.5 fL 6.0 - 12.0 fL [facility] Platelets (Bld) [#/Vol] 298 10*3/uL [facility] RBC (Bld) [#/Vol] 4.08 10*6/uL 4.00 - 5.2 0 m/uL [facility] Segmented neutrophils/100 WBC (Bld) 7.15 % High [facility] WBC other (Bld) [#/Vol] 8.3 [facility] CBC with Diffon 11-07-2023 Abs. Basophil 0.03 k/uL Normal 0.00-0.20 [facility] Comment on above: Performed By: #### C DP, BMP, TSHX #### [facility] [address] [place] [address] ( [employer] Supervisor: Manfred Walker MD #### LIPR #### [place] [id number] [employer] Supervisor: Henrique Madera MD Abs.Imm.Granulocyte 0.01 k/uL Normal 0.00-0.[address] [facility] Comment on above: Performed By: #### C DP, BMP, TSHX #### [facility] [address] [place] [id number] ( [employer] Supervisor: Manfred Walker MD #### LIPR #### [place] [id number] [employer] Supervisor: Henrique Madera MD Abs.Neutrophil (Seg) 7.15 k/uL High 2.5-7.0 [facility] Comment on above: Performed By: #### C DP, BMP, TSHX #### [facility] [address] [place] [address] ( [employer] Supervisor: Manfred Walker MD #### LIPR #### [place] [id number] [employer] Supervisor: Henrique Madera MD Basophils/100 WBC (Bld) 0 % Normal 0-[address] [facility] Comment on above: Performed By: #### C DP, BMP, TSHX #### [facility] [address] [place] [address] [employer] Supervisor: Manfred Walker MD #### LIPR #### [place] [address] [place], [place] [phone] [employer] Supervisor: Henrique Madera MD Eosinophils (Bld) [#/Vol] 0.10 10*3/uL Normal 0.00-0.[address] [facility] Comment on above: Performed By: #### C DP, BMP, TSHX #### [facility] [address] [place] [phone] [employer] Supervisor: Manfred Walker MD #### LIPR #### [address] [phone] [employer] Supervisor: Henrique Madera MD Eosinophils/100 WBC (Bld) 1 % Normal 0-[address] [facility] Comment on above: Performed By: #### C DP, BMP, TSHX #### [facility] [address] [place] [phone] [employer] Supervisor: Manfred Walker MD #### LIPR #### [address] [id number] [employer] Supervisor: Henrique Madera MD Erythrocyte distribution width (RBC) [Ratio] 11.5 % Low 12.1-15.[address] [facility] Comment on above: Performed By: #### C DP, BMP, TSHX #### [facility] [address] [place] [phone] [employer] Supervisor: Manfred Walker MD #### LIPR #### [address] [phone] [employer] Supervisor: Henrique Madera MD Hematocrit (Bld) [Volume fraction] 38.6 % Normal 36.0-46.[address] [facility] Comment on above: Performed By: #### C DP, BMP, TSHX #### [facility] [address] [place] [address] [employer] Supervisor: Manfred Walker MD #### LIPR #### [place] [address] [place] [address] [employer] Supervisor: Henrique Madera MD Hemoglobin (Bld) [Mass/Vol] 12.8 g/dL Normal 12.0-16.[address] [facility] Comment on above: Performed By: #### C DP, BMP, TSHX #### [facility] [address] [place], [place] [phone] [employer] Supervisor: Manfred Walker MD #### LIPR #### [place] [address] [place], [place] [phone] [employer] Supervisor: Henrique Madera MD Immature granulocytes/100 WBC (Bld) 0 % Normal 0-[address] [facility] Comment on above: Performed By: #### C DP, BMP, TSHX #### [facility] [address] [place] [phone] ( [employer] Supervisor: Manfred Walker MD #### LIPR #### [place] [address] [place], [place] [phone] [employer] Supervisor: Henrique Madera MD Lymphocytes (Bld) [#/Vol] 0.65 10*3/uL Low 1.00-4.[address] [facility] Comment on above: Performed By: #### C DP, BMP, TSHX #### [facility] [address] [place] [phone] [employer] Supervisor: Manfred Walker MD #### LIPR #### [place] [address] [place], [place] [phone] [employer] Supervisor: Henrique Madera MD Lymphocytes/100 WBC (Bld) 8 % Low 15-[address] [facility] Comment on above: Performed By: #### C DP, BMP, TSHX #### [facility] [address] [place], [place] [phone] [employer] Supervisor: Manfred Walker MD #### LIPR #### [place] [address] [place], [place] [phone] [employer] Supervisor: Henrique Madera MD MCH (RBC) [Entitic mass] 31.4 pg Normal 26.0-34.[address] [facility] Comment on above: Performed By: #### C DP, BMP, TSHX #### [facility] [address] [place] [address] [employer] Supervisor: Manfred Walker MD #### LIPR #### [address] [phone] [employer] Supervisor: eHnrique Madera MD MCHC (RBC) [Mass/Vol] 33.2 g/dL Normal 31.0-37.[address] [facility] Comment on above: Performed By: #### C DP, BMP, TSHX #### [facility] [address] [place] [phone] [employer] Supervisor: Manfred Walker MD #### LIPR #### [place] [phone] [employer] Supervisor: Henrique Madera MD MCV (RBC) [Entitic vol] 94.6 fL Normal 80.0-100.[address] [facility] Comment on above: Performed By: #### C DP, BMP, TSHX #### [facility] [address] [place] [phone] [employer] Supervisor: Manfred Walker MD #### LIPR #### [address] [address] [employer] Supervisor: Henrique Madera MD Monocytes (Bld) [#/Vol] 0.36 10*3/uL Normal 0.00-1.[address] [facility] Comment on above: Performed By: #### C DP, BMP, TSHX #### [facility] [address] [place] [address] [employer] Supervisor: Manfred Walker MD #### LIPR #### [facility] [address] [place] [address] [employer] Supervisor: Henrique Madera MD Monocytes/100 WBC (Bld) 4 % Normal 4-[address] [facility] Comment on above: Performed By: #### C DP, BMP, TSHX #### [facility] [address] [place], [place] [phone] [employer] Supervisor: Manfred Walker MD #### LIPR #### [address] [address] [employer] Supervisor: Henrique Madera MD Neutrophil (Seg) 87 % High 47-75 [facility] Comment on above: Performed By: #### C DP, BMP, TSHX #### [facility] [address] [place] [address] [employer] Supervisor: Manfred Walker MD #### LIPR #### [address] [address] [employer] Supervisor: Henrique Madera MD Platelet mean volume (Bld) [Entitic vol] 9.5 fL Normal 6.0-12.0 [facility] Comment on above: Performed By: #### C DP, BMP, TSHX #### [facility] [address] [place] [address] [employer] Supervisor: Manfred Walker MD #### LIPR #### [address] [address] [employer] Supervisor: Henrique Madera MD Platelets (Bld) [#/Vol] 298 10*3/uL Normal 140-[address] [facility] Comment on above: Performed By: #### C DP, BMP, TSHX #### [facility] [address] [place] [address] [employer] Supervisor: Manfred Walker MD #### LIPR #### [address] [phone] [employer] Supervisor: Henrique Madera MD RBC (Bld) [#/Vol] 4.08 10*6/uL Normal 4.00-5.[address] [facility] Comment on above: Performed By: #### C DP, BMP, TSHX #### [facility] [address] [place], [place] [phone] [employer] Supervisor: Mnafred Walker MD #### LIPR #### [address] [phone] [employer] Supervisor: Henrique Madera MD WBC (Bld) [#/Vol] 8.3 10*3/uL Normal 3.5-11.[address] [facility] Comment on above: Performed By: #### C DP, BMP, TSHX #### [facility] [address] [place] [address] [employer] Supervisor: Manfred Walker MD #### LIPR #### [address] [id number] [employer] Supervisor: Henrique Madera MD HCG, Quanton 11-07-2023 HCG, Quant 2.9 mIU/mL Normal <[address] [facility] Comment on above: Result Comment: Non-preg premeno <=5 Postmeno <=8 Male <=3 If HCG results do not concur with clinical observations, additional testing to confirm results is recommended. Performed By: #### B HCG #### [facility] [address] [place] [address] [employer] Supervisor: Manfred Walker MD Lipid Panelon 11-07-2023 Cholesterol [Mass/Vol] 144 mg/dL 0 - 199 mg/dL [facility] Comment on above: Cholesterol Guidelines: <200 Desirable 200-240 Borderline >240 Undesirable Cholesterol in HDL [Mass/Vol] 68 mg/dL 40 - PINF mg/dL [facility] Comment on above: HDL Guidelines: <40 Undesirable 40-59 Borderline >59 Desirable Cholesterol in LDL [Mass/Vol] 68 mg/dL 0 - 100 mg/dL [facility] Comment on above: LDL Guidelines: <100 Desirable 100-129 Near to/above Desirable 130-159 Borderline >159 Undesirable Direct (measured) LDL and calculated LDL are not interchangeable tests. Cholesterol in VLDL [Mass/Vol] 8 mg/dL [facility] Cholesterol.total/Ch olesterol in HDL [Mass ratio] 2.0 {ratio} [facility] Triglyceride [Mass/Vol] 42 mg/dL NINF - 150 mg/dL [facility] Comment on above: Triglyceride Guidelines: <150 Desirable 150-199 Borderline 200-499 High >499 Very high Based on AHA Guidelines for fasting triglyceride, December 2011. [facility] Lipid Profileon 11-07-2023 Cholesterol [Mass/Vol] 144 mg/dL Normal 0-[address] [facility] Comment on above: Result Comment: Cholesterol Guidelines: <200 Desirable 200-240 Borderline >240 Undesirable Performed By: #### C DP, BMP, TSHX #### [facility] [address] [place] [address] [employer] Supervisor: Manfred Walker MD #### LIPR #### [facility] [employer] [address] [place] [address] [employer] Supervisor: Henrique Madera MD Cholesterol in HDL [Mass/Vol] 68 mg/dL Normal >[address] [facility] Comment on above: Result Comment: HDL Guidelines: <40 Undesirable 40-59 Borderline >59 Desirable Performed By: #### C DP, BMP, TSHX #### [facility] [address] [place], [place] [phone] [employer] Supervisor: Manfred Walker MD #### LIPR #### [facility] [employer] [address] [place] [address] [employer] Supervisor: Henrique Madera MD Cholesterol in LDL [Mass/Vol] 68 mg/dL Normal 0-[address] [facility] Comment on above: Result Comment: LDL Guidelines: <100 Desirable 100-129 Near to/above Desirable 130-159 Borderline >159 Undesirable Direct (measured) LDL and calculated LDL are not interchangeable tests. Performed By: #### C DP, BMP, TSHX #### [facility] [address] [place] [address] [employer] Supervisor: Manfred Walker MD #### LIPR #### [address] [address] [employer] Supervisor: Henrique Madera MD Cholesterol in VLDL [Mass/Vol] 8 mg/dL Normal [facility] Comment on above: Performed By: #### C DP, BMP, TSHX #### [facility] [address] [place] [address] [employer] Supervisor: Manfred Walker MD #### LIPR #### [address] [address] [employer] Supervisor: Henrique Madera MD Cholesterol.total/Ch olesterol in HDL [Mass ratio] 2.0 {ratio} Normal [facility] Comment on above: Performed By: #### C DP, BMP, TSHX #### [facility] [address] [place] [address] [employer] Supervisor: Manfred Walker MD #### LIPR #### [address] [address] [employer] Supervisor: Henrique Madera MD Triglyceride [Mass/Vol] 42 mg/dL Normal <[address] [facility] Comment on above: Result Comment: Triglyceride Guidelines: <150 Desirable 150-199 Borderline 200-499 High >499 Very high Based on AHA Guidelines for fasting triglyceride, December 2011. Performed By: #### C DP, BMP, TSHX #### [facility] [address] [place], [place] [id number] [employer] Supervisor: Manfred Walker MD #### LIPR #### [address] [address] [employer] Supervisor: Henrique Madera MD No Panel Informationon 11-06 [facility] TSH w/reflex to FT4on 2023 Thyroid Stim. Horm. 0.57 uIU/mL Normal 0.30-5.00 [facility] Comment on above: Performed By: #### C DP, BMP, TSHX #### [facility] [address] [place] [address] [employer] Supervisor: Manfred Walker MD #### LIPR #### [facility] [address] [place], [place] [phone] [employer] Supervisor: Henrique Madera MD TSH with Reflexon 11-07-2023 TSH Qn 0.57 m[IU]/L [facility] hCG, Quantitative, on 11-07-2023 HCG.beta subunit Qn 2.9 m[IU]/mL NINF [facility] Comment on above: Non-preg premeno <=5 Postmeno <=8 Male <=3 If HCG results do not concur with clinical observations, additional testing to confirm results is recommended. [facility] Glu Fastingon 11-05-2023 Glucose [Mass/Vol] 74 mg/dL Normal 55-99 [facility] Comment on above: Performed By: #### 2 [id number] #### [facility] [address] [place] [address] Lipid Panelon 11-05-2023 Cholesterol [Mass/Vol] 127 mg/dL Normal 120-200 [facility] Comment on above: Performed By: #### 2 [id number] #### [facility] [address] [place] [address] Cholesterol in HDL [Mass/Vol] 59 mg/dL Invalid Interpretation Code [facility] Comment on above: Result Comment: '>= 60 LOW RISK' '<= 40 HIGH RISK' Performed By: #### 2 [id number] #### [facility] [address] [place] [address] Cholesterol in LDL [Mass/Vol] 63 mg/dL Normal <=129 [facility] Comment on above: Performed By: #### 2 [id number] #### [facility] [address] [place] [address] Cholesterol in VLDL [Mass/Vol] 8 mg/dL Normal 7-40 [facility] Comment on above: Performed By: #### 2 [id number] #### [facility] [address] [place] [address] Triglyceride [Mass/Vol] 41 mg/dL Normal <=149 [facility] Comment on above: Performed By: #### 2 [id number] #### [facility] [address] [place] [address] Ambulatory Visit Summaryon 0 05-21-2023 Ambulatory Visit Summary SYEDA PEREIRA :1995 Visit Date:05/21/2023 Ambulatory Visit Instructions Your Diagnosis Strep throat Sore throat Your Care Team Attending Physician - Alfredo Dejesus DO Primary Care Physician - JULIANNA CHAVARRIA DO This Is Your Medications List [...] hours Strep throat Pickup at [id number] Unchanged norgestrel Contact prescribing physician if questions or concerns Pharmacy Information [facility][id number]: [address] [place], [place] [id number] [phone] Medications and Immunizations Administered Not Given influenza [...] for choosing us for your care. Normal [facility] Family Medicine Office/Clini c Noteon 05-21-2023 Family [...] q12hr, # 20 cap(s), Refills(s) 0, Pharmacy: [facility] #[id number], 165.1, cm, 05/21/23 9:05:00 EST, Height/Length Dosing, 64, kg, 05/21/23 9:05:00 EST, Weight Dosing 2. Sore throat (J02.9: Acute pharyngitis, unspecified) Ordered: Rapid Strep POC 60857 Total time spent TODAY preparing the chart, [...] 04/22/1996 [place] (more content not included)... Normal [facility] Comment on above: Result Comment: Elec tronically Signed By: Anjelica COX, Alfredo Trinh\Date and Time Signed: 05/21/23 09:36 EST Provider Letteron 05-21-2023 Provider Letter May 21, 2023 SYEDA PEREIRA [address] [place] [address] : 1995 To Whom It May Concern, Please excuse above patient from work. Date of Illness: From: 05/21/2023 To: 05/22/2023 May Return to Work On: 05/23/2023 Sincerely, [facility] [address] [place] [address], [address] [place] [id number] Normal [facility] Cytology Reporton 04-02-2023 Cytology report Cyto stain.thin prep Doc (Cvx/Vag) (NOTE) Path Number: [id number] DIAGNOSIS Imaged ThinPrep Pap - Cervical (1 [...] neoplasm of cervix LMP: 03/14/2023 Processing Lab: [address] [place] [address] Interpretation performed at [address] [address] This Pap Test has been evaluated with the assistance of the [employer] Pap Test Imaging System. The Pap smear is a screening test primarily for squamous epithelial lesions, which is subject to both false negative and false positive results. Your patient should be reminded to consult you immediately if she experiences any suspicious signs or symptoms, regardless of her Pap smear result. GYNECOLOGIC CYTOLOGY REPORT Patient Name: SYEDA PEREIRA [place] Rec: [id number] [facility] [employer] [facility] ANATOMIC PATHOLOGY [address] [facility] [place], [place] [address] [facility] CT Maxillofacial w/o Contras ton [...] Barrientos MD Transcribed by: CHRISTIANA Technologist: SHIRLEY Normal [facility] Consent for Treatmenton 02-17 Consent for Treatment [id number] Normal [facility] Discharge Instructionson Discharge Instructions [id number] Normal [facility] ED Clinical Summaryon 2022 ED Clinical Summary [place] [id number] ED Clinical Summary Person Information Name: SYEDA PEREIRA/[facility] Age: 27 Years : 1995 Sex: Female Language: Georgian PCP: JULIANNA CHAVARRIA DO Marital Status: Visit Id: Visit [...] 03/12/2023 13:28:35 03/12/2023 13:28:35 03/12/2023 13:28:35 ADDRESS: [address] [place], [place] [id number] [facility] NOTES: MEDICAL INFORMATION: Prescriptions Given: Medications to Continue with No Changes Other Medications norgestrel PATIENT EDUCATION INFORMATION: Instructions: Contusion, Awze-tv-Akkx Follow up: With: Address: When: LINDAAGUSTÍN COX [address]NA[address]EP [address] [place] [address] In 3 days 03/15/2023 DIAGNOSIS: 1:Nasal contusion Normal [facility] ED Note-Physicianon 03-12-20 23 ED Note-Physician Basic Information Time Seen: Deanna [...] prescription medications Follow-up With When Contact Information JULIANNA CHAVARRIA DO In 3 days 03/15/2023 EST [address] [place] [address]- Additional Instructions: Patient Education Contusion, Ctti-xl-Itps Attestation This visit was performed by both [...] Bourne Signed By: Floyd JULIEN, Jeff Marinelli [facility] Comment on above: Result Comment: Elec [...] or lying down. General instructions ? Take osyq-orf-lyimrak and prescription medicines only as told by [...] also called RICE. You may be given wsga-zkn-ljiqxkn medicines for pain. ? Contact a doctor [...] Reviewed: 12/29/2021 Elsevier Patient Education ? 2022 [employer] Normal [facility] ED Patient Summaryon 023 ED Patient Summary [place] [id number] Patient Discharge Instructions Person Information Name: SYEDA PEREIRA Age: 27 Years Arrival Date: 03/12/2023 11:08:26 Discharge Diagnosis: 1:Nasal contusion Primary Care Physician: JULIANNA CHAVARRIA DO Provider Information Primary Provider: Hui Salazar M.D. Advanced Director Of Scientific Research:None The exam and treatment you received in the Emergency Department were for an urgent problem and are not intended as complete care. It is important that you follow up with a doctor, nurse practitioner, or physician?s recruiting assistant for ongoing care. If your symptoms become worse or you do not improve as expected and you are unable to reach your usual health care provider, you should return to the Emergency Department. We are available 24 hours a day. RANDALLSYEDA HERNANDEZ has been given the following list of patient education materials, prescriptions and follow-up instructions: Follow-up Instructions: With: Address: When: JULIANNA CHAVARRIA DO [address] [place] [id number] In 3 days 03/15/2023 In the event that this physician does not participate in your insurance network, please consult with your insurance company to find a nearby participating provider. Patient Education Materials: Contusion, Fgjm-kw-Diif A MESSAGE TO ALL PATIENTS REGARDING OPIOIDS PRESCRIPTION OPIOIDS: WHAT YOU NEED TO KNOW Prescription opioids can be used to help relieve gikxplig-sr-tsiiri pain and are often prescribed following a [...] be struggling with addiction, tell your health healthcare marketer and ask for guidance or call SAMHSA?S National Helpline at 9-243-446-JVBK. v Source: Department of Health and (more content not included)... Normal [facility] Other 02-07-2019 Normal pelvic ultrasound. [facility] [place] EXAM: US PELVIS COMPLETE, US [...] normal at 2 mm. No free fluid. [place], [place] Michael, Mhpn Incoming Radiant Results From [employer] - 02/07/2019 7:08 PM EST EXAM: US [...] No free fluid. IMPRESSION: Normal pelvic ultrasound. [place], [place] CBC Auto Differentialon 01-18 Basophils (Bld) [#/Vol] 0.00 10*3/uL [place] Basophils/100 WBC (Bld) 0 % 0 - 2 % [place] Differential Type YES [place], [place] Eosinophils (Bld) [#/Vol] 0.10 10*3/uL [place] Eosinophils/100 WBC (Bld) 1 % 0 - 5 % [place] Erythrocyte distribution width (RBC) [Ratio] 12.4 % 12.1 - 15.2 % [place] Hematocrit (Bld) [Volume fraction] 44.2 % 36 - 46 % [place] [place] Hemoglobin (Bld) [Mass/Vol] 14.8 g/dL 12 - 16 g/dL [place] Lymphocytes (Bld) [#/Vol] 3.30 10*3/uL [place] Lymphocytes/100 WBC (Bld) 33 % 15 - 40 % [place] MCH (RBC) [Entitic mass] 30.6 pg 26 - 34 pg [place] MCHC (RBC) [Mass/Vol] 33.5 g/dL 31 - 37 g/dL [place] MCV (RBC) [Entitic vol] 91.4 fL 80 - 100 fL [place] Monocytes (Bld) [#/Vol] 0.40 10*3/uL [place] Monocytes/100 WBC (Bld) 4 % 4 - 8 % [place] Platelet mean volume (Bld) [Entitic vol] NOT REPORTED 6 - 12 fL [place] Platelets (Bld) [#/Vol] NOT REPORTED [place] Platelets (Bld) [#/Vol] 434 10*3/uL [place] RBC (Bld) [#/Vol] 4.84 10*6/uL 4 - 5.2 m/uL [place] RBC morphology finding Nom (Bld) NOT REPORTED [place] Segmented neutrophils/100 WBC (Bld) 62 % 47 - 75 % [place] Segs Absolute 6.30 [place] WBC (Bld) [#/Vol] NOT REPORTED per 100 WBC [place] WBC (Bld) [#/Vol] 10.2 10*3/uL [place] WBC Morphology NOT REPORTED [place] Comprehensive Metabolic Pane vania 02-06-2019 Albumin [Mass/Vol] 5.1 g/dL 3.5 - 5.2 g/dL [place] Albumin/Globulin [Mass ratio] NOT REPORTED [place] ALP [Catalytic activity/Vol] 59 U/L 35 - 104 U/L [place] ALT [Catalytic activity/Vol] 29 U/L 5 - 33 U/L [place] Anion gap [Moles/Vol] 12 mmol/L 9 - 17 mmol/L [place] AST [Catalytic activity/Vol] 22 U/L <32 [place] Bilirubin Ql (U) 0.22 mg/dL Low 0.3 - 1.2 mg/dL [place] Bun/Cre Ratio 14 [place] Calcium [Mass/Vol] 10.4 mg/dL 8.6 - 10. 4 mg/dL [place] Chloride [Moles/Vol] 100 mmol/L 98 - 10 7 mmol/L [place] CO2 [Moles/Vol] 26 mmol/L 20 - 31 mmol/L [place] Creatinine [Mass/Vol] 0.86 mg/dL 0.5 - 0.9 mg/dL [place] GFR >60 >60 mL/min [place] GFR Non- >60 >60 mL/min [place] GFR/1.73 sq M predicted among non-blacks MDRD (S/P/Bld) [Vol rate/Area] [place] Comment on above: Average GFR for 20-2 9 years old: 116 mL/min/1.73sq m Chronic Kidney Disease: <60 mL/min/1.73sq m Kidney failure: <15 mL/min/1.73sq m eGFR calculated using average adult body mass. Additional eGFR calculator available at: http://www.[employer]/multiple_crcl_2012.htm GFR/1.73 sq M predicted among non-blacks MDRD (S/P/Bld) [Vol rate/Area] NOT REPORTED [place] Glucose [Mass/Vol] 92 mg/dL 70 - 99 mg/dL [place] Interpretation and review of laboratory results Abnormal [place] Potassium [Moles/Vol] 3.9 mmol/L 3.7 - 5.3 mmol/L [place] Protein [Mass/Vol] 8.7 g/dL High 6.4 - 8.3 g/dL [place] Sodium [Moles/Vol] 138 mmol/L 135 - 144 mmol/L [place] Urea nitrogen [Mass/Vol] 12 mg/dL 6 - 20 mg/dL [place] Lipaseon 02-06-2019 Lipase [Catalytic activity/Vol] 28 U/L 13 - 60 U/L [place] Otheron 02-06-2019 Immature granulocytes (Bld) [#/Vol] NOT REPORTED [place] , Urineon 9 Beta HCG ( test) Ql (U) Negative NEGATIVE [place] Urinalysis with Microscopico n 02-06-2019 Amorphous, UA NOT REPORTED None [place] Bacteria, UA NOT REPORTED None [place] Bilirubin Urine Negative NEGATIVE [place] Casts UA NOT REPORTED /LPF [place] Color, UA YELLOW YELLOW [place] Crystals UA NOT REPORTED None /HPF [place] Epithelial Cells UA 2 TO 5 /HPF [place] Glucose, Ur Negative NEGATIVE [place] Interpretation and review of laboratory results Abnormal [place] Ketones Ql (U) Negative NEGATIVE [place] Leukocyte esterase Test strip Ql (U) Negative NEGATIVE [place] Mucus, UA RARE Abnormal None [place] Nitrite, Urine Negative NEGATIVE [place] Other Observations UA NOT REPORTED NOT REQ. [place] pH, UA 7.0 [place] Protein (U) [Mass/Vol] 1+ Abnormal NEGATIVE [place] RBC (U) [#/Vol] 0 TO 2 [place] Renal Epithelial, Urine NOT REPORTED 0 /HPF [place] Specific [place], UA 1.010 [place], [place] Trichomonas, UA NOT REPORTED None [facility] [place] Turbidity UA CLEAR CLEAR [place] Urinalysis Comments [place] Urine Hgb 1+ Abnormal NEGATIVE [place] Urobilinogen, Urine Normal Normal [place] WBC, UA NOT REPORTED 0 /HPF [place] Yeast, UA NOT REPORTED None [place] - [place] Progress Noteon 08-08-2017 HIM IP Note OR [employer] Normal [facility] Vital Signs Date Time Vital Sign Value Performing Clinician Facility 05-07-2024 14:56-0500 Body weight 73.48 kg Sheeba HASSAN Work Phone: [facility] 05-07-2024 14:56-0500 Diastolic blood pressure 64 mm[Hg] Sheeba HASSAN Work Phone: [facility] 05-07-2024 14:56-0500 Systolic blood pressure 118 mm[Hg] Sheeba HASSAN Work Phone: [facility] 04-08-2024 14:50-0500 Body weight 70.76 kg Jasbir Elisabeth DO Work Phone: [facility] 04-08-2024 14:50-0500 Diastolic blood pressure 76 mm[Hg] Jasbir Elisabeth DO Work Phone: [facility] 04-08-2024 14:50-0500 Systolic blood pressure 112 mm[Hg] Jasbir Elisabeth DO Work Phone: [facility] 03-04-2024 14:52-0500 Body weight 67.04 kg Sheeba HASSAN Work Phone: [facility] 03-04-2024 14:52-0500 Diastolic blood pressure 60 mm[Hg] Sheeba HASSAN Work Phone: [facility] 03-04-2024 14:52-0500 Systolic blood pressure 110 mm[Hg] Sheeba HASSAN Work Phone: [facility] 02-04-2024 15:07-0500 Body weight 65.32 kg Jasbir Elisabeth DO Work Phone: [facility] 02-04-2024 15:07-0500 Diastolic blood pressure 68 mm[Hg] Jasbir Elisabeth DO Work Phone: [facility] 02-04-2024 15:07-0500 Systolic blood pressure 102 mm[Hg] Jasbir Elisabeth DO Work Phone: [facility] 05-21-2023 09:02-0500 Blood Pressure Location [facility] 05-21-2023 09:02-0500 Body temperature 98.24 [degF] [facility] 05-21-2023 09:02-0500 Diastolic blood pressure 76 mm[Hg] [facility] 05-21-2023 09:02-0500 Heart rate 86 /min [facility] 05-21-2023 09:02-0500 SaO2% (BldA) [Mass fraction] 99 % [facility] 05-21-2023 09:02-0500 Systolic blood pressure 124 mm[Hg] [facility] 03-12-2023 11:12-0500 Body temperature 98.06 [degF] [facility] 03-12-2023 11:12-0500 Diastolic blood pressure 106 mm[Hg] [facility] 03-12-2023 11:12-0500 Heart rate 60 /min [facility] 03-12-2023 11:12-0500 Respiratory rate 20 /min [facility] 03-12-2023 11:12-0500 SaO2% (BldA) [Mass fraction] 98 % [facility] 03-12-2023 11:12-0500 Systolic blood pressure 152 mm[Hg] [facility] 08-13-2021 10:48-0400 Blood Pressure Location Hayde METCALF [facility] 08-13-2021 10:48-0400 Body temperature 98.24 [degF] Hayde METCALF [facility] 08-13-2021 10:48-0400 Diastolic blood pressure 70 mm[Hg] Hayde METCALF [facility] 08-13-2021 10:48-0400 Heart rate 69 /min Hayde METCALF [facility] 08-13-2021 10:48-0400 SaO2% (BldA) [Mass fraction] 98 % Hayde METCALF [facility] 08-13-2021 10:48-0400 Systolic blood pressure 110 mm[Hg] Hayde METCALF [facility] 02-06-2019 19:09-0500 BMI (Body Mass Index) 23.24 kg/m2 [facility] [place] 02-06-2019 19:09-0500 Body Temperature 97.7 [degF] [facility] 02-06-2019 19:09-0500 Body weight 65.32 [facility] [place] 02-06-2019 19:09-0500 BP Diastolic 95 mm[Hg] [facility] [place] 02-06-2019 19:09-0500 BP Systolic 136 mm[Hg] [facility] 02-06-2019 19:09-0500 Height 167.6 cm [place] 02-06-2019 19:09-0500 Pulse (Heart Rate) 76 /min [place] 02-06-2019 19:09-0500 Pulse Oximetry 99 % [facility] [place] 02-06-2019 19:09-0500 Respiratory Rate 18 /min [place] Encounters Encounter Date Encounter Type Care Provider Facility Start: 05-07-2024 End: 05-07-2024 ambulatory SHEEBA MEDELLIN Not Available Start: 05-07-2024 End: 05-07-2024 flow sheet Sheeba HASSAN Work Phone: [facility] Comment on above: Second trimester pre gnancy; 24 weeks gestation of ; Diabetes mellitus screening Start: 05-07-2024 End: 05-07-2024 Bamboo flowsheet Sheeba HASSAN Work Phone: [facility] Start: 05-07-2024 End: 05-07-2024 Bamboo flowsheet Sheeba HASSAN Work Phone: [facility] Start: 04-08-2024 End: 04-08-2024 flow sheet Jasbir Elisabeth DO Work Phone: [facility] Comment on above: Second trimester pre gnancy; 20 weeks gestation of Start: 04-08-2024 End: 04-08-2024 ambulatory JASBIR ELISABETH Not Available Start: 04-08-2024 End: 04-11-2024 Clinisync Result Encounter Jasbir Elisabeth DO Work Phone: [facility] External Department Unsolicited Start: 04-08-2024 End: 04-11-2024 Clinisync Result Encounter Jasbir Elisabeth DO Work Phone: [facility] Unsolicited Start: 04-08-2024 End: 04-08-2024 ambulatory JASBIR ELISABETH Not Available Start: 03-04-2024 End: 03-04-2024 flow sheet Sheeba HASSAN Work Phone: [facility] Comment on above: 16 weeks [...] 03-04-2024 End: 03-05-2024 External Result Encounter Sheeba Medellin PA Work Phone: [facility] Unsolicited Start: 02-04-2024 End: 02-04-2024 flow sheet Jasbir Elisabeth DO Work Phone: [facility] Comment on above: First trimester preg ruma; 11 weeks gestation of Start: 02-04-2024 End: 02-04-2024 ambulatory JASBIR ELISABETH Not Available Start: 02-04-2024 End: 02-04-2024 Bamboo flowsheet Jasbir Elisabeth DO Work Phone: [facility] Start: 02-04-2024 End: 02-04-2024 Clinisync Result Encounter Jasbir Elisabeth DO Work Phone: [facility] External Department Unsolicited Start: 02-04-2024 End: 02-04-2024 Clinisync Result Encounter Jasbir Elisabeth DO Work Phone: [facility] External Department Unsolicited Start: 02-02-2024 End: 02-02-2024 Clinisync Result Encounter Jasbir Elisabeth DO Work Phone: [facility] External Department Unsolicited Start: 02-02-2024 End: 02-02-2024 Clinisync Result Encounter Jasbir Eilsabeth DO Work Phone: [facility] Unsolicited Start: 01-11-2024 End: 01-11-2024 Office outpatient visit 5 minutes [facility] Elisabeth Nurse [facility] Comment on above: GA: 9w1d Start: 01-11-2024 End: 01-11-2024 ambulatory JASBIR ELISABETH Not Available Start: 11-07-2023 End: 11-07-2023 ambulatory JULIANNA CHAVARRIA [facility] Start: 11-07-2023 End: 11-07-2023 Subsequent hospital visit by physician Julianna Chavarria DO Work Phone: [facility] Comment on above: Screening for cardio vascular condition; Irregular menses; Late period Start: 11-05-2023 End: 11-05-2023 ambulatory Leola LIRIANO Facility:[facility] Start: 05-21-2023 End: 05-22-2023 ambulatory Alfredo Dolores Anjelica Facility: [facility] Start: 05-21-2023 End: 05-21-2023 Patient encounter procedure Alfredo Dolores Floresagustín [facility] Start: 04-02-2023 End: 04-02-2023 ambulatory JULIANNA CHAVARRIA [facility] Start: 03-12-2023 End: 03-12-2023 Emergency department patient visit Hui Salazar Facility:[facility] Start: 03-12-2023 End: 03-12-2023 [facility] Start: 08-13-2021 End: 08-13-2021 Lab Drop off Hayde METCALF [facility] Start: 08-13-2021 End: 08-13-2021 Patient encounter procedure Hayde METCALF [facility] Start: 02-07-2019 End: 02-09-2019 Subsequent hospital visit by physician [facility] Ultrasound Room [facility]ound Comment on above: Left lower quadrant abdominal pain; Pelvic pain Start: 02-06-2019 End: 02-06-2019 Emergency department patient visit Galen Gonsalvesitrov Work Phone: [facility] ED Comment on above: Left lower quadrant abdominal pain (Primary Dx) Procedures Date Procedure Procedure Detail Performing Clinician Start: 05-07-2024 Urnls dip stick/tabl et rgnt non-auto w/o micrscp Sheeba HASSAN Work Phone: Start: 04-08-2024 AFP, SERUM, OPEN SPI NA BIFIDA Jasbir Elisabeth DO Work Phone: Start: 03-04-2024 RECURRENT VAGINITIS (HTRX) Sheeba HASSAN Work Phone: Start: 03-04-2024 Urnls dip stick/tabl et rgnt non-auto w/o micrscp Sheeba HASSAN Work Phone: Start: 02-04-2024 Urnls dip stick/tabl et rgnt non-auto w/o micrscp Jasbir Elisabeth DO Work Phone: Start: 02-04-2024 BOX TEST Jasbir Fazi o DO Work Phone: Start: 02-02-2024 Antibody screen Jasbir F azio DO Work Phone: Start: 02-02-2024 ALL CBC WITH AUTO DIFF Jasbir Elisabeth DO Work Phone: Start: 02-02-2024 ALL RUBELLA IGG AB Core y Elisabeth DO Work Phone: Start: 02-02-2024 ALL TYPE AND SCREEN Cor ey Elisabeth DO Work Phone: Start: 02-02-2024 HBSAG SCREEN Jasbir Fazi o DO Work Phone: Start: 02-02-2024 HCV ANTIBODY RFX TO QUANT PCR Jasbir Elisabeth DO Work Phone: Start: 02-02-2024 HIV AB/P24 AG WITH REFLEX Jasbir Elisabeth DO Work Phone: Start: 02-02-2024 MLR HEMOGLOBIN A1C Core y Elisabeth DO Work Phone: Start: 02-02-2024 RAPID PLASMA REAGIN, QUANT Jasbir Elisabeth DO Work Phone: Start: 02-02-2024 [facility] DRUG SCREEN RAPI D (URINE) Jasbir Elisabeth DO Work Phone: Start: 01-11-2024 Urnls dip stick/tabl et rgnt non-auto w/o micrscp Jasbir Elisabeth DO Work Phone: Start: 11-07-2023 Basic metabolic pane l calcium total Julianna L Yonley DO Work Phone: Start: 11-07-2023 Lipid panel Julianna Chavarria DO Work Phone: Start: 04-02-2023 Microscopic observat ion [Identifier] in Cervix by Cyto stain Julianna Chavarria DO Work Phone: Start: 02-07-2019 Us pelvic [...] Author Start: 08-09-2027 DTaP/Tdap/Td vaccine (8 - Td or Tdap) DTaP/Tdap/Td vaccine (8 - Td or Tdap) [facility] Start: 08-09-2027 DTaP/Tdap/Td vaccine (8 - Td) DTaP/Tdap/Td vaccine (8 - Td) [facility], [place] Start: 04-02-2026 Screening for malign ant neoplasm of cervix Pap [facility] Start: 05-28-2024 End: 05-28-2024 Patient encounter procedure 05/28/2024 4:00 PM EDT Routine [facility] [address] [place] [address] Sheeba Medellin PA [address] [place] [address] [facility] Start: 05-07-2024 End: 05-07-2024 Patient encounter procedure 05/07/2024 2:40 PM EST Routine [facility] [address] [place] [id number] Sheeba Medellin PA [address] [place], [place] [id number] [facility] Start: 05-07-2024 End: 05-07-2025 CBC panel - Blood by Automated count CBC Lab Routine Diabetes mellitus screening Expected: 05/07/2024 (Approximate), Expires: 05/07/2025 [facility] Work Phone: Comment on above: Expected: 05/07/2024 (Approximate), Expires: 05/07/2025 Start: 05-07-2024 End: 05-07-2025 Measurement of glucose 1 hour after glucose challenge for glucose tolerance test Glucose tolerance, 1 hour Lab Routine Diabetes mellitus screening Expected: 05/07/2024 (Approximate), Expires: 05/07/2025 [facility] Comment on above: Expected: 05/07/2024 (Approximate), Expires: 05/07/2025 Start: 04-08-2024 End: 04-08-2024 Patient encounter procedure 04/08/2024 2:40 PM EST Routine [facility] [address] [place] [address] Jasbir Barber DO [address] [place] [place], [place] [id number] [facility] Start: 04-08-2024 End: 04-08-2024 Professional / ancillary services management 04/08/2024 1:30 PM EST Ancillary Procedure [facility] [address] [place] [address] [place] [phone] [facility] Start: 04-02-2024 Depression Screen Depression Screen [facility] Start: 03-04-2024 End: 03-04-2024 Patient encounter procedure [facility] Comment on above: Arrived Start: 03-04-2024 End: 04-04-2024 Alpha fetoprotein, maternal Alpha fetoprotein, maternal Lab Routine 16 weeks gestation of Second trimester Expected: 03/04/2024 (Approximate), Expires: 04/04/2024 [facility] Comment on above: Expected: 03/04/2024 (Approximate), Expires: 04/04/2024 Start: 03-04-2024 End: 03-04-2025 US for US OB ANATOMY SINGLE W US OB CERVICAL LENGTH Imaging Routine Screening, , for anatomic survey Expected: 03/04/2024 (Approximate), Expires: 03/04/2025 [facility] Comment on above: Expected: 03/04/2024 (Approximate), Expires: 03/04/2025 Start: 02-04-2024 End: 02-04-2024 Patient encounter procedure [facility] Comment on above: Arrived Start: 01-11-2024 End: 01-10-2025 ABO/Rh ABO/Rh Lab Routine Missed menses , unspecified gestational age Expected: 01/11/2024 (Approximate), Expires: 01/10/2025 [facility] Comment on above: Expected: 01/11/2024 (Approximate), Expires: 01/10/2025 Start: 01-11-2024 End: 01-10-2025 Blood type and Indirect antibody screen panel - Blood Type and screen Lab Routine Missed menses , unspecified gestational age Expected: 01/11/2024 (Approximate), Expires: 01/10/2025 [facility] Work Phone: Comment on above: Expected: 01/11/2024 (Approximate), Expires: 01/10/2025 Start: 01-11-2024 End: 01-10-2025 Drugs of abuse panel - Urine by Screen method Rapid drug screen, urine Lab Routine , unspecified gestational age Encounter for supervision of normal first in first trimester Expected: 01/11/2024 (Approximate), Expires: 01/10/2025 [facility] Comment on above: Expected: 01/11/2024 (Approximate), Expires: 01/10/2025 Start: 01-11-2024 End: 01-10-2025 US Pelvis transvaginal US OB transvaginal Imaging Routine Missed menses Expected: 01/11/2024 (Approximate), Expires: 01/10/2025 [facility] Comment on above: Expected: 01/11/2024 (Approximate), Expires: 01/10/2025 Start: 11-18-2023 Influenza vaccination Influenza Vacc ine (#1) [facility] Start: 10-18-2023 Influenza vaccination Flu vaccine (# 1) [facility] Start: 11-17-2022 COVID-19 Vaccine ( season) COVID-19 Vaccine ( season) [facility] Start: 09-05-2021 Cervical cancer screen Cervical canc er screen [place] Start: 02-07-2019 End: 03-08-2019 US Pelvis Complete US Pelvis Complete Imaging Routine Left Lower Quadrant Abdominal Pain Expected: 02/07/2019, Expires: 03/08/2019 [place] Comment on above: Expected: 02/07/2019 , Expires: 03/08/2019 Start: 11-17-2018 Influenza vaccination Flu vaccine (# 1) [place] Start: 2014 Hepatitis C screening Hepatitis C sc reen [facility] Start: 2012 Chlamydia screen Chlamydia screen [place], [place] Start: 12-17-2011 HIV screen HIV screen [place], [place] Start: 12-17-2011 HIV screening HIV screen [facility] Start: 12-17-2011 HPV vaccine (1 - 3-d ose series) HPV vaccine (1 - 3-dose series) [facility] Start: 12-17-2007 HPV vaccine (1 - Fem risa 2-dose series) HPV vaccine (1 - Female 2-dose series) [place] Bacteria identified in Urine by Culture Urine culture Microbiology Routine Missed menses Ordered: 01/11/2024 [facility] Comment on above: Ordered: 01/11/2024 CBC W Auto Different ial panel - Blood CBC and differential Lab Routine Missed menses , unspecified gestational age Ordered: 01/11/2024 [facility] Comment on above: Ordered: 01/11/2024 CHLAMYDIA TRACHOMATI S (GENITO/STI) CHLAMYDIA TRACHOMATIS (GENITO/STI) Lab Routine Exposure to STD Ordered: 03/04/2024 [facility] Comment on above: Ordered: 03/04/2024 Hemoglobin A1c/Hemoglobin.total in Blood Hemoglobin A1c Lab Routine Missed menses , unspecified gestational age Ordered: 01/11/2024 [facility] Comment on above: Ordered: 01/11/2024 Hepatitis B virus surface Ag [Presence] in Serum or Plasma by Immunoassay Hepatitis B surface antigen Lab Routine Missed menses , unspecified gestational age Ordered: 01/11/2024 [facility] Comment on above: Ordered: 01/11/2024 Hepatitis C virus Ab [Presence] in Serum or Plasma by Immunoassay Hepatitis C antibody Lab Routine Missed menses , unspecified gestational age Ordered: 01/11/2024 [facility] Comment on above: Ordered: 01/11/2024 HIV-1/HIV-2 antigen/antibody combination immunoassay HIV-1 and HIV-2 antibodies Lab Routine Missed menses , unspecified gestational age Ordered: 01/11/2024 [facility] Comment on above: Ordered: 01/11/2024 Neisseria gonorrhoea e DNA [Presence] in Unspecified specimen by ARSENIO with probe detection Neisseria gonorrhea DNA probe, direct Lab Routine Exposure to STD Ordered: 03/04/2024 [facility] Comment on above: Ordered: 03/04/2024 Reagin Ab [Presence] in Serum by RPR RPR Lab Routine Missed menses , unspecified gestational age Ordered: 01/11/2024 [facility] Comment on above: Ordered: 01/11/2024 Rubella antibody, IgG Rubella an tibody, IgG Lab Routine Missed menses , unspecified gestational age Ordered: 01/11/2024 [facility] Comment on above: Ordered: 01/11/2024 SURESWAB(R) ADVANCED VAGINITIS PLUS, TMA SURESWAB(R) ADVANCED VAGINITIS PLUS, TMA Pathology and Cytology Routine Vaginal discharge Ordered: 03/04/2024 [facility] Work Phone: Comment on above: Ordered: 03/04/2024 Immunizations Immunization Date Immunization Notes Care Provider Fa cility 12-08-2020 SARS-CoV-2 (COVID-19 ) mRNA BNT-162b2 vax [facility] 11-17-2020 SARS-CoV-2 (COVID-19 ) mRNA BNT-162b2 vax [facility] 11-09-2019 influenza virus vaccine, unspecified formulation [facility] 11-09-2019 influenza, injectabl e, quadrivalent, preservative free Julianna Chavarria DO Work Phone: [facility] 08-08-2017 tetanus toxoid, redu john diphtheria toxoid, and acellular pertussis vaccine, adsorbed [facility] Comment on above: Result Comment: 2023: VIS DATE: 05/12/2014 11-13-2009 meningococcal ACWY vaccine, unspecified formulation [facility] 11-13-2009 meningococcal polysaccharide (groups A, C, Y and W-135) diphtheria toxoid conjugate vaccine (MCV4P) Julianna Chavarria DO Work Phone: [facility] 11-13-2009 tetanus toxoid, redu john diphtheria toxoid, and acellular pertussis vaccine, adsorbed [facility] 11-13-2009 varicella virus vaccine [facility] 10-22-2002 diphtheria, tetanus toxoids and acellular pertussis vaccine, unspecified formulation Julianna Chavarria DO Work Phone: [facility] 10-22-2002 DTaP, unspecified formulation [facility] 10-22-2002 measles, mumps and rubella virus vaccine [facility] 10-22-2002 poliovirus vaccine, inactivated Julianna Chavarria DO Work Phone: [facility] 10-22-2002 poliovirus vaccine, unspecified formulation [facility] 09-22-1998 diphtheria, tetanus toxoids and acellular pertussis vaccine, unspecified formulation Julianna Yonley DO Work Phone: [facility] 09-22-1998 DTaP, unspecified formulation [facility] 09-22-1998 haemophilus influenz ae type b vaccine, PRP-OMP conjugate [facility] 09-22-1998 measles, mumps and rubella virus vaccine [facility] 09-22-1998 trivalent poliovirus vaccine, live, oral Julianna Yoyaniraey DO Work Phone: [facility] 09-22-1998 varicella virus vaccine [facility] 11-04-1997 diphtheria, tetanus toxoids and acellular pertussis vaccine, unspecified formulation Julianna Yonley DO Work Phone: [facility] 11-04-1997 DTaP, unspecified formulation [facility] 11-04-1997 haemophilus influenz ae type b vaccine, PRP-OMP conjugate [facility] 08-19-1997 diphtheria, tetanus toxoids and acellular pertussis vaccine, unspecified formulation Julianna Yonley DO Work Phone: [facility] 08-19-1997 DTaP, unspecified formulation [facility] 08-19-1997 haemophilus influenz ae type b vaccine, PRP-OMP conjugate [facility] 08-19-1997 hepatitis B vaccine, pediatric or pediatric/adolescent dosage [facility] 08-19-1997 poliovirus vaccine, inactivated Julianna Yoyaniraey DO Work Phone: [facility] 08-19-1997 poliovirus vaccine, unspecified formulation [facility] 04-22-1997 diphtheria, tetanus toxoids and acellular pertussis vaccine, unspecified formulation Julianna Yonley DO Work Phone: [facility] 04-22-1997 DTaP, unspecified formulation [facility] 04-22-1997 haemophilus influenz ae type b vaccine, conjugate unspecified formulation Julianna Chavarria DO Work Phone: [facility] 04-22-1997 hepatitis B vaccine, pediatric or pediatric/adolescent dosage [facility] 04-22-1997 Hib, unspecified formulation [facility] 04-22-1997 poliovirus vaccine, unspecified formulation Julianna Chavarria DO Work Phone: [facility] 1996 hepatitis B vaccine, pediatric or pediatric/adolescent dosage [facility] NEGATED: Highlighted row has not occurred!05-21-2023 influenza virus vaccine, unspecified formulation [facility] Care Payers Date Payer Category Payer Private Health Insurance [employer] [id number] 2022 Unknown [id number] 2015 Unknown [employer] [address] xxxxxxxxxxxx 2015-Present [phone] [address] [place] [address] xxxxxxxxxxxx [id number] 1996 Unknown [id number] 1996 Unknown [id number] .727 1996 Unknown [id number] .174 1996 Unknown [id number] .174 1996 Unknown [id number] .727 1996 Unknown [id number] [id number] .1259 1996 Unknown [id number] [id number] .1259 1996 Unknown [id number] [id number] .9 1996 Unknown [id number] 2.16.840.1.825949.3.579.2 .9 1996 Unknown [id number] .1259 1996 Unknown [id number] .1259 Social History Date Type Detail Facility Start: 02-06-2019 End: 02-17-2022 Tobacco smoking status NHIS Never smoker [place] Start: 02-06-2019 Alcohol intake 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 Tobacco smoking consumption unknown [facility] Start: 11-22-2023 [facility] Start: 02-17-2022 Tobacco use and exposure Smokeless tobacco non-user [facility] Start: 04-02-2023 Alcoholic beverage intake Current drinker of alcohol (finding) [facility] Start: 04-02-2023 History of Social function [employer] (I/We) worried allyssa er (my/our) food would run out before (I/we) got money to buy more. Never true [employer] Start: 04-02-2023 Alcohol Comment I typically wi ll have a white claw if I have a drink. [employer] Functional Status Date Assessment Result Facility 05-21-2023 Functional Status N/A [facility] 03-12-2023 Functional Status N/A [facility] Clinical Notes 08-13-2021 to 05-07-2024 Mehnaz Hogue, SAE - 05/07/2024 2:40 PM Quoc Raman, TELETYPE TECHNICIAN - 04/08/2024 2:40 PM SONYA Silva - 03/04/2024 2:30 PM Brittny Alberts, [facility] - 02/04/2024 2:20 PM EST Note Date & Type Note Facility 05-07-2024 History of Presen t illness Narrative Reason [...] SYSTEMS Review of Systems: Review of Systems OBJECTIVE Objective: OBGyn Exam Vitals: There is no height or weight on file to calculate BMI. BP: 118/64 Patient's last menstrual period was 11/08/2023. ASSESSMENT & PLAN ICD-10-CM 1. Second trimester Z34.92 POCT urinalysis dipstick manually resulted 2. 24 weeks gestation of Z3A.24 3. Diabetes mellitus screening Z13.1 CBC Glucose tolerance, 1 hour CBC Glucose tolerance, 1 hour Return OB: Patient presents today for a routine obstetrics appointment. Patient is currently 24w5d . Patient states she is doing well but has complaints of being tired due to current . Patient has verbalizes frequent movement. labor precautions was discussed/given and patient was instructed to perform kick counts three times a day. Patient was given her 1 hour order at today's visit to have done at [facility]. Orders Placed This Encounter Procedures CBC Glucose tolerance, 1 hour POCT urinalysis dipstick manually resulted Follow Up: Patient is to return to office in 2 week for routine OB appointment. Documented by Mehnaz Hogue MA on behalf of: SONYA Wilkes documented in this encounter [facility] 04-08-2024 History of Presen t illness Narrative Reason [...] nursing note reviewed. Exam conducted with a hr business partner consultant present. Vitals: There is no height or weight on file to calculate BMI. BP: 112/76 Patient's last menstrual period was 11/08/2023. ASSESSMENT & PLAN ICD-10-CM 1. Second trimester Z34.92 2. 20 weeks gestation of Z3A.20 Patient presents today for a routine obstetrics appointment. Patient is currently 20w4d with a Estimated Date of Delivery: 08/22/24. Pt to return in 4 weeks for scheduled Ob appt Documented by Clara Raman LPN on behalf of: Jasbir Barber DO documented in this encounter [facility] 03-04-2024 History of Presen t illness Narrative [...] of: SONYA Wilkes documented in this encounter [facility] 02-04-2024 History of Presen t illness Narrative [...] nursing note reviewed. Exam conducted with a hr business partner consultant present. Vitals: There is no height or [...] or undercooked meat, and stay away from [facility]. Patient has been consulted regarding any further do's and don'ts of . Patient voiced understanding and all questions and concerns were answered. Orders Placed This Encounter Procedures POCT urinalysis dipstick manually resulted Follow Up: Patient is to return in 4 weeks for routine OB appointment. Documented by Shey Alberts LPN on behalf of: Jasbir Barber DO documented in this encounter [facility] 01-11-2024 History of Presen t illness Narrative [...] or undercooked meat, and stay away from [facility]. Patient has also been advised to not [...] Betty Bradley LPN documented in this encounter [facility] 03-12-2023 Hospital Discharg e instructions Patient Education 03/12/2023 13:01:07 Contusion, Aghb-li-Ieyc Contusion A contusion is a deep bruise. [...] sitting or lying down. General instructions Take uqtw-jmp-ngsavdj and prescription medicines only as told by [...] also called RICE. You may be given lmbg-mjd-opwfllo medicines for pain. Contact a doctor if [...] provider. Document Revised: 12/29/2021 Document Reviewed: 12/29/2021 [employer] Patient Education 2022 [employer]. Follow Up Care 03/12/2023 11:10:11 With:JULIANNA CHAVARRIA DO Address: [address] [place], [place] [id number] When:03/15/2023 [facility] 03-12-2023 Evaluation + Plan note Extrac meli from: Title:ED Note Author:Deanna Bourne PA-C Date :03/12/23 1. Nasal contusion (S00.33XA : Contusion of nose, initial encounter) Orders: CT Maxillofacial w/o Contrast [facility]05-28-2022 Evaluation + Plan note Diagnostic Tests Pending * Group A Strep by PCR 08/13/21 [facility]05-28-2022 Hospital Discharge instructions Patient Education 08/13/2021 11:21:39 Pharyngitis, Boyt-gt-Djim Pharyngitis Pharyngitis is a sore throat (pharynx). This is when there is redness, pain, and swelling in your throat. Most of the time, this condition gets better on its own. In some cases, you may need medicine. Follow these instructions at home: Take axfz-qrd-gloxfhq and prescription medicines only as told by [...] 08/21/2008 Document Revised: 02/15/2018 Document Reviewed: 04/10/2017 [employer] Patient Education 2020 [employer]. [facility] Evaluation note* Diagnosis Missed menses , unspecified gestational age Encounter for supervision of normal first in first trimester documented in this encounter [facility] Healthcare[facility]* Diagnosis First trimester state, incidental 11 weeks gestation of documented in this encounter [facility] Healthcare[facility] note* Diagnosis 16 weeks gestation of Second trimester state, incidental Exposure to STD Vaginal discharge Leukorrhea, not specified as infective Screening, , for anatomic survey Encounter for anatomic survey documented in this encounter [facility] HealthcareEvaluation note* Diagnosis Screening for cardiovascular condition Screening for other and unspecified cardiovascular conditions Irregular menses Irregular menstrual cycle Late period Other disorder of menstruation and other abnormal bleeding from female genital tract [facility] [place] [facility] Diagnosis Second trimester state, incidental 20 weeks gestation of documented in this encounter [facility] Healthcare[facility] note* Diagnosis Second trimester state, incidental 24 weeks gestation of Diabetes mellitus screening Screening for diabetes mellitus [facility] Narrative No data available for this section [facility] Hospital Discharge instructions No data available for this section [facility] No data available for this section [facility] Summary Purpose Family History No Family History Records Found No data available for this section No data available for this section No Family History Records FoundNo Family History Records FoundNo Family History Records FoundNo Family History Records FoundNo Family History Records Found Advance Directives No Advanced Directives Records FoundDocuments on File Type Date Recorded 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 Advance Directives and Living Will 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 of Smoke Jumper Supervisor Reason for Referral Status Reason Specialty Diagnoses / Procedures Referred By Contact Referred To Contact Pending Review Radiology Diagnoses Pelvic pain Procedures US NON OB TRANSVAGINAL Galen Harden MD [address] [place] [id number] Status Reason Specialty Diagnoses / Procedures Referre d By Contact Referred To Contact [facility] Diagnoses Left lower quadrant abdominal pain Procedures US Pelvis Complete HC US EXAM PELVIC COMPLETE Galen Harden MD [address] [place] [address] Status Reason Specialty Diagnoses / Procedures Referre d By Contact Referred To Contact [facility] Diagnoses Left lower quadrant abdominal pain Procedures US Pelvis Complete Galen Harden MD [address] [place] [address] Assessments Diagnosis Left lower quadrant abdominal pain Pelvic pain Diagnosis Left lower quadrant abdominal pain- Primary Discharge Instructions * Instructions* Galen Harden MD - 02/06/2019 Pelvic ultrasound will be scheduled for tomorrow * Attachments The following attachments cannot be sent through Care Everywhere. * Abdominal Pain (Georgian) documented in this encounter Additional Source Comments INFORMATION SOURCE (unrecogn ized section and content) DATE CREATED AUTHOR 09/05/2017 [facility] DATE CREATED AUTHOR AUTHOR'S ORGANIZ ATION 06/01/2023 [facility] DATE CREATED AUTHOR AUTHOR'S ORGANIZ ATION 11/06/2023 [facility] DATE CREATED AUTHOR AUTHOR'S ORGANIZ ATION 11/08/2023 [facility] DATE CREATED AUTHOR AUTHOR'S ORGANIZ ATION 11/13/2023 [facility] DATE CREATED AUTHOR AUTHOR'S ORGANIZ ATION 05/09/2024 [facility] Reason for Visit (unrecogniz ed section and content) Status Reason Specialty Diagnoses / Procedures Referre d By Contact Referred To Contact [facility] Radiology Diagnoses Left lower quadrant abdominal pain Procedures US Pelvis Complete HC US EXAM PELVIC COMPLETE Galen Harden MD [address] [place] [address] Reason Comments Abdominal Pain Lower abdomen pain. Reason Comments Amenorrhea Reason Comments Routine Visit Patient Care team informatio n (unrecognized section and content) Manager Servicing Relationship Specialty Start Date End Date Julianna Chavarria DO [address] [place] [phone] PCP - General Internal Medicine 01/11/24 Manager Servicing Relationship Specialty Start Date End Date Julianna Chavarria DO [address] [place] [address] PCP - General Internal Medicine 01/11/24 Manager Servicing Relationship Specialty Start Date End Date Julianna Chavarria DO [address] [place] [address] PCP - General Internal Medicine 01/11/24 Manager Servicing Relationship Specialty Start Date End Date Julianna Chavarria DO [address] [place] [address] PCP - General Internal Medicine 01/11/24 Manager Servicing Relationship Specialty Start Date End Date Julianna Chavarria DO [address] [place] [address] PCP - General Internal Medicine 01/11/24 Manager Servicing Relationship Specialty Start Date End Date Julianna Chavarria DO [address] [place] [address] PCP - General Internal Medicine 01/11/24 Manager Servicing Relationship Specialty Start Date End Date Julianna Chavarria DO [address] [place] [address] PCP - General Internal Medicine 01/11/24 Manager Servicing Relationship Specialty Start Date End Date GabeyaniraOlga randolphica DO Nicole [address] [place] [address] PCP - General Family Medicine 12/20/15 FOR RECORDS PERTAINING TO PATIENTS WHO ARE [...] BE BASED ON THE PRIMARY CLINICAL RECORDS. [facility] [employer] [facility]. provides no warranty or guarantee of the accuracy or completeness of information in this document.
[2024-05-17 11:09] LABS: Basophils Absolute Auto 0.1 10^3/uL (0.0-0.1); Basophils Percent Auto 0.4 % (0.2-2.0); Eosinophils Absolute Auto 0.1 10^3/uL (0.0-0.7); Eosinophils Percent Auto 0.6 % (0.9-7.0); Hematocrit 38.6 % (36.0-48.0); Immature Granulocytes Abs Auto 0.09 10^3/uL (0.00-0.03); Immature Granulocytes Pct Auto 0.6 % (0.0-0.5); Lymphocytes Absolute Auto 2.1 10^3/uL (1.2-3.8); Lymphocytes Percent Auto 15.2 % (20.5-60.0); Mean Corpuscular HGB Conc 33.7 g/dL (29.9-35.2); Mean Corpuscular Hemoglobin 32.9 pg (26.7-34.0); Mean Corpuscular Volume 97.7 fL (81.0-99.0); Mean Platelet Volume 9.6 fL (9.5-13.5); Monocytes Absolute Auto 0.5 10^3/uL (0.3-0.8); Monocytes Percent Auto 3.8 % (1.7-12.0); Neutrophils Absolute Auto 11.2 10^3/uL (1.4-6.5); Neutrophils Percent Auto 79.4 % (43.0-75.0); Platelet Count 354 10^3/uL (150-450); Red Blood Count 3.95 10^6/uL (4.20-5.40); Red Cell Distribution Width 12.6 % (11.0-15.0); White Blood Count 14.1 10^3/uL (4.0-11.0)
[2024-05-17 11:11] LABS: Glucose 1 Hour 115 mg/dL (<130)
== END 2024-05-17 09:56 | disposition home or self-care (01) ==
LOC: LAB 09:56
PROVIDERS: Visit Provider Physician Assistant
DX: Z13.1 Encounter for screening for diabetes mellitus (principal)
CPT/HCPCS: 36415; 82950; 85025

== ENCOUNTER 2024-05-30 07:32 | Outpatient (RCR) | payer OTHER, SELFPAY ==
[2024-05-30] MEDS: RHO(D) IMMUNE GLOBULIN 1,500 UNIT SYRINGE 1500 UNIT IM (09:00)
[2024-05-30 09:26] VITALS: BP 114/76; PULSE 88; TEMP 37.1; O2SAT 96
== END 2024-06-09 10:26 | disposition home or self-care (01) ==
LOC: INF 07:32
PROVIDERS: Visit Provider Obstetrics & Gynecology
DX: O26.893 Other specified pregnancy related conditions, third trimester (principal); Z67.91 Unspecified blood type, Rh negative; Z3A.00 Weeks of gestation of pregnancy not specified
CPT/HCPCS: 36415; 86850; 86900; 86901; 96372; J2791

== ENCOUNTER 2024-07-17 17:08 | Observation (INO) | payer OTHER, SELFPAY ==
[2024-07-17 17:27] VITALS: BP 130/80; PULSE 68
== END 2024-07-17 18:45 | disposition home or self-care (01) ==
PROVIDERS: Admitting Provider Obstetrics & Gynecology; PCP Student in an Organized Health Care Education/Training Program; Visit Provider Obstetrics & Gynecology
DX: O26.899 Other specified pregnancy related conditions, unspecified trimester (principal); R10.30 Lower abdominal pain, unspecified; Z3A.00 Weeks of gestation of pregnancy not specified
CPT/HCPCS: 59025; G0378; G0379

== ENCOUNTER 2024-07-23 19:41 | Outpatient (REF) | payer OTHER, SELFPAY | END 2024-07-23 19:42 | disposition home or self-care (01) | LOC: LAB 19:41 | PROVIDERS: PCP Student in an Organized Health Care Education/Training Program; Visit Provider Obstetrics & Gynecology | DX: Z34.93 Encounter for supervision of normal pregnancy, unspecified, third trimester (principal) | CPT/HCPCS: 87081; 87184 ==

== ENCOUNTER 2024-07-29 02:26 | Inpatient (IN) | payer OTHER, SELFPAY ==
[2024-07-29] VITALS (35 sets, daily range): BP systolic 98–141; BP diastolic 55–88; PULSE 63–92; TEMP 36.6
--- OUTSIDE RECORDS SUMMARY | 2024-07-29 02:32 | XMS_ITS | CCD ---
Author Organization [facility] Care Team Providers Care Concreter Name Role Phone Julianna Chavarria Primary Care Provider NONE, XXXX Primary Care Physician Unavailab le JULIANNA CHAVARRIA Primary Care Physician Hui Salazar Attending Unavailable Alfredo Dejesus Attending Unavailable JULIANNA CHAVARRIA Referring Unavailable YOOLGA RAMOSICA Nicole Primary Care Unavailable JULIANNA CHAVARRIA Referring Unavailable YOYANIRAEYSUZIJULIANNA Nicole Primary Care Unavailable Leola LIRIANO Attending Unavailable Julianna Chavarria DO Primary Care Provider Julianna Chavarria DO Primary Care Provider JASBIR BARBER Attending Unavailable DAISY, SHEEBA Attending Unavailable DAISY, SHEEBA Attending Unavailable DAISY, SHEEBA Referring Unavailable ELISABETH, JASBIR Attending Unavailable ELISABETH, JASBIR Attending Unavailable DAISY, SHEEBA Attending Unavailable DAISY, SHEEBA Attending Unavailable ELISABETH, JASBIR Attending Unavailable ELISABETH, JASBIR Attending Unavailable Allergies Allergy Classification Reported Allergen(s) Allergy Type Date of Onset Reaction(s) Facility (2 sources) No Known Medication Allergies; Translations: [No Known Medication Allergies] Propensity to adverse reactions (disorder) [facility] Repository Medications Current Medications Medication Drug Class(es) Dates Sig (Normalized) Sig (Original) amoxicillin 500 mg oral capsule (1 source) Penicillin-class Antibacterial Start: 05-21-2023 take 1 capsule by mouth every twelve hours amoxicillin 500 mg Cap 500 mg = 1 cap(s), Oral, q12hr, # 20 cap(s), Refills(s) 0, Pharmacy: [id number], 165.1, cm, 05/21/23 9:05:00 EST, Height/Length Dosing, 64, kg, 05/21/23 9:05:00 EST, Weight Dosing Start Date: 05/21/23 Status: Ordered azithromycin 250 mg oral tablet (5 sources) Macrolide Antimicrobial Start: 06-09-2024 End: 06-25-2024 azithromycin (Zithromax Z-Ry) 250 MG tablet Indications: Sinus congestion As directed 6 tablet 06/09/2024 06/25/2024 Discontinued (Other) Ethinyl Estradiol / Norgestrel (3 sources) Estrogen [...] Active MV-Min-Fe Fum-FA-DH A ( 1 PO) (20 sources) MV-Min- Fe Fum-FA-DHA ( 1 PO) [...] menstruation, unspecified] Onset: 12-20-2015 12-20-2015 Chronic Other complications of (2 sources) size does not accord with dates; Translations: [Uterine size-date discrepancy, unspecified trimester] 05-28-2024 Episodic Other female genital disorders (2 sources) Vaginal discharge; Translations: [Other specified noninflammatory disorders of vagina] 03-04-2024 Episodic Other and delivery including normal (20 sources) ; Translations: [Encounter for supervision of [...] [24 weeks gestation of ] 05-07-2024 Episodic Residual codes; unclassified (2 sources) Gestation period, 27 weeks; Translations: [27 weeks gestation of ] 05-28-2024 Episodic Residual codes; unclassified (2 sources) Gestation period, 29 weeks; Translations: [29 weeks gestation of ] 06-11-2024 Episodic Residual codes; unclassified (2 sources) Gestation period, 31 weeks; Translations: [31 weeks gestation of ] 06-25-2024 Episodic Residual codes; unclassified (2 sources) Gestation period, 33 weeks; Translations: [33 weeks gestation of ] 07-09-2024 Episodic Residual codes; unclassified (2 sources) Gestation period, 35 weeks; Translations: [35 weeks gestation of ] 07-23-2024 Episodic Superficial injury; contusion (1 source) Contusion [...] Test Name Value Interpretation Reference Range Facility US OB FOLLOW UP TRANSABDOMIN AL APPROACHon 07-23-2024 OB FOLLOW UP TRANSABDOMINAL APPROACH TITLE OF EXAM: OB Ultrasound: REASON FOR EXAM: SGA. COMPARISON: 06/11/2024, 04/09/2024 TECHNIQUE: Grayscale and M-mode Doppler imaging is performed. FINDINGS: heart rate: 139 bpm MISHEL: 14.6 cm (7.8-24.9) BPD: 8.4 cm HC: 30.3 cm AC: 30.7 cm FL: 6.7 cm GA for sonogram: 33.8 wk (31.4-36.3) AINSLEY: 08/22/2024 Weight Estimate: Weight: 2423 gm / 5 lbs / 5 oz (2543-2432 gm) [place] Normal: 2751 gm (7463-8458 gm) [place] Wt%: 18% for 35.7 wks Limited for: Growth Presentation: Cephalic Lie: Longitudinal Amniotic Fluid: 14.6 cm Between 5th and 95 percentile. Largest Pocket: 6.0 cm Heart Rate: 139 bpm Somatic Motion: Yes IMPRESSION: Single live intrauterine gestation in cephalic position estimated at 33.8 weeks. This represents a 2-week delay from provided clinical dates and prior ultrasound. EFW 18% for 35.7 weeks. Dictated and transcribed 07/23/24/chidi Tillman from [facility] forwarded findings to provider. This report has been electronically signed and approved by the interpreting radiologist. Normal Not Available Comment on above: Order Comment: US OB SCAN FOR GROWTH Estimated Date of Delivery: 08/22/24 Gestational Age as of 07/23/2024: 35w4d Urinalysis macro (dipstick) panel (U)on 07-23-2024 Bilirubin, UA Negative Negative - 4(70) +++ mg/dL [facility] Blood, UA Negative Negative - 50 Kalyan/mcL [facility] Clarity, UA Clear [facility] Color, UA Yellow [facility] Glucose, UA Negative Negative - 1999(110) ++++ mg/dL [facility] Interpretation and review of laboratory results Normal [facility] Ketones, UA Negative Negative - 160(16) ++++ mg/dL [facility] Leukocytes, UA Negative Negative - 500+++ June/mcL [facility] Nitrite, UA Negative Negative - Positive [facility] pH, UA 5.5 5 - 9 [facility] Protein, UA Negative Negative - 2000(20) ++++ mg/dL [facility] Spec Grav, UA 1.02 1 - 1.03 [facility] Urobilinogen, UA 1.0 0.2 - 12 mg/dL [facility] Urinalysis macro (dipstick) panel (U)on 07-09-2024 Bilirubin, UA Negative Negative - 4(70) +++ mg/dL [facility] Blood, UA Positive Negative - 50 Kalyan/mcL [facility] Comment on above: Trace-intact Clarity, UA Clear [facility] Color, UA Yellow [facility] Glucose, UA Negative Negative - 2000(110) ++++ mg/dL [facility] Interpretation and review of laboratory results Normal [facility] Ketones, UA Negative Negative - 160(16) ++++ mg/dL [facility] Leukocytes, UA Positive Negative - 500+++ June/mcL [facility] Comment on above: small Nitrite, UA Negative Negative - Positive [facility] pH, UA 6.5 5 - 9 [facility] Protein, UA Negative Negative - 1999(20) ++++ mg/dL [facility] Spec Grav, UA 1.01 1 - 1.03 [facility] Urobilinogen, UA 0.2 0.2 - 12 mg/dL [facility] Urinalysis macro (dipstick) panel (U)on 06-25-2024 Bilirubin, UA Negative Negative - 4(70) +++ mg/dL [facility] Blood, UA Negative Negative - 50 Kalyan/mcL [facility] Clarity, UA Clear [facility] Color, UA Yellow [facility] Glucose, UA Negative Negative - 1999(110) ++++ mg/dL [facility] Interpretation and review of laboratory results Abnormal [facility] Ketones, UA Negative Negative - 160(16) ++++ mg/dL [facility] Leukocytes, UA Trace Negative - 500+++ June/mcL [facility] Nitrite, UA Negative Negative - Positive [facility] pH, UA 7 5 - 9 [facility] Protein, UA Negative Negative - 1999(20) ++++ mg/dL [facility] Spec Grav, UA 1.015 1 - 1.03 [facility] Urobilinogen, UA 1.0 0.2 - 12 mg/dL [facility] US OB FOLLOW UP TRANSABDOMIN AL APPROACHon 06-11-2024 US OB FOLLOW UP TRANSABDOMINAL APPROACH EXAM: US OB FOLLOW UP TRANSABDOMINAL APPROACH HISTORY: Inconsistent size. COMPARISON: None available. TECHNIQUE: Two-dimensional transabdominal grayscale ultrasound imaging of the pelvis was performed. FINDINGS: Gestation: Single Presentation: Cephalic Cardiac Activity: 136 beats per minute Placental Location: Anterior with no sonographic abnormalities identified. Cervical canal: Not visualized Amniotic Fluid Index: 12.3 cm MEASUREMENTS: BPD: 7.4 cm EGA: 29 weeks 5 days HC: 27.6 cm EGA: 30 weeks 1 days AC: 25.7 cm EGA: 29 weeks 6 days FL: 5.8 cm EGA: 30 weeks 1 days HC/AC Ratio: 1.07 The gestational age by today's ultrasound is 30 weeks 0 days (+/- 15 days gestation). Estimated Weight: 1487 grams, +/- 223 grams ( 3 lb 4 oz). Weight Percentile for gestational age: 46 % IMPRESSION: 1. Single, live intrauterine gestation 29 weeks, 5 days by LMP. Today's ultrasound measurements correlate with a gestational age of 30 weeks 0 days. Estimated weight is 1487 grams, +/- 223 grams ( 3 lb 4 oz) which correlates to 46 %. AINSLEY is 08/20/2024. Electronically Signed:Electronically signed by DORIS BYRNES II, MD, PHD at 12-Jun-2024 11:16:45 PM [facility] Normal Not Available Comment on above: Order Comment: US OB SCAN FOR GROWTH Estimated Date of Delivery: 08/22/24 Gestational Age as of 05/28/2024: 27w5d Urinalysis macro (dipstick) panel (U)on 06-11-2024 Bilirubin, UA Negative Negative - 4(70) +++ mg/dL [facility] Blood, UA Negative Negative - 50 Kalyan/mcL [facility] Clarity, UA Clear [facility] Color, UA Yellow [facility] Glucose, UA Negative Negative - 1999(110) ++++ mg/dL [facility] Interpretation and review of laboratory results Normal [facility] Ketones, UA Negative Negative - 160(16) ++++ mg/dL [facility] Leukocytes, UA Negative Negative - 500+++ June/mcL [facility] Nitrite, UA Negative Negative - Positive [facility] pH, UA 5.5 5 - 9 [facility] Protein, UA Negative Negative - 1999(20) ++++ mg/dL [facility] Spec Grav, UA 1.02 1 - 1.03 [facility] Urobilinogen, UA 1.0 0.2 - 12 mg/dL [facility] Urinalysis macro (dipstick) panel (U)on 05-28-2024 Bilirubin, UA Negative Negative - 4(70) +++ mg/dL [facility] Blood, UA Negative Negative - 50 Kalyan/mcL [facility] Clarity, UA Clear [facility] Color, UA Yellow [facility] Glucose, UA Negative Negative - 2000(110) ++++ mg/dL [facility] Interpretation and review of laboratory results Abnormal [facility] Ketones, UA Negative Negative - 160(16) ++++ mg/dL [facility] Leukocytes, UA Trace Negative - 500+++ June/mcL [facility] Nitrite, UA Negative Negative - Positive [facility] pH, UA 6.5 5 - 9 [facility] Protein, UA Negative Negative - 2000(20) ++++ mg/dL [facility] Spec Grav, UA 1.01 1 - 1.03 [facility] Urobilinogen, UA 0.2 0.2 - 12 mg/dL [facility] ALL CBC WITH AUTO DIFFon BASOPHILS ABSOLUTE AUTO 0.1 [facility] Basophils/100 WBC (Bld) 0.4 % 0.2 - 2.0 % [facility] Eosinophils/100 WBC (Bld) 0.6 % Low 0.9 - 7.0 % [facility] Erythrocyte distribution width (RBC) [Ratio] 12.6 % 11.0 - 15.0 % [facility] Hematocrit (Bld) [Volume fraction] 38.6 % 36.0 - 48.0 % [facility] Hemoglobin (Bld) [Mass/Vol] 13 g/dL 12.0 - 16.0 g/dL [facility] IMMATURE GRANULOCYTES ABS AUTO 0.09 High [facility] Immature granulocytes/100 WBC (Bld) 0.6 % High 0.0 - 0.5 % [facility] Interpretation and review of laboratory results Abnormal [facility] LYMPHOCYTES ABSOLUTE AUTO 2.1 [facility] Lymphocytes/100 WBC (Bld) 15.2 % Low 20.5 - 60.0 % [facility] MCH (RBC) [Entitic mass] 32.9 pg 26.7 - 34.0 pg [facility] MCHC (RBC) [Mass/Vol] 33.7 g/dL 29.9 - 35.2 g/dL [facility] MCV (RBC) [Entitic vol] 97.7 fL 81.0 - 99.0 fL [facility] MONOCYTES ABSOLUTE AUTO 0.5 [facility] Monocytes/100 WBC (Bld) 3.8 % 1.7 - 12.0 % [facility] NEUTROPHILS ABSOLUTE AUTO 11.2 High [facility] Neutrophils/100 WBC (Bld) 79.4 % High 43.0 - 75.0 % [facility] Platelet mean volume (Bld) [Entitic vol] 9.6 fL 9.5 - 13.5 fL [facility] TBH EO # 0.1 [facility] PLT 354 [facility] RBC 3.95 Low [facility] TB WBC 14.1 High [facility] Urinalysis macro (dipstick) panel (U)on 05-07-2024 Bilirubin, UA Negative Negative - 4(70) +++ mg/dL [facility] Blood, UA Positive Negative - 50 Kalyan/mcL [facility] Comment on above: trace Clarity, UA Clear [facility] Color, UA Yellow [facility] Glucose, UA Negative Negative - 1999(110) ++++ mg/dL [facility] Interpretation and review of laboratory results Abnormal [facility] Ketones, UA Negative Negative - 160(16) ++++ mg/dL [facility] Leukocytes, UA Negative Negative - 500+++ June/mcL [facility] Nitrite, UA Negative Negative - Positive [facility] pH, UA 7 5 - 9 [facility] Protein, UA Negative Negative - 1999(20) ++++ mg/dL [facility] Spec Grav, UA 1.015 1 - 1.03 [facility] Urobilinogen, UA 0.2 0.2 - 12 mg/dL [facility] AFP, SERUM, OPEN SPINA BIFID Aon 04-11-2024 AFP MOM 0.61 . [facility] AFP VALUE 42.8 ng/mL . [facility] COMMENT: Comment . [facility] Comment on above: Zara Treviño , Ph.D., [facility] Director References: Available Upon Request. Multiples Of Median Cutoffs For AFP Elevations Mendoza 2.5 Black 2.8 IDD 2.0 Twins 4.5 Abbreviation Definitions IDD - Insulin Dep Diabetes OSBR - Open Spina Bifida Risk For further inquiries contact [facility] at [phone]. This test was developed and its performance characteristics determined by [employer]. It has not been cleared or approved by the Food and Drug Administration. Performed at: [facility] [address] [place], [place] [id number] Geophysical E Logger: Alexy Guzman [facility], Phone: [phone] GEST. AGE ON COLLECTION DATE 21.7 . weeks [facility] GESTAT. AGE BASED ON Ultrasound . [facility] Comment on above: 16:5 on 03/04/2024 Recalculations are not recommended when gestational dating by LMP and ultrasound are within 10 days. INSULIN DEP DIABETES No . [facility] INTERPRETATION Comment . [facility] Comment on above: Interpretation: Scre en Negative [...] Customer Services to discuss available options. [employer] recommends amniocentesis be offered to women age 35 and older. [age]INSLEY [age] [facility] MULTIPLE GESTATION No . [facility] OSBR RISK 1 [place] [id number] . [facility] RACE . [facility] RESULTS Report . [facility] TEST RESULTS: Negative . [facility] WEIGHT 148 . lbs [facility] N N ULTRASOUND [id number] 5 16 N 1 Y 148 N N N N N White/ [facility] US OB 14+ WEEKS ANATOMY SCAN on [...] RECURRENT VAGINITIS (HTRX)on 03-05-2024 ATOPOBIUM VAGINAE 0 [facility] ATOPOBIUM VAGINAE Not detected [facility] BVAB 2,3 (BACTERIAL VAGINOSIS ASSOCIATED BACTERIA 2, 3); MOBILUNCUS SPP 0 [facility] BVAB 2,3 (BACTERIAL VAGINOSIS ASSOCIATED BACTERIA 2, 3); MOBILUNCUS SPP Not detected [facility] TRISTA ALBICANS, PARAPSILOSIS, TROPICALIS 0 [facility] TRISTA ALBICANS, PARAPSILOSIS, TROPICALIS Not detected [facility] TRISTA GLABRATA 0 [facility] TRISTA GLABRATA Not detected [facility] TRISTA KRUSEI 0 [facility] TRISTA KRUSEI Not detected [facility] CHLAMYDIA TRACHOMATIS 0 [facility] CHLAMYDIA TRACHOMATIS Not detected [facility] GARDNERELLA VAGINALIS 0 [facility] GARDNERELLA VAGINALIS Not detected [facility] MEGASPHAERA (TYPES 1, 2) 0 [facility] MEGASPHAERA (TYPES 1, 2) Not detected [facility] MYCOPLASMA GENITALIUM 0 [facility] MYCOPLASMA GENITALIUM Not detected [facility] NEISSERIA GONORRHOEAE 0 [facility] NEISSERIA GONORRHOEAE Not detected [facility] TRICHOMONAS VAGINALIS 0 [facility] TRICHOMONAS VAGINALIS Not detected [facility] Urinalysis macro (dipstick) panel (U)on 03-04-2024 Bilirubin, UA Negative Negative - 4(70) +++ mg/dL [facility] Blood, UA Positive Negative - 50 Kalyan/mcL [facility] Comment on above: trace-intact Clarity, UA Clear [facility] Color, UA Yellow [facility] Glucose, UA Negative Negative - 2000(110) ++++ mg/dL [facility] Interpretation and review of laboratory results Abnormal [facility] Ketones, UA Negative Negative - 160(16) ++++ mg/dL [facility] Leukocytes, UA Negative Negative - 500+++ June/mcL [facility] Nitrite, UA Negative Negative - Positive [facility] pH, UA 6 5 - 9 [facility] Protein, UA Negative Negative - 1999(20) ++++ mg/dL [facility] Spec Grav, UA 1.02 1 - 1.03 [facility] Urobilinogen, UA 0.2 0.2 - 12 mg/dL [facility] BOX TESTon 02-04-2024 BOX TEST SENT OUT [facility] BOX1 [facility] BOX2 02/04/24 [facility] Urinalysis macro (dipstick) panel (U)on 02-04-2024 Bilirubin, UA Negative Negative - 4(70) +++ mg/dL [facility] Blood, UA Negative Negative - 50 Kalyan/mcL [facility] Clarity, UA Clear [facility] Color, UA Yellow [facility] Glucose, UA Negative Negative - 1999(110) ++++ mg/dL [facility] Interpretation and review of laboratory results Normal [facility] Ketones, UA Negative Negative - 160(16) ++++ mg/dL [facility] Leukocytes, UA Negative Negative - 500+++ June/mcL [facility] Nitrite, UA Negative Negative - Positive [facility] pH, UA 7.5 5 - 9 [facility] Protein, UA Negative Negative - 1999(20) ++++ mg/dL [facility] Spec Grav, UA 1.015 1 - 1.03 [facility] Urobilinogen, UA 0.2 0.2 - 12 mg/dL [facility] ALL RUBELLA IGG ABon 024 RUBELLA ANTIBODIES, IGG 1.97 Immune >0.99 index [facility] Comment on above: Non-immune <0.90 Equivocal 0.90 - 0.99 Immune >0.99 Performed at: [facility] [place] [id number] Geophysical E Logger: Isaias Moon PhD, Phone: [phone] HBSAG SCREENon 02-03-2024 HBSAG SCREEN Negative Negative [facility] Comment on above: Performed at: [facility] [place] [id number] Geophysical E Logger: sIaias Moon PhD, Phone: [phone] HCV ANTIBODY RFX TO QUANT PC Héctor 02-03-2024 HCV AB Non-Reactive Non Reactive [facility] INTERPRETATION: Comment . [facility] Comment on above: Not infected with HC V unless early or acute infection is suspected (which may be delayed in an immunocompromised individual), or other evidence exists to indicate HCV infection. HIV AB/P24 AG WITH REFLEXon 02-03-2024 HIV AB/P24 AG SCREEN Non-Reactive Non Reactive [facility] Comment on above: HIV-1/HIV-2 antibodi es and HIV-1 p24 antigen were NOT detected. There is no laboratory evidence of HIV infection. HIV Negative Performed at: [address] [id number] Geophysical E Logger: Isaias Moon PhD, Phone: [phone] No Panel Informationon 02-02 [facility] RAPID PLASMA REAGIN, QUANTon 02-03-2024 RAPID PLASMA REAGIN, QUANT Non-Reactive NonRea<1:1 titer [facility] Comment on above: Please Note: This te st does not meet current guidelines for screening and diagnosis of syphilis. This test is intended for following treatment response in patients being treated for syphilis infection. To screen for syphilis infection, a reflex cascade that includes both RPR and a treponema-specific assay should be utilized, such as Treponema pallidum (Syphilis) Screening [place] (342863) or Rapid Plasma Reagin (RPR) Test With Reflex to Quantitative RPR and Confirmatory Treponema pallidum Antibodies ([id number]). Performed at: [address] [id number] Geophysical E Logger: Isaias Moon PhD, Phone: [phone] ALL CBC WITH AUTO DIFFon BASOPHILS ABSOLUTE AUTO 0.1 [facility] Basophils/100 WBC (Bld) 0.4 % 0.2 - 2.0 % [facility] Eosinophils/100 WBC (Bld) 1.1 % 0.9 - 7.0 % [facility] Erythrocyte distribution width (RBC) [Ratio] 12.6 % 11.0 - 15.0 % [facility] Hematocrit (Bld) [Volume fraction] 40.8 % 36.0 - 48.0 % [facility] Hemoglobin (Bld) [Mass/Vol] 13.6 g/dL 12.0 - 16.0 g/dL [facility] IMMATURE GRANULOCYTES ABS AUTO 0.05 High [facility] Immature granulocytes/100 WBC (Bld) 0.4 % 0.0 - 0.5 % [facility] Interpretation and review of laboratory results Abnormal [facility] LYMPHOCYTES ABSOLUTE AUTO 2.4 [facility] Lymphocytes/100 WBC (Bld) 20.1 % Low 20.5 - 60.0 % [facility] MCH (RBC) [Entitic mass] 31.8 pg 26.7 - 34.0 pg [facility] MCHC (RBC) [Mass/Vol] 33.3 g/dL 29.9 - 35.2 g/dL [facility] MCV (RBC) [Entitic vol] 95.3 fL 81.0 - 99.0 fL [facility] MONOCYTES ABSOLUTE AUTO 0.5 [facility] Monocytes/100 WBC (Bld) 4.1 % 1.7 - 12.0 % [facility] NEUTROPHILS ABSOLUTE AUTO 8.8 High [facility] Neutrophils/100 WBC (Bld) 73.9 % 43.0 - 75.0 % [facility] Platelet mean volume (Bld) [Entitic vol] 10 fL 9.5 - 13.5 fL [facility] EO # 0.1 [facility] PLT 367 [facility] RBC 4.28 [facility] WBC 11.9 High [facility] ALL TYPE AND SCREENon 2023 ABO and Rh group Nom (Bld) Blood group A Rh(D) negative [facility] MLR HEMOGLOBIN A1Con 024 Glucose [Mass/Vol] 94 mg/dL [facility] HbA1c (Bld) [Mass fraction] 4.9 % 4.5 - 6.2 % [facility] Comment on above: ADA RECOMMENDED LIMI T 4.0 - 6.0 ADA THERAPEUTIC TARGET < 7.0 ACTION SUGGESTED > 7.[address] [facility] No Panel Informationon 02-01 [facility] DRUG SCREEN RAPID (URINE )on 02-02-2024 AMPHETAMINE SCREEN URINE Negative NEGATIVE [facility] BARBITURATES SCREEN URINE Negative NEGATIVE [facility] BENZODIAZEPINES SCREEN URINE Negative NEGATIVE [facility] BUPRENORPHINE SCREEN URINE Negative NEGATIVE [facility] Comment on above: DRUG CLASS TEST SYST [...] 300 ng/mL CANNABINOID SCREEN URINE Negative NEGATIVE [facility] COCAINE SCREEN URINE Negative NEGATIVE [facility] METHADONE SCREEN URINE Negative NEGATIVE [facility] METHAMPHETAMINES SCREEN URINE Negative NEGATIVE [facility] OPIATE SCREEN URINE Negative NEGATIVE [facility] OXYCODONE SCREEN URINE Negative NEGATIVE [facility] PHENCYCLIDINE SCREEN URINE Negative NEGATIVE [facility] TRICYCLIC ANTIDEPRESSANT URINE Negative NEGATIVE [facility] HCG ( test) Ql (U)o n 01-11-2024 Interpretation and review of laboratory results Normal [facility] Preg Test, Ur Negative [facility] Urinalysis macro (dipstick) panel (U)on 01-11-2024 Bilirubin, UA Negative Negative - 4(70) +++ mg/dL [facility] Blood, UA Negative Negative - 50 Kalyan/mcL [facility] Clarity, UA Clear [facility] Color, UA Yellow [facility] Glucose, UA Negative Negative - 1999(110) ++++ mg/dL [facility] Interpretation and review of laboratory results Normal [facility] Ketones, UA Negative Negative - 160(16) ++++ mg/dL [facility] Leukocytes, UA Negative Negative - 500+++ June/mcL [facility] Nitrite, UA Negative Negative - Positive [facility] pH, UA 5.5 5 - 9 [facility] Protein, UA Negative Negative - 1999(20) ++++ mg/dL [facility] Spec Grav, UA 1.02 1 - 1.03 [facility] Urobilinogen, UA 1.0 0.2 - 12 mg/dL [facility] Pre-Visit Planningon 2 024 Pre-Visit Planning Pre-Visit Planning From: Leola LIRIANO CNP To: Occupational Health at [facility]; Sent: 11/08/2023 08:24:20 EDT Subject: General Message: [employer] Screening Caller Name: SYEDA PEREIRA; Caller Number: [...] [phone] Documented Labs printed [facility] Basic Metabolic Panelon 08- Anion gap [Moles/Vol] 10 mmol/L 9 - 17 mmol/L [facility] Calcium [Mass/Vol] 9.4 mg/dL 8.6 - 10. 4 mg/dL [facility] Chloride [Moles/Vol] 100 mmol/L 98 - 10 7 mmol/L [facility] CO2 [Moles/Vol] 25 mmol/L 20 - 31 mmol/L [facility] Creatinine [Mass/Vol] 0.6 mg/dL 0.5 - 0.9 mg/dL [facility] [employer] Est, Glom Filt Rate - [facility] [employer] Comment on above: These results are not [...] [Mass/Vol] 81 mg/dL 70 - 99 mg/dL [facility] Potassium [Moles/Vol] 4.0 mmol/L 3.7 - 5.3 mmol/L [facility] Sodium [Moles/Vol] 135 mmol/L 135 - 144 mmol/L [facility] Urea nitrogen [Mass/Vol] 11 mg/dL 6 - 20 mg/dL [facility] Urea nitrogen/Creatinine [Mass ratio] 18 mg/mg 9 - 20 [facility] Basic Metabolic Profon 11-06 Anion gap [Moles/Vol] 10 mmol/L Normal -17 [facility] Comment on above: Performed By: #### C DP, BMP, TSHX #### [facility] [address] [place], [place] [id number] [employer] Logger: Manfred Walker MD #### LIPR #### [address] [id number] [employer] Logger: Henrique Madera MD BUN/CRE Ratio 18 Normal - [facility] Comment on above: Performed By: #### C DP, BMP, TSHX #### [facility] [address] [place], [place] [id number] [employer] Logger: Manfred Walker MD #### LIPR #### [address] [phone] [employer] Logger: Henrique Madera MD Calcium [Mass/Vol] 9.4 mg/dL Normal 8.6-10.4 [facility] Comment on above: Performed By: #### C DP, BMP, TSHX #### [facility] [address] [place], [place] [id number] [employer] Logger: Manfred Walker MD #### LIPR #### [address] [phone] [employer] Logger: Henrique Madera MD Chloride [Moles/Vol] 100 mmol/L Normal 98-107 [facility] Comment on above: Performed By: #### C DP, BMP, TSHX #### [facility] [address] [place] [address] Geophysical E Logger: Manfred Walker MD #### LIPR #### [facility] [address] [place], [place] [phone] Ge[employer] Logger: Henrique Madera MD CO2 [Moles/Vol] 25 mmol/L Normal 20-31 [facility] Comment on above: Performed By: #### C DP, BMP, TSHX #### [facility] [address] [place] [address] Geophysical E Logger: Manfred Walker MD #### LIPR #### [facility] [address] [place], [place] [phone] Geophysical E Logger: Henrique Madera MD Creatinine [Mass/Vol] 0.6 mg/dL Normal 0.5-0.9 [facility] Comment on above: Performed By: #### C DP, BMP, TSHX #### [facility] [address] [place] [address] Geophysical E Logger: Manfred Walker MD #### LIPR #### [facility] [address] [place], [place] [phone] Geophysical E Logger: Henrique Madera MD GFR/1.73 sq M.predicted among non-blacks MDRD (S/P/Bld) [Vol rate/Area] mL/min/{1.73_m2} Normal >60 [facility] Comment on above: Result Comment: These results [...] #### [facility] [address] [place] [address] Geophysical E Logger: Manfred Walker MD #### LIPR #### [facility] [address] [place] [address] Geophysical E Logger: Henrique Madera MD Glucose [Mass/Vol] 81 mg/dL Normal 70-99 [facility] Comment on above: Performed By: #### C DP, BMP, TSHX #### [facility] [address] [place] [address] Geophysical E Logger: Manfred Walker MD #### LIPR #### [facility] [address] [place] [address] Geophysical [employer] Logger: Henrique Madera MD Potassium [Moles/Vol] 4.0 mmol/L Normal 3.7-5.3 [facility] Comment on above: Performed By: #### C DP, BMP, TSHX #### [facility] [address] [place], [place] [phone] Geophysical E Logger: Manfred Walker MD #### LIPR #### [address] [address] Geophysical E Logger: Henrique Madera MD Sodium [Moles/Vol] 135 mmol/L Normal 135-144 [facility] Comment on above: Performed By: #### C DP, BMP, TSHX #### [facility] [address] [place] [address] Geophysical E Logger: Manfred Walker MD #### LIPR #### [address] [address] Geophysical E Logger: Henrique Madera MD Urea nitrogen [Mass/Vol] 11 mg/dL Normal 6-20 [facility] Comment on above: Performed By: #### C DP, BMP, TSHX #### [facility] [address] [place] [address] Geophysical E Logger: Manfred Walker MD #### LIPR #### [facility] [address] [place] [address] Ge[employer] Logger: Henrique Madera MD CBC with Auto Differentialon 11-07-2023 Basophils (Bld) [#/Vol] 0.03 10*3/uL [facility] Basophils/100 WBC (Bld) 0 % 0 - 2 % [facility] Eosinophils (Bld) [#/Vol] 0.10 10*3/uL [facility] Eosinophils/100 WBC (Bld) 1 % 0 - 5 % [facility] Erythrocyte distribution width (RBC) [Ratio] 11.5 % Low 12.1 - 15.2 % [facility] Hematocrit (Bld) [Volume fraction] 38.6 % 36.0 - 46.0 % [facility] Hemoglobin (Bld) [Mass/Vol] 12.8 g/dL 12.0 - 16.0 g/dL [facility] Immature granulocytes (Bld) [#/Vol] 0.01 10*3/uL [facility] Immature granulocytes/100 WBC (Bld) 0 % 0 - 5 % [facility] Interpretation and review of laboratory results Abnormal [facility] Lymphocytes/100 WBC (Bld) 8 % Low 15 - 40 % [facility] Lymphocytes/100 WBC (Bld) 0.65 % Low [facility] MCH (RBC) [Entitic mass] 31.4 pg 26.0 - 34.0 pg [facility] MCHC (RBC) [Mass/Vol] 33.2 g/dL 31.0 - 37.0 g/dL [facility] MCV (RBC) [Entitic vol] 94.6 fL 80.0 - 100.0 fL [facility] Monocytes/100 WBC (Bld) 4 % 4 - 8 % [facility] Monocytes/100 WBC (Bld) 0.36 % [facility] Neutrophils/100 WBC (Bld) 87 % High 47 - 75 % [facility] Platelet mean volume (Bld) [Entitic vol] 9.5 fL 6.0 - 12.0 fL [facility] Platelets (Bld) [#/Vol] 298 10*3/uL [facility] RBC (Bld) [#/Vol] 4.08 10*6/uL 4.00 - 5.2 0 m/uL [facility] Segmented neutrophils/100 WBC (Bld) 7.15 % High [facility] WBC other (Bld) [#/Vol] 8.3 [facility] CBC with Diffon 11-07-2023 Abs. Basophil 0.03 k/uL Normal 0.00-0.20 [facility] Comment on above: Performed By: #### C DP, BMP, TSHX #### [facility] [address] [place] [address] Geophysical E Logger: Manfred Walker MD #### LIPR #### [place] [phone] Geophysical E Logger: Henrique Madera MD Abs.Imm.Granulocyte 0.01 k/uL Normal 0.00-0.30 [facility] Comment on above: Performed By: #### C DP, BMP, TSHX #### [facility] [address] [place] [phone] ( Geophysical E Logger: Manfred Walker MD #### LIPR #### [place] [phone] Geophysical E Logger: Henrique Madera MD Abs.Neutrophil (Seg) 7.15 k/uL High 2.5-7.0 [facility] Comment on above: Performed By: #### C DP, BMP, TSHX #### [facility] [address] [place] [phone] Geophysical E Logger: Manfred Walker MD #### LIPR #### [place] [address] Geophysical E Logger: Henrique Madera MD Basophils/100 WBC (Bld) 0 % Normal 0-2 [facility] Comment on above: Performed By: #### C DP, BMP, TSHX #### [facility] [address] [place] [address] Geophysical E Logger: Manfred Walker MD #### LIPR #### [address] [address] Geophysical E Logger: Henrique Madera MD Eosinophils (Bld) [#/Vol] 0.10 10*3/uL Normal 0.00-0.40 [facility] Comment on above: Performed By: #### C DP, BMP, TSHX #### [facility] [address] [place] [address] Geophysical E Logger: Manfred Walker MD #### LIPR #### [place] [phone] Geophysical E Logger: Henrique Madera MD Eosinophils/100 WBC (Bld) 1 % Normal 0-5 [facility] Comment on above: Performed By: #### C DP, BMP, TSHX #### [facility] [address] [place] [address] Geophysical E Logger: Manfred Walker MD #### LIPR #### [place] [phone] Geophysical E Logger: Henrique aMdera MD Erythrocyte distribution width (RBC) [Ratio] 11.5 % Low 12.1-15.2 [facility] Comment on above: Performed By: #### C DP, BMP, TSHX #### [facility] [address] [place] [address] Geophysical E Logger: Manfred Walker MD #### LIPR #### [address] [phone] Geophysical E Logger: Henrique Madera MD Hematocrit (Bld) [Volume fraction] 38.6 % Normal 36.0-46.0 [facility] Comment on above: Performed By: #### C DP, BMP, TSHX #### [facility] [address] [place] [address] Geophysical E Logger: Manfred Walker MD #### LIPR #### [facility] [address] [place], [place] [phone] Geophysical E Logger: Henrique Madera MD Hemoglobin (Bld) [Mass/Vol] 12.8 g/dL Normal 12.0-16.0 [facility] Comment on above: Performed By: #### C DP, BMP, TSHX #### [facility] [address] [place] [address] Geophysical E Logger: Manfred Walker MD #### LIPR #### [place] [address] [place], [place] [phone] Geophysical E Logger: Henrique Madera MD Immature granulocytes/100 WBC (Bld) 0 % Normal 0-5 [facility] Comment on above: Performed By: #### C DP, BMP, TSHX #### [facility] [address] [place] [address] Geophysical E Logger: Manfred Walker MD #### LIPR #### [address] [phone] Geophysical E Logger: Henrique Madera MD Lymphocytes (Bld) [#/Vol] 0.65 10*3/uL Low 1.00-4.80 [facility] Comment on above: Performed By: #### C DP, BMP, TSHX #### [facility] [address] [place] [address] Geophysical E Logger: Manfred Walker MD #### LIPR #### [place] [address] [place], [place] 1434808 Geophysical E Logger: Henrique Madera MD Lymphocytes/100 WBC (Bld) 8 % Low 15-40 [facility] Comment on above: Performed By: #### C DP, BMP, TSHX #### [facility] [address] [place] [address] Geophysical E Logger: Manfred Walker MD #### LIPR #### [place] [address] [place] [address] Geophysical E Logger: Henrique Madera MD MCH (RBC) [Entitic mass] 31.4 pg Normal 26.0-34.0 [facility] Comment on above: Performed By: #### C DP, BMP, TSHX #### [facility] [address] [place] [address] Geophysical E Logger: Manfred Walker MD #### LIPR #### [place] [phone] Geophysical E Logger: Henrique Madera MD MCHC (RBC) [Mass/Vol] 33.2 g/dL Normal 31.0-37.0 [facility] Comment on above: Performed By: #### C DP, BMP, TSHX #### [facility] [address] [place] [address] Geophysical E Logger: Manfred Walker MD #### LIPR #### [place] [phone] Geophysical E Logger: Henrique Madera MD MCV (RBC) [Entitic vol] 94.6 fL Normal 80.0-100.0 [facility] Comment on above: Performed By: #### C DP, BMP, TSHX #### [facility] [address] [place] [address] Geophysical E Logger: Manfred Walker MD #### LIPR #### [place] [phone] Geophysical E Logger: Henrique Madera MD Monocytes (Bld) [#/Vol] 0.36 10*3/uL Normal 0.00-1.00 [facility] Comment on above: Performed By: #### C DP, BMP, TSHX #### [facility] [address] [place], [place] [phone] Geophysical E Logger: Manfred Walker MD #### LIPR #### [facility] [address] [place], [place] 1879508 Geophysical E Logger: Henrique Madera MD Monocytes/100 WBC (Bld) 4 % Normal 4-8 [facility] Comment on above: Performed By: #### C DP, BMP, TSHX #### [facility] [address] [place], [place] [phone] Geophysical E Logger: Manfred Walker MD #### LIPR #### [place] [address] [place], [place] [phone] Geophysical E Logger: Henrique Madera MD Neutrophil (Seg) 87 % High 47-75 [facility] Comment on above: Performed By: #### C DP, BMP, TSHX #### [facility] [address] [place], [place] 1364190 Geophysical E Logger: Manfred Walker MD #### LIPR #### [address] [phone] Geophysical E Logger: Henrique Madera MD Platelet mean volume (Bld) [Entitic vol] 9.5 fL Normal 6.0-12.0 [facility] Comment on above: Performed By: #### C DP, BMP, TSHX #### [facility] [address] [place], [place] [phone] Geophysical E Logger: Manfred Walker MD #### LIPR #### [address] [address] Geophysical E Logger: Henrique Madera MD Platelets (Bld) [#/Vol] 298 10*3/uL Normal 140-450 [facility] Comment on above: Performed By: #### C DP, BMP, TSHX #### [facility] [address] [place] [address] Geophysical E Logger: Manfred Walker MD #### LIPR #### [place] [address] [place], [place] [phone] Geophysical E Logger: Henrique Madera MD RBC (Bld) [#/Vol] 4.08 10*6/uL Normal 4.00-5.20 [facility] Comment on above: Performed By: #### C DP, BMP, TSHX #### [facility] [address] [place] [address] Geophysical E Logger: Manfred Walker MD #### LIPR #### [place] [phone] Geophysical E Logger: Henrique Madera MD WBC (Bld) [#/Vol] 8.3 10*3/uL Normal 3.5-11.0 [facility] Comment on above: Performed By: #### C DP, BMP, TSHX #### [facility] [address] [place] [address] Geophysical E Logger: Manfred Walker MD #### LIPR #### [place] [phone] Geophysical E Logger: Henrique Madera MD HCG, Quanton 11-07-2023 HCG, Quant 2.9 mIU/mL Normal <5 [facility] Comment on above: Result Comment: Non-preg premeno <=5 Postmeno <=8 Male <=3 If HCG results do not concur with clinical observations, additional testing to confirm results is recommended. Performed By: #### B HCG #### [facility] [address] [place] [phone] Geophysical E Logger: Manfred Walker MD Lipid Panelon 11-07-2023 Cholesterol [Mass/Vol] 144 mg/dL 0 - 199 mg/dL [facility] Comment on above: Cholesterol Guidelines: <200 Desirable 200-240 Borderline >240 Undesirable Cholesterol in HDL [Mass/Vol] 68 mg/dL 40 - PINF mg/dL [facility] Comment on above: HDL Guidelines: <40 Undesirable 40-59 Borderline >59 Desirable Cholesterol in LDL [Mass/Vol] 68 mg/dL 0 - 100 mg/dL [facility] Comment on above: LDL Guidelines: <100 Desirable 100-129 Near to/above Desirable 130-159 Borderline >159 Undesirable Direct (measured) LDL and calculated LDL are not interchangeable tests. Cholesterol in VLDL [Mass/Vol] 8 mg/dL [facility] Cholesterol.total/Ch olesterol in HDL [Mass ratio] 2.0 {ratio} [facility] Triglyceride [Mass/Vol] 42 mg/dL NINF - 150 mg/dL [facility] Comment on above: Triglyceride Guidelines: <150 Desirable 150-199 Borderline 200-499 High >499 Very high Based on AHA Guidelines for fasting triglyceride, December 2011. [facility] Lipid Profileon 11-07-2023 Cholesterol [Mass/Vol] 144 mg/dL Normal 0-199 [facility] Comment on above: Result Comment: Cholesterol Guidelines: <200 Desirable 200-240 Borderline >240 Undesirable Performed By: #### C DP, BMP, TSHX #### [facility] [address] [place] [address] Geophysical E Logger: Manfred Walker MD #### LIPR #### [facility] [employer] [facility] [place], [place] [phone] Geophysical E Logger: Henrique Madera MD Cholesterol in HDL [Mass/Vol] 68 mg/dL Normal >40 [facility] Comment on above: Result Comment: HDL Guidelines: <40 Undesirable 40-59 Borderline >59 Desirable Performed By: #### C DP, BMP, TSHX #### [facility] [address] [place] [address] Geophysical E Logger: Manfred Walker MD #### LIPR #### [facility] [employer] [address] [place], [place] [phone] Geophysical E Logger: Henrique Madera MD Cholesterol in LDL [Mass/Vol] 68 mg/dL Normal 0-100 [facility] Comment on above: Result Comment: LDL Guidelines: <100 Desirable 100-129 Near to/above Desirable 130-159 Borderline >159 Undesirable Direct (measured) LDL and calculated LDL are not interchangeable tests. Performed By: #### C JONAS VILLEDA, TSHX #### [facility] [address] [place], [place] [phone] Geophysical E Logger: Manfred Walker MD #### LIPR #### [facility] [employer] [facility] [place], [place] [phone] Geophysical E Logger: Henrique Madera MD Cholesterol in VLDL [Mass/Vol] 8 mg/dL Normal [facility] Comment on above: Performed By: #### C JONAS VILLEDA, TSHX #### [facility] [address] [place], [place] [phone] Geophysical E Logger: Manfred Walker MD #### LIPR #### [facility] [employer] [facility] [place], [place] [phone] Geophysical E Logger: Henrique Madera MD Cholesterol.total/Ch olesterol in HDL [Mass ratio] 2.0 {ratio} Normal [facility] Comment on above: Performed By: #### C JONAS VILLEDA, TSHX #### [facility] [address] [place], [place] [phone] Geophysical E Logger: Manfred Walker MD #### LIPR #### [facility] [employer] [facility] [place], [place] [id number] Geophysical E Logger: Henrique Madera MD Triglyceride [Mass/Vol] 42 mg/dL Normal <150 [facility] Comment on above: Result Comment: Triglyceride Guidelines: <150 Desirable 150-199 Borderline 200-499 High >499 Very high Based on AHA Guidelines for fasting triglyceride, December 2011. Performed By: #### C JONAS VILLEDA, TSHX #### [facility] [address] [place], [place] [phone] Geophysical E Logger: Manfred Walker MD #### LIPR #### [facility] [employer] [address] [place], [place] [phone] Geophysical E Logger: Henrique Madera MD No Panel Informationon 11-06 [facility] TSH w/reflex to FT4on 2023 Thyroid Stim. Horm. 0.57 uIU/mL Normal 0.30-5.00 [facility] Comment on above: Performed By: #### C DP, BMP, TSHX #### [facility] [address] [place] [address] Geophysical E Logger: Manfred Walker MD #### LIPR #### [facility] [address] [place], [place] [phone] Geophysical E Logger: Henrique Madera MD TSH with Reflexon 11-07-2023 TSH Qn 0.57 m[IU]/L [facility] hCG, Quantitative, on 11-07-2023 HCG.beta subunit Qn 2.9 m[IU]/mL NINF [facility] Comment on above: Non-preg premeno <=5 Postmeno <=8 Male <=3 If HCG results do not concur with clinical observations, additional testing to confirm results is recommended. [facility] Glu Fastingon 11-05-2023 Glucose [Mass/Vol] 74 mg/dL Normal 55-99 [facility] Comment on above: Performed By: #### 2 [id number] #### [facility] [address] [place] [address] Lipid Panelon 11-05-2023 Cholesterol [Mass/Vol] 127 mg/dL Normal 120-200 [facility] Comment on above: Performed By: #### 2 [id number] #### [facility] [address] [place] [address] Cholesterol in HDL [Mass/Vol] 59 mg/dL Invalid Interpretation Code [facility] Comment on above: Result Comment: '>= 60 LOW RISK' '<= 40 HIGH RISK' Performed By: #### 2 [id number] #### [facility] [address] [place] [address] Cholesterol in LDL [Mass/Vol] 63 mg/dL Normal <=129 [facility] Comment on above: Performed By: #### 2 [id number] #### [facility] [address] [place] [address] Cholesterol in VLDL [Mass/Vol] 8 mg/dL Normal 7-40 [facility] Comment on above: Performed By: #### 2 [id number] #### [facility] [address] [place] [address] Triglyceride [Mass/Vol] 41 mg/dL Normal <=149 [facility] Comment on above: Performed By: #### 2 [id number] #### [facility] [address] [place] [address] Ambulatory Visit Summaryon 0 05-21-2023 Ambulatory Visit [...] hours Strep throat Pickup at [id number] Unchanged norgestrel Contact prescribing physician if questions or concerns Pharmacy Information [id number]: [address] [place] [id number] [phone] Medications and Immunizations Administered Not Given influenza [...] for choosing us for your care. [facility] Family Medicine Office/Clini c Noteon [...] # 20 cap(s), Refills(s) 0, Pharmacy: [facility][id number], 165.1, cm, 05/21/23 9:05:00 EST, Height/Length Dosing, 64, kg, 05/21/23 9:05:00 EST, Weight Dosing 2. Sore throat (J02.9: Acute pharyngitis, unspecified) Ordered: Rapid Strep POC 47710 Total time spent TODAY preparing the chart, [...] 04/22/1997 [place] (more content not included)... [facility] Comment on above: Result Comment: Elec tronically Signed By: Anjelica COX, Alfredo Bernal\.br\Date and Time Signed: 05/21/23 09:36 EST Provider Letteron 05-21-2023 Provider Letter May 21, 2023 SYEDA RANDALL [address] [place] [address] : 1995 To Whom It May Concern, Please excuse above patient from work. Date of Illness: From: 05/21/2023 To: 05/22/2023 May Return to Work On: 05/23/2023 Sincerely, [facility] [address] [place] [address], [address] [place] [id number] [facility] Cytology Reporton 04-02-2023 Cytology report Cyto stain.thin prep Doc (Cvx/Vag) (NOTE) Path Number: [id number] DIAGNOSIS Imaged ThinPrep Pap - Cervical (1 [...] neoplasm of cervix LMP: 03/14/2023 Processing Lab: [address] [address] Interpretation performed at [address] [address] This Pap Test has been evaluated with [...] GYNECOLOGIC CYTOLOGY REPORT Patient Name: SYEDA PEREIRA [facility] Rec: [id number] [facility] [employer] [facility] ANATOMIC PATHOLOGY [address] [place] [address]. [place], [place] [address] Normal [facility] CT Maxillofacial w/o Contras ton 03-12-2023 CT [...] Barrientos MD Transcribed by: CHRISTIANA Technologist: SHIR[facility] Consent for Treatmenton 02-17 Consent for Treatment [id number] [facility] Discharge Instructionson Discharge Instructions [id number] #[id number] [facility] ED Clinical Summaryon 2022 ED Clinical Summary [place] [id number] ED Clinical Summary Person Information Name: SYEDA PEREIRA/[facility] Age: 27 Years : 1995 Sex: Female Language: [place] Islander PCP: JULIANNA CHAVARRIA DO Marital Status: Visit [...] 03/12/2023 13:28:35 03/12/2023 13:28:35 03/12/2023 13:28:35 ADDRESS: [address] [place] [id number] [facility] NOTES: MEDICAL INFORMATION: Prescriptions Given: Medications to Continue with No Changes Other Medications norgestrel PATIENT EDUCATION INFORMATION: Instructions: Contusion, Bjdl-ys-Lvnp Follow up: With: Address: When: [place] [address] In 3 days 03/15/2023 DIAGNOSIS: 1:Nasal contusion [facility] ED Note-Physicianon 03-12-20 ED Note-Physician Basic Information [...] DO In 3 days 03/15/2023 EST [address] [place] [address]- Additional Instructions: Patient Education Contusion, Zdvx-dp-Vbfr Attestation This visit was performed by both [...] Bourne Signed By: Floyd JULIEN, Jeff Bernal [facility] Comment on above: Result Comment: Elec [...] or lying down. General instructions ? Take smiq-bxw-mcfypel and prescription medicines only as told by [...] also called RICE. You may be given rwyh-ctz-rgfyfjy medicines for pain. ? Contact a doctor [...] Reviewed: 12/29/2021 Elsevier Patient Education ? 2022 [employer] [facility] ED Patient Summaryon 023 ED Patient Summary [place] [id number] Patient Discharge Instructions Person Information Name: SYEDA PEREIRA Age: 27 Years Arrival Date: 03/12/2023 11:08:26 Discharge Diagnosis: 1:Nasal contusion Primary Care Physician: JULIANNA CHAVARRIA DO Provider Information Primary Provider: Hui Salazar M.D. Advanced Piled[employer] Carpenter:None The exam and treatment you received in the Emergency Department were for an urgent problem and are not intended as complete care. It is important that you follow up with a doctor, nurse practitioner, or physician?s academic support assistant for ongoing care. If your symptoms [...] Instructions: With: Address: When: JULIANNA CHAVARRIA DO [address] [place] [address] In 3 days 03/15/2023 In the event that this physician does not participate in your insurance network, please consult with your insurance company to find a nearby participating provider. Patient Education Materials: Contusion, Ijai-hb-Qvhu A MESSAGE TO ALL PATIENTS REGARDING OPIOIDS PRESCRIPTION OPIOIDS: WHAT YOU NEED TO KNOW Prescription opioids can be used to help relieve rpndeddo-th-ncnass pain and are often prescribed following a [...] be struggling with addiction, tell your health reservoir caretaker and ask for guidance or call SAMHSA?S National Helpline at 9-631-853-HGXE. l Source: [place] Department of Health and (more content not included)... [facility] Otheron 02-07-2019 Normal pelvic ultrasound. [place], [place] EXAM: US PELVIS COMPLETE, US NON [...] normal at 2 mm. No free fluid. [place], [place] Michael, Mhpn Incoming Radiant Results From [employer] - 02/07/2019 7:08 PM EST EXAM: US [...] No free fluid. IMPRESSION: Normal pelvic ultrasound. [place], [place] CBC Auto Differentialon 01-18 Basophils (Bld) [#/Vol] 0.00 10*3/uL [place] Basophils/100 WBC (Bld) 0 % 0 - 2 % [place] Differential Type YES [place] Eosinophils (Bld) [#/Vol] 0.10 10*3/uL [place] Eosinophils/100 WBC (Bld) 1 % 0 - 5 % [place] Erythrocyte distribution width (RBC) [Ratio] 12.4 % 12.1 - 15.2 % [place] Hematocrit (Bld) [Volume fraction] 44.2 % 36 - 46 % [place] Hemoglobin (Bld) [Mass/Vol] 14.8 g/dL 12 - 16 g/dL [place] Lymphocytes (Bld) [#/Vol] 3.30 10*3/uL [place] Lymphocytes/100 WBC (Bld) 33 % 15 - 40 % [place] MCH (RBC) [Entitic mass] 30.6 pg 26 - 34 pg [place] MCHC (RBC) [Mass/Vol] 33.5 g/dL 31 - 37 g/dL [place] MCV (RBC) [Entitic vol] 91.4 fL 80 - 100 fL [place] Monocytes (Bld) [#/Vol] 0.40 10*3/uL [place] Monocytes/100 WBC (Bld) 4 % 4 - 8 % [place] Platelet mean volume (Bld) [Entitic vol] NOT REPORTED 6 - 12 fL [place] Platelets (Bld) [#/Vol] NOT REPORTED [place] Platelets (Bld) [#/Vol] 434 10*3/uL [place] RBC (Bld) [#/Vol] 4.84 10*6/uL 4 - 5.2 m/uL [place] RBC morphology finding Nom (Bld) NOT REPORTED [place] Segmented neutrophils/100 WBC (Bld) 62 % 47 - 75 % [place] Segs Absolute 6.30 [place] WBC (Bld) [#/Vol] NOT REPORTED per 100 WBC [place] WBC (Bld) [#/Vol] 10.2 10*3/uL [place] WBC Morphology NOT REPORTED [place] Comprehensive Metabolic Pane vania 02-06-2019 Albumin [Mass/Vol] 5.1 g/dL 3.5 - 5.2 g/dL [place] Albumin/Globulin [Mass ratio] NOT REPORTED [place] ALP [Catalytic activity/Vol] 59 U/L 35 - 104 U/L [place] ALT [Catalytic activity/Vol] 29 U/L 5 - 33 U/L [place] Anion gap [Moles/Vol] 12 mmol/L 9 - 17 mmol/L [place] AST [Catalytic activity/Vol] 22 U/L <32 [place] Bilirubin Ql (U) 0.22 mg/dL Low 0.3 - 1.2 mg/dL [place] Bun/Cre Ratio 14 [place] Calcium [Mass/Vol] 10.4 mg/dL 8.6 - 10. 4 mg/dL [place] Chloride [Moles/Vol] 100 mmol/L 98 - 10 7 mmol/L [place] CO2 [Moles/Vol] 26 mmol/L 20 - 31 mmol/L [place] Creatinine [Mass/Vol] 0.86 mg/dL 0.5 - 0.9 mg/dL [place] GFR >60 >60 mL/min [place] GFR Non- >60 >60 mL/min [place] GFR/1.73 sq M predicted among non-blacks MDRD (S/P/Bld) [Vol rate/Area] [place] Comment on above: Average GFR for 20-2 9 years old: 116 mL/min/1.73sq m Chronic Kidney Disease: <60 mL/min/1.73sq m Kidney failure: <15 mL/min/1.73sq m eGFR calculated using average adult body mass. Additional eGFR calculator available at: http://www.Farmstr.Acesis/multiple_crcl_2012.htm GFR/1.73 sq M predicted among non-blacks MDRD (S/P/Bld) [Vol rate/Area] NOT REPORTED [place] Glucose [Mass/Vol] 92 mg/dL 70 - 99 mg/dL [place] Interpretation and review of laboratory results Abnormal [place] Potassium [Moles/Vol] 3.9 mmol/L 3.7 - 5.3 mmol/L [place] Protein [Mass/Vol] 8.7 g/dL High 6.4 - 8.3 g/dL [place] Sodium [Moles/Vol] 138 mmol/L 135 - 144 mmol/L [place] Urea nitrogen [Mass/Vol] 12 mg/dL 6 - 20 mg/dL [place] Lipaseon 02-06-2019 Lipase [Catalytic activity/Vol] 28 U/L 13 - 60 U/L [place] Otheron 02-06-2019 Immature granulocytes (Bld) [#/Vol] NOT REPORTED [place] , Urineon 9 Beta HCG ( test) Ql (U) Negative NEGATIVE [place] Urinalysis with Microscopico n 02-06-2019 Amorphous, UA NOT REPORTED None [place] Bacteria, UA NOT REPORTED None [place] Bilirubin Urine Negative NEGATIVE [place] Casts UA NOT REPORTED /LPF [place] Color, UA YELLOW YELLOW [place] Crystals UA NOT REPORTED None /HPF [place] Epithelial Cells UA 2 TO 5 /HPF [place] Glucose, Ur Negative NEGATIVE [place] Interpretation and review of laboratory results Abnormal [place] Ketones Ql (U) Negative NEGATIVE [place] Leukocyte esterase Test strip Ql (U) Negative NEGATIVE [place] Mucus, UA RARE Abnormal None [place] Nitrite, Urine Negative NEGATIVE [place] Other Observations UA NOT REPORTED NOT REQ. [place] pH, UA 7.0 [place] Protein (U) [Mass/Vol] 1+ Abnormal NEGATIVE [place] RBC (U) [#/Vol] 0 TO 2 [place] Renal Epithelial, Urine NOT REPORTED 0 /HPF [place] Specific [place], UA 1.010 [place] Trichomonas, UA NOT REPORTED None [place] Turbidity UA CLEAR CLEAR [place] Urinalysis Comments [place] Urine Hgb 1+ Abnormal NEGATIVE [place] Urobilinogen, Urine Normal Normal [facility] WBC, UA NOT REPORTED 0 /HPF [facility] [place] Yeast, UA NOT REPORTED None [facility] [place] [facility] [place] - [facility] Progress Noteon 08-08-2017 HIM IP Note OR 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 Normal [facility] Vital Signs Date Time Vital Sign Value Performing Clinician Facility 07-23-2024 14:41-0400 Body weight 76.71 kg Jasbir Elisabeth DO Work Phone: [facility] 07-23-2024 14:41-0400 Diastolic blood pressure 72 mm[Hg] Jasbir Elisabeth DO Work Phone: [facility] 07-23-2024 14:41-0400 Systolic blood pressure 106 mm[Hg] Jasbir Elisabeth DO Work Phone: [facility] 07-09-2024 14:08-0400 Body weight 76.77 kg Jasbir Elisabeth DO Work Phone: [facility] 07-09-2024 14:08-0400 Diastolic blood pressure 80 mm[Hg] Jasbir Elisabeth DO Work Phone: [facility] 07-09-2024 14:08-0400 Systolic blood pressure 116 mm[Hg] Jasbir Elisabeth DO Work Phone: [facility] 06-25-2024 10:41-0400 Body weight 76.3 kg Sheeba HASSAN Work Phone: [facility] 06-25-2024 10:41-0400 Diastolic blood pressure 74 mm[Hg] Sheeba HASSAN Work Phone: [facility] 06-25-2024 10:41-0400 Systolic blood pressure 108 mm[Hg] Sheeba HASSAN Work Phone: [facility] 06-11-2024 14:36-0400 Body weight 75.48 kg Jasbir Elisabeth DO Work Phone: [facility] 06-11-2024 14:36-0400 Diastolic blood pressure 72 mm[Hg] Jasbir Elisabeth DO Work Phone: [facility] 06-11-2024 14:36-0400 Systolic blood pressure 112 mm[Hg] Jasbir Elisabeth DO Work Phone: [facility] 05-28-2024 15:51-0400 Body weight 75.3 kg Sheeba Daisy PA Work Phone: [facility] 05-28-2024 15:51-0400 Diastolic blood pressure 72 mm[Hg] Sheeba Daisy PA Work Phone: [facility] 05-28-2024 15:51-0400 Systolic blood pressure 118 mm[Hg] Sheeba Daisy PA Work Phone: [facility] 05-07-2024 14:56-0500 Body weight 73.48 kg Sheeba Daisy PA Work Phone: [facility] 05-07-2024 14:56-0500 Diastolic blood pressure 64 mm[Hg] Sheeba Daisy PA Work Phone: [facility] 05-07-2024 14:56-0500 Systolic blood pressure 118 mm[Hg] Sheeba Daisy PA Work Phone: [facility] 04-08-2024 14:50-0500 Body weight 70.76 kg Jasbir Elisabeth DO Work Phone: [facility] 04-08-2024 14:50-0500 Diastolic blood pressure 76 mm[Hg] Jasbir Elisabeth DO Work Phone: [facility] 04-08-2024 14:50-0500 Systolic blood pressure 112 mm[Hg] Jasbir Elisabeth DO Work Phone: [facility] 03-04-2024 14:52-0500 Body weight 67.04 kg Sheeba [place] PA Work Phone: [facility] 03-04-2024 14:52-0500 Diastolic blood pressure 60 mm[Hg] Sheeba Daisy PA Work Phone: [facility] 03-04-2024 14:52-0500 Systolic blood pressure 110 mm[Hg] Sheeba [place] PA Work Phone: [facility] 02-04-2024 15:07-0500 Body weight 65.32 kg Jasbir Elisabeth DO Work Phone: [facility] 02-04-2024 15:07-0500 Diastolic blood pressure 68 mm[Hg] Jasbir Elisabeth DO Work Phone: [facility] 02-04-2024 15:07-0500 Systolic blood pressure 102 mm[Hg] Jasbir Elisabeth DO Work Phone: [facility] 05-21-2023 09:02-0500 Blood Pressure Location [facility] 05-21-2023 09:02-0500 Body temperature 98.24 [degF] [facility] 05-21-2023 09:02-0500 Diastolic blood pressure 76 mm[Hg] [facility] 05-21-2023 09:02-0500 Heart rate 86 /min [facility] 05-21-2023 09:02-0500 SaO2% (BldA) [Mass fraction] 99 % [facility] 05-21-2023 09:02-0500 Systolic blood pressure 124 mm[Hg] [facility] 03-12-2023 11:12-0500 Body temperature 98.06 [degF] [facility] 03-12-2023 11:12-0500 Diastolic blood pressure 106 mm[Hg] [facility] 03-12-2023 11:12-0500 Heart rate 60 /min [facility] 03-12-2023 11:12-0500 Respiratory rate 20 /min [facility] 03-12-2023 11:12-0500 SaO2% (BldA) [Mass fraction] 98 % [facility] 03-12-2023 11:12-0500 Systolic blood pressure 152 mm[Hg] [facility] 08-13-2021 10:48-0400 Blood Pressure Location Hayde METCALF [facility] 08-13-2021 10:48-0400 Body temperature 98.24 [degF] Hayde METCALF [facility] 08-13-2021 10:48-0400 Diastolic blood pressure 70 mm[Hg] Hayde METCALF [facility] 08-13-2021 10:48-0400 Heart rate 69 /min Hayde METCALF [facility] 08-13-2021 10:48-0400 SaO2% (BldA) [Mass fraction] 98 % Hayde METCALF [facility] 08-13-2021 10:48-0400 Systolic blood pressure 110 mm[Hg] Hayde METCALF [facility] 02-06-2019 19:09-0500 BMI (Body Mass Index) 23.24 kg/m2 [facility] 02-06-2019 19:09-0500 Body Temperature 97.7 [degF] [facility] 02-06-2019 19:09-0500 Body weight 65.32 kg [facility] 02-06-2019 19:09-0500 BP Diastolic 95 mm[Hg] [facility] 02-06-2019 19:09-0500 BP Systolic 136 mm[Hg] [facility] 02-06-2019 19:09-0500 Height 167.6 cm [facility] 02-06-2019 19:09-0500 Pulse (Heart Rate) 76 /min [facility] [place], [place] 02-06-2019 19:09-0500 Pulse Oximetry 99 % [facility] [place] 02-06-2019 19:09-0500 Respiratory Rate 18 /min [facility] [place] [place] Encounters Encounter Date Encounter Type Care Provider Facility Start: 07-23-2024 End: 07-23-2024 flow sheet Jasbir Elisabeth DO Work Phone: [facility] Comment on above: Third trimester preg ruma; 35 weeks gestation of Start: 07-23-2024 End: 07-23-2024 ambulatory JASBIR ELISABETH Not Available Start: 07-09-2024 End: 07-09-2024 Bamboo flowsheet Jasbir Elisabeth DO Work Phone: [facility] Start: 07-09-2024 End: 07-09-2024 Bamboo flowsheet Jasbir Elisabeth DO Work Phone: [facility] Start: 07-09-2024 End: 07-09-2024 flow sheet Jasbir Elisabeth DO Work Phone: [facility] Comment on above: Third trimester preg rmua; 33 weeks gestation of Start: 07-09-2024 End: 07-09-2024 ambulatory JASBIR ELISABETH Not Available Start: 06-25-2024 End: 06-25-2024 Bamboo flowsheet Sheeba HASSAN Work Phone: [facility] Start: 06-25-2024 End: 06-25-2024 Bamboo flowsheet Sheeba HASSAN Work Phone: [facility] Start: 06-25-2024 End: 06-25-2024 flow sheet Sheeba HASSAN Work Phone: [facility] Comment on above: Third trimester preg ruma; 31 weeks gestation of Start: 06-25-2024 End: 06-25-2024 ambulatory SHEEBA MEDELLIN Not Available Start: 06-11-2024 End: 06-11-2024 flow sheet Jasbir Elisabeth DO Work Phone: [facility] Comment on above: Third trimester preg ruma; 29 weeks gestation of Start: 06-11-2024 End: 06-11-2024 ambulatory JASBIR ELISABETH Not Available Start: 05-28-2024 End: 05-28-2024 flow sheet Sheeba HASSAN Work Phone: [facility] Comment on above: 27 weeks gestation o f ; Second trimester ; size inconsistent with dates Start: 05-28-2024 End: 05-28-2024 ambulatory SHEEBA MEDELLIN Not Available Start: 05-28-2024 End: 05-28-2024 Bamboo flowsheet Sheeba HASSAN Work Phone: [facility] Start: 05-28-2024 End: 05-28-2024 Bamboo flowsheet Sheeba HASSAN Work Phone: [facility] Start: 05-17-2024 End: 05-17-2024 Clinisync Result Encounter Sheeba HASSAN Work Phone: [facility] Unsolicited Start: 05-17-2024 End: 05-17-2024 Clinisync Result Encounter Sheeba HASSAN Work Phone: [facility]solic[facility] Start: 05-07-2024 End: 05-07-2024 ambulatory SHEEBA MEDELLIN [...] [facility]solic[facility] Start: 04-08-2024 End: 04-11-2024 [...] Not Available Start: 11-07-2023 End: 11-07-[address] [facility] Start: 11-07-2023 End: 11-07-2023 Subsequent hospital visit by physician Julianna Chavarria DO Work Phone: [email or web address] Comment on above: Screening for cardio vascular condition; Irregular menses; Late period Start: 11-05-2023 End: 11-05-2023 ambulatory Leola Tam AMES Facility:[facility] Start: 05-21-2023 End: 05-22-2023 ambulatory Alfredo Dejesus Facility: [facility] Start: 05-21-2023 End: 05-21-2023 Patient encounter procedure Alfredo Dejesus [facility] Start: 04-02-2023 End: 04-02-[address] [facility] Start: 03-12-2023 End: 03-12-2023 Emergency department patient visit Hui Salazar Facility:[facility] Start: 03-12-2023 End: 03-12-2023 Emergency department patient visit Hui Salazar [facility] Start: 08-13-2021 End: 08-13-2021 Lab Drop off Hayde Hagan [facility] Start: 08-13-2021 End: 08-13-2021 Patient encounter procedure Hayde METCALF [facility] Start: 02-07-2019 End: 02-09-2019 Subsequent hospital visit by physician [facility] Ultrasound Room [facility] Ultrasound Comment on above: Left lower quadrant abdominal pain; Pelvic pain Start: 02-06-2019 End: 02-06-2019 Emergency department patient visit Galen Harden Work Phone: [facility] ED Comment on above: Left lower quadrant abdominal pain (Primary Dx) Procedures Date Procedure Procedure Detail Performing Clinician Start: 07-23-2024 Urnls dip stick/tabl et rgnt non-auto w/o micrscp Jasbir Elisabeth DO Work Phone: Start: 07-09-2024 Urnls dip stick/tabl et rgnt non-auto w/o micrscp Jasbir Elisabeth DO Work Phone: Start: 06-25-2024 Urnls dip stick/tabl et rgnt non-auto w/o micrscp Sheeba HASSAN Work Phone: Start: 06-11-2024 Urnls dip stick/tabl et rgnt non-auto w/o micrscp Jasbir Elisabeth DO Work Phone: Start: 05-28-2024 Urnls dip stick/tabl et rgnt non-auto w/o micrscp Sheeba HASSAN Work Phone: Start: 05-17-2024 ALL CBC WITH AUTO DIFF Sheeba HASSAN Work Phone: Start: 05-07-2024 Urnls dip stick/tabl et rgnt [...] stick/tabl et rgnt non-auto w/o micrscp Jasbir Barber DO Work Phone: Start: 11-07-2023 Basic metabolic pane l calcium total Julianna Chavarria DO Work Phone: Start: 11-07-2023 Lipid panel [...] DTaP/Tdap/Td vaccine (8 - Td or Tdap) [facility] Start: 08-09-2027 DTaP/Tdap/Td vaccine (8 - Td) DTaP/Tdap/Td vaccine (8 - Td) [facility] [place] Start: 04-02-2026 Screening for malign ant neoplasm of cervix Pap smear [facility] Start: 11-17-2024 Influenza vaccination Influenz a Vaccine (Season Ended) [facility] Start: 07-29-2024 End: 07-29-2024 Patient encounter procedure 07/29/2024 10:30 AM EDT Routine [facility] [address] [place] [phone] Jasbir Barber, DO [facility] [place] [address] [facility] Start: 07-23-2024 End: 07-23-2025 CULTURE, GROUP B STREP WITH SUSCEPTIBLITY CULTURE, GROUP B STREP WITH SUSCEPTIBLITY Lab Routine Third trimester Expected: 07/23/2024, Expires: 07/23/2025 [facility] Work Phone: Comment on above: Expected: 07/23/2024 , Expires: 07/23/2025 Start: 07-23-2024 End: 07-23-2024 Patient encounter procedure 07/23/2024 2:00 PM EDT Routine [facility] [address] [place] [phone] Jasbir Barber, [facility] [place] [address] [facility] Start: 07-23-2024 End: 07-23-2024 Professional / ancillary services management 07/23/2024 1:30 PM EDT Ancillary Procedure [facility] [address] [place] [id number] [facility] Start: 07-09-2024 End: 07-09-2024 Patient encounter procedure [facility] Comment on above: Arrived Start: 06-25-2024 End: 06-25-2024 Patient encounter procedure [facility] Comment on above: Arrived Start: 06-11-2024 End: 06-11-2024 Patient encounter procedure 06/11/2024 2:30 PM EDT Routine [facility] [address] [place] [phone] Jasbir Barber DO [address] [facility] [address] [place], [place] [id number] [facility] Start: 06-11-2024 End: 06-11-2024 Professional / ancillary services management 06/11/2024 2:00 PM EDT Ancillary Procedure [facility] [address] [facility] [place] [address] [facility] Start: 05-28-2024 End: 05-28-2024 Patient encounter procedure [facility] Comment on above: Arrived Start: 05-28-2024 End: 05-28-2025 US for US OB follow up transabdominal approach Imaging Routine size inconsistent with dates Expected: 05/28/2024, Expires: 05/28/2025 [facility] Work Phone: Comment on above: Expected: 05/28/2024 , Expires: 05/28/2025 Start: 05-07-2024 End: 05-07-2024 Patient encounter procedure 05/07/2024 2:40 PM EST Routine [facility] [address] [facility] [place] [address] Sheeba Medellin PA [address] [facility] [address] [place], [place] [id number] [facility] Start: 05-07-2024 End: 05-07-2025 CBC panel - Blood by Automated count CBC Lab Routine Diabetes mellitus screening Expected: 05/07/2024 (Approximate), Expires: 05/07/2025 [facility] Work Phone: Comment on above: Expected: 05/07/2024 (Approximate), Expires: 05/07/2025 Start: 05-07-2024 End: 05-07-2025 Measurement of glucose 1 hour after glucose challenge for glucose tolerance test Glucose tolerance, 1 hour Lab Routine Diabetes mellitus screening Expected: 05/07/2024 (Approximate), Expires: 05/07/2025 [facility] Comment on above: Expected: 05/07/2024 (Approximate), Expires: 05/07/2025 Start: 04-08-2024 End: 04-08-2024 Patient encounter procedure 04/08/2024 2:40 PM EST Routine [facility] [address] [facility] [place] [phone] ElisabethJoseph rutherfordy, DO [address] [place], [place] [id number] [facility] Start: 04-08-2024 End: 04-08-2024 Professional / ancillary services management 04/08/2024 1:30 PM EST Ancillary Procedure [facility] [address] [place] [phone] [facility] Start: 04-02-2024 Depression Screen Depression Screen [facility] Start: 03-04-2024 End: 03-04-2024 Patient encounter procedure [facility] Comment on above: Arrived Start: 03-04-2024 End: 04-04-2024 Alpha fetoprotein, maternal Alpha fetoprotein, maternal Lab Routine 16 weeks gestation of Second trimester Expected: 03/04/2024 (Approximate), Expires: 04/04/2024 [facility] Comment on above: Expected: 03/04/2024 (Approximate), Expires: 04/04/2024 Start: 03-04-2024 End: 03-04-2025 US for US OB ANATOMY SINGLE W US OB CERVICAL LENGTH Imaging Routine Screening, , for anatomic survey Expected: 03/04/2024 (Approximate), Expires: 03/04/2025 [facility] Comment on above: Expected: 03/04/2024 (Approximate), Expires: 03/04/2025 Start: 02-04-2024 End: 02-04-2024 Patient encounter procedure [facility] Comment on above: Arrived Start: 01-11-2024 End: 01-10-2025 ABO/Rh ABO/Rh Lab Routine Missed menses , unspecified gestational age Expected: 01/11/2024 (Approximate), Expires: 01/10/2025 [facility] Comment on above: Expected: 01/11/2024 (Approximate), Expires: 01/10/2025 Start: 01-11-2024 End: 01-10-2025 Blood type and Indirect antibody screen panel - Blood Type and screen Lab Routine Missed menses , unspecified gestational age Expected: 01/11/2024 (Approximate), Expires: 01/10/2025 [facility] Work Phone: Comment on above: Expected: 01/11/2024 (Approximate), Expires: 01/10/2025 Start: 01-11-2024 End: 01-10-2025 Drugs of abuse panel - Urine by Screen method Rapid drug screen, urine Lab Routine , unspecified gestational age Encounter for supervision of normal first in first trimester Expected: 01/11/2024 (Approximate), Expires: 01/10/2025 [facility] Comment on above: Expected: 01/11/2024 (Approximate), Expires: 01/10/2025 Start: 01-11-2024 End: 01-10-2025 US Pelvis transvaginal US OB transvaginal Imaging Routine Missed menses Expected: 01/11/2024 (Approximate), Expires: 01/10/2025 [facility] Comment on above: Expected: 01/11/2024 (Approximate), Expires: 01/10/2025 Start: 11-18-2023 Influenza vaccination Influenza Vacc ine (#1) [facility] Start: 10-18-2023 Influenza vaccination Flu vaccine (# 1) [facility] Start: 11-17-2022 COVID-19 Vaccine ( season) COVID-19 Vaccine ( season) [facility] Start: 09-05-2021 Cervical cancer screen Cervical canc er screen [place], [place] Start: 02-07-2019 End: 03-08-2019 US Pelvis Complete US Pelvis Complete Imaging Routine Left Lower Quadrant Abdominal Pain Expected: 02/07/2019, Expires: 03/08/2019 [place] Comment on above: Expected: 02/07/2019 , Expires: 03/08/2019 Start: 11-17-2018 Influenza vaccination Flu vaccine (# 1) [place], [place] Start: 2014 Hepatitis C screening Hepatitis C sc reen [facility] Start: 2012 Chlamydia screen Chlamydia screen [place], [place] Start: 12-17-2011 HIV screen HIV screen [place], [place] Start: 12-17-2011 HIV screening HIV screen [facility] Start: 12-17-2011 HPV vaccine (1 - 3-d ose series) HPV vaccine (1 - 3-dose series) [facility] Start: 12-17-2007 HPV vaccine (1 - Fem risa 2-dose series) HPV vaccine (1 - Female 2-dose series) [place], [place] Bacteria identified in Urine by Culture Urine culture Microbiology Routine Missed menses Ordered: 01/11/2024 [facility] Comment on above: Ordered: 01/11/2024 CBC W Auto Different ial panel - Blood CBC and differential Lab Routine Missed menses , unspecified gestational age Ordered: 01/11/2024 [facility] Comment on above: Ordered: 01/11/2024 CHLAMYDIA TRACHOMATI S (GENITO/STI) CHLAMYDIA TRACHOMATIS (GENITO/STI) Lab Routine Exposure to STD Ordered: 03/04/2024 [facility] Comment on above: Ordered: 03/04/2024 Hemoglobin A1c/Hemoglobin.total in Blood Hemoglobin A1c Lab Routine Missed menses , unspecified gestational age Ordered: 01/11/2024 [facility] Comment on above: Ordered: 01/11/2024 Hepatitis B virus surface Ag [Presence] in Serum or Plasma by Immunoassay Hepatitis B surface antigen Lab Routine Missed menses , unspecified gestational age Ordered: 01/11/2024 [facility] Comment on above: Ordered: 01/11/2024 Hepatitis C virus Ab [Presence] in Serum or Plasma by Immunoassay Hepatitis C antibody Lab Routine Missed menses , unspecified gestational age Ordered: 01/11/2024 [facility] Comment on above: Ordered: 01/11/2024 HIV-1/HIV-2 antigen/antibody combination immunoassay HIV-1 and HIV-2 antibodies Lab Routine Missed menses , unspecified gestational age Ordered: 01/11/2024 [facility] Comment on above: Ordered: 01/11/2024 Neisseria gonorrhoea e DNA [Presence] in Unspecified specimen by ARSENIO with probe detection Neisseria gonorrhea DNA probe, direct Lab Routine Exposure to STD Ordered: 03/04/2024 [facility] Comment on above: Ordered: 03/04/2024 Reagin Ab [Presence] in Serum by RPR RPR Lab Routine Missed menses , unspecified gestational age Ordered: 01/11/2024 [facility] Comment on above: Ordered: 01/11/2024 Rubella antibody, IgG Rubella an tibody, IgG Lab Routine Missed menses , unspecified gestational age Ordered: 01/11/2024 [facility] Comment on above: Ordered: 01/11/2024 SURESWAB(R) ADVANCED VAGINITIS PLUS, TMA SURESWAB(R) ADVANCED VAGINITIS PLUS, TMA Pathology and Cytology Routine Vaginal discharge Ordered: 03/04/2024 [facility] Work Phone: Comment on above: Ordered: 03/04/2024 Immunizations Immunization Date Immunization Notes Care Provider Fa cility 12-08-2020 SARS-CoV-2 (COVID-19 ) mRNA BNT-162b2 vax [facility] 11-17-2020 SARS-CoV-2 (COVID-19 ) mRNA BNT-162b2 vax [facility] 11-09-2019 influenza virus vaccine, unspecified formulation [facility] 11-09-2019 influenza, injectabl e, quadrivalent, preservative free Julianna Chavarria DO Work Phone: [facility] 08-08-2017 tetanus toxoid, redu john diphtheria toxoid, and acellular pertussis vaccine, adsorbed Veselin Dereck [facility] Comment on above: Result Comment: 2023: VIS DATE: 05/12/2014 11-13-2009 meningococcal ACWY vaccine, unspecified formulation [facility] 11-13-2009 meningococcal polysaccharide (groups A, C, Y and W-135) diphtheria toxoid conjugate vaccine (MCV4P) Julianna Chavarria DO Work Phone: [facility] 11-13-2009 tetanus toxoid, redu john diphtheria toxoid, and acellular pertussis vaccine, adsorbed [facility] 11-13-2009 varicella virus vaccine [facility] 10-22-2002 diphtheria, tetanus toxoids and acellular pertussis vaccine, unspecified formulation Julianna Yonley DO Work Phone: [facility] 10-22-2002 DTaP, unspecified formulation [facility] 10-22-2002 measles, mumps and rubella virus vaccine [facility] 10-22-2002 poliovirus vaccine, inactivated Julianna Yonley DO Work Phone: [facility] 10-22-2002 poliovirus vaccine, unspecified formulation [facility] 09-22-1998 diphtheria, tetanus toxoids and acellular pertussis vaccine, unspecified formulation Julianna Yonley DO Work Phone: [facility] 09-22-1998 DTaP, unspecified formulation [facility] 09-22-1998 haemophilus influenz ae type b vaccine, PRP-OMP conjugate [facility] 09-22-1998 measles, mumps and rubella virus vaccine [facility] 09-22-1998 trivalent poliovirus vaccine, live, oral Julianna Yonley DO Work Phone: [facility] 09-22-1998 varicella virus vaccine [facility] 11-04-1997 diphtheria, tetanus toxoids and acellular pertussis vaccine, unspecified formulation Julianna Yonley DO Work Phone: [facility] 11-04-1997 DTaP, unspecified formulation [facility] 11-04-1997 haemophilus influenz ae type b vaccine, PRP-OMP conjugate [facility] 08-19-1997 diphtheria, tetanus toxoids and acellular pertussis vaccine, unspecified formulation Julianna Yonley DO Work Phone: [facility] 08-19-1997 DTaP, unspecified formulation [facility] 08-19-1997 haemophilus influenz ae type b vaccine, PRP-OMP conjugate [facility] 08-19-1997 hepatitis B vaccine, pediatric or pediatric/adolescent dosage [facility] 08-19-1997 poliovirus vaccine, inactivated Juliannaosiel Chavarria DO Work Phone: [facility] 08-19-1997 poliovirus vaccine, unspecified formulation [facility] 04-22-1997 diphtheria, tetanus toxoids and acellular pertussis vaccine, unspecified formulation Juliannaosiel Chavarria DO Work Phone: [facility] 04-22-1997 DTaP, unspecified formulation [facility] 04-22-1997 haemophilus influenz ae type b vaccine, conjugate unspecified formulation Julianna Chavarria DO Work Phone: [facility] 04-22-1997 hepatitis B vaccine, pediatric or pediatric/adolescent dosage [facility] 04-22-1997 Hib, unspecified formulation [facility] 04-22-1997 poliovirus vaccine, unspecified formulation Julianna Chavarria DO Work Phone: [facility] 1996 hepatitis B vaccine, pediatric or pediatric/adolescent dosage [facility] NEGATED: Highlighted row has not occurred!05-21-2023 influenza virus vaccine, unspecified formulation [facility] Payers Date Payer Category Payer Private Health Insurance [employer] [id number] 2022 Unknown [id number] 2015 Unknown [employer] [address] xxxxxxxxxxxx 2015-Present [phone] [address] [place] [address] xxxxxxxxxxxx [id number] 1996 Unknown [id number] .727 1996 Unknown [id number] [id number] .727 1996 Unknown [id number] [id number] .174 1996 Unknown [id number] 2.16.840.1.324412.3.579.2 .174 1996 Unknown [id number] 2.16.840.1.019847.3.579.2 .727 1996 Unknown [id number] 2.16.840.1.395757.3.579.2 .9 1996 Unknown [id number] 2.16.840.1.560041.3.579.2 .1259 1996 Unknown [id number] 2.16.840.1.553547.3.579.2 .1259 1996 Unknown [id number] 2.16.840.1.428274.3.579.2 .9 1996 Unknown [id number] 2.16.840.1.717217.3.579.2 .1259 1996 Unknown [id number] 2.16.840.1.164625.3.579.2 .1259 1996 Unknown [id number] 2.16.840.1.123506.3.579.2 .9 1996 Unknown [id number] 2.16.840.1.015813.3.579.2 .9 1996 Unknown [id number] 2.16.840.1.013631.3.579.2 .1258 1996 Unknown [id number] 2.16.840.1.650571.3.579.2 .1258 1996 Unknown [id number] 2.16.840.1.097271.3.579.2 .1258 1996 Unknown [id number] 2.16.840.1.290196.3.579.2 .1258 1996 Unknown [id number] 2.16.840.1.981061.3.579.2 .9 Social History Date Type Detail Facility Start: 02-06-2019 End: 02-17-2022 Tobacco smoking status [facility] Never smoker [place], [place] Start: 02-06-2019 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) [place], [place] Start: 1996 Sex Assigned At Not on file M [place], [place] Tobacco smoking status Never [facility] Start: 04-02-2023 Sex Assigned At Female F [facility] Tobacco smoking stat [facility] Tobacco smoking consumption unknown [facility] Start: 11-22-2023 [facility] Start: 02-17-2022 Tobacco use and exposure Smokeless tobacco non-user [facility] Start: 04-02-2023 Alcoholic beverage intake Current drinker of alcohol (finding) [facility] Start: 04-02-2023 History of Social function [employer] (I/We) worried wheth er (my/our) food would run out before (I/we) got money to buy more. Never true [facility] Start: 04-02-2023 Alcohol Comment I typically wi ll have a white claw if I have a drink. [facility] Functional Status Date Assessment Result Facility 05-21-2023 Functional Status N/A [facility] 03-12-2023 Functional Status N/A [facility] Clinical Notes 08-13-2021 to 07-23-2024 Lorelei Dee NP - 07/23/2024 2:00 PM Payton Raman LPN - 07/09/2024 1:50 PM SONYA Dos Santos - 06/25/2024 10:30 AM Payton Raman LPN - 06/11/2024 2:30 PM EDT Note Date & Type Note Facility 07-23-2024 History of Presen t illness Narrative Reason [...] nursing note reviewed. Exam conducted with a tree care foreman present. Vitals: There is no height or weight on file to calculate BMI. BP: 106/72 Patient's last menstrual period was 11/08/2023. ASSESSMENT & PLAN ICD-10-CM 1. Third trimester Z34.93 POCT urinalysis dipstick manually resulted CULTURE, GROUP B STREP WITH SUSCEPTIBLITY CULTURE, GROUP B STREP WITH SUSCEPTIBLITY 2. 35 weeks gestation of Z3A.35 POCT urinalysis dipstick manually resulted Return OB: Patient presents today for a routine obstetrics appointment. Patient is currently 35w5d . Patient states she is doing well but has complaints of being tired due to current . Patient has verbalizes frequent movement. labor precautions was discussed/given and patient was instructed to perform kick counts three times a day. Orders Placed This Encounter Procedures CULTURE, GROUP B STREP WITH SUSCEPTIBLITY POCT urinalysis dipstick manually resulted Follow Up: Patient is to return to office in 1 week for routine OB appointment. Documented by Lorelei Dee NP on behalf of: Jasbir Barber DO documented in this encounter [facility] 07-09-2024 History of Presen t illness Narrative Reason [...] nursing note reviewed. Exam conducted with a tree care foreman present. Vitals: There is no height or weight on file to calculate BMI. BP: 116/80 Patient's last menstrual period was 11/08/2023. ASSESSMENT & PLAN ICD-10-CM 1. Third trimester Z34.93 POCT urinalysis dipstick manually resulted 2. 33 weeks gestation of Z3A.33 Return OB: Patient presents today for a routine obstetrics appointment. Patient is currently 33w5d . Patient states she is doing well but has complaints of being tired due to current . Patient has verbalizes frequent movement. labor precautions was discussed/given and patient was instructed to perform kick counts three times a day. Orders Placed This Encounter Procedures POCT urinalysis dipstick manually resulted Follow Up: Patient is to return to office in 2 week for routine OB appointment. Documented by Clara Raman LPN on behalf of: Jasbir Barber DO documented in this encounter [facility] 06-25-2024 History of Presen t illness Narrative Reason [...] weight on file to calculate BMI. BP: 108/74 Patient's last menstrual period was 11/08/2023. ASSESSMENT & PLAN ICD-10-CM 1. Third trimester Z34.93 POCT urinalysis dipstick manually resulted 2. 31 weeks gestation of Z3A.31 POCT urinalysis dipstick manually resulted Return OB: Patient presents today for a routine obstetrics appointment. Patient is currently 31w5d . Patient states she is doing well but has complaints of being tired due to current . Patient has verbalizes frequent movement. labor precautions was discussed/given and patient was instructed to perform kick counts three times a day. Orders Placed This Encounter Procedures POCT urinalysis dipstick manually resulted Follow Up: Patient is to return to office in 2 week for routine OB appointment. Documented by SONYA Wilkes on behalf of: SONYA Wilkes documented in this encounter [facility] 06-11-2024 History of Presen t illness Narrative Reason for Appointment: Patient ID: Syeda Pereira is a 28 y.o. female who presents for Routine Visit Patient presents today for Return OB appointment. MEDICATIONS Current Outpatient Medications Medication Instructions azithromycin (Zithromax Z-Ry) 250 MG tablet As directed MV-Min-Fe Fum-FA-DHA ( 1 PO) Take by [...] nursing note reviewed. Exam conducted with a tree care foreman present. Vitals: There is no height or weight on file to calculate BMI. BP: 112/72 Patient's last menstrual period was 11/08/2023. ASSESSMENT & PLAN ICD-10-CM 1. Third trimester Z34.93 POCT urinalysis dipstick manually resulted 2. 29 weeks gestation of Z3A.29 POCT urinalysis dipstick manually resulted Return OB: Patient presents today for a routine obstetrics appointment. Patient is currently 29w5d . Patient states she is doing well but has complaints of being tired due to current . Patient has verbalizes frequent movement. labor precautions was discussed/given and patient was instructed to perform kick counts three times a day. Orders Placed This Encounter Procedures POCT urinalysis dipstick manually resulted Follow Up: Patient is to return to office in 2 week for routine OB appointment. Documented by Clara Raman LPN on behalf of: Jasbir Barber DO documented in this encounter [facility] 05-28-2024 History of Presen t illness Narrative Reason [...] nursing note reviewed. Exam conducted with a tree care foreman present. Vitals: There is no height or weight on file to calculate BMI. BP: 118/72 Patient's last menstrual period was 11/08/2023. ASSESSMENT & PLAN ICD-10-CM 1. 27 weeks gestation of Z3A.27 POCT urinalysis dipstick manually resulted 2. Second trimester Z34.92 POCT urinalysis dipstick manually resulted Return OB: Patient presents today for a routine obstetrics appointment. Patient is currently 27w5d . Patient states she is doing well but has complaints of being tired due to current . Patient has verbalizes frequent movement. labor precautions was discussed/given and patient was instructed to perform kick counts three times a day. Will repeat growth ultrasound in 4 weeks. Orders Placed This Encounter Procedures POCT urinalysis dipstick manually resulted Follow Up: Patient is to return to office in 2 week for routine OB appointment. Documented by Mehnaz Hogue MA on behalf of: SONYA Wilkes documented in this encounter [facility] 05-07-2024 History of Presen t illness Narrative [...] at today's visit to have done at [facility]. Orders Placed This Encounter Procedures CBC Glucose tolerance, 1 hour POCT urinalysis dipstick manually resulted Follow Up: Patient is to return to office in 2 week for routine OB appointment. Documented by Mehnaz Hogue MA on behalf of: SONYA Wilkes documented in this encounter [facility] 04-08-2024 History of Presen t illness Narrative [...] nursing note reviewed. Exam conducted with a tree care foreman present. Vitals: There is no height or [...] Jasbir Barber DO documented in this encounter [facility] 03-04-2024 History of Presen t illness Narrative [...] of: SONYA Wilkes documented in this encounter [facility] 02-04-2024 History of Presen t illness Narrative [...] nursing note reviewed. Exam conducted with a tree care foreman present. Vitals: There is no height or [...] or undercooked meat, and [facility]. Patient has been consulted regarding any further do's and don'ts of . Patient voiced understanding and all questions and concerns were answered. Orders Placed This Encounter Procedures POCT urinalysis dipstick manually resulted Follow Up: Patient is to return in 4 weeks for routine OB appointment. Documented by Shey Alberts LPN on behalf of: Jasbir Barber DO documented in this encounter [facility] 01-11-2024 History of Presen t illness Narrative [...] or undercooked meat, and stay away from [facility]. Patient has also been advised to not [...] Betty Bradley LPN documented in this encounter [facility] 03-12-2023 Hospital Discharg e instructions Patient Education 03/12/2023 13:01:07 Contusion, Jstr-oy-Hbvy Contusion A contusion is a deep bruise. [...] sitting or lying down. General instructions Take isge-khg-weppkgx and prescription medicines only as told by [...] also called RICE. You may be given orcm-bpr-nbxbctf medicines for pain. Contact a doctor if [...] provider. Document Revised: 12/29/2021 Document Reviewed: 12/29/2021 [employer] Patient Education 2022 [email or web address]. Follow Up Care 03/12/2023 11:10:11 With:JULIANNA CHAVARRIA DO Address: [address] [place] [phone] When:03/15/2023 [facility] 03-12-2023 Evaluation + Plan note Extrac meli from: Title:ED Note Author:Deanna Bourne PA-C Date :03/12/23 1. Nasal contusion (S00.33XA : Contusion of nose, initial encounter) Orders: CT Maxillofacial w/o Contrast [facility]05-28-2022 Evaluation + Plan note Diagnostic Tests Pending * Group A Strep by PCR 08/13/21 [facility]05-28-2022 Hospital Discharge instructions Patient Education 08/13/2021 11:21:39 Pharyngitis, Wgxc-ku-Mwiy Pharyngitis Pharyngitis is a sore throat (pharynx). This is when there is redness, pain, and swelling in your throat. Most of the time, this condition gets better on its own. In some cases, you may need medicine. Follow these instructions at home: Take ogky-iyf-jafesui and prescription medicines only as told by [...] 08/21/2008 Document Revised: 02/15/2018 Document Reviewed: 04/10/2017 [employer] Patient Education [email or web address] [facility] Evaluation note* Diagnosis Missed menses , unspecified gestational age Encounter for supervision of normal first in first trimester documented in this encounter [facility] HealthcareEvaluation note* Diagnosis First trimester state, incidental 11 weeks gestation of documented in this encounter [facility] HealthcareEvaluation note* Diagnosis 16 weeks gestation of Second trimester state, incidental Exposure to STD Vaginal discharge Leukorrhea, not specified as infective Screening, , for anatomic survey Encounter for anatomic survey documented in this encounter [facility] HealthcareEvaluation note* Diagnosis Screening for cardiovascular condition Screening for other and unspecified cardiovascular conditions Irregular menses Irregular menstrual cycle Late period Other disorder of menstruation and other abnormal bleeding from female genital tract [facility] Diagnosis Second trimester state, incidental 20 weeks gestation of documented in this encounter [facility] HealthcareEvaluation note* Diagnosis Second trimester state, incidental 24 weeks gestation of Diabetes mellitus screening Screening for diabetes mellitus documented in this encounter [facility] HealthcareEvaluation note* Diagnosis 27 weeks gestation of Second trimester state, incidental size inconsistent with dates documented in this encounter [facility] HealthcareEvaluation note* Diagnosis Third trimester state, incidental 29 weeks gestation of documented in this encounter [facility] HealthcareEvaluation note* Diagnosis Third trimester state, incidental 31 weeks gestation of documented in this encounter [facility] HealthcareEvaluation note* Diagnosis Third trimester state, incidental 33 weeks gestation of documented in this encounter [facility] HealthcareEvaluation note* Diagnosis Third trimester state, incidental 35 weeks gestation of documented in this encounter [facility] HealthcareHospital course Narrative No data available for this section 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 Manager Expl 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 Advance Directives and Living Will Power of Special Effects Artist Reason for Referral Status Reason Specialty Diagnoses / Procedures Referred By Contact Referred To Contact Pending Review Radiology Diagnoses Pelvic pain Procedures US NON OB TRANSVAGINAL Galen Harden MD [address] [phone] Status Reason Specialty Diagnoses / Procedures Referre d By Contact Referred To Contact [facility] Diagnoses Left lower quadrant abdominal pain Procedures US Pelvis Complete HC US EXAM PELVIC COMPLETE Galen Harden MD [address] [place] [address] Status Reason Specialty Diagnoses / Procedures Referre d By Contact Referred To Contact [facility] Diagnoses Left lower quadrant abdominal pain Procedures US Pelvis Complete Galen Harden MD [address] [place] [address] Assessments Diagnosis Left lower quadrant abdominal pain Pelvic pain Diagnosis Left lower quadrant abdominal pain- Primary Discharge Instructions * Instructions* Galen Harden MD - 02/06/2019 Pelvic ultrasound will be scheduled for tomorrow * Attachments The following attachments cannot be sent through Care Everywhere. * Abdominal Pain ([place]) documented in this encounter Additional Source Comments INFORMATION SOURCE (unrecogn ized section and content) DATE CREATED AUTHOR 09/05/2017 [facility] DATE CREATED AUTHOR AUTHOR'S ORGANIZ ATION 06/01/2023 [facility] DATE CREATED AUTHOR AUTHOR'S ORGANIZ ATION 11/06/2023 [facility] DATE CREATED AUTHOR AUTHOR'S ORGANIZ ATION 11/08/2023 [facility] DATE CREATED AUTHOR AUTHOR'S ORGANIZ ATION 11/13/2023 [facility] DATE CREATED AUTHOR AUTHOR'S ORGANIZ ATION 07/26/2024 [facility] EPIC Reason for Visit (unrecogniz ed section and content) Status Reason Specialty Diagnoses / Procedures Referre d By Contact Referred To Contact [facility] Radiology Diagnoses Left lower quadrant abdominal pain Procedures US Pelvis Complete HC US EXAM PELVIC COMPLETE Galen Harden MD [address] [place] [address] Reason Comments Abdominal Pain Lower abdomen pain. Reason Comments Amenorrhea Reason Comments Routine Visit Patient Care team informatio n (unrecognized section and content) Concreter Relationship Specialty Start Date End Date Julianna Chavarria DO [address] [place] [address] PCP - General Internal Medicine 01/11/24 Concreter Relationship Specialty Start Date End Date Julianna Chavarria DO [address] [place] [address] PCP - General Internal Medicine 01/11/24 Concreter Relationship Specialty Start Date End Date Julianna Chavarria DO [address] [place] [address] PCP - General Internal Medicine 01/11/24 Concreter Relationship Specialty Start Date End Date Julianna Chavarria DO [address] [place] [address] PCP - General Internal Medicine 01/11/24 Concreter Relationship Specialty Start Date End Date Julianna Chavarria DO [address] [place] [address] PCP - General Internal Medicine 01/11/24 Concreter Relationship Specialty Start Date End Date Julianna Chavarria DO [address] [place] [address] PCP - General Internal Medicine 01/11/24 Concreter Relationship Specialty Start Date End Date Julianna Chavarria DO [address] [place] [address] PCP - General Internal Medicine 01/11/24 Concreter Relationship Specialty Start Date End Date Olga Chavarriaica DO Nicole [address] [place] [address] [phone] PCP - General Family Medicine 12/20/15 Concreter Relationship Specialty Start Date End Date GabeyaniraJulianna randolph DO [address] [place] [address] PCP - General Internal Medicine 01/11/24 Concreter Relationship Specialty Start Date End Date Julianna Chavarria DO [address] [place] [address] PCP - General Internal Medicine 01/11/24 Concreter Relationship Specialty Start Date End Date Julianna Chavarria DO [address] [place] [address] PCP - General Internal Medicine 01/11/24 FOR [...] BE BASED ON THE PRIMARY CLINICAL RECORDS. [facility] [employer] [facility]. provides no warranty or guarantee of the accuracy or completeness of information in this document.
[2024-07-29 03:00] LABS: Amnisure POSITIVE (NEGATIVE); Internal Control Within Normal Limits
[2024-07-29 03:02] LABS: Bilirubin Urine NEGATIVE (NEGATIVE); Blood Urine LARGE (NEGATIVE); Clarity Urine CLEAR (CLEAR); Color Urine YELLOW (YELLOW); Glucose Urine UA NEGATIVE (NEGATIVE); Ketones Urine NEGATIVE (NEGATIVE); Leukocyte Esterase Urine SMALL (NEGATIVE); Nitrite Urine NEGATIVE (NEGATIVE); Protein Urine 100 mg/dL (NEG/TRACE); Urine Microscopic Indicated YES
[2024-07-29 03:17] LABS: Amorphous Sediment Urine RARE; Bacteria Urine SMALL #/HPF (NONE SEEN); Cast Seen? NONE SEEN #/LPF (NONE SEEN); Crystals Seen? Seen #/HPF (None Seen); Mucus Urine NONE SEEN (NONE SEEN); Squamous Epithelial Cell Urine MODERATE #/LPF (NONE/RARE); Urine Culture Indicated YES-LC
[2024-07-29 04:02] LABS: Amphetamine Screen Urine NEGATIVE (NEGATIVE); Barbiturates Screen Urine NEGATIVE (NEGATIVE); Benzodiazepines Screen Urine NEGATIVE (NEGATIVE); Buprenorphine Screen Urine NEGATIVE (NEGATIVE); Cannabinoid Screen Urine NEGATIVE (NEGATIVE); Cocaine Screen Urine NEGATIVE (NEGATIVE); Methadone Screen Urine NEGATIVE (NEGATIVE); Methamphetamines Screen Urine NEGATIVE (NEGATIVE); Opiate Screen Urine NEGATIVE (NEGATIVE); Oxycodone Screen Urine NEGATIVE (NEGATIVE); Phencyclidine Screen Urine NEGATIVE (NEGATIVE); Tricyclic Antidepressant Urine NEGATIVE (NEGATIVE)
[2024-07-29 04:14] LABS: Hematocrit 37.4 % (36.0-48.0); Mean Corpuscular HGB Conc 34.8 g/dL (29.9-35.2); Mean Corpuscular Hemoglobin 32.4 pg (26.7-34.0); Mean Corpuscular Volume 93.3 fL (81.0-99.0); Mean Platelet Volume 9.8 fL (9.5-13.5); Platelet Count 350 10^3/uL (150-450); Red Blood Count 4.01 10^6/uL (4.20-5.40); Red Cell Distribution Width 12.8 % (11.0-15.0)
[2024-07-29] MEDS: 0.9 % SODIUM CHLORIDE 1,000 ML 125 ML IV (04:44)
[2024-07-29] MEDS: OXYTOCIN/0.9 % SODIUM CHLORIDE 10 UNITS/500 ML PLAST..BAG 6 UNIT IV (05:16)
[2024-07-29] MEDS: AMPICILLIN SODIUM 2,000 MG in 0.9 % SODIUM CHLORIDE 100 ML 200 MG IV (05:17)
[2024-07-29] MEDS: AMPICILLIN SODIUM 1,000 MG in 0.9 % SODIUM CHLORIDE 50 ML 100 MG IV (08:56)
[2024-07-29] MEDS: NALBUPHINE HCL 10 MG/ML AMPULE IV (09:00)
[2024-07-29] MEDS: 0.9 % SODIUM CHLORIDE 1,000 ML 1000 ML IV (09:58)
[2024-07-29] MEDS: ROPIVACAINE HCL/PF 400 MG/200 ML PREMIX 8 MG EPIDURAL (10:55)
[2024-07-29] MEDS: OXYTOCIN/0.9 % SODIUM CHLORIDE 20 UNITS/1,000 ML PLAST..BAG 125 UNIT IV (12:52)
--- NOTE | 2024-07-29 13:07 | PM.OBPRCVD ---
Procedure Intrapartal events: None Induction method: none Delivery augmentation: pitocin Delivery monitor: external FHT and external uterine Route of delivery: Episiotomy Description: midline L&D Laceration Description: perineal - 2nd degree Delivery repair: Vicryl Anesthesia type: Epidural Disposition: floor Delivery date: 07/29/24 Gender: female presentation: vertex Placental delivery description: Spontaneous cord description: 3 Vessels and Nuchal Cord
[2024-07-29] MEDS: IBUPROFEN 600 MG TABLET PO (21:26)
[2024-07-29] MEDS: BENZOCAINE/MENTHOL 85 GRAM SPRAY BOTTLE 1 APPLIC TOPICAL (21:27)
[2024-07-29] MEDS: GLYCERIN/WITCH HAZEL PADS 1 PAD TOPICAL (21:27)
[2024-07-30 01:13] VITALS: BP 116/73; PULSE 74
[2024-07-30 01:14] VITALS: BP 116/73; PULSE 74; TEMP 36.9
[2024-07-30 06:23] LABS: Basophils Absolute Auto 0.1 10^3/uL (0.0-0.1); Basophils Percent Auto 0.4 % (0.2-2.0); Eosinophils Absolute Auto 0.1 10^3/uL (0.0-0.7); Eosinophils Percent Auto 0.9 % (0.9-7.0); Immature Granulocytes Abs Auto 0.13 10^3/uL (0.00-0.03); Immature Granulocytes Pct Auto 1.1 % (0.0-0.5); Mean Corpuscular HGB Conc 33.3 g/dL (29.9-35.2); Mean Platelet Volume 9.6 fL (9.5-13.5); Monocytes Percent Auto 8.7 % (1.7-12.0); Neutrophils Absolute Auto 8.5 10^3/uL (1.4-6.5); Neutrophils Percent Auto 71.9 % (43.0-75.0); Platelet Count 300 10^3/uL (150-450); Red Blood Count 3.75 10^6/uL (4.20-5.40); White Blood Count 11.8 10^3/uL (4.0-11.0)
[2024-07-30 11:18] VITALS: BP 129/82; PULSE 66; TEMP 36.6
[2024-07-30] MEDS: IBUPROFEN 600 MG TABLET PO ×2 (11:24→21:02)
[2024-07-30] MEDS: DOCUSATE SODIUM 100 MG CAPSULE PO ×2 (11:24→21:02)
[2024-07-30] MEDS: RHO(D) IMMUNE GLOBULIN 1,500 UNIT SYRINGE 1500 UNIT IV (11:25)
--- NOTE | 2024-07-30 14:26 | PM.OBPN ---
OB - PN: Subj Subjective Patient comments: no complaints, pain well controlled, tolerating diet and flatus present Exam Narrative Exam Narrative: Without complaints. She denies any symptoms of depression. Constitutional Vital Signs, click to edit/add: Last Vital Signs Temp 98 F 07/30/24 11:18 Pulse 66 07/30/24 11:18 Resp 16 07/30/24 11:18 BP 129/82 07/30/24 11:18 O2 Del Method Room Air 07/30/24 11:18 Documenting provider has reviewed patient's vital signs: yes Common normals: no apparent distress, average body habitus, oriented x3, no limitations, healthy appearing, alert and well nourished General appearance: cooperative, comfortable, well kempt and well developed Nutritional appearance: other (Well-nourished) Orientation/consciousness: Yes awake, Yes oriented to person, Yes oriented to place and Yes oriented to time Back & Pelvis Pelvis: other (Mild lochia rubra is present) Extremity Common normals: normal to inspection, full ROM, no clubbing, cyanosis or edema, no calf tenderness and no pedal edema Neuro Common normals: oriented x3 Sensorium/orientation: awake, alert, oriented to person, oriented to place and oriented to time Speech: speech normal Results Labs Labs: Short CBC 07/30/24 Range/Units 06:12 WBC 11.8 H (4.0-11.0) 10^3/uL Hgb 12.0 (12.0-16.0) g/dL Hct 36.0 (36.0-48.0) % Plt Count 300 (150-450) 10^3/uL OB - PN: A/P Assessment and Plan (1) Status post vaginal delivery: Plan Patient is post primary #1 progressing well. Will continue supportive care. Plan - Vaginal Delivery day: 1 Plan: routine care Time Spent with Patient Time: Total time spent is greater than 50% in coordination of care (as documented) at patient's floor/unit and/or counseling patient: Total time spent with greater than 50% in coordination of care (as documented) at patient's floor/unit and/or counseling patient: less than 15 minutes
[2024-07-30 16:11] VITALS: BP 125/83; PULSE 75; TEMP 35.7
[2024-07-30 23:03] VITALS: BP 121/81; PULSE 68; TEMP 36.5
[2024-07-31 08:55] VITALS: TEMP 36.6
[2024-07-31 09:00] VITALS: BP 114/70; PULSE 63
[2024-07-31] MEDS: DOCUSATE SODIUM 100 MG CAPSULE PO (09:02)
[2024-07-31] MEDS: IBUPROFEN 600 MG TABLET PO (09:02)
[2024-07-31] MEDS: GLYCERIN/WITCH HAZEL PADS 1 PAD TOPICAL (09:07)
--- NOTE | 2024-07-31 11:05 | PM.OBDS ---
DS: Providers Provider Date of admission: 07/29/24 03:40 Primary care physician: Julianna Chong MD Admitting clinician: Jasbir Barber Attending physician on admission: Jasbir Barber Consults: 07/29/24 Consult to Anesthesiology Routine Consulting Provider: Jasbir Barber Reason for consultation: epidural Attending physician on discharge: Sarwat Radford Discharging clinician: Sarwat Radford Anticipated date of discharge: 07/31/24 DS: Diagnosis Discharge Diagnosis (1) Status post vaginal delivery: Assessment and plan: day #2 doing well. Patient's for discharge to home today. Plan Patient is #2 doing well. Patient for discharge home today. OB - DS: Summary Hospital Course Hospital Course: Uneventful Time spent discussing smoking cessation with patient: 3 to 10 minutes Peripartum Data - Vaginal Delivery Episiotomy Description: midline Procedures: Normal spontaneous vaginal delivery Complications complications: none Delivery method: spontaneous vaginal delivery Gender: female Discharge plan: home Status at Discharge Cognitive/behavioral status at discharge: Normal Functional status at discharge: independent ambulation Overall status at discharge: patient is back to baseline Time Spent with Patient Time attestation: Total time spent providing and/or coordinating discharge services: Time spent: less than 30 minutes Specific discharge activities: Patient is to resume normal activities as tolerated. Exam Narrative Exam Narrative: General appearance: Alert and oriented distress. Constitutional Vital Signs, click to edit/add: Last Vital Signs Temp 97.7 F 07/30/24 23:03 Pulse 63 07/31/24 09:00 Resp 16 07/30/24 16:11 BP 114/70 07/31/24 09:00 O2 Del Method Room Air 07/30/24 23:00 Documenting provider has reviewed patient's vital signs: yes Common normals: no apparent distress, average body habitus, oriented x3, no limitations, healthy appearing, alert and well nourished General appearance: cooperative, comfortable, well kempt and well developed Orientation/consciousness: Yes awake, Yes oriented to person, Yes oriented to place and Yes oriented to time GI Common normals: Normal to inspection, nondistended, normoactive bowel sounds present, soft to palpation and non-tender (Fundus firm and contracted and 2 fingerbreadths below the umbilicus.) Back & Pelvis Pelvis: other (Mild lochia rubra) Extremity Common normals: normal to inspection, no calf tenderness and no pedal edema Discharge Plan Discharge Disposition: Home, Self-Care Condition: Good Assessment: Patient #2 doing well. Health Concerns: None Plan of Treatment: Patient to schedule 6 weeks visit. Discharge Medications: New acetaminophen 325 mg Tablet 650 mg PO Q6H PRN (Reason: Mild Pain) 28 Days Qty: 120 0RF Dermoplast (with menthol) 20-0.5 % Aerosol 1 spray topical Q2H PRN (Reason: Pain) 28 Days Qty: 2 0RF ibuprofen 600 mg Tablet 600 mg PO Q6H PRN (Reason: Moderate Pain) 28 Days Qty: 120 0RF simethicone [Gas Relief 80 (simethicone)] 80 mg Tablet,Chewable 80 mg PO QID PRN (Reason: Abdominal Distention) 28 Days Qty: 60 0RF Activity: increase activity as tolerated Diet: regular diet Print Language: Senegalese Forms: Vaginal Delivery - Discharge, Portal Instructions Follow Up Appointments: 6 week follow up visit with Dr. Barber Discharge location: Home self care
== END 2024-07-31 15:55 | disposition home or self-care (01) | DRG 807 ==
PROVIDERS: Admitting Provider Obstetrics & Gynecology; PCP Student in an Organized Health Care Education/Training Program; Visit Provider Obstetrics & Gynecology
DX: O42.013 Preterm premature rupture of membranes, onset of labor within 24 hours of rupture, third trimester (principal); Z37.0 Single live birth; Z3A.36 36 weeks gestation of pregnancy; O70.1 Second degree perineal laceration during delivery; O36.5930 Maternal care for other known or suspected poor fetal growth, third trimester, not applicable or unspecified; O69.81X0 Labor and delivery complicated by cord around neck, without compression, not applicable or unspecified; O26.893 Other specified pregnancy related conditions, third trimester; Z67.11 Type A blood, Rh negative; Z23 Encounter for immunization
CPT/HCPCS: 36415; 51702; 59050; 59410; 80307; 81001; 84112; 85025; 85027; 85461; 86850; 86900; 86901; 87086; J0290; J2300; J2791; J2795

== ENCOUNTER 2024-08-04 08:42 | Outpatient (OUT) | payer OTHER, SELFPAY ==
[2024-08-04 16:38] VITALS: BP 126/87; PULSE 76; TEMP 36.5; O2SAT 97
--- NOTE | 2024-08-04 16:38 | PC.NURSE ---
Shady Landa and 6 day old Rachana arrive for follow up. Parents states are doing well except last 2 evenings, baby has been very fussy, crying for 2 hours, won't settle. Discussed cluster feeds, gassy baby, parents becoming nervous or frustrated. Parents state she just seems unsettled Discussed use of gas drops as recommended by a friend. Defers use of gas drops for the time being. Parents voice better understanding of NB behaviors. Plan to wake baby every 2-2.5 hours for feed instead of every 3+. Aware cluster feeds are normal. Syeda denies concerns or complaints at this time, feels well except nipple are sore . Bilateral nipples blistered and raw appearing. Discussed and demo of nipple care, latch and positioning for deep latch and removal of baby from breast. Baby Rachana with 6+ wets and 6 yellow seedy stools in last 24 hours. Parents have been offering supplemental milk via syringe every other feed and feel baby fights the supplement at times. Encouraged to offer, not force supplement, watch outputs. VSS and assessment WNL for baby. Awake and to breast. Shallow latch noted. Demo of deeper latch given and mom able to repeat independently. Very pleased with latches. Also encouraged to break suction for removal from breast. Infant weight increased 50 gms after 10 min on each breast. Large stool and wet changed. Mom sized for correct flange fit. Using 24mm and sized at 19mm. Will obtain correct flange fit. Discussed settings on pump. Sent home with soothies and tea bags for healing. Will return 08/12/2024 for further support.
== END 2024-08-04 16:43 | disposition home or self-care (01) ==
LOC: FBCO 08:45
PROVIDERS: PCP Student in an Organized Health Care Education/Training Program; Visit Provider Obstetrics & Gynecology
DX: Z39.1 Encounter for care and examination of lactating mother (principal)

== ENCOUNTER 2024-08-12 08:37 | Outpatient (OUT) | payer OTHER, SELFPAY ==
--- OUTSIDE RECORDS SUMMARY | 2024-08-12 08:42 | XMS_ITS | Encounter Summary ---
Author Organization [facility] Address [address] [place] [address] Care Team Providers Care Cell Installer Name Role Phone Julianna Chong DO Primary Care Provider Encounter Details Date Type Department Care Team (Late st Contact Info) Description 03/13/2023 Orders Only [facility] [address] [place] [address] Provider, MD Sameera Social History Tobacco Use Types Packs/Day Years Used Date Smoking Tobacco: Never Smokeless Tobacco: Never Alcohol Use Standard Drinks/Week Comments No 0 (1 standard drink = 0.6 oz pur e alcohol) Overall Financial Resource Strain (CARDIA) Answe r Date Recorded How hard is it for you to pa y for the very basics like food, housing, medical care, and heating? Not hard at all 02/17/2022 PHQ-2 Answer Date Recorded PHQ-9 Total Score 0 02/17/2022 Hunger Vital Sign Answer Date Recorded Within the past 12 months, y ou worried that your food would run out before you got the money to buy more. Never true 02/18/20 22 Within the past 12 months, t he food you bought just didn't last and you didn't have money to get more. Never true 02/17/2022 Food Insecurity Answer Date Recorded Within the past 12 months, y ou worried that your food would run out before you got the money to buy more. 1 02/17/2022 Within the past 12 months, t he food you bought just didn't last and you didn't have money to get more. 1 02/17/2022 Comments No Sex and Gender Information Value Date Recorded Sex Assigned at Not on file Legal Sex Female 9:13 AM EST Gender Identity Not on file Sexual Orientation Not on file documented as of this encounter Plan of Treatment Not on file documented as of this encounter Procedures Procedure Name Priority Date/Time Associated Diagnosis Comments CT MAXILLOFACIAL WO CONTRAST Routine 03/12/2023 8:12 AM EST documented in this encounter Results * CT MAXILLOFACIAL WO CONTRAST (03/12/2023 8:12 AM EST) Anatomical Region Laterality Modality Computed Tomogra phy us Historical Provider MD [facility] CT ORDERABLES Final R esult documented in this encounter Visit Diagnoses Not on filedocumented in this encounter Care Teams Cell Installer Relationship Specialty Start Date End Date Julianna Chong DO [address] [place] [address] PCP - General Family Medicine 12/20/15 documented as of this encounter
--- OUTSIDE RECORDS SUMMARY | 2024-08-12 08:42 | XMS_ITS | Encounter Summary ---
Author Organization [facility] Address [address] [place] [address] Care Team Providers Care Supervisor Bindery Name Role Phone ParveenJulianna randolph Primary Care Provider [phone] Encounter Details Date Type Department Care Team (Late st Contact Info) Description 07/30/2024 Clinisync Result Encounter [facility] External Department Unsolicited Jasbir Barber DO [address] [place] [address] Social History Tobacco Use Types Packs/Day Years Used Date Smoking Tobacco: Never Assessed Estimated Date of Delivery Comme nts Yes 08/22/2024 Based on Ultraso und Sex and Gender Information Value Date Recorded Sex Assigned at Not on file Legal Sex Female 10:25 AM EDT Gender Identity Not on file Sexual Orientation Not on file documented as of this encounter Plan of Treatment Not on file documented as of this encounter Procedures Procedure Name Priority Date/Time Associated Diagnosis Comments ALL CBC WITH AUTO DIFF Routine 07/30/2024 6:12 AM EDT documented in this encounter Results * (ABNORMAL) ALL CBC WITH AUTO DIFF (07/30/2024 6:12 AM EDT) [facility] WBC 11.8(H) 4.0 - 11.0 10 3/uL [facility] TBH RBC 3.75(L) 4.20 - 5.40 10 6/uL TB[facility] TBH HGB 12.0 12.0 - 16.0 g/dL TBH TBH HCT 36.0 36.0 - 48.0 % TBH TBH MCV 96.0 81.0 - 99.0 fL TBH TBH MCH 32.0 26.7 - 34.0 pg TBH TBH MCHC 33.3 29.9 - 35.2 g/dL TBH TBH RDW 13.0 11.0 - 15.0 % TBH TBH PLT 300 150 - 450 10 3/uL TBH TBH MPV 9.6 9.5 - 13.5 fL TBH NEUTROPHILS PERCENT AUTO 71.9 43.0 - 75.0 % TBH LYMPHOCYTES PERCENT AUTO 17.0(L) 20.5 - 60.0 % TB[facility] MONOCYTES PERCENT AUTO 8.7 1.7 - 12.0 % TB[facility] TBH EO % 0.9 0.9 - 7.0 % [facility] BASOPHILS PERCENT AUTO 0.4 0.2 - 2.0 % TB[facility] IMMATURE GRANULOCYTES PCT AUTO 1.1(H) 0.0 - 0.5 % TBH NEUTROPHILS ABSOLUTE AUTO 8.5(H) 1.4 - 6.5 10 3/uL TBH LYMPHOCYTES ABSOLUTE AUTO 2.0 1.2 - 3.8 10 3/uL TB[facility] MONOCYTES ABSOLUTE AUTO 1.0(H) 0.3 - 0.8 10 3/uL TBH TBH EO # 0.1 0.0 - 0.7 10 3/uL [facility]H BASOPHILS ABSOLUTE AUTO 0.1 0.0 - 0.1 10 3/uL TBH IMMATURE GRANULOCYTES ABS AUTO 0.13(H) 0.00 - 0.03 10 3/uL [facility] 07/30/2024 6:12 AM EDT 07/30/2024 6:16 AM EDT Narrative [facility] - 07/30/2024 6:27 AM EDT us Jasbir Elisabeth DO [facility] Final [facility] documented in this encounter Visit Diagnoses Not on filedocumented in this encounter Care Teams Supervisor Bindery Relationship Specialty Start Date End Date Julianna Chong DO [address] [place] [address] PCP - General Internal Medicine 01/11/24 documented as of this encounter
--- OUTSIDE RECORDS SUMMARY | 2024-08-12 08:42 | XMS_ITS | Encounter Summary ---
Author Organization [facility] Address [address] [place] [address] Care Team Providers Care Ui Engineer Name Role Phone GabeJulianna velasquez Primary Care Provider [phone] Encounter Details Date Type Department Care Team (Late st Contact Info) Description 01/12/2024 Clinisync Result Encounter [facility] External Department Unsolicited Zuleyma Barber DO [address] [facility] [address] [facility] [address] [place], [place] [id number] Social History Tobacco Use Types Packs/Day Years [...] Procedure Name Priority Date/Time Associated Diagnosis Comments US OB TRANSVAGINAL 01/12/2024 4: 22 AM EDT documented in this encounter Results * US OB TRANSVAGINAL (01/12/2024 4:22 AM EDT) Anatomical Region Laterality Modality Other 01/12/2024 4:22 AM EDT Narrative 01/12/2024 4:24 AM EDT The [address] [address] Ultrasound Report Signed Patient: SYEDA CRISTINA MR#: [id number] : 1995 Acct:[id number] Age/Sex: 28 / F ADM Date: 01/11/24 Loc: [facility] Attending Dr: Zuleyma Barber D.O. Ordering Physician: Zuleyma Barber D.O. Date of Service: 01/11/24 Procedure(s): US OB transvaginal Accession Number(s): [id number] cc: Zuleyma Barber D.O.; Physician,Non-Staff Carmen The [place] [id number] Patient Name: SYEDA CRISTINA MRN: [id number] date: 1995 Sex: F Assigned Patient Location: [facility] Current Patient Location: Accession/Order Number: [id number] Exam Date: 01/11/2024 09:32 Report Date: 01/12/2024 04:22 At the request of: ZULEYMA BARBER Procedure: US OB transvaginal EXAMINATION: US OB transvaginal HISTORY: MISSED MENSES COMPARISON: No relevant comparison available. FINDINGS: GESTATIONAL SAC: Present and normal appearing. YOLK SAC: Present and normal appearing. POLE: Present and normal appearing. CARDIAC: Present. UTERUS: Normal size and appearance. OVARIES: Right: Normal. Left: Normal. CERVIX: 4.1 cm in length and closed. CUL-DE-SAC: Normal. OTHER: None. AGE BY LMP: 9 weeks 1 day [place] BY LMP: 08/14/2024 AGE BY US CRL: 8 weeks 0 days [place] BY US CRL: 08/22/2024 US/US OB transvaginal IMPRESSION: 1. Single live intrauterine . Electronically authenticated by: TAL BRIONES Date: 01/12/2024 04:22 Dictated By: Tal Briones M.D. Signed By: 01/12/24423 DD/ 1 TD/TT: Relaster: Procedure Note Radiology, Radiologist, MD - 01/12/2024 [place] [address] Ultrasound Report Signed Patient: SHAHRAM CRISTINA#: [id number] : 1995Acct:[id number] Age/Sex: 28 / FADM Date: 01/11/24 Loc: [facility] Attending Dr: Zuleyma Barber D.O. Ordering Physician: Zuleyma Barber D.O. Date of Service: 01/11/24 Procedure(s): US OB transvaginal Accession Number(s): [id number] cc: Zuleyma Barber D.O.; Physician,Non-Staff [facility] [place] [id number] Patient Name: SYEDA CRISTINA MRN: [id number] date: 1995 Sex: F Assigned Patient Location: [facility] Current Patient Location: Accession/Order Number: [id number] Exam Date: 01/11/2024 09:32 Report Date: 01/12/2024 04:22 At the request of: ZULEYMA BARBER Procedure: US OB transvaginal EXAMINATION: US OB transvaginal HISTORY: MISSED MENSES COMPARISON: No relevant comparison available. FINDINGS: GESTATIONAL SAC: Present and normal appearing. YOLK SAC: Present and normal appearing. POLE: Present and normal appearing. CARDIAC: Present. UTERUS: Normal size and appearance. OVARIES: Right: Normal. Left: Normal. CERVIX: 4.1 cm in length and closed. CUL-DE-SAC: Normal. OTHER: None. AGE BY LMP: 9 weeks 1 day [place] BY LMP: 08/14/2024 AGE BY US CRL: 8 weeks 0 days [place] BY US CRL: 08/22/2024 US/US OB transvaginal IMPRESSION: 1. Single live intrauterine . Electronically authenticated by: TAL BRIONES Date: 01/12/2024 04:22 Dictated By: Tal Briones M.D. Signed By:01/12/24423 DD/ 1 TD/TT: Relaster: us Zuleyma Barber DO [facility] Final Result documented in this encounter Visit Diagnoses Not on filedocumented in this encounter Care Teams Ui Engineer Relationship Specialty Start Date End Date Julianna Chong DO [address] [place] [address] PCP - General Internal Medicine 01/11/24 documented as of this encounter
--- OUTSIDE RECORDS SUMMARY | 2024-08-12 08:42 | XMS_ITS | Encounter Summary ---
Author Organization [facility] Address [address] [place] [address] Care Team Providers Care Exerciser Name Role Phone Julianna Chong DO Primary Care Provider [phone] Encounter Details Date Type Department Care Team (Late st Contact Info) Description 02/08/2024 Abstract [facility] BCP OB [address] [place] [phone] Jasbir Barber DO [address] [place] [address] Social History Tobacco Use Types Packs/Day Years [...] on file documented as of this encounter Visit Diagnoses Not on filedocumented in this encounter Care Teams Exerciser Relationship Specialty Start Date End Date Julianna Chong DO [address] [place] [address] PCP - General Internal Medicine 01/11/24 documented as of this encounter
--- OUTSIDE RECORDS SUMMARY | 2024-08-12 08:42 | XMS_ITS | Encounter Summary ---
Author Organization [facility] Address [address] [place] [address] Care Team Providers Care Bottom Bleacher Name Role Phone Julianna Chong DO Primary Care Provider [phone] Reason for Visit * Reason Comments Medication Refill Encounter Details Date Type Department Care Team (Late st Contact Info) Description 11/20/2018 Refill [facility] [address] [place] [address] Julianna Chong DO [address] [place] [address] Medication Refill Social History Tobacco Use Types Packs/Day Years Used Date Smoking Tobacco: Never Smokeless Tobacco: Never Alcohol Use Standard Drinks/Week Comments No 0 (1 standard drink = 0.6 oz pur e alcohol) PHQ-2 Answer Date Recorded PHQ-2 Score 0 09/05/2018 Comments No Sex and Gender Information Value Date Recorded Sex Assigned at Not on file Legal Sex Female 9:13 AM EST Gender Identity Not on file Sexual Orientation Not on file documented as of this encounter Plan of Treatment Not on file documented as of this encounter Visit Diagnoses Diagnosis Primary dysmenorrhea Dysmenorrhea documented in this encounter Care Teams Bottom Bleacher Relationship Specialty Start Date End Date Julianna Chong DO [address] [place] [address] PCP - General Family Medicine 12/20/15 documented as of this encounter
--- OUTSIDE RECORDS SUMMARY | 2024-08-12 08:42 | XMS_ITS | Encounter Summary ---
Author Organization [facility] Address [address] [facility] [place] [address] Care Team Providers Care Chief Of Production Name Role Phone Julianna Chong DO Primary Care Provider [phone] Encounter Details Date Type Department Care Team (Late st Contact Info) Description 05/13/2024 Abstract [facility] BCP OB [address] [place] [phone] Jasbir Barber DO [address] [place] [address] Social History Tobacco Use Types Packs/Day Years [...] on filedocumented in this encounter Care Teams Chief Of Production Relationship Specialty Start Date End Date Julianna Chong DO [address] [place] [address] PCP - General Internal Medicine 01/11/24 documented as of this encounter
--- OUTSIDE RECORDS SUMMARY | 2024-08-12 08:42 | XMS_ITS | Clinical Summary ---
Author Organization [facility] Address [address] [place] [address] Care Team Providers Care Fibre Cement Moulder Name Role Phone Julianna Chong Primary Care Provider [phone] Allergies No known active allergies Medications MV-Min-Fe Fum-FA-DHA ( 1 PO) Take by mouth Active Active Problems Problem Noted Date Diagnosed Date SGA (small for gestational age) 07/25/2024 Estimated Date of Delivery Comme nts Yes 08/22/2024 Based on Ultraso und Encounters Date Type Department Care Team Description 07/30/2024 Clinisync Result Encounter [facility] External Department Unsolicited Jasbir Barber, 07/29/2024 Clinisync Result Encounter [facility]OMS External Department Unsolicited Jasbir Barber, 07/25/2024 Telephone [facility] [address] [place] [address] Jasbir Barber, 07/23/2024 2:00 PM EDT Routine [facility] [address] [place] [address] Jasbir Barber DO Third trimester ; 35 weeks gestation of 07/23/2024 1:30 PM EDT Ancillary Procedure [facility] [address] [place] [address] Small for dates affecting management of mother, unspecified trimester, fetus 1 07/23/2024 Travel 07/09/2024 1:50 PM EDT Routine [facility] [address] [place] [address] Jasbir Barber, Third trimester ; 33 weeks gestation of 07/09/2024 Bamboo flowsheet [facility] [address] [place] [address] [place] [address] Jasbir Barber, DO 07/09/2024 Travel 06/25/2024 10:30 AM EDT Routine [facility] [address] [place] [address] [place] [address] Sheeba Villa PA Third trimester ; 31 weeks gestation of 06/25/2024 Bamboo flowsheet [facility] [address] [place] [address] [place] [address] Sheeba Villa PA 06/25/2024 Travel 06/11/2024 2:30 PM EDT Routine [facility] [address] [place] [address] [place] [address] Jasbir Barber, Third trimester ; 29 weeks gestation of 06/11/2024 2:00 PM EDT Ancillary Procedure [facility] [address] [place] [address] [place] [address] size inconsistent with dates 06/11/2024 Travel 06/09/2024 Telephone [facility] [address] [place] [address] [place] [address] Jasbir Barber, DO 05/28/2024 4:00 PM EDT Routine [facility] [address] [place] [address] [place] [address] Sheeba Villa PA 27 weeks gestation of ; Second trimester ; size inconsistent with dates 05/28/2024 Bamboo flowsheet [facility] [address] [facility] [address] Sheeba Villa PA 05/27/2024 Travel 05/17/2024 Clinisync Result Encounter NOMS External Department Unsolicited Sheeba Villa PA from Last 3 Months Family History Medical History Relation Name Comments Thyroid cancer Cousin Relation Name Status Comments Cousin Other Social History Tobacco Use Types Packs/Day Years Used Date Smoking Tobacco: Never Assessed Estimated Date of Delivery Comme nts Yes 08/22/2024 Based on Ultraso und Sex and Gender Information Value Date Recorded Sex Assigned at Not on file Legal Sex Female 10:25 AM EDT Gender Identity Not on file Sexual Orientation Not on file Last Filed Vital Signs Vital Sign Reading Time Taken Comments Blood Pressure 106/72 07/23/2024 2:41 PM EDT Pulse - - Temperature - - Respiratory Rate - - Oxygen Saturation - - Inhaled Oxygen Concentration - - Weight 76.7 kg (169 lb 1.9 oz) 07/23/2024 2:41 P M EDT Height - - Body Mass Index - - Plan of Treatment Health Maintenance Due Date Last Done Comments Influenza Vaccine (Season Ended) 2024 11/09/19 20 Procedures Procedure Name Priority Date/Time Associated Diagnosis Comments ALL CBC WITH AUTO DIFF Routine 6:12 AM EDT [facility] CBC WITH PLATELET NO DIFFERENTIAL Routine 07/29/2024 4:02 AM EDT [facility] DRUG SCREEN RAPID (URINE) Routine 07/29/2024 2:45 AM EDT [facility] URINE MICROSCOPIC ONLY Routine 07/29/2024 2:45 AM EDT TB UA (CLEAN/CATCH) DEVELOPMENT EXECUTIVE/MICRO IF IND. Routine 07/29/2024 2:45 AM EDT AMNISURE Routine 07/29/2024 2:45 AM EDT POCT URINALYSIS DIPSTICK Routine 07/23/2024 2:44 PM EDT Third trimester 35 weeks gestation of US OB FOLLOW UP TRANSABDOMINAL APPROACH Routine 07/23/2024 1:59 PM EDT Small for dates affecting management of mother, unspecified trimester, fetus 1 POCT URINALYSIS DIPSTICK Routine 07/09/2024 2:13 PM EDT Third trimester POCT URINALYSIS DIPSTICK Routine 06/25/2024 10:46 AM EDT Third trimester 31 weeks gestation of POCT URINALYSIS DIPSTICK Routine 06/11/2024 2:44 PM EDT Third trimester 29 weeks gestation of US OB FOLLOW UP TRANSABDOMINAL APPROACH Routine 06/11/2024 2:22 PM EDT size inconsistent with dates URINARY TRACT INFECTION (HTRX) Routine 05/28/2024 4:10 PM EDT POCT URINALYSIS DIPSTICK Routine 05/28/2024 3:57 PM EDT 27 weeks gestation of Second trimester GLUCOSE 1 HOUR Routine 05/17/2024 11:00 AM EST ALL CBC WITH AUTO DIFF Routine 11:00 AM EST from Last 3 Months Results * (ABNORMAL) ALL CBC WITH AUTO DIFF (07/30/2024 6:12 AM EDT) Only the most recent of2 resultswithin the time period is included. [facility]H WBC 11.8(H) 4.0 - 11.0 10 [...] Narrative CLINISYNC - 07/30/2024 6:27 AM EDT Jasbir Barber DO CLINISYNC Final Result [facility] * (ABNORMAL) [facility] CBC WITH PLATELET NO DIFFERENTIAL (07/29/2024 4:02 AM EDT) TB WBC 12.0(H) 4.0 - 11.0 10 3/uL [facility]H TBH RBC 4.01(L) 4.20 - 5.40 10 6/uL TB[facility] TBH HGB 13.0 12.0 - 16.0 g/dL TBH TBH HCT 37.4 36.0 - 48.0 % [facility]H TBH MCV 93.3 81.0 - 99.0 fL TBH TBH MCH 32.4 26.7 - 34.0 pg TBH TBH MCHC 34.8 29.9 - 35.2 g/dL TBH TBH RDW 12.8 11.0 - 15.0 % TBH TBH PLT 350 150 - 450 10 3/uL TBH TBH MPV 9.8 9.5 - 13.5 fL [facility]H 07/29/2024 4:02 AM EDT 07/29/2024 4:12 AM EDT Narrative CLINISYNC - 07/29/2024 4:30 AM EDT us Jasbir Elisabeth DO CLINISYNC Final Result Performing Organization Address [facility]/ZIP Co de Phone Number CLINISYNC [facility] * (ABNORMAL) AMNISURE (07/29/2024 2:45 AM EDT) Pathologist [facility] AMNISURE POSITIVE(A ) NEGATIVE [facility] 07/29/2024 2:45 AM EDT 07/29/2024 2:59 AM EDT Narrative CLINISYNC - 07/29/2024 3:00 AM EDT us Jasbir Elisabeth DO LAB BLOOD ORDERABLES Final Resul t Performing Organization Address [facility] de Phone Number CLINISYNC [facility] * (ABNORMAL) [facility] URINE MICROSCOPIC ONLY (07/29/2024 2:45 AM EDT) [facility] WBC 5-10(A) NONE SEEN #/HPF TBH TBH RBC 2-5(A) 0 - 2 #/HPF [facility] BACTERIA URINE SMALL(A) NONE SEEN #/HPF [facility] MUCUS URINE NONE SEEN NONE SEEN TBH SQUAMOUS EPITHELIAL CELL URINE MODERATE(A ) NONE/RARE #/LPF TBH CRYSTALS SEEN? Seen(A) None Seen #/HPF [facility] AMORPHOUS SEDIMENT URINE RARE TBH CAST SEEN? NONE SEEN NONE SEEN #/LPF TBH URINE CULTURE INDICATED YES-LC [facility]H 07/29/2024 2:45 AM EDT 07/29/2024 2:59 AM EDT Narrative CLINISYNC - 07/29/2024 3:17 AM EDT us Jasbir Elisabeth DO CLINISYNC Final Result Performing Organization Address [facility] Co de Phone Number CLINISYNC [facility] * (ABNORMAL) TB UA (CLEAN/CATCH) DEVELOPMENT EXECUTIVE/MICRO IF IND. (07/29/2024 2:45 AM EDT) COLOR URINE YELLOW YELLOW TBH CLARITY URINE CLEAR CLEAR TBH SPECIFIC GRAVITY URINE 1.020 1.005 - 1.025 TBH PH URINE 6.0 5.0 - 9.0 TBH PROTEIN URINE 100(A) NEG/TRACE mg/dL TBH GLUCOSE URINE UA NEGATIVE NEGATIVE mg/dL TBH BILIRUBIN URINE NEGATIVE NEGATIVE TBH KETONES URINE NEGATIVE NEGATIVE mg/dL TBH BLOOD URINE LARGE(A) NEGATIVE TBH NITRITE URINE NEGATIVE NEGATIVE TBH UROBILINOGEN URINE 1.0 0.2 - 1.0 EU/dL TBH LEUKOCYTE ESTERASE URINE SMALL(A) NEGATIVE TBH URINE MICROSCOPIC INDICATED YES TBH 07/29/2024 2:45 AM EDT 07/29/2024 2:59 AM EDT Narrative CLINISYNC - 07/29/2024 3:17 AM EDT Jasbir Leeo DO CLINISYNC Final Result CB [facility] * TB DRUG SCREEN RAPID (URINE) (07/29/2024 2:45 AM EDT) CANNABINOID SCREEN URINE NEGATIVE NEGATIVE TBH PHENCYCLIDINE SCREEN URINE NEGATIVE NEGATIVE TBH COCAINE SCREEN URINE NEGATIVE NEGATIVE TBH METHAMPHETAMINES SCREEN URINE NEGATIVE NEGATIVE TBH OPIATE SCREEN URINE NEGATIVE NEGATIVE TBH AMPHETAMINE SCREEN URINE NEGATIVE NEGATIVE TBH BENZODIAZEPINES SCREEN URINE NEGATIVE NEGATIVE TBH TRICYCLIC ANTIDEPRESSANT URINE NEGATIVE NEGATIVE TBH METHADONE SCREEN URINE NEGATIVE NEGATIVE TBH BARBITURATES SCREEN URINE NEGATIVE NEGATIVE TBH OXYCODONE SCREEN URINE NEGATIVE NEGATIVE TBH BUPRENORPHINE SCREEN URINE NEGATIVE NEGATIVE TBH Comment: DRUG CLASS TEST SYSTEM CUT-OFF CONCENTRATIONS ARE FOLLOWS: AMP (Amphetamine): 500 ng/mL BAR (Barbiturates): 200 ng/mL BZO (Benzodiazepines): 150 ng/mL BUP (Buprenorphine): 10 ng/mL JACINTA (Cocaine): 150 ng/mL mAMP (Methamphetamine): 500 ng/mL MTD (Methadone): 200 ng/mL OPI (Opiates): 100 ng/mL OXY (Oxycodone): 100 ng/mL PCP (Phencyclidine): 25 ng/mL THC (Cannabinoids): 50 ng/mL TCA (Trycyclic Antidepressants): 300 ng/mL 07/29/2024 2:45 AM EDT 07/29/2024 3:49 AM EDT Narrative CLINISYNC - 07/29/2024 4:02 AM EDT us Jasbir Elisabeth DO CLINISYNC Final Result CB TBH * POCT urinalysis dipstick manually resulted (07/23/2024 2:44 PM EDT) Only the most recent of5 resultswithin the time period is included. Color, UA Yellow Clarity, UA Clear Glucose, UA Negative Negative - 2000(110) ++++ mg/dL Bilirubin, UA Negative Negative - 4(70) +++ mg/dL Ketones, UA Negative Negative - 160(16) ++++ mg/dL Spec Grav, UA 1.020 1 - 1.03 Blood, UA Negative Negative - 50 Kalyan/mcL pH, UA 5.5 5 - 9 Protein, UA Negative Negative - 2000(20) ++++ mg/dL Urobilinogen, UA 1.0 0.2 - 12 mg/dL Leukocytes, UA Negative Negative - 500+++ June/mcL Nitrite, UA Negative Negative - Positive Urine 07/23/2024 2:44 PM EDT us Jasbir Elisabeth DO POINT OF CARE TEST ENTER/EDIT OR DERABLES Final Result * US OB follow up transabdominal approach (07/23/2024 1:59 PM EDT) Only the most recent of2 resultswithin the time period is included. Anatomical Region Laterality Modality Body Ultrasound 07/24/2024 12:3 8 PM EDT Narrative 07/24/2024 12:38 PM EDT TITLE OF EXAM: OB Ultrasound: REASON FOR EXAM: SGA. COMPARISON: 06/11/2024, 04/09/2024 TECHNIQUE: Grayscale and M-mode Doppler imaging is performed. FINDINGS: heart rate: 139 bpm MISHEL: 14.6 cm (7.8-24.9) BPD: 8.4 cm HC: 30.3 cm AC: 30.7 cm FL: 6.7 cm GA for sonogram: 33.8 wk (31.4-36.3) AINSLEY: 08/22/2024 Weight Estimate: Weight: 2423 gm / 5 lbs / 5 oz (6693-4743 gm) Hadlock Normal: 2751 gm (4390-3840 gm) Hadlock Wt%: 18% for 35.7 wks [...] signed and approved by the interpreting radiologist. Procedure Note Eliseo Kelly MD - 07/24/2024 TITLE OF EXAM: OB Ultrasound: REASON FOR EXAM: SGA. COMPARISON: 06/11/2024, 04/09/2024 TECHNIQUE: Grayscale and M-mode Doppler imaging is performed. FINDINGS: heart rate: 139 bpm MISHEL: 14.6 cm (7.8-24.9) BPD: 8.4 cm HC: 30.3 cm AC: 30.7 cm FL: 6.7 cm GA for sonogram: 33.8 wk (31.4-36.3) AINSLEY: 08/22/2024 Weight Estimate: Weight: 2423 gm / 5 lbs / 5 oz (3874-5059 gm) Hadlock Normal: 2751 gm (4824-7827 gm) Hadlock Wt%: 18% for 35.7 wks Limited for: Growth Presentation: Cephalic Lie: Longitudinal Amniotic Fluid: 14.6 cm Between 5th and 95 percentile. Largest Pocket: 6.0 cm Heart Rate: 139 bpm Somatic Motion: Yes IMPRESSION: Single live intrauterine gestation in cephalic positionestimated at 33.8 weeks. This represents a 2-week delay from providedclinical dates and prior ultrasound. EFW 18% for 35.7 weeks. Dictated and transcribed 07/23/24/chidi Tillman from [facility] forwarded findings to provider. This report has been electronically signed and approved by theinterpreting radiologist. us Jasbir Elisabeth DO IMG OB US PROCEDURES Final Resul t * URINARY TRACT INFECTION (HTRX) (05/28/2024 4:10 PM EDT) Pathologist [facility] ACINETOBACTER BAUMANII 0.000 19.961 - 24.689 ppm 05/29/2024 6:55 AM EDT [facility] ACINETOBACTER BAUMANII Not Detected 19.961 - 24.689 ppm 05/29/2024 6:55 AM EDT [facility] CITROBACTER FREUNDII 0.000 23.000 - 31.881 ppm 05/29/2024 6:55 AM EDT [facility] CITROBACTER FREUNDII Not Detected 23.000 - 31.881 ppm 05/29/2024 6:55 AM EDT [facility] ENTEROBACTER AEROGENES, CLOACAE 0.000 23.000 - 31.535 ppm 05/29/2024 6:55 AM EDT [facility] ENTEROBACTER AEROGENES, CLOACAE Not Detected 23.000 - 31.535 ppm 05/29/2024 6:55 AM EDT [facility] ENTEROCOCCUS FAECALIS, FAECIUM 0.000 26.000 - 31.575 ppm 05/29/2024 6:55 AM EDT [facility] ENTEROCOCCUS FAECALIS, FAECIUM Not Detected 26.000 - 31.575 ppm 05/29/2024 6:55 AM EDT [facility] ESCHERICHIA COLI 0.000 23.000 - 28.500 ppm 05/29/2024 6:55 AM EDT [facility] ESCHERICHIA COLI Not Detected 23.000 - 28.500 ppm 05/29/2024 6:55 AM EDT [facility] KLEBSIELLA PNEUMONIAE, OXYTOCA 0.000 23.000 - 30.500 ppm 05/29/2024 6:55 AM EDT [facility] KLEBSIELLA PNEUMONIAE, OXYTOCA Not Detected 23.000 - 30.500 ppm 05/29/2024 6:55 AM EDT [facility] MORGANELLA MORGANII 0.000 19.961 - 24.689 ppm 05/29/2024 6:55 AM EDT [facility] MORGANELLA MORGANII Not Detected 19.961 - 24.689 ppm 05/29/2024 6:55 AM EDT [facility] PROTEUS MIRABILIS, VULGARIS 0.000 23.000 - 28.500 ppm 05/29/2024 6:55 AM EDT [facility] PROTEUS MIRABILIS, VULGARIS Not Detected 23.000 - 28.500 ppm 05/29/2024 6:55 AM EDT [facility] PSEUDOMONAS AERUGINOSA 0.000 23.000 - 28.500 ppm 05/29/2024 6:55 AM EDT [facility] PSEUDOMONAS AERUGINOSA Not Detected 23.000 - 28.500 ppm 05/29/2024 6:55 AM EDT [facility] STAPHYLOCOCCUS AUREUS 0.000 26.000 - 30.902 ppm 05/29/2024 6:55 AM EDT [facility] STAPHYLOCOCCUS AUREUS Not Detected 26.000 - 30.902 ppm 05/29/2024 6:55 AM EDT [facility] STREPTOCOCCUS AGALACTIAE (GROUP B STREP) 0.000 26.000 - 32.222 ppm 05/29/2024 6:55 AM EDT [facility] STREPTOCOCCUS AGALACTIAE (GROUP B STREP) Not Detected 26.000 - 32.222 ppm 05/29/2024 6:55 AM EDT [facility] TRISTA ALBICANS, PARAPSILOSIS, TROPICALIS 0.000 19.961 - 30.770 ppm 05/29/2024 6:55 AM EDT [facility] TRISTA ALBICANS, PARAPSILOSIS, TROPICALIS Not Detected 19.961 - 30.770 ppm 05/29/2024 6:55 AM EDT [facility] TRISTA GLABRATA 0.000 23.000 - 32.138 ppm 05/29/2024 6:55 AM EDT [facility] TRISTA GLABRATA Not Detected 23.000 - 32.138 ppm 05/29/2024 6:55 AM EDT [facility] TRISTA KRUSEI 0.000 23.000 - 32.271 ppm 05/29/2024 6:55 AM EDT [facility] TRISTA KRUSEI Not Detected 23.000 - 32.271 ppm 05/29/2024 6:55 AM EDT [facility] SERRATIA MARCESCENS 0.000 23.000 - 31.204 ppm 05/29/2024 6:55 AM EDT [facility] SERRATIA MARCESCENS Not Detected 23.000 - 31.204 ppm 05/29/2024 6:55 AM EDT [facility] STREPTOCOCCUS PYOGENES (GROUP A STREP) 0.000 19.961 - 24.689 ppm 05/29/2024 6:55 AM EDT [facility] STREPTOCOCCUS PYOGENES (GROUP A STREP) Not Detected 19.961 - 24.689 ppm 05/29/2024 6:55 AM EDT [facility] STAPHYLOCOCCUS EPIDERMIDIS, HAEMOLYTICUS, LUGDUNENSIS, SAPROPHYTICUS (URINA 0.000 19.961 - 24.689 ppm 05/29/2024 6:55 AM EDT [facility] STAPHYLOCOCCUS EPIDERMIDIS, HAEMOLYTICUS, LUGDUNENSIS, SAPROPHYTICUS (URINA Not Detected 19.961 - 24.689 ppm 05/29/2024 6:55 AM EDT [facility] STAPHYLOCOCCUS EPIDERMIDIS, HAEMOLYTICUS, LUGDUNENSIS, SAPROPHYTICUS (URINA 0.000 19.961 - 24.689 ppm 05/29/2024 6:55 AM EDT [facility] STAPHYLOCOCCUS EPIDERMIDIS, HAEMOLYTICUS, LUGDUNENSIS, SAPROPHYTICUS (URINA Not Detected 19.961 - 24.689 ppm 05/29/2024 6:55 AM EDT [facility] Urine 05/28/2024 4:10 PM EDT 05/29/2024 1:31 AM EDT us Sheeba HASSAN LAB BLOOD ORDERABLES Final Resul t [facility] [address] [place] [address] * GLUCOSE 1 HOUR (05/17/2024 11:00 AM EST) GLUCOSE 1 HOUR 115 <130 mg/dL [facility] 05/17/2024 11:0 0 AM EST 05/17/2024 11:00 AM EST Narrative CLINISYNC - 05/17/2024 11:13 AM EST us Sheeba HASSAN LAB BLOOD ORDERABLES Final Resul t Performing Organization Address City/[facility]/ZIP Co de Phone Number CLINISYNC [facility] from Last 3 Months Insurance [employer] Care Teams Fibre Cement Moulder Relationship Specialty Start Date End Date Julianna Chong DO [address] [place] [phone] PCP - General Internal Medicine 01/11/24
--- OUTSIDE RECORDS SUMMARY | 2024-08-12 08:42 | XMS_ITS | Encounter Summary ---
Author Organization [facility] Address [address] [facility] [place] [address] Care Team Providers Care Value Stream Leader Name Role Phone Julianna Chong DO Primary Care Provider Encounter Details Date Type Department Care Team (Late st Contact Info) Description 04/02/2024 Abstract [facility] [address] [place] [phone] Jasbir Barber DO [address] [place] [address] Social History Tobacco Use Types Packs/Day Years [...] on filedocumented in this encounter Care Teams Value Stream Leader Relationship Specialty Start Date End Date Julianna Chong DO [address] [place] [address] PCP - General Internal Medicine 01/11/24 documented as of this encounter
--- OUTSIDE RECORDS SUMMARY | 2024-08-12 08:42 | XMS_ITS | Encounter Summary ---
Author Organization [facility] Address [address] [place] [address] Care Team Providers Care Merchandise Adjustment Clerk Name Role Phone Julianna Chong DO Primary Care Provider [phone] Reason for Visit * Reason Comments Medication Refill Encounter Details Date Type Department Care Team (Late st Contact Info) Description 03/13/2018 Refill [facility] [address] [place] [address] Julianna Chong DO [address] [place] [address] Medication Refill Social History Tobacco Use Types Packs/Day Years Used Date Smoking Tobacco: Never Smokeless Tobacco: Never Alcohol Use Standard Drinks/Week Comments No 0 (1 standard drink = 0.6 oz pur e alcohol) Comments No Sex and Gender Information Value Date Recorded Sex Assigned at Not on file Legal Sex Female 9:13 AM EST Gender Identity Not on file Sexual Orientation Not on file documented as of this encounter Plan of Treatment Not on file documented as of this encounter Visit Diagnoses Diagnosis Primary dysmenorrhea Dysmenorrhea documented in this encounter Care Teams Merchandise Adjustment Clerk Relationship Specialty Start Date End Date Julianna Chong DO [address] [place] [phone] PCP - General Family Medicine 12/20/15 documented as of this encounter
--- OUTSIDE RECORDS SUMMARY | 2024-08-12 08:42 | XMS_ITS | Encounter Summary ---
Author Organization [facility] Address [address] [place] [address] Care Team Providers Care Shell Mold Bonding Machine Operator Name Role Phone Julianna Chong DO Primary Care Provider [phone] Encounter Details Date Type Department Care Team (Late st Contact Info) Description 03/04/2024 Abstract [facility] [address] [place] [phone] Jasbir Barber DO [address] [place] [address] Social History Tobacco Use Types Packs/Day Years [...] on filedocumented in this encounter Care Teams Shell Mold Bonding Machine Operator Relationship Specialty Start Date End Date Julianna Chong DO [address] [place] [address] PCP - General Internal Medicine 01/11/24 documented as of this encounter
--- OUTSIDE RECORDS SUMMARY | 2024-08-12 08:42 | XMS_ITS | Encounter Summary ---
Author Organization [facility] Address [address] [facility] [place] [address] Care Team Providers Care Candle Making Supervisor Name Role Phone Julianna Chong DO Primary Care Provider [phone] Encounter Details Date Type Department Care Team (Late st Contact Info) Description 04/09/2024 Abstract [facility] [address] [place] [phone] Jasbir Barber DO [address] [place] [address] Social History Tobacco Use Types Packs/Day Years [...] on filedocumented in this encounter Care Teams Candle Making Supervisor Relationship Specialty Start Date End Date Julianna Chong DO [address] [place] [address] PCP - General Internal Medicine 01/11/24 documented as of this encounter
--- OUTSIDE RECORDS SUMMARY | 2024-08-12 08:42 | XMS_ITS | Encounter Summary ---
Author Organization [facility] Address [address] [facility] [place] [address] Care Team Providers Care Sausage Wrapper Name Role Phone Julianna Chong DO Primary Care Provider [phone] Encounter Details Date Type Department Care Team (Late st Contact Info) Description 02/11/2024 Abstract [facility] [address] [place] [phone] Jasbir Barber DO [address] [place] [address] Social History Tobacco Use Types Packs/Day Years [...] on filedocumented in this encounter Care Teams Sausage Wrapper Relationship Specialty Start Date End Date Julianna Chong DO [address] [place] [address] PCP - General Internal Medicine 01/11/24 documented as of this encounter
--- OUTSIDE RECORDS SUMMARY | 2024-08-12 08:42 | XMS_ITS | Encounter Summary ---
Author Organization [facility] Address [address] [place] [address] Care Team Providers Care Retail Inventory Control Clerk Name Role Phone Julianna Chong DO Primary Care Provider [phone] Encounter Details Date Type Department Care Team (Late st Contact Info) Description 01/04/2024 Abstract [facility] [address] [place] [phone] Jasbir Barber DO [address] [place] [address] Social History Tobacco Use Types Packs/Day Years Used Date Smoking Tobacco: Never Assessed Comments Unknown Sex and Gender Information Value Date Recorded Sex Assigned at Not on file Legal Sex Female 10:25 AM EDT Gender Identity Not on file Sexual Orientation Not on file documented as of this encounter Plan of Treatment Not on file documented as of this encounter Visit Diagnoses Not on filedocumented in this encounter Care Teams Retail Inventory Control Clerk Relationship Specialty Start Date End Date Julianna Chong DO [address] [place] [address] PCP - General Internal Medicine 01/11/24 documented as of this encounter
--- OUTSIDE RECORDS SUMMARY | 2024-08-12 08:42 | XMS_ITS | Encounter Summary ---
Author Organization [facility] Address [address] [facility] [place] [address] Care Team Providers Care Watch Assembler Name Role Phone Julianna Chong DO Primary Care Provider [phone] Encounter Details Date Type Department Care Team (Late st Contact Info) Description 03/18/2024 Abstract [facility] [address] [facility] [place] [address] Shey Alberts LPN Social History Tobacco Use Types Packs/Day Years [...] on filedocumented in this encounter Care Teams Watch Assembler Relationship Specialty Start Date End Date Julianna Chong DO [address] [place] [address] PCP - General Internal Medicine 01/11/24 documented as of this encounter
--- OUTSIDE RECORDS SUMMARY | 2024-08-12 08:43 | XMS_ITS | Clinical Summary ---
Author Organization [facility] Address [address] [place] [address] Care Team Providers Care Dock Operator Name Role Phone Julianna Chong DO Primary Care Provider Allergies No known active allergies Medications No known medications Active Problems Problem Noted Date Diagnosed Date Primary dysmenorrhea 12/20/2015 Comments Yes Resolved Problems Problem Noted Date Diagnosed Date Resolved Date Weight loss 01/07/2013 09/05/2018 Bradycardia 01/07/2013 09/05/2018 Elevated liver enzymes 01/07/201309/05 Immunizations Immunization Administration Dates Next Due DTaP vaccine 10/22/2002, 9,11/04/1997,08/19,04/22/1997 Hep B, ENGERIX-B, RECOMBIVAX -HB, (age - 19y), IM, 0.5mL 08/19/1997,04/22/1997,1996 Hib PRP-OMP, PEDVAXHIB, (age 2m-6y, Adlt Risk), IM, 0.5mL 09/22/1998,11/04/1997,08/19/1997 Hib vaccine 04/22/1997 Influenza Virus Vaccine 11/09/2019 Influenza, FLUARIX, FLULAVAL , FLUZONE (age 6 mo+) and AFLURIA, (age 3 y+), Quadv PF, 0.5mL 11/09/2019 MMR, PRIORIX, M-M-R II, (age 12m+), SC, 0.5mL 10/22/2002,09/22/1998 Meningococcal ACWY, MENACTRA (MenACWY-D), (age 9m-55y), IM, 0.5mL 11/13/2009 Polio OPV 09/22/1998 Polio Virus Vaccine 04/22/1997 Poliovirus, IPOL, (age 6w+), SC/IM, 0.5mL 10/22/2002,08/19/1997 TDaP, ADACEL (age 10y-64y), BOOSTRIX (age 10y+), IM, 0.5mL 08/08/2017,11/13/2009 Varicella, VARIVAX, (age 12m +), SC, 0.5mL 11/13/2009,09/22/1998 Family History Medical History Relation Name Comments Anxiety Disorder Father High Blood Pressure Mother Torie Diabetes Paternal Grandfather Star Heart Attack Paternal Grandfather Star Depression Sister Kiley Relation Name Status Comments Father Alive Mother Torie Alive Paternal Grandfather Star Cao Alive Social History Tobacco Use Types Packs/Day Years Used Date Smoking Tobacco: Never Smokeless Tobacco: Never Tobacco Cessation:Counseling Given: Not Answered Alcohol Use Standard Drinks/Week Comments Yes 3 (1 standard drink = 0.6 oz pure alcohol) I typically will have a white claw if I have a drink. Overall Financial Resource Strain (CARDIA) Answe r Date Recorded How hard is it for you to pa y for the very basics like food, housing, medical care, and heating? Not hard at all 04/02/2023 PHQ-2 Answer Date Recorded PHQ-9 Total Score 0 04/02/2023 Hunger Vital Sign Answer Date Recorded Within the past 12 months, y ou worried that your food would run out before you got the money to buy more. Never true 04/02/19 24 Within the past 12 months, t he food you bought just didn't last and you didn't have money to get more. Never true 04/02/2023 PRAPARE - Transportation Answer Date Re corded Lack of Transportation (Medical) Not on file 04/02/2023 In the past 12 months, has l ack of transportation kept you from meetings, work, or from getting things needed for daily living? No 04/02/2023 Housing Stability Vital Sign Answer Heladio e Recorded Unable to Pay for Housing in the Last Year Not o n file 04/02/2023 Number of Places Lived in the Last Year Not on f ile 04/02/2023 In the last 12 months, was t here a time when you did not have a steady place to sleep or slept in a fpc (including now)? No 04/02/2023 Food Insecurity Answer Date Recorded Within the past 12 months, y ou worried that your food would run out before you got the money to buy more. 1 04/02/2023 Within the past 12 months, t he food you bought just didn't last and you didn't have money to get more. 1 04/02/2023 Comments Yes Sex and Gender Information Value Date Recorded Sex Assigned at Not on file Legal Sex Female 9:13 AM EST Gender Identity Not on file Sexual Orientation Not on file Last Filed Vital Signs Vital Sign Reading Time Taken Comments Blood Pressure 118/62 02/29/2024 8:50 AM EST Pulse 76 02/29/2024 8:50 AM EST Temperature 37 C (98.6 F) 02/17/2022 4:18 PM EST Respiratory Rate 18 02/06/2019 7:09 PM EST Oxygen Saturation 98% 02/29/2024 8:50 AM EST Inhaled Oxygen Concentration - - Weight 65.3 kg (144 lb) 02/29/2024 8:50 AM EST Height 166.6 cm (5' 5.59 ) 04/02/2023 3:37 PM ES T Body Mass Index 23.53 04/02/2023 3:37 PM EST Plan of Treatment Health Maintenance Due Date Last Done Comments HIV screen 12/17/2011 Hepatitis C screen 2014 COVID-19 Vaccine ( season) 2023 12/08/2020, 11/17/2020 Depression Screen 04/02/2024 04/02/2023 Flu vaccine (Season Ended) 2024 11/09/2019, Pap smear 04/02/2026 04/02/2023, 09/05/2018 DTaP/Tdap/Td vaccine (8 - Td or Tdap) 08/09/2027 08/08/2017, 11/13/2009, 10/22/2002, Additional history exists Respiratory Syncytial Virus (RSV) or age 60 yrs+ (1 - 1-dose 75+ series) 12/17/2071 Hepatitis B vaccine Completed 08/19/1997, 04/22/1997, 1996 Hib vaccine Completed 09/22/1998, 10/17, 08/19/1997, Additional history exists Polio vaccine Completed 10/22/2002, 09/1998, 08/19/1997, Additional history exists Meningococcal (ACWY) vaccine Aged Out 11/13/2009 No longer eligible based on patient's age to complete this topic Varicella vaccine Completed 11/13/2009, 09/22/1998 HPV vaccine Aged Out No longer eligi ble based on patient's age to complete this topic Hepatitis A vaccine Aged Out No longe r eligible based on patient's age to complete this topic Meningococcal B vaccine Aged Out No l onger eligible based on patient's age to complete this topic Pneumococcal 0-49 years Vaccine Aged Out No longer eligible based on patient's age to complete this topic Procedures Procedure Name Priority Date/Time Associated Diagnosis Comments BUNK HOUSE WORKER CYTOLOGY Routine 04/02/2023 12:00 AM EST from Last 3 Months or Most Recently Relevant to Health Maintenance Results * BUNK HOUSE WORKER Cytology (04/02/2023 12:00 AM EST) Cytology Report Path Number: [id number] DIAGNOSIS Imaged ThinPrep Pap - Cervical (1 monolayer slide): Specimen Adequacy: Satisfactory for evaluation. -Endocervical/tra nsformation zone component is absent. Descriptive Diagnosis: Negative for intraepithelial lesion or malignancy. Cytotech Screener: EY Electronically Signed Out Jenni Godinez CT(ASCP) ey/04/18/2023 Source of Specimen: A: Imaged ThinPrep Pap - Cervical (1 monolayer slide) HPV Reflex?........... ...........HPV if Abnormal Clinical History Oral Contraceptives Z12.4 Encounter for screening for malignant neoplasm of cervix LMP: 03/14/2023 Processing Lab: [address] [place] [address] Interpretation performed at [facility] [address] [place] [address] This Pap Test has been evaluated with the assistance of the StockpulsePrep Pap Test Imaging System. The Pap smear is a screening test primarily for squamous epithelial lesions, which is subject to both false negative and false positive results. Your patient should be reminded to consult you immediately if she experiences any suspicious signs or symptoms, regardless of her Pap smear result. GYNECOLOGIC CYTOLOGY REPORT Patient Name: RANDALLSYEDA. [facility] Rec: [id number] [employer] [id number] [facility] ANATOMIC PATHOLOGY [address] [facility]. [place], [place] [id number] Funding Profiles CERVICAL MATERIAL 04/02/2023 024 9:58 AM EST Julianna Chong DO PATHOLOGY/CYTOLOGY ORDERABLE S Final Result Performing Organization Address City/State/[facility] Co de Phone Number [facility] [address] [place], [place] [address] [phone] [facility] [employer] from Last 3 Months or Most Recently Relevant to Health Maintenance Insurance [employer] Care Teams Dock Operator Relationship Specialty Start Date End Date Julianna Chong DO [address] [place] [address] PCP - General Family Medicine 12/20/15
--- OUTSIDE RECORDS SUMMARY | 2024-08-12 08:43 | XMS_ITS | Encounter Summary ---
Author Organization [facility] Address [address] [place] [address] Care Team Providers Care Warp Tying Machine Knotter Name Role Phone ParveenJulianna randolph Primary Care Provider [phone] Encounter Details Date Type Department Care Team (Late st Contact Info) Description 07/29/2024 Clinisync Result Encounter [facility] External Department Unsolicited Jasbir Barber DO [address] [place] [place], [place] [id number] Social History Tobacco Use Types Packs/Day Years [...] Procedure Name Priority Date/Time Associated Diagnosis Comments [facility] CBC WITH PLATELET NO DIFFERENTIAL Routine 07/29/2024 4:02 AM EDT AMNISURE Routine 07/29/2024 2:45 AM EDT [facility] URINE MICROSCOPIC ONLY Routine 07/29/2024 2:45 AM EDT TB UA (CLEAN/CATCH) PRINT GRAPHIC DESIGNER/MICRO IF IND. Routine 07/29/2024 2:45 AM EDT [facility] DRUG SCREEN RAPID (URINE) Routine 07/29/2024 2:45 AM EDT documented in this encounter Results * (ABNORMAL) [facility] CBC WITH PLATELET NO DIFFERENTIAL (07/29/2024 4:02 AM EDT) [facility] WBC 12.0(H) 4.0 - 11.0 10 3/uL [...] Narrative CLINISYNC - 07/29/2024 4:30 AM EDT Jasbir Elisabeth DO CLINISYNC Final Result [facility]IS[facility] * TB DRUG SCREEN RAPID (URINE) (07/29/2024 [...] Narrative CLINISYNC - 07/29/2024 4:02 AM EDT Jasbir Elisabeth DO CLINISYNC Final Result Performing Organization Address [facility] Co de Phone Number [facility]NC [facility] * (ABNORMAL) [facility] URINE MICROSCOPIC ONLY (07/29/2024 2:45 AM EDT) [facility] WBC 5-10(A) NONE SEEN #/HPF [facility] TBH [...] Narrative CLINISYNC - 07/29/2024 3:17 AM EDT Campus [employer] Elisabeth DO CLINISYNC Final Result Performing Organization Address [facility]/ZIP Co de Phone Number [facility] * (ABNORMAL) [facility] UA (CLEAN/CATCH) PRINT GRAPHIC DESIGNER/MICRO IF IND. (07/29/2024 2:45 AM EDT) COLOR [...] DO CLINISYNC Final Result Performing Organization Address City/[facility]/ZIP Co de Phone Number [facility] * (ABNORMAL) AMNISURE (07/29/2024 2:45 AM EDT) TB AMNISURE POSITIVE(A ) NEGATIVE [facility] 07/29/2024 2:45 AM EDT 07/29/2024 2:59 AM EDT Narrative CLINISYNC - 07/29/2024 3:00 AM EDT us Jasbir Elisabeth DO LAB BLOOD ORDERABLES Final Resul t Performing Organization Address City/[facility]/ZIP Co de Phone Number [facility] documented in this encounter Visit Diagnoses Not on filedocumented in this encounter Care Teams Warp Tying Machine Knotter Relationship Specialty Start Date End Date Julianna Chong DO [address] [place] [address] PCP - General Internal Medicine 01/11/24 documented as of this encounter
--- OUTSIDE RECORDS SUMMARY | 2024-08-12 08:43 | XMS_ITS | Encounter Summary ---
Author Organization [facility] Address [address] [place] [address] Care Team Providers Care Stationary Plant Operators Name Role Phone Julianna Chong DO Primary Care Provider [phone] Reason for Visit * Reason Comments Medication Refill Encounter Details Date Type Department Care Team (Late st Contact Info) Description 10/22/2019 Refill [facility] [address] [place] [address] Julianna Chong DO [address] [place] [address] Medication Refill Social History Tobacco [...] Dysmenorrhea documented in this encounter Care Teams Stationary Plant Operators Relationship Specialty Start Date End Date Julianna Chong DO [address] [place] [address] PCP - General Family Medicine 12/20/15 documented as of this encounter
== END 2024-08-12 13:30 | disposition home or self-care (01) ==
LOC: FBCO 08:38
PROVIDERS: PCP Student in an Organized Health Care Education/Training Program; Visit Provider Obstetrics & Gynecology
DX: Z39.1 Encounter for care and examination of lactating mother (principal)
CPT/HCPCS: G0463

== ENCOUNTER 2024-08-29 09:38 | Outpatient (OUT) | payer OTHER, SELFPAY ==
--- OUTSIDE RECORDS SUMMARY | 2024-08-29 09:42 | XMS_ITS | Encounter Summary ---
Author Organization [facility] Address [address] [place] [address] Care Team Providers Care Control Integration Engineer Name Role Phone Julianna Chong DO Primary Care Provider [phone] Encounter Details Date Type Department Care Team (Late st Contact Info) Description 02/08/2024 Abstract [facility] [address] [place] [phone] Jasbir Barber DO [address] [place] [address] Social History Tobacco Use Types Packs/Day Years [...] on filedocumented in this encounter Care Teams Control Integration Engineer Relationship Specialty Start Date End Date Julianna Chong DO [address] [place] [address] PCP - General Internal Medicine 01/11/24 documented as of this encounter
--- OUTSIDE RECORDS SUMMARY | 2024-08-29 09:42 | XMS_ITS | Encounter Summary ---
Author Organization [facility] Address [address] [place] [address] Care Team Providers Care Sheeting Puller Name Role Phone Julianna Chong DO Primary Care Provider [phone] Reason for Visit * Reason Comments Medication Refill Encounter Details Date Type Department Care Team (Late st Contact Info) Description 11/20/2018 Refill [facility] [address] [place] [address] Julianna Chong DO [address] [place] [address] Medication Refill Social History Tobacco [...] Dysmenorrhea documented in this encounter Care Teams Sheeting Puller Relationship Specialty Start Date End Date Julianna Chong DO [address] [place] [address] PCP - General Family Medicine 12/20/15 documented as of this encounter
--- OUTSIDE RECORDS SUMMARY | 2024-08-29 09:42 | XMS_ITS | Encounter Summary ---
Author Organization [facility] Address [address] [facility] [place] [address] Care Team Providers Care Industrial Economist Name Role Phone Julianna Chong DO Primary Care Provider [phone] Encounter Details Date Type Department Care Team (Late st Contact Info) Description 04/02/2024 Abstract [facility] [address] [place] [phone] Jasbir Barber DO [address] [place] [address] Social History Tobacco Use Types Packs/Day Years [...] on filedocumented in this encounter Care Teams Industrial Economist Relationship Specialty Start Date End Date Julianna Chong DO [address] [place] [phone] PCP - General Internal Medicine 01/11/24 documented as of this encounter
--- OUTSIDE RECORDS SUMMARY | 2024-08-29 09:42 | XMS_ITS | Encounter Summary ---
Author Organization [facility] Address [address] [facility] [place] [address] Care Team Providers Care Employee Relations Director Name Role Phone Julianna Chong DO Primary Care Provider [phone] Encounter Details Date Type Department Care Team (Late st Contact Info) Description 04/09/2024 Abstract [facility] [address] [place] [phone] Jasbir Barber DO [address] [place] [address] Social History Tobacco Use Types Packs/Day Years [...] on filedocumented in this encounter Care Teams Employee Relations Director Relationship Specialty Start Date End Date Julianna Chong DO [address] [place] [phone] PCP - General Internal Medicine 01/11/24 documented as of this encounter
--- OUTSIDE RECORDS SUMMARY | 2024-08-29 09:42 | XMS_ITS | Encounter Summary ---
Author Organization [facility] Address [address] [place] [address] Care Team Providers Care Fueler Name Role Phone Julianna Chong DO Primary Care Provider Encounter Details Date Type Department Care Team (Late st Contact Info) Description 03/13/2023 Orders Only [facility] [address] [place] [address] ProviderSameera MD Social History Tobacco Use Types Packs/Day Years [...] 8:12 AM EST) Anatomical Region Laterality Modality Head Computed Tomogra phy us Historical Provider MD [facility] CT ORDERABLES Final R esult documented in this encounter Visit Diagnoses Not on filedocumented in this encounter Care Teams Fueler Relationship Specialty Start Date End Date Julianna Chong DO [address] [place] [address] PCP - General Family Medicine 12/20/15 documented as of this encounter
--- OUTSIDE RECORDS SUMMARY | 2024-08-29 09:42 | XMS_ITS | Encounter Summary ---
Author Organization [facility] Address [address] [facility] [place] [address] Care Team Providers Care Mobile Lounge Driver Name Role Phone Julianna Chong DO Primary Care Provider [phone] Encounter Details Date Type Department Care Team (Late st Contact Info) Description 03/04/2024 Abstract [facility] [address] [place] [phone] Jasbir Barber DO [address] [place] [address] Social History Tobacco Use Types Packs/Day Years [...] on filedocumented in this encounter Care Teams Mobile Lounge Driver Relationship Specialty Start Date End Date Julianna Chong DO [address] [place] [phone] PCP - General Internal Medicine 01/11/24 documented as of this encounter
--- OUTSIDE RECORDS SUMMARY | 2024-08-29 09:42 | XMS_ITS | Encounter Summary ---
Author Organization [facility] Address [address] [place] [address] Care Team Providers Care Experimental Technician Name Role Phone Julianna Chong DO Primary Care Provider [phone] Reason for Visit * Reason Comments Medication Refill Encounter Details Date Type Department Care Team (Late st Contact Info) Description 10/22/2019 Refill [facility] [address] [place] [address] Julianna Chong DO [address] [place] [address] Medication Refill Social History Tobacco [...] Dysmenorrhea documented in this encounter Care Teams Experimental Technician Relationship Specialty Start Date End Date Julianna Chong DO [address] [place] [address] PCP - General Family Medicine 12/20/15 documented as of this encounter
--- OUTSIDE RECORDS SUMMARY | 2024-08-29 09:42 | XMS_ITS | Encounter Summary ---
Author Organization [facility] Address [address] [facility] [address] Care Team Providers Care Demonstrator Sales Name Role Phone Julianna Chong DO Primary Care Provider [phone] Encounter Details Date Type Department Care Team (Late st Contact Info) Description 02/11/2024 Abstract [facility] [address] [place] [phone] Jasbir Barber DO [address] [place] [address] Social History Tobacco Use Types Packs/Day Years [...] on filedocumented in this encounter Care Teams Demonstrator Sales Relationship Specialty Start Date End Date Julianna Chong DO [address] [place] [phone] PCP - General Internal Medicine 01/11/24 documented as of this encounter
--- OUTSIDE RECORDS SUMMARY | 2024-08-29 09:42 | XMS_ITS | Clinical Summary ---
Author Organization [facility] Address [address] [place] [address] Care Team Providers Care Lumber Kiln Operator Name Role Phone GabeJulianna velasquez Primary Care Provider [phone] Allergies No known active allergies Medications MV-Min-Fe Fum-FA-DHA ( 1 PO) Take by mouth Active Active Problems Problem Noted Date Diagnosed Date SGA (small for gestational age) ([facility]) 2024 Estimated Date of Delivery Comme nts Yes 08/22/2024 Based on Ultraso und Encounters Date Type Department Care Team Description 07/30/2024 Clinisync Result Encounter [facility] External Department Unsolicited Jasbir Barber, 07/29/2024 Clinisync Result Encounter [facility] External Department Unsolicited Jasbir Barber, 07/25/2024 Telephone [facility] [place] [address] Jasbir Barber DO 07/23/2024 2:00 PM EDT Routine [facility] [place] [phone] Jasbir Barber, Third trimester ([facility]); 35 weeks gestation of ([facility]) 07/23/2024 1:30 PM EDT Ancillary Procedure [facility] [place] [address] Small for dates affecting management of mother, unspecified trimester, fetus 1 ([facility]) 07/23/2024 Travel 07/09/2024 1:50 PM EDT Routine [facility] [address] [place] [address] Jasbir Barber DO Third trimester ([facility]); 33 weeks gestation of ([facility]) 07/09/2024 Bamboo flowsheet [facility] [address] [place] [address] Jasbir Barber DO 07/09/2024 Travel 06/25/2024 10:30 AM EDT Routine [facility] [address] [place] [address] Sheeba Villa PA Third trimester ([facility]); 31 weeks gestation of ([facility]) 06/25/2024 Bamboo flowsheet [facility] [address] [place] [address] Sheeba Villa PA 06/25/2024 Travel 06/11/2024 2:30 PM EDT Routine [facility] [address] [place] [address] Jasbir Barber DO Third trimester ([facility]); 29 weeks gestation of ([facility]) 06/11/2024 2:00 PM EDT Ancillary Procedure [facility] [address] [place] [address] size inconsistent with dates ([facility]) 06/11/2024 Travel 06/09/[address] [address] [place] [address] Jasbir Barber DO from Last 3 Months Family History Medical [...] WITH AUTO DIFF Routine 6:12 AM EDT HP CBC WITH PLATELET NO DIFFERENTIAL Routine 07/29/2024 4:02 AM EDT [facility] DRUG SCREEN RAPID (URINE) Routine 07/29/2024 2:45 AM EDT [facility] URINE MICROSCOPIC ONLY Routine 07/29/2024 2:45 AM EDT [facility] UA (CLEAN/CATCH) DIRECTOR STRATEGIC PLANNING/MICRO IF IND. Routine 07/29/2024 2:45 AM EDT AMNISURE Routine 07/29/2024 2:45 AM EDT POCT URINALYSIS DIPSTICK Routine 07/23/2024 2:44 PM EDT Third trimester ([facility]) 35 weeks gestation of ([facility]) US OB FOLLOW UP TRANSABDOMINAL APPROACH Routine 07/23/2024 1:59 PM EDT Small for dates affecting management of mother, unspecified trimester, fetus 1 ([facility]) POCT URINALYSIS DIPSTICK Routine 07/09/2024 2:13 PM EDT Third trimester ([facility]) POCT URINALYSIS DIPSTICK Routine 06/25/2024 10:46 AM EDT Third trimester ([facility]) 31 weeks gestation of ([facility]) POCT URINALYSIS DIPSTICK Routine 06/11/2024 2:44 PM EDT Third trimester ([facility]) 29 weeks gestation of ([facility]) US OB FOLLOW UP TRANSABDOMINAL APPROACH Routine 06/11/2024 2:22 PM EDT size inconsistent with dates ([facility]) from Last 3 Months Results * (ABNORMAL) [...] Narrative CLINISYNC - 07/30/2024 6:27 AM EDT [facility] CLINISYMA Final Result Performing Organization Address City/[facility]/ZIP Co de Phone Number [facility] * (ABNORMAL) HP CBC WITH PLATELET NO DIFFERENTIAL (07/29/2024 4:02 AM EDT) Pathologist [facility] WBC 12.0(H) 4.0 - 11.0 10 3/uL [...] Narrative CLINISYNC - 07/29/2024 4:30 AM EDT [facility] DO CLINISYMA Final Result [facility] * (ABNORMAL) AMNISURE (07/29/2024 2:45 AM EDT) Pathologist [facility] AMNISURE POSITIVE(A ) NEGATIVE [facility] 07/29/2024 2:45 AM EDT 07/29/2024 2:59 AM EDT Narrative CLINISYNC - 07/29/2024 3:00 AM EDT us Jasbir Elisabeth DO LAB BLOOD ORDERABLES Final Resul t CLINISYNC [facility] * (ABNORMAL) [facility] URINE MICROSCOPIC [...] CLINISYNC - 07/29/2024 3:17 AM EDT us Jasbirkyung Leeo DO CLINISYNC Final Result Performing Organization Address [facility]/State/ZIP Co de Phone Number CLINISYNC [facility] * (ABNORMAL) [facility] UA (CLEAN/CATCH) DIRECTOR STRATEGIC PLANNING/MICRO IF IND. (07/29/2024 2:45 AM EDT) COLOR [...] Narrative CLINISYNC - 07/29/2024 3:17 AM EDT [facility] Elisabeth DO CLINISYNC Final Result Performing Organization Address [facility] Co de Phone Number [facility] * TB DRUG SCREEN RAPID (URINE) (07/29/2024 [...] DO CLINISYNC Final Result Performing Organization Address [facility]/ZIP Co de Phone Number [facility] * POCT urinalysis dipstick manually resulted (07/23/2024 2:44 PM EDT) Only the most recent of4 resultswithin the time period is included. Color, UA Yellow Clarity, UA Clear Glucose, UA Negative Negative - 2000(110) ++++ mg/dL Bilirubin, UA Negative Negative - 4(70) +++ mg/dL Ketones, UA Negative Negative - 160(16) ++++ mg/dL Spec Grav, UA 1.020 1 - 1.03 Blood, UA Negative Negative - 50 Kalyan/mcL pH, UA 5.5 5 - 9 Protein, UA Negative Negative - 1999(20) ++++ mg/dL Urobilinogen, UA 1.0 0.2 - [...] gm / 5 lbs / 5 oz (5306-1852 gm) Hadlock Normal: 2751 gm (5648-2495 gm) [place] Wt%: 18% for 35.7 wks [...] 18% for 35.7 weeks. Dictated and transcribed 07/23/24/dplen Tillman from [facility] forwarded findings to provider. [...] gm / 5 lbs / 5 oz (4062-0564 gm) Hadlock Normal: 2751 gm (7204-8596 gm) [place] Wt%: 18% for 35.7 wks [...] 18% for 35.7 weeks. Dictated and transcribed 07/23/24/dplen Tillman from [facility] forwarded findings to provider. This report has been electronically signed and approved by theinterpreting radiologist. us Jasbir LEVIN OB US PROCEDURES Final Resul t from Last 3 Months Insurance [employer] Care Teams Lumber Kiln Operator Relationship Specialty Start Date End Date Julianna Chong DO [address] [place] [address] PCP - General Internal Medicine 01/11/24
--- OUTSIDE RECORDS SUMMARY | 2024-08-29 09:42 | XMS_ITS | Encounter Summary ---
Author Organization [facility] Address [address] [facility] [address] Care Team Providers Care Beef Grader Name Role Phone Julianna Chong DO Primary Care Provider [phone] Encounter Details Date Type Department Care Team (Late st Contact Info) Description 05/13/2024 Abstract [facility] [address] [place] [phone] Jasbir Barber DO [address] [place] [address] Social History Tobacco Use Types Packs/Day Years [...] on filedocumented in this encounter Care Teams Beef Grader Relationship Specialty Start Date End Date Julianna Chong DO [address] [place] [phone] PCP - General Internal Medicine 01/11/24 documented as of this encounter
--- OUTSIDE RECORDS SUMMARY | 2024-08-29 09:42 | XMS_ITS | Clinical Summary ---
Author Organization [facility] Address [address] [place] [address] Care Team Providers Care Federal Mediator Name Role Phone Julianna Chong DO Primary [...] place to sleep or slept in a custodial (including now)? No 04/02/2023 Food Insecurity Answer [...] Procedure Name Priority Date/Time Associated Diagnosis Comments ASSISTANT IN NURSING CYTOLOGY Routine 04/02/2023 12:00 AM EST from Last 3 Months or Most Recently Relevant to Health Maintenance Results * ASSISTANT IN NURSING Cytology (04/02/2023 12:00 AM EST) Cytology Report Path Number: [id number] DIAGNOSIS Imaged ThinPrep Pap - Cervical (1 [...] neoplasm of cervix LMP: 03/14/2023 Processing Lab: [address] [place] [address] Interpretation performed at [facility] [address] [place] [address] This Pap Test has been evaluated with the assistance of the EventSneaker[employer] Pap Test Imaging System. The Pap smear is a screening test primarily for squamous epithelial lesions, which is subject to both false negative and false positive results. Your patient should be reminded to consult you immediately if she experiences any suspicious signs or symptoms, regardless of her Pap smear result. GYNECOLOGIC CYTOLOGY REPORT Patient Name: RANDALLSYEDA. [facility] Rec: [id number] [employer] [facility] ANATOMIC PATHOLOGY [address] [facility]. [place], [place] [phone] [employer] CERVICAL MATERIAL 04/02/2023 024 9:58 AM EST Julianna Chong DO PATHOLOGY/CYTOLOGY ORDERABLE S Final Result Performing Organization Address City/State/[facility] Co de Phone Number [facility] [address] [place], [place] [address] [phone] [facility] [employer] from Last 3 Months or Most Recently Relevant to Health Maintenance Insurance [employer] Care Teams Federal Mediator Relationship Specialty Start Date End Date Julianna Chong DO [address] [place] [address] PCP - General Family Medicine 12/20/15
--- OUTSIDE RECORDS SUMMARY | 2024-08-29 09:42 | XMS_ITS | Encounter Summary ---
Author Organization [facility] Address [address] [place] [address] Care Team Providers Care Archivist Political History Name Role Phone Julianna Chong DO Primary Care Provider [phone] Reason for Visit * Reason Comments Medication Refill Encounter Details Date Type Department Care Team (Late st Contact Info) Description 03/13/2018 Refill [facility] [address] [place] [address] Julianna Chong DO [address] [place] [address] Medication Refill Social History Tobacco [...] Dysmenorrhea documented in this encounter Care Teams Archivist Political History Relationship Specialty Start Date End Date Julianna Chong DO [address] [place] [phone] PCP - General Family Medicine 12/20/15 documented as of this encounter
--- OUTSIDE RECORDS SUMMARY | 2024-08-29 09:42 | XMS_ITS | Encounter Summary ---
Author Organization [facility] Address [address] [facility] [place] [address] Care Team Providers Care Channel Machine Operator Name Role Phone Julianna Chong DO Primary Care Provider [phone] Encounter Details Date Type Department Care Team (Late st Contact Info) Description 03/18/2024 Abstract [facility] [address] [place] [address] Shey Alberts LPN Social History [...] on filedocumented in this encounter Care Teams Channel Machine Operator Relationship Specialty Start Date End Date Julianna Chong [place] [address] PCP - General Internal Medicine 01/11/24 documented as of this encounter
--- OUTSIDE RECORDS SUMMARY | 2024-08-29 09:42 | XMS_ITS | Encounter Summary ---
Author Organization [facility] Address [address] [place] [address] Care Team Providers Care Childhood Teacher Name Role Phone GabeJulianna velasquez Primary Care Provider [phone] Encounter Details Date Type Department Care Team (Late st Contact Info) Description 01/12/2024 Clinisync Result Encounter [facility] External Department Unsolicited Zuleyma Barber DO [address] [place] [address] Social History Tobacco Use Types [...] EDT Narrative 01/12/2024 4:24 AM EDT The [address] [address] Ultrasound Report Signed Patient: SYEDA CRISTINA MR#: [id number] : 1995 Acct:[id number] Age/Sex: 28 / F ADM Date: 01/11/24 Loc: [facility] Attending Dr: Zuleyma Barber D.O. Ordering Physician: Zuleyma Barber D.O. Date of Service: 01/11/24 Procedure(s): US OB transvaginal Accession Number(s): [id number] cc: Zuleyma Barber D.O.; Physician,Non-Staff [place]en [facility] [place] [id number] Patient Name: SYEDA CRISTINA MRN: [id number] date: 1995 Sex: F Assigned Patient Location: [facility] Current Patient Location: Accession/Order Number: [id number] Exam Date: 01/11/2024 09:32 Report Date: 01/12/2024 [...] M.D. Signed By: 01/12/24423 DD/ 1 TD/TT: Environmental Aid: Procedure Note Radiology, Radiologist, MD - 01/12/2024 [place] [address] Ultrasound Report Signed Patient: SHAHRAM CRISTINA#: [id number] : 1995Acct:[id number] Age/Sex: 28 / FADM Date: 01/11/24 Loc: [facility] Attending Dr: Zuleyma Barber D.O. Ordering Physician: Zuleyma Barber D.O. Date of Service: 01/11/24 Procedure(s): US OB transvaginal Accession Number(s): [id number] cc: Zuleyma Barber D.O.; Physician,Non-Staff [place] [id number] Patient Name: SYEDA CRISTINA MRN: [id number] date: 1995 Sex: F Assigned Patient Location: [facility] Current Patient Location: Accession/Order Number: [id number] Exam Date: 01/11/2024 09:32 Report Date: 01/12/2024 [...] Briones M.D. Signed By:01/12/24423 DD/ 1 TD/TT: Environmental Aid: us Zuleyma Barber DO [facility] IMAGING Final Result documented in this encounter Visit Diagnoses Not on filedocumented in this encounter Care Teams Childhood Teacher Relationship Specialty Start Date End Date Julianna Chong DO [address] [place] [address] PCP - General Internal Medicine 01/11/24 documented as of this encounter
--- OUTSIDE RECORDS SUMMARY | 2024-08-29 10:04 | XMS_ITS | CCD ---
Author Organization [facility] Care Team Providers Care Dicer Operator Name Role Phone Julianna Chavarria Primary Care Provider [phone] NONE, XXXX Primary Care Physician Unavailab le JULIANNA CHAVARRIA Primary Care Physician Hui Salazar Attending Unavailable Alfredo Dejesus Attending Unavailable JULIANNA CHAVARRIA Referring Unavailable YORYAN RAMOSICA Nicole Primary Care Unavailable JULIANNA CHAVARRIA [...] Medication Allergies] Propensity to adverse reactions (disorder) [facility] Repository Medications Current Medications Medication Drug Class(es) Dates Sig (Normalized) Sig (Original) amoxicillin 500 mg oral capsule (1 source) Penicillin-class Antibacterial Start: 05-21-2023 take 1 capsule by mouth every twelve hours amoxicillin 500 mg Cap 500 mg = 1 cap(s), Oral, q12hr, # 20 cap(s), Refills(s) 0, Pharmacy: [id number], 165.1, cm, 05/21/23 9:05:00 EST, Height/Length Dosing, [...] [35 weeks gestation of ] 07-23-2024 Episodic Short gestation; low weight; and growth retardation (2 sources) Nugld-wha-smkuj baby; Translations: [ small for gestational age, unspecified weight] Onset: 07-25-2024 07-25-2024 Episodic Superficial injury; contusion (1 source) Contusion [...] Test Name Value Interpretation Reference Range Facility ALL CBC WITH AUTO DIFFon BASOPHILS ABSOLUTE AUTO 0.1 [facility] Basophils/100 WBC (Bld) 0.4 % 0.2 - 2.0 % [facility] Eosinophils/100 WBC (Bld) 0.9 % 0.9 - 7.0 % [facility] Erythrocyte distribution width (RBC) [Ratio] 13 % 11.0 - 15.0 % [facility] Hematocrit (Bld) [Volume fraction] 36 % 36.0 - 48.0 % [facility] Hemoglobin (Bld) [Mass/Vol] 12 g/dL 12.0 - 16.0 g/dL [facility] IMMATURE GRANULOCYTES ABS AUTO 0.13 High [facility] Immature granulocytes/100 WBC (Bld) 1.1 % High 0.0 - 0.5 % [facility] Interpretation and review of laboratory results Abnormal [facility] LYMPHOCYTES ABSOLUTE AUTO 2 [facility] Lymphocytes/100 WBC (Bld) 17 % Low 20.5 - 60.0 % [facility] MCH (RBC) [Entitic mass] 32 pg 26.7 - 34.0 pg [facility] MCHC (RBC) [Mass/Vol] 33.3 g/dL 29.9 - 35.2 g/dL [facility] MCV (RBC) [Entitic vol] 96 fL 81.0 - 99.0 fL [facility] MONOCYTES ABSOLUTE AUTO 1 High [facility] Monocytes/100 WBC (Bld) 8.7 % 1.7 - 12.0 % [facility] NEUTROPHILS ABSOLUTE AUTO 8.5 High [facility] Neutrophils/100 WBC (Bld) 71.9 % 43.0 - 75.0 % [facility] Platelet mean volume (Bld) [Entitic vol] 9.6 fL 9.5 - 13.5 fL [facility] TB EO # 0.1 [facility] PLT 300 [facility] RBC 3.75 Low [facility] WBC 11.8 High [facility] AMNISUREon 07-29-2024 Interpretation and review of laboratory results Abnormal [facility] AMNISURE Positive Abnormal NEGATIVE [facility] US OB FOLLOW UP TRANSABDOMIN AL APPROACHon 07-23-2024 US OB FOLLOW UP TRANSABDOMINAL APPROACH TITLE OF [...] gm / 5 lbs / 5 oz (1463-0027 gm) [place] Normal: 2751 gm (3703-7075 gm) [place] Wt%: 18% for 35.7 wks [...] UA Negative Negative - 4(70) +++ mg/dL [facility] Blood, UA Negative Negative - 50 Kalyan/mcL [facility] Clarity, UA Clear [facility] Color, UA Yellow [facility] Glucose, UA Negative Negative - 2000(110) ++++ mg/dL [facility] Interpretation and review of laboratory results Normal [facility] Ketones, UA Negative Negative - 160(16) ++++ mg/dL [facility] Leukocytes, UA Negative Negative - 500+++ June/mcL [facility] Nitrite, UA Negative Negative - Positive [facility] pH, UA 5.5 5 - 9 [facility] Protein, UA Negative Negative - 2000(20) ++++ mg/dL [facility] Spec Grav, UA 1.02 1 - 1.03 [facility] Urobilinogen, UA 1.0 0.2 - 12 mg/dL [facility] Urinalysis macro (dipstick) panel (U)on 07-09-2024 Bilirubin, UA Negative Negative - 4(70) +++ mg/dL [facility] Blood, UA Positive Negative - 50 Kalyan/mcL [facility] Comment on above: Trace-intact Clarity, UA Clear [facility] Color, UA Yellow [facility] Glucose, UA Negative Negative - 2000(110) ++++ mg/dL [facility] Interpretation and review of laboratory results Normal [facility] Ketones, UA Negative Negative - 160(16) ++++ mg/dL [facility] Leukocytes, UA Positive Negative - 500+++ June/mcL [facility] Comment on above: small Nitrite, UA Negative Negative - Positive [facility] pH, UA 6.5 5 - 9 [facility] Protein, UA Negative Negative - 1999(20) ++++ mg/dL [facility] Spec Grav, UA 1.01 1 - 1.03 [facility] Urobilinogen, UA 0.2 0.2 - 12 mg/dL [facility] Urinalysis macro (dipstick) panel (U)on 06-25-2024 Bilirubin, UA Negative Negative - 4(70) +++ mg/dL [facility] Blood, UA Negative Negative - 50 Kalyan/mcL [facility] Clarity, UA Clear [facility] Color, UA Yellow [facility] Glucose, UA Negative Negative - 1999(110) ++++ mg/dL [facility] Interpretation and review of laboratory results Abnormal [facility] Ketones, UA Negative Negative - 160(16) ++++ mg/dL [facility] Leukocytes, UA Trace Negative - 500+++ June/mcL [facility] Nitrite, UA Negative Negative - Positive [facility] pH, UA 7 5 - 9 [facility] Protein, UA Negative Negative - 1999(20) ++++ mg/dL [facility] Spec Grav, UA 1.015 1 - 1.03 [facility] Urobilinogen, UA 1.0 0.2 - 12 mg/dL [facility] US OB FOLLOW UP TRANSABDOMIN AL APPROACHon [...] II, MD, PHD at 12-Jun-2024 11:16:45 PM [facility] [place] [facility] Normal Not Available Comment on above: Order Comment: US OB SCAN FOR GROWTH Estimated Date of Delivery: 08/22/24 Gestational Age as of 05/28/2024: 27w5d Urinalysis macro (dipstick) panel (U)on 06-11-2024 Bilirubin, UA Negative Negative - 4(70) +++ mg/dL [facility] Blood, UA Negative Negative - 50 Kalyan/mcL [facility] Clarity, UA Clear [facility] Color, UA Yellow [facility] Glucose, UA Negative Negative - 1999(110) ++++ mg/dL [facility] Interpretation and review of laboratory results Normal [facility] Ketones, UA Negative Negative - 160(16) ++++ mg/dL [facility] Leukocytes, UA Negative Negative - 500+++ June/mcL [facility] Nitrite, UA Negative Negative - Positive [facility] pH, UA 5.5 5 - 9 [facility] Protein, UA Negative Negative - 1999(20) ++++ mg/dL [facility] Spec Grav, UA 1.02 1 - 1.03 [facility] Urobilinogen, UA 1.0 0.2 - 12 mg/dL [facility] Urinalysis macro (dipstick) panel (U)on 05-28-2024 Bilirubin, UA Negative Negative - 4(70) +++ mg/dL [facility] Blood, UA Negative Negative - 50 Kalyan/mcL [facility] Clarity, UA Clear [facility] Color, UA Yellow [facility] Glucose, UA Negative Negative - 1999(110) ++++ mg/dL [facility] Interpretation and review of laboratory results Abnormal [facility] Ketones, UA Negative Negative - 160(16) ++++ mg/dL [facility] Leukocytes, UA Trace Negative - 500+++ June/mcL [facility] Nitrite, UA Negative Negative - Positive [facility] pH, UA 6.5 5 - 9 [facility] Protein, UA Negative Negative - 2000(20) ++++ mg/dL [facility] Spec Grav, UA 1.01 1 - 1.03 [facility] Urobilinogen, UA 0.2 0.2 - 12 mg/dL [facility] ALL CBC WITH AUTO DIFFon BASOPHILS ABSOLUTE AUTO 0.1 [facility] Basophils/100 WBC (Bld) 0.4 % 0.2 - 2.0 % [facility] Eosinophils/100 WBC (Bld) 0.6 % Low 0.9 - 7.0 % [facility] Erythrocyte distribution width (RBC) [Ratio] 12.6 % 11.0 - 15.0 % [facility] Hematocrit (Bld) [Volume fraction] 38.6 % 36.0 - 48.0 % [facility] Hemoglobin (Bld) [Mass/Vol] 13 g/dL 12.0 - 16.0 g/dL [facility] IMMATURE GRANULOCYTES ABS AUTO 0.09 High [facility] Immature granulocytes/100 WBC (Bld) 0.6 % High 0.0 - 0.5 % [facility] Interpretation and review of laboratory results Abnormal [facility] LYMPHOCYTES ABSOLUTE AUTO 2.1 [facility] Lymphocytes/100 WBC (Bld) 15.2 % Low 20.5 - 60.0 % [facility] MCH (RBC) [Entitic mass] 32.9 pg 26.7 - 34.0 pg [facility] MCHC (RBC) [Mass/Vol] 33.7 g/dL 29.9 - 35.2 g/dL [facility] MCV (RBC) [Entitic vol] 97.7 fL 81.0 - 99.0 fL [facility] MONOCYTES ABSOLUTE AUTO 0.5 [facility] Monocytes/100 WBC (Bld) 3.8 % 1.7 - 12.0 % [facility] NEUTROPHILS ABSOLUTE AUTO 11.2 High [facility] Neutrophils/100 WBC (Bld) 79.4 % High 43.0 - 75.0 % [facility] Platelet mean volume (Bld) [Entitic vol] 9.6 fL 9.5 - 13.5 fL [facility] TBH EO # 0.1 [facility] PLT 354 [facility] RBC 3.95 Low [facility] WBC 14.1 High [facility] Urinalysis macro (dipstick) panel (U)on 05-07-2024 Bilirubin, UA Negative Negative - 4(70) +++ mg/dL [facility] Blood, UA Positive Negative - 50 Kalyan/mcL [facility] Comment on above: trace Clarity, UA Clear [facility] Color, UA Yellow [facility] Glucose, UA Negative Negative - 1999(110) ++++ mg/dL [facility] Interpretation and review of laboratory results Abnormal [facility] Ketones, UA Negative Negative - 160(16) ++++ mg/dL [facility] Leukocytes, UA Negative Negative - 500+++ June/mcL [facility] Nitrite, UA Negative Negative - Positive [facility] pH, UA 7 5 - 9 [facility] Protein, UA Negative Negative - 1999(20) ++++ mg/dL [facility] Spec Grav, UA 1.015 1 - 1.03 [facility] Urobilinogen, UA 0.2 0.2 - 12 mg/dL [facility] AFP, SERUM, OPEN SPINA BIFID Aon 04-11-2024 AFP MOM 0.61 . [facility] AFP VALUE 42.8 ng/mL . [facility] COMMENT: Comment . [facility] Comment on above: Zara Treviño , Ph.D., [facility] Director References: Available Upon Request. Multiples Of Median Cutoffs For AFP Elevations Mendoza 2.5 Black 2.8 IDD 2.0 Twins 4.5 Abbreviation Definitions IDD - Insulin Dep Diabetes OSBR - Open Spina Bifida Risk For further inquiries contact [facility] at [phone]. This test was developed and its performance characteristics determined by [employer]. It has not been cleared or approved by the Food and Drug Administration. Performed at: [facility] [address], [place] [id number] Children'S Tutor: Alexy Guzman [facility], Phone: [phone] GEST. AGE ON COLLECTION DATE 21.7 . weeks [facility] GESTAT. AGE BASED ON Ultrasound . [facility] Comment on above: 16:5 on 03/04/2024 Recalculations are not recommended when gestational dating by LMP and ultrasound are within 10 days. INSULIN DEP DIABETES No . [facility] INTERPRETATION Comment . [facility] Comment on above: Interpretation: Scre en Negative [...] Customer Services to discuss available options. [employer] [place] [employer] recommends amniocentesis be offered to women age 35 and older. [age] [facility] MULTIPLE GESTATION No . [facility] [place] [id number] . [facility] RACE . [facility] RESULTS Report . [facility] TEST RESULTS: Negative . [facility] WEIGHT 148 . lbs [facility] N N ULTRASOUND [id number] 5 16 N 1 Y 148 N N N N N White/ [facility] US OB 14+ WEEKS ANATOMY SCAN on [...] RECURRENT VAGINITIS (HTRX)on 03-05-2024 ATOPOBIUM VAGINAE 0 [facility] ATOPOBIUM VAGINAE Not detected [facility] BVAB 2,3 (BACTERIAL VAGINOSIS ASSOCIATED BACTERIA 2, 3); MOBILUNCUS SPP 0 [facility] BVAB 2,3 (BACTERIAL VAGINOSIS ASSOCIATED BACTERIA 2, 3); MOBILUNCUS SPP Not detected [facility] TRISTA ALBICANS, PARAPSILOSIS, TROPICALIS 0 [facility] TRISTA ALBICANS, PARAPSILOSIS, TROPICALIS Not detected [facility] TRISTA GLABRATA 0 [facility] TRISTA GLABRATA Not detected [facility] TRISTA KRUSEI 0 [facility] TRISTA KRUSEI Not detected [facility] CHLAMYDIA TRACHOMATIS 0 [facility] CHLAMYDIA TRACHOMATIS Not detected [facility] GARDNERELLA VAGINALIS 0 [facility] GARDNERELLA VAGINALIS Not detected [facility] MEGASPHAERA (TYPES 1, 2) 0 [facility] MEGASPHAERA (TYPES 1, 2) Not detected [facility] MYCOPLASMA GENITALIUM 0 [facility] MYCOPLASMA GENITALIUM Not detected [facility] NEISSERIA GONORRHOEAE 0 [facility] NEISSERIA GONORRHOEAE Not detected [facility] TRICHOMONAS VAGINALIS 0 [facility] TRICHOMONAS VAGINALIS Not detected [facility] Urinalysis macro (dipstick) panel (U)on 03-04-2024 Bilirubin, UA Negative Negative - 4(70) +++ mg/dL [facility] Blood, UA Positive Negative - 50 Kalyan/mcL [facility] Comment on above: trace-intact Clarity, UA Clear [facility] Color, UA Yellow [facility] Glucose, UA Negative Negative - 2000(110) ++++ mg/dL [facility] Interpretation and review of laboratory results Abnormal [facility] Ketones, UA Negative Negative - 160(16) ++++ mg/dL [facility] Leukocytes, UA Negative Negative - 500+++ June/mcL [facility] Nitrite, UA Negative Negative - Positive [facility] pH, UA 6 5 - 9 [facility] Protein, UA Negative Negative - 1999(20) ++++ mg/dL [facility] Spec Grav, UA 1.02 1 - 1.03 [facility] Urobilinogen, UA 0.2 0.2 - 12 mg/dL [facility] BOX TESTon 02-04-2024 [facility] 02/04/24 [facility] Urinalysis macro (dipstick) panel (U)on 02-04-2024 Bilirubin, UA Negative Negative - 4(70) +++ mg/dL [facility] Blood, UA Negative Negative - 50 Kalyan/mcL [facility] Clarity, UA Clear [facility] Color, UA Yellow [facility] Glucose, UA Negative Negative - 1999(110) ++++ mg/dL [facility] Interpretation and review of laboratory results Normal [facility] Ketones, UA Negative Negative - 160(16) ++++ mg/dL [facility] Leukocytes, UA Negative Negative - 500+++ June/mcL [facility] Nitrite, UA Negative Negative - Positive [facility] pH, UA 7.5 5 - 9 [facility] Protein, UA Negative Negative - 1999(20) ++++ mg/dL [facility] Spec Grav, UA 1.015 1 - 1.03 [facility] Urobilinogen, UA 0.2 0.2 - 12 mg/dL [facility] ALL RUBELLA IGG ABon 024 RUBELLA ANTIBODIES, IGG 1.97 Immune >0.99 index [facility] Comment on above: Non-immune <0.90 Equivocal 0.90 - 0.99 Immune >0.99 Performed at: - [facility] [place] [address] Children'S Tutor: Isaias Moon PhD, Phone: [phone] HBSAG SCREENon 02-03-2024 HBSAG SCREEN Negative Negative [facility] Comment on above: Performed at: CB - [facility] [address] [id number] Children'S Tutor: Isaias Moon PhD, Phone: [phone] HCV ANTIBODY RFX TO QUANT PC Héctor 02-03-2024 HCV AB Non-Reactive Non Reactive [facility] INTERPRETATION: Comment . [facility] Comment on above: Not infected with HC V unless early or acute infection is suspected (which may be delayed in an immunocompromised individual), or other evidence exists to indicate HCV infection. HIV AB/P24 AG WITH REFLEXon 02-03-2024 HIV AB/P24 AG SCREEN Non-Reactive Non Reactive [facility] Comment on above: HIV-1/HIV-2 antibodi es and HIV-1 p24 antigen were NOT detected. There is no laboratory evidence of HIV infection. HIV Negative Performed at: [address] [id number] Children'S Tutor: Isaias Moon PhD, Phone: [phone] No Panel Informationon 02-02 [facility] RAPID PLASMA REAGIN, QUANTon 02-03-2024 RAPID PLASMA REAGIN, QUANT Non-Reactive NonRea<1:1 titer [facility] Comment on above: Please Note: This te st does not meet current guidelines for screening and diagnosis of syphilis. This test is intended for following treatment response in patients being treated for syphilis infection. To screen for syphilis infection, a reflex cascade that includes both RPR and a treponema-specific assay should be utilized, such as Treponema pallidum (Syphilis) Screening [place] (621067) or Rapid Plasma Reagin (RPR) Test With Reflex to Quantitative RPR and Confirmatory Treponema pallidum Antibodies ([id number]). Performed at: [address] [id number] Children'S Tutor: Isaias Moon PhD, Phone: [phone] ALL CBC WITH AUTO DIFFon BASOPHILS ABSOLUTE AUTO 0.1 [facility] Basophils/100 WBC (Bld) 0.4 % 0.2 - 2.0 % [facility] Eosinophils/100 WBC (Bld) 1.1 % 0.9 - 7.0 % [facility] Erythrocyte distribution width (RBC) [Ratio] 12.6 % 11.0 - 15.0 % [facility] Hematocrit (Bld) [Volume fraction] 40.8 % 36.0 - 48.0 % [facility] Hemoglobin (Bld) [Mass/Vol] 13.6 g/dL 12.0 - 16.0 g/dL [facility] IMMATURE GRANULOCYTES ABS AUTO 0.05 High [facility] Immature granulocytes/100 WBC (Bld) 0.4 % 0.0 - 0.5 % [facility] Interpretation and review of laboratory results Abnormal [facility] LYMPHOCYTES ABSOLUTE AUTO 2.4 [facility] Lymphocytes/100 WBC (Bld) 20.1 % Low 20.5 - 60.0 % [facility] MCH (RBC) [Entitic mass] 31.8 pg 26.7 - 34.0 pg [facility] MCHC (RBC) [Mass/Vol] 33.3 g/dL 29.9 - 35.2 g/dL [facility] MCV (RBC) [Entitic vol] 95.3 fL 81.0 - 99.0 fL [facility] MONOCYTES ABSOLUTE AUTO 0.5 [facility] Monocytes/100 WBC (Bld) 4.1 % 1.7 - 12.0 % [facility] NEUTROPHILS ABSOLUTE AUTO 8.8 High [facility] Neutrophils/100 WBC (Bld) 73.9 % 43.0 - 75.0 % [facility] Platelet mean volume (Bld) [Entitic vol] 10 fL 9.5 - 13.5 fL [facility] EO # 0.1 [facility] PLT 367 [facility] RBC 4.28 [facility] WBC 11.9 High [facility] ALL TYPE AND SCREENon 2023 ABO and Rh group Nom (Bld) Blood group A Rh(D) negative [facility] MLR HEMOGLOBIN A1Con 024 Glucose [Mass/Vol] 94 mg/dL [facility] HbA1c (Bld) [Mass fraction] 4.9 % 4.5 - 6.2 % [facility] Comment on above: ADA RECOMMENDED LIMI T 4.0 - 6.0 ADA THERAPEUTIC TARGET < 7.0 ACTION SUGGESTED > 7.0 [facility] No Panel Informationon 02-01 [facility] DRUG SCREEN RAPID (URINE )on 02-02-2024 AMPHETAMINE SCREEN URINE Negative NEGATIVE [facility] BARBITURATES SCREEN URINE Negative NEGATIVE [facility] BENZODIAZEPINES SCREEN URINE Negative NEGATIVE [facility] BUPRENORPHINE SCREEN URINE Negative NEGATIVE [facility] Comment on above: DRUG CLASS TEST SYST [...] 300 ng/mL CANNABINOID SCREEN URINE Negative NEGATIVE [facility] COCAINE SCREEN URINE Negative NEGATIVE [facility] METHADONE SCREEN URINE Negative NEGATIVE [facility] METHAMPHETAMINES SCREEN URINE Negative NEGATIVE [facility] OPIATE SCREEN URINE Negative NEGATIVE [facility] OXYCODONE SCREEN URINE Negative NEGATIVE [facility] PHENCYCLIDINE SCREEN URINE Negative NEGATIVE [facility] TRICYCLIC ANTIDEPRESSANT URINE Negative NEGATIVE [facility] HCG ( test) Ql (U)o n 01-11-2024 Interpretation and review of laboratory results Normal [facility] Preg Test, Ur Negative [facility] Urinalysis macro (dipstick) panel (U)on 01-11-2024 Bilirubin, UA Negative Negative - 4(70) +++ mg/dL [facility] Blood, UA Negative Negative - 50 Kalyan/mcL [facility] Clarity, UA Clear [facility] Color, UA Yellow [facility] Glucose, UA Negative Negative - 2000(110) ++++ mg/dL [facility] Interpretation and review of laboratory results Normal [facility] Ketones, UA Negative Negative - 160(16) ++++ mg/dL [facility] Leukocytes, UA Negative Negative - 500+++ June/mcL [facility] Nitrite, UA Negative Negative - Positive [facility] pH, UA 5.5 5 - 9 [facility] Protein, UA Negative Negative - 2000(20) ++++ mg/dL [facility] Spec Grav, UA 1.02 1 - 1.03 [facility] Urobilinogen, UA 1.0 0.2 - 12 mg/dL [facility] Pre-Visit Planningon 2 024 Pre-Visit Planning Pre-Visit Planning From: Leola LIRIANO CNP To: [facility]; Sent: 11/08/2023 08:24:20 EDT Subject: General Message: DiBcom Screening Caller Name: SYEDA PEREIRA; Caller Number: [...] ([phone]) Documented Labs printed Normal [facility] Basic Metabolic Panelon - Anion gap [Moles/Vol] 10 mmol/L 9 - 17 mmol/L [facility] Calcium [Mass/Vol] 9.4 mg/dL 8.6 - 10. 4 mg/dL [facility] Chloride [Moles/Vol] 100 mmol/L 98 - 10 7 mmol/L [facility] CO2 [Moles/Vol] 25 mmol/L 20 - 31 mmol/L [facility] Creatinine [Mass/Vol] 0.6 mg/dL 0.5 - 0.9 mg/dL [facility] Est, Glom Filt Rate - [facility] Comment on above: These results are not [...] [Mass/Vol] 81 mg/dL 70 - 99 mg/dL [facility] [employer] Potassium [Moles/Vol] 4.0 mmol/L 3.7 - 5.3 mmol/L [facility] Sodium [Moles/Vol] 135 mmol/L 135 - 144 mmol/L [facility] Urea nitrogen [Mass/Vol] 11 mg/dL 6 - 20 mg/dL [facility] Urea nitrogen/Creatinine [Mass ratio] 18 mg/mg 9 - 20 [facility] Basic Metabolic Profon 11-06 Anion gap [Moles/Vol] 10 mmol/L Normal -17 [facility] Comment on above: Performed By: #### C DP, BMP, TSHX #### [facility] [address] [place], [place] [id number] Children'S Tutor: Manfred Walker MD #### LIPR #### [address] [address] Children'S Tutor: Henrique Madera MD BUN/CRE Ratio 18 Normal - [facility] Comment on above: Performed By: #### C DP, BMP, TSHX #### [facility] [address] [place] [address] Children'S Tutor: Manfred Walker MD #### LIPR #### [address] [id number] Children'S Tutor: Henrique Madera MD Calcium [Mass/Vol] 9.4 mg/dL Normal 8.6-10.4 [facility] Comment on above: Performed By: #### C DP, BMP, TSHX #### [facility] [address] [place] [address] Children'S Tutor: Manfred Walker MD #### LIPR #### [address] [id number] Children'S Tutor: Henrique Madera MD Chloride [Moles/Vol] 100 mmol/L Normal 98-107 [facility] Comment on above: Performed By: #### C DP, BMP, TSHX #### [facility] [facility] [address] [place], [place] [id number] Children'S Tutor: Manfred Walker MD #### LIPR #### [address] [place], [place] [id number] Children'S Tutor: Henrique Madera MD CO2 [Moles/Vol] 25 mmol/L Normal 20-31 [facility] [place] Comment on above: Performed By: #### C DP, BMP, TSHX #### [facility] [address] [place], [place] [id number] Children'S Tutor: Manfred Walker MD #### LIPR #### [address] [id number] Children'S Tutor: Henrique Madera MD Creatinine [Mass/Vol] 0.6 mg/dL Normal 0.5-0.9 [facility] Comment on above: Performed By: #### C CHRISTIANA BMP, TSHX #### [facility] [address] [place] [address] Children'S Tutor: Manfred Walker MD #### LIPR #### [address] [id number] Children'S Tutor: Henrique Madera MD GFR/1.73 sq M.predicted among non-blacks MDRD (S/P/Bld) [Vol rate/Area] mL/min/{1.73_m2} Normal >60 [facility] Comment on above: Result Comment: These results [...] By: #### C DP, BMP, TSHX #### [facility] [address] [place] [address] Children'S Tutor: Manfred Walker MD #### LIPR #### [facility] [address] [place] [address] Children'S Tutor: Henrique Madera MD Glucose [Mass/Vol] 81 mg/dL Normal 70-99 [facility] Comment on above: Performed By: #### C DP, BMP, TSHX #### [facility] [address] [place] [address] Children'S Tutor: Manfred Wlaker MD #### LIPR #### [address] [address] Children'S Tutor: Henrique Madera MD Potassium [Moles/Vol] 4.0 mmol/L Normal 3.7-5.3 [facility] Comment on above: Performed By: #### C DP, BMP, TSHX #### [facility] [address] [place], [place] [id number] Children'S Tutor: Manfred Walker MD #### LIPR #### [address] [address] Children'S Tutor: Henrique Madera MD Sodium [Moles/Vol] 135 mmol/L Normal 135-144 [facility] Comment on above: Performed By: #### C DP, BMP, TSHX #### [facility] [address] [place] [address] Children'S Tutor: Manfred Walker MD #### LIPR #### [address] [address] Children'S Tutor: Henrique Madera MD Urea nitrogen [Mass/Vol] 11 mg/dL Normal 6-20 [facility] Comment on above: Performed By: #### C DP, BMP, TSHX #### [facility] [address] [place] [address] Children'S Tutor: Manfred Walker MD #### LIPR #### [address] [place] [address] Children'S Tutor: Henrique Madera MD CBC with Auto Differentialon 11-07-2023 Basophils (Bld) [#/Vol] 0.03 10*3/uL [facility] Basophils/100 WBC (Bld) 0 % 0 - 2 % [facility] Eosinophils (Bld) [#/Vol] 0.10 10*3/uL [facility] Eosinophils/100 WBC (Bld) 1 % 0 - 5 % [facility] Erythrocyte distribution width (RBC) [...] g/dL 31.0 - 37.0 g/dL [facility] MCV (RBC) [Entitic vol] 94.6 fL [...] [facility] WBC other (Bld) [#/Vol] 8.3 [facility] CBC with Diffon 11-07-2023 Abs. Basophil 0.03 k/uL Normal 0.00-0.20 [facility] [place] [facility] Comment on above: Performed By: #### C DP, BMP, TSHX #### [facility] [address] [place] [phone] ( Children'S Tutor: Manfred Walker MD #### LIPR #### [place] [id number] Children'S Tutor: Henrique Madera MD Abs.Imm.Granulocyte 0.01 k/uL Normal 0.00-0.30 [facility] Comment on above: Performed By: #### C DP, BMP, TSHX #### [facility] [address] [place] [id number] ( Children'S Tutor: Manfred Walker MD #### LIPR #### [place] [id number] Children'S Tutor: Henrique Madera MD Abs.Neutrophil (Seg) 7.15 k/uL High 2.5-7.0 [facility] Comment on above: Performed By: #### C DP, BMP, TSHX #### [facility] [address] [place] [id number] Children'S Tutor: Manfred Walker MD #### LIPR #### [place] [id number] Children'S Tutor: Henrique Madera MD Basophils/100 WBC (Bld) 0 % Normal 0-2 [facility] Comment on above: Performed By: #### C DP, BMP, TSHX #### [facility] [address] [place] [address] Children'S Tutor: Manfred Walker MD #### LIPR #### [address] [id number] Children'S Tutor: Henrique Madera MD Eosinophils (Bld) [#/Vol] 0.10 10*3/uL Normal 0.00-0.40 [facility] Comment on above: Performed By: #### C DP, BMP, TSHX #### [facility] [address] [place] [address] Children'S Tutor: Manfred Walker MD #### LIPR #### [place] [id number] Children'S Tutor: Henrique Madera MD Eosinophils/100 WBC (Bld) 1 % Normal 0-5 [facility] Comment on above: Performed By: #### C DP, BMP, TSHX #### [facility] [address] [place] [address] Children'S Tutor: Manfred Walker MD #### LIPR #### [place] [id number] Children'S Tutor: Henrique Madera MD Erythrocyte distribution width (RBC) [Ratio] 11.5 % Low 12.1-15.2 [facility] Comment on above: Performed By: #### C DP, BMP, TSHX #### [facility] [address] [place] [id number] Children'S Tutor: Manfred Walker MD #### LIPR #### [address] [id number] Children'S Tutor: Henrique Madera MD Hematocrit (Bld) [Volume fraction] 38.6 % Normal 36.0-46.0 [facility] Comment on above: Performed By: #### C DP, BMP, TSHX #### [facility] [address] [place], [place] [id number] Children'S Tutor: Manfred Walker MD #### LIPR #### [address] [place], [place] [phone] Children'S Tutor: Henrique Madera MD Hemoglobin (Bld) [Mass/Vol] 12.8 g/dL Normal 12.0-16.0 [facility] Comment on above: Performed By: #### C DP, BMP, TSHX #### [facility] [address] [place] [address] Children'S Tutor: Manfred Walker MD #### LIPR #### [address] [place], [place] [phone] Children'S Tutor: Henrique Madera MD Immature granulocytes/100 WBC (Bld) 0 % Normal 0-5 [facility] Comment on above: Performed By: #### C DP, BMP, TSHX #### [facility] [address] [place] [address] Children'S Tutor: Manfred Walker MD #### LIPR #### [address] [phone] Children'S Tutor: Henrique Madera MD Lymphocytes (Bld) [#/Vol] 0.65 10*3/uL Low 1.00-4.80 [facility] Comment on above: Performed By: #### C DP, BMP, TSHX #### [facility] [address] [place] [address] Children'S Tutor: Manfred Walker MD #### LIPR #### [address] [id number] Children'S Tutor: Henrique Madera MD Lymphocytes/100 WBC (Bld) 8 % Low 15-40 [facility] Comment on above: Performed By: #### C DP, BMP, TSHX #### [facility] [address] [place] [address] Children'S Tutor: Manfred Walker MD #### LIPR #### [facility] [address] [place] [address] Children'S Tutor: Henrique Madera MD MCH (RBC) [Entitic mass] 31.4 pg Normal 26.0-34.0 [facility] Comment on above: Performed By: #### C DP, BMP, TSHX #### [facility] [address] [place] [address] Children'S Tutor: Manfred Walker MD #### LIPR #### [address] [address] Children'S Tutor: Henrique Madera MD MCHC (RBC) [Mass/Vol] 33.2 g/dL Normal 31.0-37.0 [facility] Comment on above: Performed By: #### C DP, BMP, TSHX #### [facility] [address] [place] [address] Children'S Tutor: Manfred Walker MD #### LIPR #### [place] [id number] Children'S Tutor: Henrique Madera MD MCV (RBC) [Entitic vol] 94.6 fL Normal 80.0-100.0 [facility] Comment on above: Performed By: #### C DP, BMP, TSHX #### [facility] [address] [place] [address] Children'S Tutor: Manfred Walker MD #### LIPR #### [address] [address] Children'S Tutor: Henrique Madera MD Monocytes (Bld) [#/Vol] 0.36 10*3/uL Normal 0.00-1.00 [facility] Comment on above: Performed By: #### C DP, BMP, TSHX #### [facility] [address] [place], [place] [id number] Children'S Tutor: Manfred Walker MD #### LIPR #### [facility] [address] [place], [place] [phone] Children'S Tutor: Henrique Madera MD Monocytes/100 WBC (Bld) 4 % Normal 4-8 [facility] Comment on above: Performed By: #### C DP, BMP, TSHX #### [facility] [address] [place], [place] [phone] Children'S Tutor: Manfred Walker MD #### LIPR #### [address] [phone] Children'S Tutor: Henrique Madera MD Neutrophil (Seg) 87 % High 47-75 [facility] Comment on above: Performed By: #### C DP, BMP, TSHX #### [facility] [address] [place], [place] [phone] Children'S Tutor: Manfred Walker MD #### LIPR #### [address] [phone] Children'S Tutor: Henrique Madera MD Platelet mean volume (Bld) [Entitic vol] 9.5 fL Normal 6.0-12.0 [facility] Comment on above: Performed By: #### C DP, BMP, TSHX #### [facility] [address] [place], [place] [id number] Children'S Tutor: Manfred Walker MD #### LIPR #### [address] [id number] Children'S Tutor: Henrique Madera MD Platelets (Bld) [#/Vol] 298 10*3/uL Normal 140-450 [facility] Comment on above: Performed By: #### C DP, BMP, TSHX #### [facility] [address] [place] [address] Children'S Tutor: Manfred Walker MD #### LIPR #### [address] [place], [place] [id number] Children'S Tutor: Henrique Madera MD RBC (Bld) [#/Vol] 4.08 10*6/uL Normal 4.00-5.20 [facility] Comment on above: Performed By: #### C DP, BMP, TSHX #### [facility] [address] [place] [address] Children'S Tutor: Manfred Walker MD #### LIPR #### [address] [id number] Children'S Tutor: Henrique Madera MD WBC (Bld) [#/Vol] 8.3 10*3/uL Normal 3.5-11.0 [facility] Comment on above: Performed By: #### C DP, BMP, TSHX #### [facility] [address] [place] [address] Children'S Tutor: Manfred Walker MD #### LIPR #### [address] [id number] Children'S Tutor: Henrique Madera MD HCG, Quanton 11-07-2023 HCG, Quant 2.9 mIU/mL Normal <5 [facility] Comment on above: Result Comment: Non-preg premeno <=5 Postmeno <=8 Male <=3 If HCG results do not concur with clinical observations, additional testing to confirm results is recommended. Performed By: #### B HCG #### [facility] [address] [place] [address] Children'S Tutor: Manfred Walker MD Lipid Panelon 11-07-2023 Cholesterol [...] Cholesterol [Mass/Vol] 144 mg/dL Normal 0-199 [facility] Comment on above: Result Comment: Cholesterol Guidelines: <200 Desirable 200-240 Borderline >240 Undesirable Performed By: #### C DP, BMP, TSHX #### [facility] [address] [place] [address] Children'S Tutor: Manfred Walker MD #### LIPR #### [facility] [place], [place] 0445[address] Children'S Tutor: Henrique Madera MD Cholesterol in HDL [Mass/Vol] 68 mg/dL Normal >40 [facility] Comment on above: Result Comment: HDL Guidelines: <40 Undesirable 40-59 Borderline >59 Desirable Performed By: #### C DP, BMP, TSHX #### [facility] [address] [place] [address] Children'S Tutor: Manfred Walker MD #### LIPR #### [facility] [address] [place], [place] [phone] Children'S Tutor: Henrique Madera MD Cholesterol in LDL [Mass/Vol] 68 mg/dL Normal 0-100 [facility] Comment on above: Result Comment: LDL Guidelines: <100 Desirable 100-129 Near to/above Desirable 130-159 Borderline >159 Undesirable Direct (measured) LDL and calculated LDL are not interchangeable tests. Performed By: #### C CHRISTIANA BMP, TSHX #### [facility] [address] [place], [place] [phone] Children'S Tutor: Manfred Walker MD #### LIPR #### [facility] [address] [place], [place] [id number] Children'S Tutor: Henrique Madera MD Cholesterol in VLDL [Mass/Vol] 8 mg/dL Normal [facility] Comment on above: Performed By: #### C JONAS VILLEDA, TSHX #### [facility] [address] [place], [place] [id number] Children'S Tutor: Manfred Walker MD #### LIPR #### [facility] [address] [place], [place] [id number] Children'S Tutor: Henrique Madera MD Cholesterol.total/Ch olesterol in HDL [Mass ratio] 2.0 {ratio} Normal [facility] Comment on above: Performed By: #### C JONAS VILLEDA, TSHX #### [facility] [address] [place], [place] [id number] Children'S Tutor: Manfred Walker MD #### LIPR #### [facility] [address] [place], [place] [id number] Children'S Tutor: Henrique Madera MD Triglyceride [Mass/Vol] 42 mg/dL Normal <150 [facility] Comment on above: Result Comment: Triglyceride Guidelines: <150 Desirable 150-199 Borderline 200-499 High >499 Very high Based on AHA Guidelines for fasting triglyceride, December 2011. Performed By: #### C JONAS VILLEDA, TSHX #### [facility] [address] [place] [address] Children'S Tutor: Manfred Walker MD #### LIPR #### [facility] [address] [place], [place] [id number] Children'S Tutor: eHnrique Madera MD No Panel Informationon 11-06 [facility] TSH w/reflex to FT4on 2023 Thyroid Stim. Horm. 0.57 uIU/mL Normal 0.30-5.00 [facility] Comment on above: Performed By: #### C DP, BMP, TSHX #### [facility] [address] [place] [address] Children'S Tutor: Manfred Walker MD #### LIPR #### [facility] [address] [place] [address] Children'S Tutor: Henrique Madera MD TSH with Reflexon 11-07-2023 TSH Qn 0.57 m[IU]/L [facility] hCG, Quantitative, on 11-07-2023 HCG.beta subunit Qn 2.9 m[IU]/mL [facility] Comment on above: Non-preg premeno <=5 Postmeno <=8 Male <=3 If HCG results do not concur with clinical observations, additional testing to confirm results is recommended. [facility] Glu Fastingon 11-05-2023 Glucose [Mass/Vol] 74 mg/dL Normal 55-99 [facility] Comment on above: Performed By: #### 2 [id number] #### [facility] [address] [place] [address] Lipid Panelon 11-05-2023 Cholesterol [Mass/Vol] 127 mg/dL Normal 120-200 [facility] Comment on above: Performed By: #### 2 [id number] #### [facility] [address] [place] [address] Cholesterol in HDL [Mass/Vol] 59 mg/dL Invalid Interpretation Code [facility] Comment on above: Result Comment: '>= 60 LOW RISK' '<= 40 HIGH RISK' Performed By: #### 2 [id number] #### [facility] [address] [place] [address] Cholesterol in LDL [Mass/Vol] 63 mg/dL Normal <=129 [facility] Comment on above: Performed By: #### 2 [id number] #### [facility] [address] [place] [address] Cholesterol in VLDL [Mass/Vol] 8 mg/dL Normal 7-40 [facility] Comment on above: Performed By: #### 2 [id number] #### [facility] [address] [place] [address] Triglyceride [Mass/Vol] 41 mg/dL Normal <=149 [facility] Comment on above: Performed By: #### 2 [id number] #### [facility] [address] [place] [address] Ambulatory Visit Summaryon 0 05-21-2023 Ambulatory Visit [...] hours Strep throat Pickup at [id number] Unchanged norgestrel Contact prescribing physician if questions or concerns Pharmacy Information [id number]: [address] [place] [id number] [phone] Medications and Immunizations Administered Not Given influenza [...] for choosing us for your care. Normal [facility] Family Medicine Office/Clini c Noteon 05-21-2023 [...] # 20 cap(s), Refills(s) 0, Pharmacy: [facility] #[id number], 165.1, cm, 05/21/23 9:05:00 EST, Height/Length Dosing, 64, kg, 05/21/23 9:05:00 EST, Weight Dosing 2. Sore throat (J02.9: Acute pharyngitis, unspecified) Ordered: Rapid Strep POC 22507 Total time spent TODAY preparing the chart, [...] 04/22/1996 [place] (more content not included)... Normal [facility] Comment on above: Result Comment: Elec tronically Signed By: Alfredo Dejesus DO\.br\Date and Time Signed: 05/21/23 09:36 EST Provider Letteron 05-21-2023 Provider Letter May 21, 2023 SYEDA PEREIRA [address] [place] [address] : 1995 To Whom It May Concern, Please excuse above patient from work. Date of Illness: From: 05/21/2023 To: 05/22/2023 May Return to Work On: 05/23/2023 Sincerely, [facility] [address] [place] [address], [place] [address] [facility] Cytology Reporton 04-02-2023 Cytology report Cyto stain.thin prep Doc (Cvx/Vag) (NOTE) Path Number: [id number] DIAGNOSIS Imaged ThinPrep Pap - Cervical (1 monolayer slide): Specimen Adequacy: Satisfactory for evaluation. -Endocervical/transfo rmation zone component is absent. Descriptive Diagnosis: Negative for intraepithelial lesion or malignancy. Cytotech Screener: EY Electronically Signed Out Jenni FERNANDEZ(ASCP) ey/04/18/2023 Source of Specimen: A: Imaged ThinPrep Pap - Cervical (1 monolayer slide) HPV Reflex?.............. ........HPV if Abnormal Clinical History Oral Contraceptives Z12.4 Encounter for screening for malignant neoplasm of cervix LMP: 03/14/2023 Processing Lab: [address] [address] Interpretation performed at [address] [phone] This Pap Test has been evaluated with the assistance of the [employer] Pap Test Imaging System. The Pap smear is a screening test primarily for squamous epithelial lesions, which is subject to both false negative and false positive results. Your patient should be reminded to consult you immediately if she experiences any suspicious signs or symptoms, regardless of her Pap smear result. GYNECOLOGIC CYTOLOGY REPORT Patient Name: SYEDA PEREIRA [facility] Rec: [id number] [facility] ANATOMIC PATHOLOGY [address] [place] [address]. [place], [place] [address] [facility] [address] Maxillofacial w/o Contras ton 03-12-2023 CT [...] MD Transcribed by: CHRISTIANA Technologist: SHIRLEY Marinelli [facility] Consent for Treatmenton 02-17 Consent for Treatment [id number] Normal [facility] Discharge Instructionson Discharge Instructions [id number] Normal [facility] ED Clinical Summaryon 2022 ED Clinical Summary [place] [id number] ED Clinical Summary Person Information Name: SYEDA PEREIRA/[facility] Age: 27 Years : 1995 Sex: Female Language: Micronesian PCP: JULIANNA CHAVARRIA DO Marital Status: Visit [...] 03/12/2023 13:28:35 03/12/2023 13:28:35 03/12/2023 13:28:35 ADDRESS: [address] [place] [id number] [facility] NOTES: MEDICAL INFORMATION: Prescriptions Given: Medications to Continue with No Changes Other Medications norgestrel PATIENT EDUCATION INFORMATION: Instructions: Contusion, Ozmy-fg-Nsgn Follow up: With: Address: When: J[place] [address] In 3 days 03/15/2023 DIAGNOSIS: 1:Nasal contusion Normal [facility] ED Note-Physicianon 03-12-20 ED Note-Physician Basic Information [...] days 03/15/[address] EST [address] [place] [address]- Additional Instructions: Patient Education Contusion, Lfeo-tv-Lwep Attestation This visit was performed by both [...] Bourne Signed By: Floyd JULIEN, Jeff Marinelli [facility] Comment on above: Result Comment: Elec [...] or lying down. General instructions ? Take ebuo-tiv-xmfdovn and prescription medicines only as told by [...] also called RICE. You may be given ggpa-ani-hqdmzxo medicines for pain. ? Contact a doctor [...] Reviewed: 12/29/2021 Elsevier Patient Education ? 2022 [employer] Normal [facility] ED Patient Summaryon 023 ED Patient Summary [place] [address] Patient Discharge Instructions Person Information Name: SYEDA PEREIRA Age: 27 Years Arrival Date: 03/12/2023 11:08:26 Discharge Diagnosis: 1:Nasal contusion Primary Care Physician: JULIANNA CHAVARRIA DO Provider Information Primary Provider: Hui Salazar M.D. Advanced Salon Supervisor:None The exam and treatment you received in the Emergency Department were for an urgent problem and are not intended as complete care. It is important that you follow up with a doctor, nurse practitioner, or physician?s assistant vice president for ongoing care. If your symptoms become [...] Instructions: With: Address: When: JULIANNA CHAVARRIA DO [address] [place] [address] In 3 days 03/15/2023 In the event that this physician does not participate in your insurance network, please consult with your insurance company to find a nearby participating provider. Patient Education Materials: Contusion, Xqea-ee-Vuyk A MESSAGE TO ALL PATIENTS REGARDING OPIOIDS PRESCRIPTION OPIOIDS: WHAT YOU NEED TO KNOW Prescription opioids can be used to help relieve lkmvywrv-ea-dyflvy pain and are often prescribed following a [...] be struggling with addiction, tell your health eye care professional and ask for guidance or call [facility]S National Helpline at 9-025-828-EMDZ. v Source: [place] Department of Health and (more content not included)... Normal [facility] Otheron 02-07-2019 Normal pelvic ultrasound. [place], [place] EXAM: US PELVIS COMPLETE, US NON [...] normal at 2 mm. No free fluid. [place], [place] Michael, Mhpn Incoming Radiant Results From [employer] - 02/07/2019 7:08 PM EST EXAM: US [...] No free fluid. IMPRESSION: Normal pelvic ultrasound. [place], [place] CBC Auto Differentialon 01-18 Basophils (Bld) [#/Vol] 0.00 10*3/uL [place] Basophils/100 WBC (Bld) 0 % 0 - 2 % [place] Differential Type YES [place] Eosinophils (Bld) [#/Vol] 0.10 10*3/uL [place] Eosinophils/100 WBC (Bld) 1 % 0 - 5 % [place] Erythrocyte distribution width (RBC) [Ratio] 12.4 % 12.1 - 15.2 % [place] Hematocrit (Bld) [Volume fraction] 44.2 % 36 - 46 % [place] Hemoglobin (Bld) [Mass/Vol] 14.8 g/dL 12 - 16 g/dL [place] Lymphocytes (Bld) [#/Vol] 3.30 10*3/uL [place] Lymphocytes/100 WBC (Bld) 33 % 15 - 40 % [place] MCH (RBC) [Entitic mass] 30.6 pg 26 - 34 pg [place] MCHC (RBC) [Mass/Vol] 33.5 g/dL 31 - 37 g/dL [place] MCV (RBC) [Entitic vol] 91.4 fL 80 - 100 fL [place] Monocytes (Bld) [#/Vol] 0.40 10*3/uL [place] Monocytes/100 WBC (Bld) 4 % 4 - 8 % [place] Platelet mean volume (Bld) [Entitic vol] NOT REPORTED 6 - 12 fL [place] Platelets (Bld) [#/Vol] NOT REPORTED [place] Platelets (Bld) [#/Vol] 434 10*3/uL [place] RBC (Bld) [#/Vol] 4.84 10*6/uL 4 - 5.2 m/uL [place] RBC morphology finding Nom (Bld) NOT REPORTED [place] Segmented neutrophils/100 WBC (Bld) 62 % 47 - 75 % [place] Segs Absolute 6.30 [place] WBC (Bld) [#/Vol] NOT REPORTED per 100 WBC [place] WBC (Bld) [#/Vol] 10.2 10*3/uL [place] WBC Morphology NOT REPORTED [place] Comprehensive Metabolic Pane vania 02-06-2019 Albumin [Mass/Vol] 5.1 g/dL 3.5 - 5.2 g/dL [place] Albumin/Globulin [Mass ratio] NOT REPORTED [place] ALP [Catalytic activity/Vol] 59 U/L 35 - 104 U/L [place] ALT [Catalytic activity/Vol] 29 U/L 5 - 33 U/L [place] Anion gap [Moles/Vol] 12 mmol/L 9 - 17 mmol/L [place] AST [Catalytic activity/Vol] 22 U/L <32 [place] Bilirubin Ql (U) 0.22 mg/dL Low 0.3 - 1.2 mg/dL [place] Bun/Cre Ratio 14 [place] Calcium [Mass/Vol] 10.4 mg/dL 8.6 - 10. 4 mg/dL [place] Chloride [Moles/Vol] 100 mmol/L 98 - 10 7 mmol/L [place] CO2 [Moles/Vol] 26 mmol/L 20 - 31 mmol/L [place] Creatinine [Mass/Vol] 0.86 mg/dL 0.5 - 0.9 mg/dL [place] GFR >60 >60 mL/min [place] GFR Non- >60 >60 mL/min [place] GFR/1.73 sq M predicted among non-blacks MDRD (S/P/Bld) [Vol rate/Area] [place] Comment on above: Average GFR for 20-2 9 years old: 116 mL/min/1.73sq m Chronic Kidney Disease: <60 mL/min/1.73sq m Kidney failure: <15 mL/min/1.73sq m eGFR calculated using average adult body mass. Additional eGFR calculator available at: http://www.[employer].Basys/multiple_crcl_2012.htm GFR/1.73 sq M predicted among non-blacks MDRD (S/P/Bld) [Vol rate/Area] NOT REPORTED [place] Glucose [Mass/Vol] 92 mg/dL 70 - 99 mg/dL [place] Interpretation and review of laboratory results Abnormal [place] Potassium [Moles/Vol] 3.9 mmol/L 3.7 - 5.3 mmol/L [place] Protein [Mass/Vol] 8.7 g/dL High 6.4 - 8.3 g/dL [place] Sodium [Moles/Vol] 138 mmol/L 135 - 144 mmol/L [place] Urea nitrogen [Mass/Vol] 12 mg/dL 6 - 20 mg/dL [place] Lipaseon 02-06-2019 Lipase [Catalytic activity/Vol] 28 U/L 13 - 60 U/L [place] Otheron 02-06-2019 Immature granulocytes (Bld) [#/Vol] NOT REPORTED [place] , Urineon 9 Beta HCG ( test) Ql (U) Negative NEGATIVE [place] Urinalysis with Microscopico n 02-06-2019 Amorphous, UA NOT REPORTED None [place] Bacteria, UA NOT REPORTED None [place] Bilirubin Urine Negative NEGATIVE [place] Casts UA NOT REPORTED /LPF [place] Color, UA YELLOW YELLOW [place] Crystals UA NOT REPORTED None /HPF [place] Epithelial Cells UA 2 TO 5 /HPF [place] Glucose, Ur Negative NEGATIVE [place] Interpretation and review of laboratory results Abnormal [place] Ketones Ql (U) Negative NEGATIVE [place] Leukocyte esterase Test strip Ql (U) Negative NEGATIVE [place] Mucus, UA RARE Abnormal None [place] Nitrite, Urine Negative NEGATIVE [place] Other Observations UA NOT REPORTED NOT REQ. [place] pH, UA 7.0 [place] Protein (U) [Mass/Vol] 1+ Abnormal NEGATIVE [place] RBC (U) [#/Vol] 0 TO 2 [place] Renal Epithelial, Urine NOT REPORTED 0 /HPF [place] Specific [place], UA 1.010 [place], [place] Trichomonas, UA NOT REPORTED None [place], [place] Turbidity UA CLEAR CLEAR [place] Urinalysis Comments [place] Urine Hgb 1+ Abnormal NEGATIVE [facility] [place], [place] Urobilinogen, Urine Normal Normal [facility], [place] WBC, UA NOT REPORTED 0 /HPF [facility], [place] Yeast, UA NOT REPORTED None [facility], [place] - [facility] [place], [place] Progress Noteon 08-08-2017 HIM IP Note OR Remote Sensing Advisor Normal [facility] Vital Signs Date Time Vital Sign Value Performing Clinician Facility 07-23-2024 14:41-0400 Body weight 76.71 kg Jasbir Elisabeth DO Work Phone: [facility] 07-23-2024 14:41-0400 Diastolic blood pressure 72 mm[Hg] Jasbir Elisabeth DO Work Phone: [facility] 07-23-2024 14:41-0400 Systolic blood pressure 106 mm[Hg] Jasbir Elisabeth DO Work Phone: [facility] 07-09-2024 14:08-0400 Body weight 76.77 kg Jasbir Elisabeth DO Work Phone: [facility] 07-09-2024 14:08-0400 Diastolic blood pressure 80 mm[Hg] Jasbir Elisabeth DO Work Phone: [facility] 07-09-2024 14:08-0400 Systolic blood pressure 116 mm[Hg] Jasbir Elisabeth DO Work Phone: [facility] 06-25-2024 10:41-0400 Body weight 76.3 kg Sheeba HASSAN Work Phone: [facility] 06-25-2024 10:41-0400 Diastolic blood pressure 74 mm[Hg] Sheeba HASSAN Work Phone: [facility] 06-25-2024 10:41-0400 Systolic blood pressure 108 mm[Hg] Sheeba HASSAN Work Phone: [facility] 06-11-2024 14:36-0400 Body weight 75.48 kg Jasbir Elisabeth DO Work Phone: [facility] 06-11-2024 14:36-0400 Diastolic blood pressure 72 mm[Hg] Jasbir Elisabeth DO Work Phone: [facility] 06-11-2024 14:36-0400 Systolic blood pressure 112 mm[Hg] Jasbir Elisabeth DO Work Phone: [facility] 05-28-2024 15:51-0400 Body weight 75.3 kg Sheeba Daisy PA Work Phone: [facility] 05-28-2024 15:51-0400 Diastolic blood pressure 72 mm[Hg] Sheeba Elmwood PA Work Phone: [facility] 05-28-2024 15:51-0400 Systolic blood pressure 118 mm[Hg] Sheeba Daisy PA Work Phone: [facility] 05-07-2024 14:56-0500 Body weight 73.48 kg Sheeba Elmwood PA Work Phone: [facility] 05-07-2024 14:56-0500 Diastolic blood pressure 64 mm[Hg] Sheeba Daisy PA Work Phone: [facility] 05-07-2024 14:56-0500 Systolic blood pressure 118 mm[Hg] Sheeba Daisy PA Work Phone: [facility] 04-08-2024 14:50-0500 Body weight 70.76 kg Jasbir Elisabeth DO Work Phone: [facility] 04-08-2024 14:50-0500 Diastolic blood pressure 76 mm[Hg] Jasbir Elisabeth DO Work Phone: [facility] 04-08-2024 14:50-0500 Systolic blood pressure 112 mm[Hg] Jasbir Elisabeth DO Work Phone: [facility] 03-04-2024 14:52-0500 Body weight 67.04 kg Sheeba Daisy PA Work Phone: [facility] 03-04-2024 14:52-0500 Diastolic blood pressure 60 mm[Hg] Sheeba Daisy PA Work Phone: [facility] 03-04-2024 14:52-0500 Systolic blood pressure 110 mm[Hg] Sheeba Daisy PA Work Phone: [facility] 02-04-2024 15:07-0500 Body weight 65.32 kg Jasbir Elisabeth DO Work Phone: [facility] 02-04-2024 15:07-0500 Diastolic blood pressure 68 mm[Hg] Jasbir Elisabeth DO Work Phone: [facility] 02-04-2024 15:07-0500 Systolic blood pressure 102 mm[Hg] Jasbir Elisabeth DO Work Phone: [facility] 05-21-2023 09:02-0500 Blood Pressure Location [facility] 05-21-2023 09:02-0500 Body temperature 98.24 [degF] [facility] 05-21-2023 09:02-0500 Diastolic blood pressure 76 mm[Hg] [facility] 05-21-2023 09:02-0500 Heart rate 86 /min [facility] 05-21-2023 09:02-0500 SaO2% (BldA) [Mass fraction] 99 % [facility] 05-21-2023 09:02-0500 Systolic blood pressure 124 mm[Hg] [facility] 03-12-2023 11:12-0500 Body temperature [...] 08-13-2021 10:48-0400 Blood Pressure Location Hayde METCALF [facility] 08-13-2021 10:48-0400 Body temperature 98.24 [degF] Hayde METCALF [facility] 08-13-2021 10:48-0400 Diastolic blood pressure 70 mm[Hg] Hayde METCALF [facility] 08-13-2021 10:48-0400 Heart rate 69 /min Hayde METCALF [facility] 08-13-2021 10:48-0400 SaO2% (BldA) [Mass fraction] 98 % Hayde METCALF [facility] 08-13-2021 10:48-0400 Systolic blood pressure 110 mm[Hg] Hayde METCALF [facility] 02-06-2019 19:09-0500 BMI (Body Mass Index) 23.24 kg/m2 [facility] 02-06-2019 19:09-0500 Body Temperature 97.7 [degF] [facility] 02-06-2019 19:09-0500 Body weight 65.32 kg [facility] 02-06-2019 19:09-0500 BP Diastolic 95 mm[Hg] [facility] 02-06-2019 19:09-0500 BP Systolic 136 mm[Hg] [facility] 02-06-2019 19:09-0500 Height 167.6 cm [facility] 02-06-2019 19:09-0500 Pulse (Heart Rate) 76 /min Galen Harden [facility], [place] 02-06-2019 19:09-0500 Pulse Oximetry 99 % [facility] , [place] 02-06-2019 19:09-0500 Respiratory Rate 18 /min [facility] [place] Encounters Encounter Date Encounter Type Care Provider Facility Start: 07-30-2024 End: 07-30-2024 Clinisync Result Encounter Jasbir Elisabeth DO Work Phone: [facility] Unsolicited Start: 07-30-2024 End: 07-30-2024 Clinisync Result Encounter Jasbir Elisabeth DO Work Phone: [facility] Unsolicited Start: 07-29-2024 End: 07-29-2024 Clinisync Result Encounter Jasbir Elisabeth DO Work Phone: [facility] Unsolicited Start: 07-29-2024 End: 07-29-2024 Clinisync Result Encounter Jasbir Elisabeth DO Work Phone: [facility] Unsolicited Start: 07-23-2024 End: 07-23-2024 flow sheet Jasbir [...] Comment on above: Third trimester preg ruma; 33 weeks gestation of Start: 07-09-2024 End: [...] Unsolicited Start: 05-07-2024 End: 05-07-2024 ambulatory SHEEBA MDEELLIN Not Available Start: 05-07-2024 End: 05-07-2024 flow [...] Result Encounter Jasbir Elisabeth DO Work Phone: [facility] External Department Unsolicited Start: 04-08-2024 End: 04-11-2024 Clinisync Result Encounter Jasbir Elisabeth DO Work Phone: [facility] External Department Unsolicited Start: 04-08-2024 End: 04-08-2024 [...] Start: 11-07-2023 End: 11-07-2023 ambulatory JULIANNA CHAVARRIA [facility] Start: 11-07-2023 End: 11-07-2023 Subsequent hospital visit by physician Julianna Chavarria DO Work Phone: [facility] Laboratory Comment on above: Screening for cardio vascular condition; Irregular menses; Late period Start: 11-05-2023 End: 11-05-2023 ambulatory Leola LIRIANO [facility] Start: 05-21-2023 End: 05-22-2023 ambulatory Alfredo Floresagustín Facility: [place] [facility] Start: 05-21-2023 End: 05-21-2023 Patient encounter procedure Alfredo Dejesus [facility] Start: 04-02-2023 End: 04-02-2023 ambulatory JULIANNA CHAVARRIA [facility] Start: 03-12-2023 End: 03-12-2023 Emergency department patient visit Hui Salazar Facility[facility] Start: 03-12-2023 End: 03-12-2023 Emergency department patient [facility] Start: 08-13-2021 End: 08-13-2021 Lab Drop off Hayde METCALF [facility] Start: 08-13-2021 End: 08-13-2021 Patient encounter procedure Hayde METCALF [facility] Start: 02-07-2019 End: 02-09-2019 Subsequent hospital visit by physician [facility] Ultrasound Room [facility]trasound Comment on above: Left lower quadrant abdominal pain; Pelvic pain Start: 02-06-2019 End: 02-06-2019 Emergency department patient visit Galen Gonsalvesitrov Work Phone: [facility] ED Comment on above: Left lower quadrant abdominal pain (Primary Dx) Procedures Date Procedure Procedure Detail Performing Clinician Start: 07-30-2024 ALL CBC WITH AUTO DIFF Jasbir Elisabeth DO Work Phone: Start: 07-29-2024 AMNISURE Jasbir Fazi o DO Work Phone: Start: 07-23-2024 Urnls dip stick/tabl et rgnt [...] Work Phone: Start: 02-02-2024 HBSAG SCREEN Jasbir Jesus o DO Work Phone: Start: 02-02-2024 HCV ANTIBODY RFX TO QUANT PCR Jasbir Elisabeth DO Work Phone: Start: 02-02-2024 HIV AB/P24 AG WITH REFLEX Jasbir Elisabeth DO Work Phone: Start: 02-02-2024 MLR HEMOGLOBIN A1C Core y Elisabeth DO Work Phone: Start: 02-02-2024 RAPID PLASMA REAGIN, QUANT Jasbir Elisabeth DO Work Phone: Start: 02-02-2024 [facility] DRUG SCREEN RAPI D (URINE) Jasbirkyung Barber DO Work Phone: Start: 01-11-2024 Urnls dip stick/tabl et rgnt non-auto w/o micrscp Jasbir Elisabeth DO Work Phone: Start: 11-07-2023 Basic metabolic pane l calcium total Julianna Nicole Castillo DO Work Phone: Start: 11-07-2023 Lipid panel Julianna Nicole Castillo DO Work Phone: Start: 04-02-2023 Microscopic observat ion [Identifier] in Cervix by Cyto stain Julianna Castillo DO Work Phone: Start: 02-07-2019 Us pelvic [...] - Td) DTaP/Tdap/Td vaccine (8 - Td) [place] Start: 04-02-2026 Screening for malign ant neoplasm of cervix Pap smear [facility] Start: 11-17-2024 Influenza vaccination Influenz a Vaccine (Season Ended) [facility] Start: 07-29-2024 End: 07-29-2024 Patient encounter procedure 07/29/2024 10:30 AM EDT Routine [facility] [address] [place] [id number] Jasbir Barber, DO [address] [place], [place] [address] [facility] Start: 07-23-2024 End: 07-23-2025 CULTURE, GROUP B STREP WITH SUSCEPTIBLITY CULTURE, GROUP B STREP WITH SUSCEPTIBLITY Lab Routine Third trimester Expected: 07/23/2024, Expires: 07/23/2025 [facility] Work Phone: Comment on above: Expected: 07/23/2024 , Expires: 07/23/2025 Start: 07-23-2024 End: 07-23-2024 Patient encounter procedure 07/23/2024 2:00 PM EDT Routine [facility] [address] [place] [address] Jasbir Barber, DO [address] [place] [address] [facility] Start: 07-23-2024 End: 07-23-2024 Professional / ancillary services management 07/23/2024 1:30 PM EDT Ancillary Procedure [facility] [address] [place] [id number] [facility] Start: 07-09-2024 End: 07-09-2024 Patient encounter procedure [facility] Comment on above: Arrived Start: 06-25-2024 End: 06-25-2024 Patient encounter procedure [facility] Comment on above: Arrived Start: 06-11-2024 End: 06-11-2024 Patient encounter procedure 06/11/2024 2:30 PM EDT Routine [facility] [address] [place] [address] Jasbir Barber, DO [address] [place] [address] [facility] Start: 06-11-2024 End: 06-11-2024 Professional / ancillary services management 06/11/2024 2:00 PM EDT Ancillary Procedure [facility] [address] [place] [phone] [facility] Start: 05-28-2024 End: 05-28-2024 [...] [address] [phone] Sheeba Medellin PA [address] [facility] [place], [place] [id number] [facility] Start: 05-07-2024 End: 05-07-2025 [...] Expected: 05/07/2024 (Approximate), Expires: 05/07/2025 [facility] Comment on above: Expected: 05/07/2024 (Approximate), Expires: 05/07/2025 Start: 04-08-2024 End: 04-08-2024 Patient encounter procedure 04/08/2024 2:40 PM EST Routine [facility] [address] [place] [phone] Jasbir Barber DO [address] [place], [place] [id number] [facility] Start: 04-08-2024 End: 04-08-2024 Professional / ancillary services management 04/08/2024 1:30 PM EST Ancillary Procedure [facility] [address] [place] [address] [facility] Start: 04-02-2024 Depression Screen Depression Screen [facility] Start: 03-04-2024 End: 03-04-2024 Patient encounter procedure [facility] Comment on above: Arrived Start: 03-04-2024 End: 04-04-2024 Alpha fetoprotein, maternal Alpha fetoprotein, maternal Lab Routine 16 weeks gestation of Second trimester Expected: 03/04/2024 (Approximate), Expires: 04/04/2024 [facility] Comment on above: Expected: 03/04/2024 (Approximate), Expires: 04/04/2024 Start: 03-04-2024 End: 03-04-2025 US for US OB ANATOMY SINGLE W US OB CERVICAL LENGTH Imaging Routine Screening, , for anatomic survey Expected: 03/04/2024 (Approximate), Expires: 03/04/2025 [facility] Comment on above: Expected: 03/04/2024 (Approximate), Expires: 03/04/2025 Start: 02-04-2024 End: 02-04-2024 Patient encounter procedure [facility] Comment on above: Arrived Start: 01-11-2024 End: 01-10-2025 ABO/Rh ABO/Rh Lab Routine Missed menses , unspecified gestational age Expected: 01/11/2024 (Approximate), Expires: 01/10/2025 [facility] Comment on above: Expected: 01/11/2024 (Approximate), Expires: 01/10/2025 Start: 01-11-2024 End: 01-10-2025 Blood type and Indirect antibody screen panel - Blood Type and screen Lab Routine Missed menses , unspecified gestational age Expected: 01/11/2024 (Approximate), Expires: 01/10/2025 [facility] Work Phone: Comment on above: Expected: 01/11/2024 (Approximate), Expires: 01/10/2025 Start: 01-11-2024 End: 01-10-2025 Drugs of abuse panel - Urine by Screen method Rapid drug screen, urine Lab Routine , unspecified gestational age Encounter for supervision of normal first in first trimester Expected: 01/11/2024 (Approximate), Expires: 01/10/2025 [facility] Comment on above: Expected: 01/11/2024 (Approximate), Expires: 01/10/2025 Start: 01-11-2024 End: 01-10-2025 US Pelvis transvaginal US OB transvaginal Imaging Routine Missed menses Expected: 01/11/2024 (Approximate), Expires: 01/10/2025 [facility] Comment on above: Expected: 01/11/2024 (Approximate), Expires: 01/10/2025 Start: 11-18-2023 Influenza vaccination Influenza Vacc ine (#1) [facility] Start: 10-18-2023 Influenza vaccination Flu vaccine (# 1) [facility] Start: 11-17-2022 COVID-19 Vaccine () COVID-19 Vaccine ( season) [facility] Start: 09-05-2021 Cervical cancer screen Cervical canc er screen [place], [place] Start: 02-07-2019 End: 03-08-2019 US Pelvis Complete US Pelvis Complete Imaging Routine Left Lower Quadrant Abdominal Pain Expected: 02/07/2019, Expires: 03/08/2019 [place] Comment on above: Expected: 02/07/2019 , Expires: 03/08/2019 Start: 11-17-2018 Influenza vaccination Flu vaccine (# 1) [place] Start: 2014 Hepatitis C screening Hepatitis C sc reen [facility] Start: 2012 Chlamydia screen Chlamydia screen [place], [place] Start: 12-17-2011 HIV screen HIV screen [place], [place] Start: 12-17-2011 HIV screening HIV screen [facility] Start: 12-17-2011 HPV vaccine (1 - 3-d ose series) HPV vaccine (1 - 3-dose series) [facility] Start: 12-17-2007 HPV vaccine (1 - Fem risa 2-dose series) HPV vaccine (1 - Female 2-dose series) [place] Bacteria identified in Urine by Culture Urine culture Microbiology Routine Missed menses Ordered: 01/11/2024 [facility] Comment on above: Ordered: 01/11/2024 CBC W Auto Different ial panel - Blood CBC and differential Lab Routine Missed menses , unspecified gestational age Ordered: 01/11/2024 [facility] Comment on above: Ordered: 01/11/2024 CHLAMYDIA TRACHOMATI S (GENITO/STI) CHLAMYDIA TRACHOMATIS (GENITO/STI) Lab Routine Exposure to STD Ordered: 03/04/2024 [facility] Comment on above: Ordered: 03/04/2024 Hemoglobin A1c/Hemoglobin.total in Blood Hemoglobin A1c Lab Routine Missed menses , unspecified gestational age Ordered: 01/11/2024 [facility] Comment on above: Ordered: 01/11/2024 Hepatitis B virus surface Ag [Presence] in Serum or Plasma by Immunoassay Hepatitis B surface antigen Lab Routine Missed menses , unspecified gestational age Ordered: 01/11/2024 [facility] Comment on above: Ordered: 01/11/2024 Hepatitis C virus Ab [Presence] in Serum or Plasma by Immunoassay Hepatitis C antibody Lab Routine Missed menses , unspecified gestational age Ordered: 01/11/2024 [facility] Comment on above: Ordered: 01/11/2024 HIV-1/HIV-2 antigen/antibody combination immunoassay HIV-1 and HIV-2 antibodies Lab Routine Missed menses , unspecified gestational age Ordered: 01/11/2024 [facility] Comment on above: Ordered: 01/11/2024 Neisseria gonorrhoea e DNA [Presence] in Unspecified specimen by ARSENIO with probe detection Neisseria gonorrhea DNA probe, direct Lab Routine Exposure to STD Ordered: 03/04/2024 [facility] Comment on above: Ordered: 03/04/2024 Reagin Ab [Presence] in Serum by RPR RPR Lab Routine Missed menses , unspecified gestational age Ordered: 01/11/2024 [facility] Comment on above: Ordered: 01/11/2024 Rubella antibody, IgG Rubella an tibody, IgG Lab Routine Missed menses , unspecified gestational age Ordered: 01/11/2024 [facility] Comment on above: Ordered: 01/11/2024 SURESWAB(R) ADVANCED VAGINITIS PLUS, TMA SURESWAB(R) ADVANCED VAGINITIS PLUS, TMA Pathology and Cytology Routine Vaginal discharge Ordered: 03/04/2024 [facility] Work Phone: Comment on above: Ordered: 03/04/2024 Immunizations Immunization Date Immunization Notes Care Provider Pinky grajeda 12-08-2020 SARS-CoV-2 (COVID-19 ) mRNA BNT-162b2 vax [facility] 11-17-2020 SARS-CoV-2 (COVID-19 ) mRNA BNT-162b2 vax [facility] 11-09-2019 influenza virus vaccine, unspecified formulation [facility] 11-09-2019 influenza, injectabl e, quadrivalent, preservative free Julianna Castillo DO Work Phone: [facility] 08-08-2017 tetanus toxoid, redu john diphtheria toxoid, and acellular pertussis vaccine, adsorbed [facility] Comment on above: Result Comment: 2023: VIS DATE: 05/12/2014 11-13-2009 meningococcal ACWY vaccine, unspecified formulation [facility] 11-13-2009 meningococcal polysaccharide (groups A, C, Y and W-135) diphtheria toxoid conjugate vaccine (MCV4P) Julianna Chavarria DO Work Phone: [facility] 11-13-2009 tetanus toxoid, redu john diphtheria toxoid, and acellular pertussis vaccine, adsorbed [facility] 11-13-2009 varicella virus vaccine [facility] 10-22-2002 diphtheria, tetanus toxoids and acellular pertussis vaccine, unspecified formulation Juliannaosiel Bernalyaniraey DO Work Phone: [facility] 10-22-2002 DTaP, unspecified formulation [facility] 10-22-2002 measles, mumps and rubella virus vaccine [facility] 10-22-2002 poliovirus vaccine, inactivated Julianna Yoeva DO Work Phone: [facility] 10-22-2002 poliovirus vaccine, unspecified formulation [facility] 09-22-1998 diphtheria, tetanus toxoids and acellular pertussis vaccine, unspecified formulation Julianna Yoeva DO Work Phone: [facility] 09-22-1998 DTaP, unspecified formulation [facility] 09-22-1998 haemophilus influenz ae type b vaccine, PRP-OMP conjugate [facility] 09-22-1998 measles, mumps and rubella virus vaccine [facility] 09-22-1998 trivalent poliovirus vaccine, live, oral Julianna Yonley DO Work Phone: [facility] 09-22-1998 varicella virus vaccine [facility] 11-04-1997 diphtheria, tetanus toxoids and acellular pertussis vaccine, unspecified formulation Julianna Yonley DO Work Phone: [facility] 11-04-1997 DTaP, unspecified formulation [facility] 11-04-1997 haemophilus influenz ae type b vaccine, PRP-OMP conjugate [facility] 08-19-1997 diphtheria, tetanus toxoids and acellular pertussis vaccine, unspecified formulation Julianna Yonley DO Work Phone: [facility] 08-19-1997 DTaP, unspecified formulation [facility] 08-19-1997 haemophilus influenz ae type b vaccine, PRP-OMP conjugate [facility] 08-19-1997 hepatitis B vaccine, pediatric or pediatric/adolescent dosage [facility] 08-19-1997 poliovirus vaccine, inactivated Julianna Yonley DO Work Phone: [facility] 08-19-1997 poliovirus vaccine, unspecified formulation [facility] 04-22-1997 diphtheria, tetanus toxoids and acellular pertussis vaccine, unspecified formulation Julianna Yonley DO Work Phone: [facility] 04-22-1997 DTaP, unspecified formulation [facility] 04-22-1997 haemophilus influenz ae type b vaccine, conjugate unspecified formulation Julianna Yonley DO Work Phone: [facility] 04-22-1997 hepatitis B vaccine, pediatric or pediatric/adolescent dosage [facility] 04-22-1997 Hib, unspecified formulation [facility] 04-22-1997 poliovirus vaccine, unspecified formulation Julianna Chavarria DO Work Phone: [facility] 1996 hepatitis B vaccine, pediatric or pediatric/adolescent dosage [facility] NEGATED: Highlighted row has not occurred!05-21-2023 influenza virus vaccine, unspecified formulation [facility] Payers Date Payer Category Payer Private Health Insurance [employer] [id number] 2022 Unknown [id number] 2015 Unknown [employer] [address] xxxxxxxxxxxx 2015-Present [phone] [address] [place] [address] xxxxxxxxxxxx [id number] 1996 Unknown [id number] 1996 Unknown [id number] .727 1996 Unknown [id number] .174 1996 Unknown [id number] .174 1996 Unknown [id number] .727 1996 Unknown [id number] [id number] .9 1996 Unknown [id number] [id number] .9 1996 Unknown [id number] .1258 1996 Unknown [id number] [id number] .1258 1996 Unknown [id number] [id number] .1258 1996 Unknown [id number] [id number] .1258 1996 Unknown [id number] .1258 1996 Unknown [id number] 1996 Unknown [id number] 1996 Unknown [id number] 1996 Unknown [id number] 1996 Unknown [id number] 1996 Unknown [id number] Social History Date Type Detail Facility Start: 02-06-2019 End: 02-17-2022 Tobacco smoking status [facility] Never smoker [place], [place] Start: 02-06-2019 Alcohol intake Current non-dr band tier of alcohol (finding) [place], [place] Start: 1995 Sex Assigned At Not on file M [place], [place] Tobacco smoking status Never [facility] Start: 04-02-2023 Sex Assigned At Female F [facility] Tobacco smoking stat [facility] Tobacco smoking consumption unknown [facility] Start: 11-22-2023 [facility] Start: 02-17-2022 Tobacco use and exposure Smokeless tobacco non-user [facility] Start: 04-02-2023 Alcoholic beverage intake Current drinker of alcohol (finding) [facility] Start: 04-02-2023 History of Social function [facility] [employer] (I/We) worried wheth er (my/our) food would run out before (I/we) got money to buy more. Never true [facility] Start: 04-02-2023 Alcohol Comment I typically wi ll have a white claw if I have a drink. [facility] Functional Status Date Assessment Result Facility 05-21-2023 Functional Status N/A [facility] 03-12-2023 Functional Status N/A [facility] Clinical Notes 08-13-2021 to 07-23-2024 Lorelei [...] nursing note reviewed. Exam conducted with a web weaver present. Vitals: There is no height or [...] Jasbir Barber DO documented in this encounter [facility] 07-09-2024 History of Presen t illness Narrative [...] nursing note reviewed. Exam conducted with a web weaver present. Vitals: There is no height or [...] Jasbir Barber DO documented in this encounter [facility] 06-25-2024 History of Presen t illness Narrative [...] of: SONYA Wilkes documented in this encounter [facility] 06-11-2024 History of Presen t illness Narrative [...] nursing note reviewed. Exam conducted with a web weaver present. Vitals: There is no height or [...] Jasbir Barber DO documented in this encounter [facility] 05-28-2024 History of Presen t illness Narrative [...] nursing note reviewed. Exam conducted with a web weaver present. Vitals: There is no height or [...] of: SONYA Wilkes documented in this encounter [facility] 05-07-2024 History of Presen t illness Narrative [...] at today's visit to have done at [facility]. Orders Placed This Encounter Procedures CBC Glucose tolerance, 1 hour POCT urinalysis dipstick manually resulted Follow Up: Patient is to return to office in 2 week for routine OB appointment. Documented by Mehnaz Hogue MA on behalf of: SONYA Wilkes documented in this encounter [facility] 04-08-2024 History of Presen t illness Narrative [...] nursing note reviewed. Exam conducted with a web weaver present. Vitals: There is no height or [...] Jasbir Barber DO documented in this encounter [facility] 03-04-2024 History of Presen t illness Narrative [...] of: SONYA Wilkes documented in this encounter [facility] 02-04-2024 History of Presen t illness Narrative [...] nursing note reviewed. Exam conducted with a web weaver present. Vitals: There is no height or [...] or undercooked meat, and stay away from [facility]. Patient has been consulted regarding any further do's and don'ts of . Patient voiced understanding and all questions and concerns were answered. Orders Placed This Encounter Procedures POCT urinalysis dipstick manually resulted Follow Up: Patient is to return in 4 weeks for routine OB appointment. Documented by Shey Alberts LPN on behalf of: Jasbir Barber DO documented in this encounter [facility] 01-11-2024 History of Presen t illness Narrative [...] or undercooked meat, and stay away from [facility]. Patient has also been advised to [...] Betty Bradley LPN documented in this encounter [facility] 03-12-2023 Hospital Discharg e instructions Patient Education 03/12/2023 13:01:07 Contusion, Bxut-ma-Cqwr Contusion A contusion is a deep bruise. [...] sitting or lying down. General instructions Take qhjo-jww-eooccli and prescription medicines only as told by [...] also called RICE. You may be given dkdb-usu-frnyczn medicines for pain. Contact a doctor if [...] provider. Document Revised: 12/29/2021 Document Reviewed: 12/29/2021 [employer] Patient Education 2022 [employer] Follow Up Care 03/12/2023 11:10:11 With:JULIANNA CHAVARRIA DO Address: [address] [place] [id number] When:03/15/2023 [facility] 03-12-2023 Evaluation + Plan note Extrac meli from: Title:ED Note Author:Deanna Bourne PA-C Date :03/12/23 1. Nasal contusion (S00.33XA : Contusion of nose, initial encounter) Orders: CT Maxillofacial w/o Contrast [facility]05-28-2022 Evaluation + Plan note Diagnostic Tests Pending * Group A Strep by PCR 08/13/21 [facility]05-28-2022 Hospital Discharge instructions Patient Education 08/13/2021 11:21:39 Pharyngitis, Ijle-zx-Ytvv Pharyngitis Pharyngitis is a sore throat (pharynx). This is when there is redness, pain, and swelling in your throat. Most of the time, this condition gets better on its own. In some cases, you may need medicine. Follow these instructions at home: Take rwui-kio-njitgvk and prescription medicines only as told by [...] 08/21/2008 Document Revised: 02/15/2018 Document Reviewed: 04/10/2017 [employer] Patient Education 2020 [employer] ([employer] [facility] Evaluation note* Diagnosis Missed menses , unspecified gestational age Encounter for supervision of normal first in first trimester documented [facility]* Diagnosis First trimester state, incidental 11 weeks gestation of documented in this encounter [facility]* Diagnosis 16 weeks gestation of Second trimester state, incidental Exposure to STD Vaginal discharge Leukorrhea, not specified as infective Screening, , for anatomic survey Encounter for anatomic survey documented [facility]* Diagnosis Screening for cardiovascular condition Screening for other and unspecified cardiovascular conditions Irregular menses Irregular menstrual cycle Late period Other disorder of menstruation and other abnormal bleeding from female genital tract [facility] Diagnosis Second trimester state, incidental 20 weeks gestation of documented in [facility] encounter [facility]* Diagnosis Second trimester state, incidental 24 weeks gestation of Diabetes mellitus screening Screening for diabetes mellitus documented in [facility]* Diagnosis 27 weeks gestation of Second trimester state, incidental size inconsistent with dates documented in this encounter [facility]* Diagnosis Third trimester state, incidental 29 weeks gestation of documented [facility]* Diagnosis Third trimester state, incidental 31 weeks gestation of documented in [facility]* Diagnosis Third trimester state, incidental 33 weeks gestation of documented in [facility]* Diagnosis Third trimester state, incidental 35 weeks gestation of [facility] N[facility] No data available for this section [facility] Hospital Discharge instructions No data available for this section [facility] No data available for this section [facility] Summary Purpose Family History No Family History Records Found No data available for this section No data available for this section No Family History Records FoundNo Family History Records FoundNo Family History Records FoundNo Family History Records FoundNo Family History Records Found Advance Directives Documents on File Type Date Recorded 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 Directives and Living Will Power of Banking Consultant Reason for Referral Status Reason Specialty Diagnoses / Procedures Referred By Contact Referred To Contact Pending Review Radiology Diagnoses Pelvic pain Procedures US NON OB TRANSVAGINAL Galen Harden MD [address] [place] [address] Status Reason Specialty Diagnoses / Procedures Referre d By Contact Referred To Contact Open Radiology Diagnoses Left lower quadrant abdominal pain Procedures US Pelvis Complete HC US EXAM PELVIC COMPLETE Galen Harden MD [address] [place] [address] Status Reason Specialty Diagnoses / Procedures Referre d By Contact Referred To Contact [facility] Diagnoses Left lower quadrant abdominal pain Procedures US Pelvis Complete Galen Harden MD [address] [place] [address] Assessments Diagnosis Left lower quadrant abdominal pain Pelvic pain Diagnosis Left lower quadrant abdominal pain- Primary Discharge Instructions * Instructions* Galen Harden MD - 02/06/2019 Pelvic ultrasound will be scheduled for tomorrow * Attachments The following attachments cannot be sent through Care Everywhere. * Abdominal Pain (Micronesian) documented in this encounter Additional Source Comments INFORMATION SOURCE (unrecogn ized section and content) DATE CREATED AUTHOR 09/05/2017 [facility] DATE CREATED AUTHOR AUTHOR'S ORGANIZ ATION 06/01/2023 [facility] DATE CREATED AUTHOR AUTHOR'S ORGANIZ ATION 11/06/2023 [facility] DATE CREATED AUTHOR AUTHOR'S ORGANIZ ATION 11/08/2023 [facility] Deny moralez DATE CREATED AUTHOR AUTHOR'S ORGANIZ ATION 11/13/2023 [employer] [facility] DATE CREATED AUTHOR AUTHOR'S ORGANIZ ATION 07/26/2024 [facility] EPIC Reason for Visit (unrecogniz ed section and content) Status Reason Specialty Diagnoses / Procedures Referre d By Contact Referred To Contact Open Radiology Diagnoses Left lower quadrant abdominal pain Procedures US Pelvis Complete HC US EXAM PELVIC COMPLETE Galen Harden MD [address] [place] [address] Reason Comments Abdominal Pain Lower abdomen pain. Reason Comments Amenorrhea Reason Comments Routine Visit Patient Care team informatio n (unrecognized section and content) Dicer Operator Relationship Specialty Start Date End Date Julianna Chavarria DO [address] [place] [place] [address] PCP - General Internal Medicine 01/11/24 Dicer Operator Relationship Specialty Start Date End Date Julianna Chavarria DO [address] [place] [address] PCP - General Internal Medicine 01/11/24 Dicer Operator Relationship Specialty Start Date End Date Julianna Chavarria DO [address] [place] [address] PCP - General Internal Medicine 01/11/24 Dicer Operator Relationship Specialty Start Date End Date Julianna Chavarria DO [address] [place] [place] [address] PCP - General Internal Medicine 01/11/24 Dicer Operator Relationship Specialty Start Date End Date Julianna Chavarria DO [address] [place] [place] [address] PCP - General Internal Medicine 01/11/24 Dicer Operator Relationship Specialty Start Date End Date GabeyaniraJulianna randolph DO [address] [place] [address] PCP - General Internal Medicine 01/11/24 Dicer Operator Relationship Specialty Start Date End Date Julianna Chavarria DO [address] [place] [address] PCP - General Internal Medicine 01/11/24 Dicer Operator Relationship Specialty Start Date End Date Julianna Chavarria DO [address] [place] [address] PCP - General Family Medicine 12/20/15 Dicer Operator Relationship Specialty Start Date End Date Julianna Chavarria DO [address] [place] [address] PCP - General Internal Medicine 01/11/24 Dicer Operator Relationship Specialty Start Date End Date Julianna Chavarria DO [address] [place] [address] PCP - General Internal Medicine 01/11/24 Dicer Operator Relationship Specialty Start Date End Date Julianna Chavarria DO [address] [place] [address] PCP - General Internal Medicine 01/11/24 FOR [...] BE BASED ON THE PRIMARY CLINICAL RECORDS. [facility]. provides no warranty or guarantee of the accuracy or completeness of information in this document.
== END 2024-08-29 12:34 | disposition home or self-care (01) ==
LOC: FBCO 09:39
PROVIDERS: PCP Student in an Organized Health Care Education/Training Program; Visit Provider Obstetrics & Gynecology
DX: Z39.1 Encounter for care and examination of lactating mother (principal)
CPT/HCPCS: G0463